=== PATIENT | male | born 1940 | race Caucasian/White ===

== ENCOUNTER 2019-06-18 01:14 | Inpatient (IN) ==
[2019-06-18] MEDS ORDERED: IPRATROPIUM/ALBUTEROL 3 ML AMPUL.NEB NEB ONE (01:27)
[2019-06-18] MEDS ORDERED: ACETAMINOPHEN 325 MG TABLET PO ONE (01:41)
[2019-06-18] MEDS ORDERED: 0.9 % SODIUM CHLORIDE 1,000 ML IV ONE (01:42)
[2019-06-18] MEDS ORDERED: cefTRIAXone 1 GM VIAL IV ONE ×2 (01:44→10:00)
[2019-06-18 02:33] LABS: Basophils # (Auto) 0 K/mcL (0.0-0.3); Basophils % (Auto) 0.2 % (0.0-2.0); Eosinophils # (Auto) 0 K/mcL (0.0-0.7); Eosinophils % (Auto) 0.4 % (0.0-7.0); Granulocytes % (Auto) 76.9 % (38.0-78.0); Hematocrit 22.6 % (41.0-55.0); Hemoglobin 7.6 g/dL (13.5-16.5); Lymphocytes # (Auto) 0.5 K/mcL (1.5-4.8); Lymphocytes % (Auto) 20.2 % (15.5-49.0); Mean Cell Volume 102.9 fL (80.0-100.0); Mean Corpuscular HGB Conc 33.8 g/dL (31.0-36.0); Mean Platelet Volume 7.3 fL (7.4-10.4); Monocytes # (Auto) 0.1 K/mcL (0.1-0.9); Monocytes % (Auto) 2.3 % (1.0-12.0); Platelet Count 90 K/mcL (140-440); RBC 2.19 M/mcL (4.50-5.90); WBC 2.7 K/mcL (4.5-11.0)
--- NOTE | 2019-06-18 02:44 | Emergency Department Note ---
SOB HPI - General Chief Complaint: Shortness of Breath/Dyspnea Stated Complaint: cough, SOB, chills, body aches Time Seen by Provider: 06/18/19 02:40 Source: patient, family Mode of arrival: ambulatory Limitations: no limitations - History of Present Illness MD Complaint: shortness of breath, cough Onset (ago): week(s) (2) Severity: moderate Consistency/Duration: constant Improves with: nothing Worsens with: coughing Known history of: other (lung ca) Associated symptoms: Reports: fever, cough, sputum production. Denies: chest pain, palpitations, carpopedal spasm Treatment prior to arrival: bronchodilator - Related Data Home oxygen amount: none Home Medications Medication Instructions Recorded Confirmed RX: Allopurinol [Zylopriim] 300 mg PO DAILY 08/12/15 06/18/19 RX: Ergocalciferol (Vitamin D2) 50,000 unit PO .TWICE WEEKLY 08/12/15 06/18/19 [Drisdol] RX: Fish Oil 4,000 mg PO TID 08/12/15 06/18/19 RX: Gabapentin [Neurontin] 300 mg PO BID@0900,1200 08/12/15 06/18/19 RX: Insulin Aspart [Novolog] 10 unit SQ TID 08/12/15 06/18/19 RX: Insulin Detemir [Levemir] 33 unit SQ DAILY 08/12/15 06/18/19 RX: Metoprolol Tartrate [Lopressor] 50 mg PO BID 08/12/15 06/18/19 RX: Nitroglycerin [Nitrostat] 0.4 mg SL Q5M PRN 08/12/15 06/18/19 RX: Sevelamer [Renvela] 800 mg PO TIDCC 08/12/15 06/18/19 RX: Vitamin E 1 cap PO DAILY 08/12/15 06/18/19 RX: Furosemide [Lasix] 40 mg PO BID 07/13/16 06/18/19 RX: Gabapentin [Neurontin] 400 mg PO HS 10/07/16 06/18/19 RX: Levothyroxine [Synthroid] 100 mcg PO QAMAC 10/07/16 06/18/19 RX: Mometasone/Formoterol [Dulera 2 puff IH BID 10/07/16 06/18/19 200 Mcg/5 Mcg Inhaler] RX: Omeprazole [Prilosec] 20 mg PO ACB 10/07/16 06/18/19 fentaNYL [Fentanyl] 50 mg TD Q3D 07/27/18 06/18/19 RX: Losartan Potassium 50 mg PO DAILY 05/21/19 06/18/19 traZODone HCL [Desyrel] 50 mg PO HS 05/21/19 06/18/19 Previous Rx's Medication Instructions Recorded RX: Ipratropium/Albuterol Sulfate 2 puff INH QID #1 inhaler 03/04/16 [Combivent] Allergies Allergy/AdvReac Type Severity Reaction Status Date / Time Penicillins Allergy Mild Hives Verified 06/18/19 01:19 Review of Systems All systems ED: reviewed and negative except as stated. Past Medical History - Past Medical History [facility] Narrative: Medical History (Last Updated 05/28/19 @ 07:10 by Olivier Ponce DO) Macrocytosis (Chronic) Hypothyroidism, acquired (Chronic) Chronic, continuous use of opioids (Chronic) History of cardiac arrest (Chronic) COPD (chronic obstructive pulmonary disease) (Chronic) History of acute myocardial infarction (Chronic) ESRD (end stage renal disease) on dialysis (Chronic) Anemia in chronic kidney disease (CKD) (Chronic) Diabetes mellitus type 2 with complications (Chronic) Diabetic neuropathy (Chronic) RBBB (right bundle branch block) (Chronic) History of gout (Acute) Acute exacerbation of chronic obstructive airways disease (Resolved) Anemia, macrocytic (Resolved) Bacteremia due to Gram-positive bacteria (Resolved) Chest pain (Resolved) Diverticulitis (Resolved) Heme positive stool (Resolved) Mass of upper lobe of left lung (Resolved) Pneumonitis (Resolved) All Active Problems (Last Updated 05/28/19 @ 07:10 by Olivier Ponce DO) Macrocytosis (Acute) Macrocytosis (Chronic) Hypothyroidism, acquired (Chronic) Shortness of breath (Acute) Angina pectoris (Acute) Chronic, continuous use of opioids (Chronic) Status post coronary artery stent placement (Chronic) History of cardiac arrest (Chronic) COPD (chronic obstructive pulmonary disease) (Chronic) History of acute myocardial infarction (Chronic) ESRD (end stage renal disease) on dialysis (Chronic) Anemia in chronic kidney disease (CKD) (Chronic) Diabetes mellitus type 2 with complications (Chronic) Diabetic neuropathy (Chronic) RBBB (right bundle branch block) (Chronic) Past Surgical History (Last Updated 05/28/19 @ 07:02 by Olivier Ponce DO) Status post coronary artery stent placement (Chronic) Status post appendectomy (Acute) Medical history: Reports: arthritis (osteoarthritis.), asthma, cancer (non-small cell lung, recurrent 2016. Cyroablation [address] [place] Prostate cancer "burned out".), CAD (coronary artery disease) (stented X 4 2001, X1 2000-toya.), CHF, COPD, DM (Type II insulin using), GERD, hyperlipidemia, hypertension, hypothyroidism, kidney stones, obesity, renal disease (end stage, dialysis started approx. 2013.), other (Gout. Diab periph neurop. Anemia. Insomnia. Restless leg syndrome. Pneumonia. Heart murmur.). Denies: CVA, myocardial infarction Psychiatric history: Reports: depression. Denies: anxiety Surgical history ED: Reports: angioplasty/stent (see above), appendectomy, other (Fistula placement) - Social History smoking status: Former smoker Alcohol use: Reports: Occasionally (Once a week.) Drug use: Reports: none. Denies: marijuana Physical Exam Limitations: no limitations General appearance: alert, in no apparent distress Head: atraumatic, normocephalic Eye: Present: normal appearance, PERRL, EOMI. Absent: scleral icterus, conjunctival injection ENT: normal oropharynx, mucous membranes moist Neck: Present: trachea midline. Absent: lymphadenopathy, thyromegaly Chest: Present: symmetric chest wall rise Respiratory: Present: rales/crackles, wheezes. Absent: normal lung sounds b ilaterally, respiratory distress, stridor, accessory muscle use, prolonged expiratory phase Cardiovascular: Present: regular rate, normal rhythm. Absent: systolic murmur, diastolic murmur Abdominal: Present: soft. Absent: distention, tenderness, guarding, rebound, rigidity, organomegaly, mass Extremities: Absent: pedal edema, pretibial edema, calf tenderness Back: Absent: CVA tenderness (R), CVA tenderness (L), spinous process tenderness Neurological: Present: alert, oriented X3 Psychiatric: Present: normal affect, normal mood Skin: Present: warm, dry Course Course Narrative: 79-year-old male presenting to the emergency department with a chief complaint of cough progressive dyspnea. Patient is noted to have a history of dialysis. Patient symptoms over 2 weeks. Patient treated in the emergency department with srikanth fluid bolus to avoid volume overload as he is on dialysis. Patient also given first dose of IV antibiotics here in the ED. Blood cultures obtained [place] was elevated white blood cell count was slightly suppressed patient was febrile this was treated with combination of Tylenol and ibuprofen. Tylenol really did not help the fever at all. Discussed case with the hospitalist and the consensus medical opinion is to admit the patient. Vital Signs Temperature 101.6 F H 06/18/19 01:15 Pulse Rate 95 H 06/18/19 01:15 Respiratory Rate 18 06/18/19 01:15 Blood Pressure 172/74 06/18/19 01:15 Pulse Oximetry (%) 90 06/18/19 01:15 Temperature 100.9 F H 06/18/19 03:27 Pulse Rate 92 H 06/18/19 03:48 Respiratory Rate 18 06/18/19 03:48 Blood Pressure 153/64 06/18/19 03:47 Pulse Oximetry (%) 93 06/18/19 03:48 Shortness of Breath/Dyspnea - Differential Diagnosis Likely: acute exacerbation of chronic obstructive airways disease, community acquired pneumonia. Unlikely: congestive heart failure, asthma with exacerbation, pulmonary embolism - Lab Data Result diagrams: 06/18/19 01:45 06/18/19 01:45 Lab Results 06/18/19 06/18/19 06/18/19 Range/Units 01:45 01:45 01:45 WBC 2.7 L (4.5-11.0) K/mcL RBC 2.19 L (4.50-5.90) M/mcL Hgb 7.6 L (13.5-16.5) g/dL Hct 22.6 L (41.0-55.0) % MCV 102.9 H (80.0-100.0) fL MCH 34.8 H (26.0-34.0) pg MCHC 33.8 (31.0-36.0) g/dL RDW 26.0 H (11.5-14.5) % Plt Count 90 L (140-440) K/mcL MPV 7.3 L (7.4-10.4) fL Gran % 76.9 (38.0-78.0) % Lymph % (Auto) 20.2 (15.5-49.0) % [place] % (Auto) 2.3 (1.0-12.0) % Eos % (Auto) 0.4 (0.0-7.0) % Baso % (Auto) 0.2 (0.0-2.0) % Gran # 2.1 (1.8-8.0) K/mcL Lymph # (Auto) 0.5 L (1.5-4.8) K/mcL [place] # (Auto) 0.1 (0.1-0.9) K/mcL Eos # (Auto) 0 (0.0-0.7) K/mcL Baso # (Auto) 0 (0.0-0.3) K/mcL VBG Lactic Acid 2.7 H (0.5-2.0) mmol/L Sodium 137 (133-145) mmol/L Potassium 4.8 (3.3-5.1) mmol/L Chloride 100 (96-108) mmol/L Carbon Dioxide 25 (22-30) mmol/L Anion Gap 12.0 (8-16) BUN 30 H (8-23) mg/dl Creatinine 3.8 H (0.7-1.2) mg/dl GFR Calculation 14 Glucose 82 (70-105) mg/dL Calcium 8.9 (8.6-10.4) mg/dl Total Bilirubin 1.1 H (0.0-1.0) mg/dL AST 29 (0-37) U/l ALT 19 (0-40) U/l Alkaline Phosphatase 134 H (39-117) U/L Total Protein 7.5 (5.9-8.4) gm/dL Albumin 3.7 (3.2-5.2) gm/dL Globulin 3.8 H (2.2-3.7) gm/dL Albumin/Globulin Ratio 1.0 (1.0-2.3) - EKG Data EKG shows normal: Reports: sinus rhythm Rate: Reports: normal Rhythm: Reports: NSR [place]/QRS: Reports: right axis deviation, RBBB Heart block present: Reports: 1st Degree Critical Care Time Critical Care Time: Yes Total Critical Care Time: 40 Disposition Pt seen by [employer]/PA only: No Clinical Impression: Chronic renal disease Pneumonia Qualifiers: Pneumonia type: due to unspecified organism Laterality: bilateral Disposition: Xfer As Inpt ([facility]) Condition: Serious Referrals: Isidro Matos ARNP [Primary Care Provider] -
[2019-06-18] MEDS ORDERED: IBUPROFEN 200 MG TABLET PO ONE (02:46)
[2019-06-18 02:52] LABS: ALT/SGPT 19 U/l (0-40); AST/SGOT 29 U/l (0-37); Albumin 3.7 gm/dL (3.2-5.2); Alkaline Phosphatase 134 U/L (39-117); Bilirubin,Total 1.1 mg/dL (0.0-1.0); Blood Urea Nitrogen 30 mg/dl (8-23); Calcium 8.9 mg/dl (8.6-10.4); Carbon Dioxide 25 mmol/L (22-30); Chloride 100 mmol/L (96-108); Globulin 3.8 gm/dL (2.2-3.7); Glomerular Filtration Rate 14; Glucose 82 mg/dL (70-105)
[2019-06-18] MEDS ORDERED: ONDANSETRON 4 MG/2 ML VIAL IV PRN ×2 (03:28→12:22)
[2019-06-18 04:24] LABS: Appearance,Urine CLEAR; Bacteria,Urine 0 /hpf (0); Bilirubin,Urine NEG (NEG); Color,Urine YELLOW; Culture Indicated,Urine NO; Glucose,Urine (UA) NEGATIVE (NEG); Ketones,Urine NEG (NEG); Leukocyte Esterase,Urine NEG /uL (NEG); Mucus,Urine FEW /hpf (0); Nitrate,Urine NEG (NEG); Protein,Urine >=500 mg/dL (NEG); Specific Gravity,Urine 1.013 (1.000-1.035); Urine Blood NEG mg/dL (<0.03); Urine RBC 4 /hpf (0-1); Urine Squamous Epithelial Cell < 1 /hpf (0-4); Urine WBC < 1 /hpf (0-4); Urobilinogen,Urine NEG (NEG)
--- NOTE | 2019-06-18 07:35 | Internal Med History&Physical ---
Medical - H&P: HPI Patient information: Note initiated : 06/18/19 at 7:32 am Service Date, if different from initiated Date: [] Patient: Giorgio Aguiar a 79 y/o M admitted on 06/18/19 for Cough, SOB, Chills, Body Aches. Chief Complaint: [] History of present illness: Mr. Aguiar is a 79 year old M Presents to the ED with 2 weeks worth of shortness of breath cough body aches fevers chills. Patient states he had productive cough and shortness of breath for the past 2 3 weeks with fevers and chills. He also has left lower lateral chest wall pleuritic pain, made worse by coughing and deep breathing. In the ER he was evaluated found to be febrile with tachypnea mild tachycardia with a leukopenia and elevated lactate. Chest x-ray with lower lobe pneumonia, more on the left. Hemoglobin low but chronically low patient states he gets his blood transfusion several times a year denies any bleeding from his stools. No diarrhea. Was admitted to [facility] in November for pneumonia and had pancytopenia at th at time and was supposed to follow-up Dr. Corona which he believes he did does not recall what Dr. Corona said. He is able to urinate a little bit throughout the day. The dialysis Friday. Review of Systems: Pertinent positives as above. Denies headache/nausea/vomiting/abdominal pain/diarrhea. Many 10 point review of system reviewed negative Medical - H&P: PMH Medical history: Medical History (Last Updated 05/28/19 @ 07:10 by Olivier Ponce DO) Macrocytosis (Chronic) Hypothyroidism, acquired (Chronic) Chronic, continuous use of opioids (Chronic) History of cardiac arrest (Chronic) COPD (chronic obstructive pulmonary disease) (Chronic) History of acute myocardial infarction (Chronic) ESRD (end stage renal disease) on dialysis (Chronic) Anemia in chronic kidney disease (CKD) (Chronic) Diabetes mellitus type 2 with complications (Chronic) Diabetic neuropathy (Chronic) RBBB (right bundle branch block) (Chronic) History of gout (Acute) Acute exacerbation of chronic obstructive airways disease (Resolved) Anemia, macrocytic (Resolved) Bacteremia due to Gram-positive bacteria (Resolved) Chest pain (Resolved) Diverticulitis (Resolved) Heme positive stool (Resolved) Mass of upper lobe of left lung (Resolved) Pneumonitis (Resolved) Squamous cell lung cancer Past Surgical History (Last Updated 05/28/19 @ 07:02 by Olivier Ponce DO) Status post coronary artery stent placement (Chronic) Status post appendectomy (Acute) Cryoablation by Dr. Trujillo squamous cell lung cancer Family history: Mother had heart disease father of an [place] Social History Patient quit smoking 2000 denies alcohol use ablates with a cane lives at home with his Medical - H&P: Meds Home Medications Medication Instructions Recorded Confirmed Type Allopurinol [Zylopriim] 300 mg PO DAILY 08/12/15 06/18/19 History Ergocalciferol (Vitamin D2) 50,000 unit PO .TWICE WEEKLY 08/12/15 06/18/19 History [Drisdol] Fish Oil 4,000 mg PO TID 08/12/15 06/18/19 History Gabapentin [Neurontin] 300 mg PO BID@0900,1200 08/12/15 06/18/19 History Insulin Aspart [Novolog] 10 unit SQ TID 08/12/15 06/18/19 History Insulin Detemir [Levemir] 33 unit SQ DAILY 08/12/15 06/18/19 History Metoprolol Tartrate [Lopressor] 50 mg PO BID 08/12/15 06/18/19 History Nitroglycerin [Nitrostat] 0.4 mg SL Q5M PRN 08/12/15 06/18/19 History Sevelamer [Renvela] 800 mg PO TIDCC 08/12/15 06/18/19 History Vitamin E 1 cap PO DAILY 08/12/15 06/18/19 History Ipratropium/Albuterol Sulfate 2 puff INH QID #1 inhaler 03/04/16 06/18/19 Rx [Combivent] Furosemide [Lasix] 40 mg PO BID 07/13/16 06/18/19 History Gabapentin [Neurontin] 400 mg PO HS 10/07/16 06/18/19 History Levothyroxine [Synthroid] 100 mcg PO QAMAC 10/07/16 06/18/19 History Mometasone/Formoterol [Dulera 200 2 puff IH BID 10/07/16 06/18/19 History Mcg/5 Mcg Inhaler] Omeprazole [Prilosec] 20 mg PO ACB 10/07/16 06/18/19 History fentaNYL [Fentanyl] 50 mg TD Q3D 07/27/18 06/18/19 History Losartan Potassium 50 mg PO DAILY 05/21/19 06/18/19 History traZODone HCL [Desyrel] 50 mg PO HS 05/21/19 06/18/19 History Allergies Allergy/AdvReac Type Severity Reaction Status Date / Time Penicillins Allergy Mild Hives Verified 06/18/19 01:19 Medical - H&P: Exam - Constitutional Vitals: Temp Pulse Resp BP Pulse Ox 99.5 F H 87 16 148/62 91 06/18/19 06:00 06/18/19 04:00 06/18/19 04:00 06/18/19 04:09 06/18/19 04:00 Exam: General: Alert, Awake, No acute Distress Eyes/N/T: EOMI, PEERL, DMM Head/Neck: neck supple, normocephalic atraumatic CV: RRR, No murmurs, normal s1/s2 Pulm: Bilateral rhonchi and occasional wheezing abd: soft, nontender, +BS x4 Ext: no clubbing/cyanosis, 1-2+ b/l chronic edema Neuro: Alert, no focal deficits, moves all extremities, CN 2-12 grossly intact, symmetrical strength b/l upper/lower, sensations intact b/l upper/lower Skin: warm/dry Medical - H&P: Reslt - Labs CBC & Chem 7: 06/18/19 01:45 06/18/19 01:45 Labs: Short CBC 06/18/19 Range/Units 01:45 WBC 2.7 L (4.5-11.0) K/mcL Hgb 7.6 L (13.5-16.5) g/dL Hct 22.6 L (41.0-55.0) % Plt Count 90 L (140-440) K/mcL BMP 06/18/19 01:45 Sodium 137 Potassium 4.8 Chloride 100 Carbon Dioxide 25 BUN 30 H Creatinine 3.8 H Glucose 82 Calcium 8.9 Liver Function 06/18/19 Range/Units 01:45 Total Bilirubin 1.1 H (0.0-1.0) mg/dL AST 29 (0-37) U/l ALT 19 (0-40) U/l Alkaline Phosphatase 134 H (39-117) U/L Albumin 3.7 (3.2-5.2) gm/dL Urine 06/18/19 Range/Units 03:30 Urine Color Yellow Urine Appearance Clear Urine pH 9.0 (5.0-9.0) Ur Specific [place] 1.013 (1.000-1.035) Urine Protein >=500 A (NEG) mg/dL Urine Glucose (UA) Negative (NEG) mg/dL - Impressions Left lower lobe pneumonia on chest x-ray Medical - H&P: A/P - Narrative A/P Narrative: A: *PNA: -PCT elevated. *Sepsis by SIRS, not qSOFA: -lactic acidosis improving, fever curve improving. Bandemia *Lactic acidosis: *COPD (no home O2): *ESRD (MWF HD): *Anemia of Chr dz w/macrocytosis: Receives transfusions several times a year -No gross bleeding/diarrhea *Pancytopenia: Was to follow-up with Dr. Corona after last hospitalization at [facility] in November *DM w/neuropathy: *Chr pain: *Hypothyroidism: *GERD: * P: -gentle IVF's, f/u lactate -azithro/rocephin -pending BC/SC -Nephro for HD -man diff -b12/folate check -cont home BP meds, hold lasix for now -Home basal insulin and SSI -cont home pain meds -f/u heme/onc outpt - -ppx: heparin/home PPI full code Medical - H&P: Qual - VTE Deep Vein Thrombosis/Pulmonary Embolism Present on Admission: No
--- NOTE | 2019-06-18 08:10 | XRay Report ---
HISTORY: Cough, shortness of breath and chest pain FINDINGS: There are streaky infiltrates in the left upper and lower lobe and faint increased interstitial lung markings lateral to the right hilum. The lung volumes are normal. There is no lobar consolidation. No mass is seen. There is no pleural effusion. The heart is mildly enlarged. The aorta is tortuous. The infiltrates are new. The size of the heart remain stable. There is a solitary small metallic foreign body anteriorly and medially in the right upper lobe. If the patient had previously been treated for prostate cancer with implanted radiation seeds, this may represent a migrated seed. No lytic or blastic metastasis are present. There is a metal plate and screws in one of the arms seen only on the lateral view. IMPRESSION: Mild bilateral pneumonia, left worse than right Interpreted and Authenticated by: Ed Barr 06/18/19
[2019-06-18 08:47] LABS: Retic Absolute 3.8 % (0.5-1.5)
[2019-06-18] MEDS ORDERED: AZITHROMYCIN 500 MG in DEXTROSE 5% IN WATER 250 ML IV SCH (09:00)
[2019-06-18 09:19] LABS: Iron 25 mcg/dl (61-157); TIBC Calculation 129 ug/dl (228-428); Transferrin % Saturation 19 % (20-50)
[2019-06-18 09:32] LABS: Anisocytosis 3+ (NONE SEEN); Band Neutrophils % 53 % (0-10); Dohle Bodies 1+ (NONE SEEN); Hypochromasia 2+ (NONE SEEN); Lymphocytes % 20 % (15-49); Macrocytosis 1+ (NONE SEEN); Metamyelocytes % 3 % (0-0); Monocytes % (Manual) 2 % (1-12); Myelocytes % 1 % (0-0); Platelet Estimate DECREASED (NORMAL); Poikilocytosis FEW (NONE SEEN); Polychromasia 2+ (NONE SEEN); RBC Morphology ABNORM (NORMAL); Reactive Lymphocytes 2 % (0-2); Segmented Neutrophils % 19 % (38-78); Tear Drop Cells FEW (NONE SEEN)
[2019-06-18] MEDS ORDERED: DEXTROSE 50% 50 ML VIAL IV PRN ×2 (09:40→12:22)
[2019-06-18] MEDS ORDERED: DEXTROSE 31 GM ORAL.SUSP PO PRN ×2 (09:40→12:22)
[2019-06-18] MEDS ORDERED: PROCHLORPERAZINE 10 MG TABLET PO PRN ×2 (09:40→12:22)
[2019-06-18] MEDS ORDERED: IPRATROPIUM/ALBUTEROL 3 ML AMPUL.NEB NEB PRN (09:40)
[2019-06-18] MEDS ORDERED: LACTULOSE 20 GM/30 ML ORAL.SOL PO PRN ×2 (09:40→12:22)
[2019-06-18] MEDS ORDERED: SENNOSIDES 1 TABLET PO PRN ×2 (09:40→12:22)
[2019-06-18] MEDS ORDERED: POLYETHYLENE GLYCOL 3350 17 GM PACKET PO PRN ×2 (09:40→12:22)
[2019-06-18] MEDS ORDERED: ACETAMINOPHEN 325 MG TABLET PO PRN ×2 (09:40→12:22)
[2019-06-18] MEDS ORDERED: 0.9 % SODIUM CHLORIDE 500 ML IV SCH ×2 (09:45→12:22)
[2019-06-18] MEDS ORDERED: NITROGLYCERIN 0.4 MG TAB.SUBL SL PRN ×2 (09:47→12:22)
[2019-06-18] MEDS ORDERED: fentaNYL 50 MCG PATCH TOPICAL SCH (10:00)
[2019-06-18] MEDS ORDERED: INSULIN LISPRO 1 UNIT/0.01 ML UNIT SQ SCH (11:30)
[2019-06-18] MEDS: IPRATROPIUM/ALBUTEROL SULFATE 1 PUFF INHALER INH SCH ×3 (12:00→21:06)
[2019-06-18] MEDS ORDERED: SEVELAMER 800 MG TABLET PO SCH (12:00)
[2019-06-18] MEDS ORDERED: GABAPENTIN 300 MG CAPSULE PO SCH (12:00)
[2019-06-18] MEDS ORDERED: IPRATROPIUM/ALBUTEROL SULFATE 1 PUFF INHALER INH SCH (13:00)
[2019-06-18] MEDS ORDERED: 0.9 % SODIUM CHLORIDE 10 ML SYRINGE IV SCH (14:00)
[2019-06-18] MEDS ORDERED: 0.9 % SODIUM CHLORIDE 250 ML IV SCH ×2 (14:30→14:45)
[2019-06-18] MEDS: 0.9 % SODIUM CHLORIDE 10 ML SYRINGE IV SCH ×2 (15:35→21:07)
[2019-06-18] MEDS: INSULIN LISPRO 1 UNIT/0.01 ML UNIT SQ SCH ×2 (17:13→20:54)
[2019-06-18] MEDS: SEVELAMER 800 MG TABLET PO SCH (18:06)
--- NOTE | 2019-06-18 18:08 | Nephrology Consult Note ---
History of Present Illness - Reason for Consult Patient information: Note initiated : 06/18/19 at 5:55 pm Service Date, if different from initiated Date: [] Patient: Giorgio Aguiar 79 y/o M admitted on 06/18/19 for Cough, SOB, Chills, Body Aches. Chief Complaint: [] Consult date: 06/18/19 end stage renal disease Requesting physician: Yash Justin - Chief Complaint short of breath - History of Present Illness This patient is an 79 yr old male with ESRD on HD for about 4 years under the care of Dr Mathur at the [facility] dialysis [facility] in [facility]. He dialyzes qMWF and Aranesp 250 ug q weeks, 50 mg Venofer q week and 1,25 vit D3 0.5 ug po post-HD. He receives heparin with HD and frequently requirs pRBCsDry wt 68.5 kg per outpatient records. The patient reports increasing SOB with sputum at home (not able to provide a sample now), Neutropenia and fever and chills. Admitted with Left lower lobe infiltrate and some patchy infiltrate on right. Given nebulizer and rocephin. As today was his dialyysis day, I evaluatefd the patient preHD and arrange for 3.5 hr treatment. Due to SOB and HgB 7 gm/dl with no prospect of a brisk reticulocytosis due to ESRD and some SVT when upright, I will transfuse 2 units pRBCs. His Tm was 102 in ED and remains febrile here in ICU. Past History Past medical history: PMH: Macrocytosis (Chronic) Hypothyroidism, acquired (Chronic) Chronic, continuous use of opioids (Chronic) History of cardiac arrest (Chronic) COPD (chronic obstructive pulmonary disease) (Chronic) History of acute myocardial infarction (Chronic) ESRD (end stage renal disease) on dialysis (Chronic) Anemia in chronic kidney disease (CKD) (Chronic) Diabetes mellitus type 2 with complications (Chronic) Diabetic neuropathy (Chronic) RBBB (right bundle branch block) (Chronic) History of gout (Acute) Acute exacerbation of chronic obstructive airways disease (Resolved) Anemia, macrocytic (Resolved) Bacteremia due to Gram-positive bacteria (Resolved) Chest pain (Resolved) Diverticulitis (Resolved) Heme positive stool (Resolved) Mass of upper lobe of left lung (Resolved) Pneumonitis (Resolved) Squamous cell lung cancer Past Surgical History (Last Updated 05/28/19 @ 07:02 by Olivier Ponce DO) Status post coronary artery stent placement (Chronic) Status post appendectomy (Acute) Cryoablation by Dr. Trujillo squamous cell lung cancer Family history: Mother had heart disease father of an [place] Social History Patient quit smoking 1999 denies alcohol use ablates with a cane lives at home with his Medications and Allergies Home Medications Medication Instructions Recorded Confirmed Type Allopurinol [Zylopriim] 300 mg PO DAILY 08/12/15 06/18/19 History Ergocalciferol (Vitamin D2) 50,000 unit PO .TWICE WEEKLY 08/12/15 06/18/19 History [Drisdol] Fish Oil 4,000 mg PO TID 08/12/15 06/18/19 History Gabapentin [Neurontin] 300 mg PO BID@0900,1200 08/12/15 06/18/19 History Insulin Aspart [Novolog] 10 unit SQ TID 08/12/15 06/18/19 History Insulin Detemir [Levemir] 33 unit SQ DAILY 08/12/15 06/18/19 History Metoprolol Tartrate [Lopressor] 50 mg PO BID 08/12/15 06/18/19 History Nitroglycerin [Nitrostat] 0.4 mg SL Q5M PRN 08/12/15 06/18/19 History Sevelamer [Renvela] 800 mg PO TIDCC 08/12/15 06/18/19 History Vitamin E 1 cap PO DAILY 08/12/15 06/18/19 History Ipratropium/Albuterol Sulfate 2 puff INH QID #1 inhaler 03/04/16 06/18/19 Rx [Combivent] Furosemide [Lasix] 40 mg PO BID 07/13/16 06/18/19 History Gabapentin [Neurontin] 400 mg PO HS 10/07/16 06/18/19 History Levothyroxine [Synthroid] 100 mcg PO QAMAC 10/07/16 06/18/19 History Mometasone/Formoterol [Dulera 200 2 puff IH BID 10/07/16 06/18/19 History Mcg/5 Mcg Inhaler] Omeprazole [Prilosec] 20 mg PO ACB 10/07/16 06/18/19 History fentaNYL [Fentanyl] 50 mg TD Q3D 07/27/18 06/18/19 History Losartan Potassium 50 mg PO DAILY 05/21/19 06/18/19 History traZODone HCL [Desyrel] 50 mg PO HS 05/21/19 06/18/19 History Allergies Allergy/AdvReac Type Severity Reaction Status Date / Time Penicillins Allergy Mild Hives Verified 06/18/19 01:19 Exam - Vital Signs Vital signs: Temp Pulse Resp BP Pulse Ox 100.8 F H 73 32 H 143/68 95 06/18/19 17:21 06/18/19 17:42 06/18/19 15:31 06/18/19 17:42 06/18/19 15:31 - General Appearance General appearance: well-developed, obese, moderate distress EENT: ATNC, PERRL, mucous membranes dry Neck: no JVD, no carotid bruit Respiratory: course breath sounds, rhonchi Cardiology: mid-systolic murmur, normal S1, normal S2 Gastrointestinal: normoactive bowel sounds, no tenderness, no guarding Integumentary: no rash Neurologic: no focal deficit, facial droop Musculoskeletal: no erythema, no cyanosis, no clubbing Psychiatric: mood/affect appropriate Results - Lab Results 06/18/19 01:45 06/18/19 01:45 Most recent lab results Calcium 8.9 mg/dl (8.6-10.4) 06/18/19 01:45 - Image Kidney/bladder ultrasound: other (FINDINGS: There are streaky infiltrates in the left upper and lower lobe) Assessment and Plan (1) Pneumonia Concern for HCAP as prior hospitalizations at [facility] and outpatient HD. Discussed broadening ABx and will add 1 dose vancomycin, change ceftriaxone to Pip-Steve and continue azithromycin for atypicals. Sputum induction Blood cultures with fever spike this evening Leukopenia suggest viral or pneumococcal pneumonia Status: Acute Priority: High Qualifiers: Pneumonia type: due to unspecified organism Laterality: bilateral (2) ESRD (end stage renal disease) on dialysis Willk dialyze this evening for volume, blood administration Continue TTS HD Status: Chronic (3) Anemia in chronic kidney disease (CKD) Seen on HD 3.5 hr treatment for uremia, volume removal and blood administration Repeat qMWF He is tachycardiac and SOB with HgB 7.3 gm/dl Will transfuse due to cardiac disease, increased oO2 demands with fever and no prospect of increased HgB with Aranesp in reasonal timeframe. Status: Chronic Priority: Medium Qualifiers: Chronic kidney disease stage: on chronic dialysis Qualified Code(s): N18.6 - End stage renal disease; D63.1 - Anemia in chronic kidney disease; Z99.2 - Dependence on renal dialysis
[2019-06-18] MEDS: traZODone HCL 50 MG TABLET PO SCH (20:52)
[2019-06-18] MEDS: DOCUSATE SODIUM 100 MG CAPSULE PO SCH (20:52)
[2019-06-18] MEDS: METOPROLOL TARTRATE 50 MG TABLET PO SCH (20:53)
[2019-06-18] MEDS: HEPARIN 5,000 UNIT/ML VIAL SQ SCH (20:53)
[2019-06-18] MEDS: FAMOTIDINE 20 MG TABLET PO SCH (20:54)
[2019-06-18] MEDS ORDERED: GABAPENTIN 400 MG CAPSULE PO SCH ×2 (21:00)
[2019-06-18] MEDS ORDERED: FAMOTIDINE 20 MG TABLET PO SCH (21:00)
[2019-06-18] MEDS ORDERED: HEPARIN 5,000 UNIT/ML VIAL SQ SCH (21:00)
[2019-06-18] MEDS ORDERED: DOCUSATE SODIUM 100 MG CAPSULE PO SCH (21:00)
[2019-06-18] MEDS ORDERED: traZODone HCL 50 MG TABLET PO SCH (21:00)
[2019-06-18] MEDS ORDERED: Mometasone/Formoterol [Dulera] 200 Mcg/5 Mcg Inhaler INH SCH (21:00)
[2019-06-18] MEDS ORDERED: METOPROLOL TARTRATE 50 MG TABLET PO SCH (21:00)
[2019-06-18] MEDS: Mometasone/Formoterol [Dulera] 200 Mcg/5 Mcg Inhaler INH SCH (21:05)
[2019-06-18] MEDS ORDERED: VANCOMYCIN 2,000 MG in 0.9 % SODIUM CHLORIDE 500 ML IV ONE (22:27)
[2019-06-19] MEDS: IPRATROPIUM/ALBUTEROL 3 ML AMPUL.NEB NEB PRN (02:38)
[2019-06-19] MEDS: 0.9 % SODIUM CHLORIDE 10 ML SYRINGE IV SCH ×3 (05:04→21:14)
[2019-06-19 05:53] LABS: Hematocrit 25.8 % (41.0-55.0); Hemoglobin 8.6 g/dL (13.5-16.5); Mean Cell Volume 98.8 fL (80.0-100.0); Mean Corpuscular HGB Conc 33.4 g/dL (31.0-36.0); Mean Platelet Volume 7.5 fL (7.4-10.4); Platelet Count 79 K/mcL (140-440); RBC 2.61 M/mcL (4.50-5.90); Red Cell Distribution Width 26.4 % (11.5-14.5); WBC 3.8 K/mcL (4.5-11.0)
[2019-06-19 06:39] LABS: Anisocytosis 3+ (NONE SEEN); Band Neutrophils % 10 % (0-10); Dohle Bodies FEW (NONE SEEN); Lymphocytes % 23 % (15-49); Monocytes % (Manual) 2 % (1-12); Ovalocytes 1+ (NONE SEEN); Platelet Estimate DECREASED (NORMAL); Polychromasia 1+ (NONE SEEN); RBC Morphology ABNORM (NORMAL); Segmented Neutrophils % 65 % (38-78)
[2019-06-19 06:47] LABS: ALT/SGPT 16 U/l (0-40); AST/SGOT 25 U/l (0-37); Albumin 3.3 gm/dL (3.2-5.2); Albumin/Globulin Ratio 0.9 (1.0-2.3); Alkaline Phosphatase 106 U/L (39-117); Bilirubin,Direct 0.5 mg/dL (0.0-0.3); Bilirubin,Total 2.1 mg/dL (0.0-1.0); Blood Urea Nitrogen 18 mg/dl (8-23); Calcium 8.5 mg/dl (8.6-10.4); Carbon Dioxide 26 mmol/L (22-30); Chloride 97 mmol/L (96-108); Globulin 3.6 gm/dL (2.2-3.7); Glomerular Filtration Rate 22; Glucose 112 mg/dL (70-105); Lactate Dehydrogenase 236 U/L (94-250); Phosphorous 3.1 mg/dL (2.7-4.5); Triglycerides 96 mg/dl (<150)
[2019-06-19] MEDS ORDERED: LEVOTHYROXINE 100 MCG TABLET PO SCH (07:30)
--- NOTE | 2019-06-19 07:59 | Internal Med Progress Note ---
Medical - PN: Subj Patient information: Note initiated : 06/19/19 at 7:54 am Service Date, if different from initiated Date: [] Patient: Giorgio Aguiar a 79 y/o M admitted on 06/18/19 for Cough, SOB, Chills, Body Aches. Chief Complaint: [] Interval history: Mr. Aguiar is a 79 year old M Presents to the ED with 2 weeks worth of shortness of breath cough body aches fevers chills. Patient states he had productive cough and shortness of breath for the past 2 3 weeks with fevers and chills. He also has left lower lateral chest wall pleuritic pain, made worse by coughing and deep breathing. In the ER he was evaluated found to be febrile with tachypnea mild tachycardia with a leukopenia and elevated lactate. Chest x-ray with lower lobe pneumonia, more on the left. Hemoglobin low but chronically low patient states he gets his blood transfusion several times a year denies any bleeding from his stools. No diarrhea. Was admitted to [facility] in November for pneumonia and had pancytopenia at that time and was supposed to follow-up Dr. Corona which he believes he did does not recall what Dr. Corona said. He is able to urinate a little bit throughout the day. The dialysis Friday. 06/19 No overnight events. Dialysis yesterday of 2988 fluid off. No new complaints. Less productive cough of clear sputum but feels it is improving. Feels shortness of breath improving. Review of Systems: denies headache/fever/chills/nausea/vomiting/chest or abdominal pain/diarrhea. Otherwise see above. - Constitutional Vitals: Vital Signs Temp Pulse Resp BP Pulse Ox 97.2 F 66 20 128/91 97 06/19/19 07:50 06/18/19 20:57 06/19/19 07:50 06/19/19 07:50 06/19/19 07:50 Period Temp Pulse Resp BP Sys/Lora Pulse Ox Last 24 Hr 97.2 F-100.8 F 60-86 18-32 121-153/48-91 82-100 Intake and Output 06/18/19 06/19/19 06/19/19 21:59 05:59 13:59 Intake Total 1168 900 Output Total 4006 Balance -2838 900 Weight 85.91 kg Intake & Output: Intake & Output 06/18/19 06/19/19 06/19/19 21:59 05:59 13:59 Intake Total 1168 900 Output Total 4006 Balance -2838 900 Weight 85.91 kg Intake: IV 500 500 Vancomycin 2,000 mg In Sodium 500 Chloride 0.9% 500 ml @ 250 mls/ hr IV ONCE ONE Rx#:[id number] Oral 0 400 Blood Product 668 Output: Hemodialysis UF 4006 Other: Meal snack Percent of Meal Consumed 100% Feeding Ability Assist with Tray Set Up Exam: General: Alert, Awake, No acute Distress Eyes/N/T: EOMI, Head/Neck: neck supple, CV: RRR, No murmurs, normal s1/s2 Pulm: Left with rhonchi and improving, right side rhonchi much improved abd: soft, nontender, +BS x4 Ext: no clubbing/cyanosis, 1-2+ b/l chronic edema Neuro: Alert, no focal deficits, moves all extremities, Skin: warm/dry Medical - PN: Obj Da - Labs CBC & Chem 7: 06/19/19 03:45 06/19/19 03:45 Labs: Abnormal Lab Results 06/19/19 06/19/19 06/18/19 03:45 03:45 14:04 WBC 3.8 L RBC 2.61 L Hgb 8.6 L Hct 25.8 L MCV MCH RDW 26.4 H Plt Count 79 L MPV Lymph # (Auto) Seg Neutrophils % Band Neutrophils % Metamyelocytes % Myelocytes % WBC Morphology Abnorm A Dohle Bodies Few A Platelet Estimate Decreased A RBC Morphology Abnorm A Polychromasia 1+ A Hypochromasia Poikilocytosis Anisocytosis 3+ A Macrocytosis Tear Drop Cells Ovalocytes 1+ A Absolute Retic VBG Lactic Acid 2.9 H BUN Creatinine 2.6 H Glucose 112 H Uric Acid 2.0 L Calcium 8.5 L Iron TIBC Unsat Iron Binding Transferrin % Sat Ferritin Total Bilirubin 2.1 H Direct Bilirubin 0.5 H GGT 248 H Alkaline Phosphatase Globulin Albumin/Globulin Ratio 0.9 L Folate Urine Protein Urine RBC 06/18/19 06/18/19 06/18/19 07:47 07:47 07:47 WBC RBC Hgb Hct MCV MCH RDW Plt Count MPV Lymph # (Auto) Seg Neutrophils % Band Neutrophils % Metamyelocytes % Myelocytes % WBC Morphology Dohle Bodies Platelet Estimate RBC Morphology Polychromasia Hypochromasia Poikilocytosis Anisocytosis Macrocytosis Tear Drop Cells Ovalocytes Absolute Retic 3.8 H VBG Lactic Acid BUN Creatinine Glucose Uric Acid Calcium Iron 25 L TIBC 129 L Unsat Iron Binding 104 L Transferrin % Sat 19 L Ferritin 1880.0 H Total Bilirubin Direct Bilirubin GGT Alkaline Phosphatase Globulin Albumin/Globulin Ratio Folate > 20.0 H Urine Protein Urine RBC 06/18/19 06/18/19 06/18/19 07:47 07:47 03:30 WBC RBC Hgb Hct MCV MCH RDW Plt Count MPV Lymph # (Auto) Seg Neutrophils % 19 L Band Neutrophils % 53 H Metamyelocytes % 3 H Myelocytes % 1 H WBC Morphology Abnorm A Dohle Bodies 1+ A Platelet Estimate Decreased A RBC Morphology Abnorm A Polychromasia 2+ A Hypochromasia 2+ A Poikilocytosis Few A Anisocytosis 3+ A Macrocytosis 1+ A Tear Drop Cells Few A Ovalocytes Absolute Retic VBG Lactic Acid 2.4 H BUN Creatinine Glucose Uric Acid Calcium Iron TIBC Unsat Iron Binding Transferrin % Sat Ferritin Total Bilirubin Direct Bilirubin GGT Alkaline Phosphatase Globulin Albumin/Globulin Ratio Folate Urine Protein >=500 A Urine RBC 4 H 06/18/19 06/18/19 06/18/19 01:45 01:45 01:45 WBC 2.7 L RBC 2.19 L Hgb 7.6 L Hct 22.6 L MCV 102.9 H MCH 34.8 H RDW 26.0 H Plt Count 90 L MPV 7.3 L Lymph # (Auto) 0.5 L Seg Neutrophils % Band Neutrophils % Metamyelocytes % Myelocytes % WBC Morphology Dohle Bodies Platelet Estimate RBC Morphology Polychromasia Hypochromasia Poikilocytosis Anisocytosis Macrocytosis Tear Drop Cells Ovalocytes Absolute Retic VBG Lactic Acid 2.7 H BUN 30 H Creatinine 3.8 H Glucose Uric Acid Calcium Iron TIBC Unsat Iron Binding Transferrin % Sat Ferritin Total Bilirubin 1.1 H Direct Bilirubin GGT Alkaline Phosphatase 134 H Globulin 3.8 H Albumin/Globulin Ratio Folate Urine Protein Urine RBC Meds: Medications Acetaminophen (Tylenol) 650 mg PO Q6HP PRN PRN Reason: PAIN/FEVER > 101 Last Admin: 06/18/19 17:45 Dose: 650 mg Documented by: Albuterol/Ipratropium (Duoneb) 3 ml NEB Q4HP PRN PRN Reason: Shortness Of Breath Last Admin: 06/19/19 02:38 Dose: 3 ml Documented by: Albuterol/Ipratropium (Combivent) 2 puff INH QID [facility] Last Admin: 06/18/19 21:06 Dose: Not Given Documented by: Allopurinol (Zyloprim) 100 mg PO DAILY [facility] Dextrose (Dextrose 50%) 0 ml IV UD PRN PRN Reason: Hypoglycemia Diagnostic Test (Pha) (Accu-Chek) 1 each FS ACHS [facility] Last Admin: 06/18/19 20:52 Dose: 1 each Documented by: Docusate Sodium (Colace) 100 mg PO BID [facility] Last Admin: 06/18/19 20:52 Dose: 100 mg Documented by: Ergocalciferol (Drisdol) 50,000 unit PO TuTh@0900 [place] Famotidine (Pepcid) 20 mg PO HS [facility] Last Admin: 06/18/19 20:54 Dose: 20 mg Documented by: Fentanyl (Duragesic) 50 mcg TOPICAL Q72H [facility] Gabapentin (Neurontin) 300 mg PO BID@0900,1200 [place] Gabapentin (Neurontin) 400 mg PO HS [facility] Last Admin: 06/18/19 20:55 Dose: 400 mg Documented by: Glucose (Insta-Glucose) 15 gm PO PRN PRN PRN Reason: Hypoglycemia Heparin Sodium (Porcine) (Heparin) 5,000 unit SQ Q12 [facility] Last Admin: 06/18/19 20:53 Dose: Not Given Documented by: Azithromycin 500 mg/ Dextrose 250 mls @ 250 mls/hr IV Q24H [facility]; Protocol Stop: 06/20/19 09:59 Insulin Glargine (Lantus) 33 unit SQ DAILY [facility] Insulin Human Lispro (Humalog) 0 unit SQ [facility]; Protocol Last Admin: 06/18/19 20:54 Dose: Not Given Documented by: Lactulose (Cephulac) 10 gm PO DAILYP PRN PRN Reason: Constipation Levothyroxine Sodium (Synthroid) 100 mcg PO QAMAC [facility] Losartan Potassium (Cozaar) 50 mg PO DAILY [facility] Metoprolol Tartrate (Lopressor) 50 mg PO BID [facility] Last Admin: 06/18/19 20:53 Dose: 50 mg Documented by: Nitroglycerin (Nitrostat) 0.4 mg SL Q5M PRN PRN Reason: Chest Pain Ondansetron HCl (Zofran) 4 mg IV Q4HP PRN PRN Reason: Nausea And Vomiting Mometasone/Formoterol [Dulera] 200 Mcg/5 Mcg Inhaler 2 dose INH BID [facility] Last Admin: 06/18/19 21:05 Dose: Not Given Documented by: Polyethylene Glycol (Miralax) 17 gm PO DAILYP PRN PRN Reason: Constipation Prochlorperazine (Compazine) 10 mg PO Q6HP PRN PRN Reason: Nausea And Vomiting Senna (Senokot) 2 tab PO HSP PRN PRN Reason: Constipation Sevelamer Carbonate (Renvela) 800 mg PO TIDCC [facility] Last Admin: 06/18/19 18:06 Dose: Not Given Documented by: Sodium Chloride (Saline Flush) 10 ml IV Q8 [facility] Last Admin: 06/19/19 05:04 Dose: 10 ml Documented by: Trazodone HCl (Desyrel) 50 mg PO HS [facility] Last Admin: 06/18/19 20:52 Dose: 50 mg Documented by: Medical - PN: A/P - Time Spent With Patient Total time spent is greater than 50% in coordination of care (as documented) at patient's floor/unit and/or counseling patient: - Narrative A/P Narrative: A: *PNA: -PCT elevated on admit. Strep/Myco neg *Sepsis by SIRS, not qSOFA: -lactic acidosis resolved, fever curve improving, afebrile last night. Bandemia resolved *COPD (no home O2): *ESRD (MWF HD): *Anemia of Chr dz w/macrocytosis: Receives transfusions several times a year and is on Aranesp -No gross bleeding/diarrhea. b12/folate ok *Pancytopenia: saw Dr. Corona after last hospitalization at [facility] in November for same; January labs seemed to improved indicating transient decrease from infection - *h/o PABLO SCC s/p cryoablation *DM w/neuropathy: *Chr pain: *Hypothyroidism: *GERD: * P: -IV Abx, pending BC/SC -Nephro for HD, prn transfusions with HD -cont home BP meds, -Home basal insulin and SSI -cont home pain meds -f/u heme/onc outpt -pt/ot -ppx: heparin/home PPI full code Medical - PN: Qual - VTE Deep Vein Thrombosis/Pulmonary Embolism Present on Admission: No
[2019-06-19] MEDS ORDERED: cefTRIAXone 2 GM in DEXTROSE 5% IN WATER 50 ML IV SCH ×2 (08:00)
[2019-06-19] MEDS: INSULIN LISPRO 1 UNIT/0.01 ML UNIT SQ SCH ×4 (08:13→21:13)
[2019-06-19] MEDS: INSULIN GLARGINE, HUMAN 1 UNIT/0.01 ML SQ SCH (08:20)
[2019-06-19] MEDS: HEPARIN 5,000 UNIT/ML VIAL SQ SCH ×2 (08:20→21:13)
[2019-06-19] MEDS: LOSARTAN 50 MG TABLET PO SCH (08:21)
[2019-06-19] MEDS: ALLOPURINOL 100 MG TABLET PO SCH (08:21)
[2019-06-19] MEDS: SEVELAMER 800 MG TABLET PO SCH ×3 (08:21→17:19)
[2019-06-19] MEDS: GABAPENTIN 300 MG CAPSULE PO SCH ×2 (08:21→11:58)
[2019-06-19] MEDS: DOCUSATE SODIUM 100 MG CAPSULE PO SCH ×2 (08:22→21:12)
[2019-06-19] MEDS: METOPROLOL TARTRATE 50 MG TABLET PO SCH ×2 (08:22→21:13)
[2019-06-19] MEDS: LEVOTHYROXINE 100 MCG TABLET PO SCH (08:24)
[2019-06-19] MEDS: AZITHROMYCIN 500 MG in DEXTROSE 5% IN WATER 250 ML IV SCH (08:39)
[2019-06-19] MEDS: Mometasone/Formoterol [Dulera] 200 Mcg/5 Mcg Inhaler INH SCH ×3 (08:39→21:14)
[2019-06-19] MEDS ORDERED: ALLOPURINOL 300 MG TABLET PO SCH ×2 (09:00)
[2019-06-19] MEDS ORDERED: INSULIN GLARGINE, HUMAN 1 UNIT/0.01 ML SQ SCH (09:00)
[2019-06-19] MEDS ORDERED: FUROSEMIDE 40 MG TABLET PO SCH ×2 (09:00)
[2019-06-19] MEDS ORDERED: LOSARTAN 50 MG TABLET PO SCH (09:00)
[2019-06-19] MEDS ORDERED: CEFEPIME 2 GM VIAL IV ONE (13:21)
--- NOTE | 2019-06-19 13:34 | Nephrology Progress Note ---
Subjective Patient information: Note initiated : 06/19/19 at 1:32 pm Service Date, if different from initiated Date: [] Patient: Giorgio Aguiar 79 y/o M admitted on 06/18/19 for Cough, SOB, Chills, Body Aches. Chief Complaint: [] Principal diagnosis: Bilateral pneumonia Interval history: Has recieved HD, pRBCs x 2 and antibiotics. Fever curve better. On Vanco, azithro and cefepime all adjusted for ESRD/HD Pertinent ROS: 10 point ROS reviewed and no fever or sputum production. Objective - Vital Signs Vital signs: Vital Signs Temp Pulse Pulse Resp BP BP Pulse Ox 06/19/19 12:00 97.5 F 24 H 119/61 95 06/19/19 07:50 97.2 F 20 128/91 97 06/19/19 04:00 99.1 F H 20 135/76 96 06/19/19 02:08 92 06/18/19 23:43 99.3 F H 20 126/68 92 06/18/19 22:01 127/53 06/18/19 21:01 99.2 F H 24 H 137/63 96 06/18/19 20:58 127/60 90 06/18/19 20:57 99.2 F H 66 137/63 06/18/19 20:49 129/54 98 06/18/19 20:42 121/67 93 06/18/19 20:41 73 129/54 06/18/19 20:37 67 121/67 06/18/19 20:31 123/61 94 06/18/19 20:26 60 123/61 06/18/19 20:19 123/75 82 L 06/18/19 20:01 98.0 F 20 128/65 94 06/18/19 19:59 99.6 F H 20 137/57 97 06/18/19 19:56 99.6 F H 66 137/57 06/18/19 19:45 99.2 F H 18 121/76 93 06/18/19 19:41 99.2 F H 83 121/76 06/18/19 19:36 125/51 90 06/18/19 19:31 74 125/51 06/18/19 19:18 149/80 92 06/18/19 19:13 98.1 F 85 149/80 06/18/19 19:10 72 94 06/18/19 19:04 126/50 06/18/19 19:01 150/48 92 06/18/19 18:58 65 126/50 06/18/19 18:55 128/62 96 06/18/19 18:52 98.4 F 18 128/54 93 06/18/19 18:46 99.7 F H 86 128/54 06/18/19 18:35 99.7 F H 22 131/52 92 06/18/19 18:31 142/51 06/18/19 18:30 98.0 F 06/18/19 18:26 81 142/51 06/18/19 18:16 147/77 06/18/19 18:11 67 147/77 06/18/19 18:01 140/64 06/18/19 17:59 79 140/64 06/18/19 17:49 143/68 06/18/19 17:46 153/66 06/18/19 17:45 100.6 F H 06/18/19 17:42 73 143/68 06/18/19 17:31 134/60 06/18/19 17:28 133/53 06/18/19 17:21 100.8 F H 70 134/60 06/18/19 17:16 137/58 06/18/19 15:31 97.9 F 73 32 H 140/65 140/65 93 Intake and Output 06/18/19 06/19/19 06/19/19 21:59 05:59 13:59 Intake Total 1168 900 433 Output Total 4006 Balance -2838 900 433 Intake: IV 500 500 213 Zithromax 500 mg In Dextrose 5% 213 in Water 250 ml @ 250 mls/hr IV Q24H [facility] Rx#:[id number] Vancomycin 2,000 mg In Sodium 500 Chloride 0.9% 500 ml @ 250 mls/ hr IV ONCE ONE Rx#:[id number] Oral 0 400 220 Blood Product 668 Output: Hemodialysis UF 4006 Other: Meal snack Breakfast Percent of Meal Consumed 100% 75% Feeding Ability Assist with Tray Set Up Independent Weight 189 lb 6.4 oz Intake & Output: Intake & Output 06/18/19 06/19/19 06/19/19 21:59 05:59 13:59 Intake Total 1168 900 433 Output Total 4006 Balance -2838 900 433 Weight 189 lb 6.4 oz Intake: IV 500 500 213 Zithromax 500 mg In Dextrose 5% 213 in Water 250 ml @ 250 mls/hr IV Q24H [facility] Rx#:[id number] Vancomycin 2,000 mg In Sodium 500 Chloride 0.9% 500 ml @ 250 mls/ hr IV ONCE ONE Rx#:[id number] Oral 0 400 220 Blood Product 668 Output: Hemodialysis UF 4006 Other: Meal snack Breakfast Percent of Meal Consumed 100% 75% Feeding Ability Assist with Tray Set Up Independent - General Appearance General appearance: well-developed, appears started age EENT: ATNC, PERRL, mucous membranes moist Neck: no JVD, supple Cardiology: mid-systolic murmur, no rub, normal S1, normal S2 Gastrointestinal: normoactive bowel sounds, no tenderness Integumentary: no rash, warm and dry Neurologic: no focal deficit, no asterixis, alert and oriented x3, facial droop Musculoskeletal: no deformities, no erythema, no clubbing Psychiatric: cooperative - Lab 06/19/19 03:45 06/19/19 03:45 Most recent lab results Calcium 8.5 mg/dl (8.6-10.4) L 06/19/19 03:45 Phosphorus 3.1 mg/dL (2.7-4.5) 06/19/19 03:45 Magnesium 1.7 mg/dL (1.6-2.5) 06/19/19 03:45 Assessment and Plan (1) Pneumonia Looked toxic yesterday, just over sedated today Cultures negative HCAP coverage but no pip/jeannie due to allergies and low platelets Plan 7 day course Improved WBC and left shift/bandemia Status: Acute Priority: High Qualifiers: Pneumonia type: due to unspecified organism Laterality: bilateral (2) ESRD (end stage renal disease) on dialysis Next treatment Friday06/21/[address] Mathur Status: Chronic (3) Anemia in chronic kidney disease (CKD) Continue aranesp and weekly IV Fe3+ S/P 2 units pRBCs Status: Chronic Priority: Medium Qualifiers: Chronic kidney disease stage: on chronic dialysis Qualified Code(s): N18.6 - End stage renal disease; D63.1 - Anemia in chronic kidney disease; Z99.2 - Dependence on renal dialysis (4) Polypharmacy [place] sedated Decrease neurontin to qHS dosing due to ESRD Fentanyl patch for neuropathy seems like overkill..taper to off Status: Acute
[2019-06-19] MEDS: IPRATROPIUM/ALBUTEROL SULFATE 1 PUFF INHALER INH SCH ×4 (15:13→21:12)
[2019-06-19] MEDS: traZODone HCL 50 MG TABLET PO SCH (21:13)
[2019-06-19] MEDS: GABAPENTIN 100 MG CAPSULE PO SCH (21:14)
[2019-06-19] MEDS: FAMOTIDINE 20 MG TABLET PO SCH (21:14)
[2019-06-20] MEDS: 0.9 % SODIUM CHLORIDE 10 ML SYRINGE IV SCH ×3 (05:21→21:12)
[2019-06-20 05:52] LABS: Hematocrit 23.5 % (41.0-55.0); Mean Cell Volume 98.4 fL (80.0-100.0); Mean Corpuscular HGB Conc 33.9 g/dL (31.0-36.0); Mean Platelet Volume 8.4 fL (7.4-10.4); Platelet Count 637 K/mcL (140-440); RBC 2.38 M/mcL (4.50-5.90); Red Cell Distribution Width 26.4 % (11.5-14.5); WBC 3.5 K/mcL (4.5-11.0)
--- NOTE | 2019-06-20 08:11 | Internal Med Progress Note ---
Medical - PN: Subj Patient information: Note initiated : 06/20/19 at 8:07 am Service Date, if different from initiated Date: [] Patient: Giorgio Aguiar a 79 y/o M admitted on 06/18/19 for Cough, SOB, Chills, Body Aches. Chief Complaint: [] Interval history: Mr. Aguiar is a 79 year old M Presents to the ED with 2 weeks worth of shortness of breath cough body aches fevers chills. Patient states he had productive cough and shortness of breath for the past 2 3 weeks with fevers and chills. He also has left lower lateral chest wall pleuritic pain, made worse by coughing and deep breathing. In the ER he was evaluated found to be febrile with tachypnea mild tachycardia with a leukopenia and elevated lactate. Chest x-ray with lower lobe pneumonia, more on the left. Hemoglobin low but chronically low patient states he gets his blood transfusion several times a year denies any bleeding from his stools. No diarrhea. Was admitted to [facility] in November for pneumonia and had pancytopenia at that time and was supposed to follow-up Dr. Corona which he believes he did does not recall what Dr. Corona said. He is able to urinate a little bit throughout the day. The dialysis Friday. 06/19 No overnight events. Dialysis yesterday of 2988 fluid off. No new complaints. Less productive cough of clear sputum but feels it is improving. Feels shortness of breath improving. 06/20 Still has productive cough with occasional bloody sputum. No shortness of breath at rest but did have shortness of breath while walking down the max today. Review of Systems: denies headache/fever/chills/nausea/vomiting/chest or abdominal pain/diarrhea. Otherwise see above. - Constitutional Vitals: Vital Signs Temp Pulse Resp BP Pulse Ox 97.2 F 69 18 122/58 96 06/20/19 03:53 06/19/19 19:01 06/20/19 03:53 06/20/19 03:53 06/20/19 03:53 Period Temp Pulse Resp BP Sys/Lora Pulse Ox Last 24 Hr 97.2 F-98.2 F 69 18-24 111-123/54-87 91-96 Intake and Output 06/19/19 06/20/19 06/20/19 21:59 05:59 13:59 Intake Total 360 220 Output Total 150 Balance 210 220 Weight 87.679 kg Intake & Output: Intake & Output 06/19/19 06/20/19 06/20/19 21:59 05:59 13:59 Intake Total 360 220 Output Total 150 Balance 210 220 Weight 87.679 kg Intake: Oral 360 220 Output: Void Amount 150 Other: Meal Dinner Percent of Meal Consumed 100% Stool Size Large Stool Color Brown Stool Consistency Soft # Bowel Movements 1 Exam: General: Alert, Awake, No acute Distress Eyes/N/T: EOMI, Head/Neck: neck supple, CV: RRR, No murmurs, normal s1/s2 Pulm: rhonchi L>R, occasional wheeze, abd: soft, nontender, +BS x4 Ext: no clubbing/cyanosis, 1+ b/l chronic edema Neuro: Alert, no focal deficits, moves all extremities, Skin: warm/dry Medical - PN: Obj Da - Labs CBC & Chem 7: 06/20/19 04:00 06/20/19 04:00 Labs: Abnormal Lab Results 06/20/19 06/19/19 06/19/19 04:00 03:45 03:45 WBC 3.5 L 3.8 L RBC 2.38 L 2.61 L Hgb 8.0 L 8.6 L Hct 23.5 L 25.8 L MCV MCH RDW 26.4 H 26.4 H Plt Count 637 H 79 L MPV Lymph # (Auto) Seg Neutrophils % Band Neutrophils % Metamyelocytes % Myelocytes % WBC Morphology Abnorm A Dohle Bodies Few A Platelet Estimate Decreased A RBC Morphology Abnorm A Polychromasia 1+ A Hypochromasia Poikilocytosis Anisocytosis 3+ A Macrocytosis Tear Drop Cells Ovalocytes 1+ A Absolute Retic VBG Lactic Acid BUN Creatinine 2.6 H Glucose 112 H Uric Acid 2.0 L Calcium 8.5 L Iron TIBC Unsat Iron Binding Transferrin % Sat Ferritin Total Bilirubin 2.1 H Direct Bilirubin 0.5 H GGT 248 H Alkaline Phosphatase Globulin Albumin/Globulin Ratio 0.9 L Folate Urine Protein Urine RBC 06/18/19 06/18/19 06/18/19 14:04 07:47 07:47 WBC RBC Hgb Hct MCV MCH RDW Plt Count MPV Lymph # (Auto) Seg Neutrophils % Band Neutrophils % Metamyelocytes % Myelocytes % WBC Morphology Dohle Bodies Platelet Estimate RBC Morphology Polychromasia Hypochromasia Poikilocytosis Anisocytosis Macrocytosis Tear Drop Cells Ovalocytes Absolute Retic VBG Lactic Acid 2.9 H BUN Creatinine Glucose Uric Acid Calcium Iron 25 L TIBC 129 L Unsat Iron Binding 104 L Transferrin % Sat 19 L Ferritin 1880.0 H Total Bilirubin Direct Bilirubin GGT Alkaline Phosphatase Globulin Albumin/Globulin Ratio Folate > 20.0 H Urine Protein Urine RBC 06/18/19 06/18/19 06/18/19 07:47 07:47 07:47 WBC RBC Hgb Hct MCV MCH RDW Plt Count MPV Lymph # (Auto) Seg Neutrophils % 19 L Band Neutrophils % 53 H Metamyelocytes % 3 H Myelocytes % 1 H WBC Morphology Abnorm A Dohle Bodies 1+ A Platelet Estimate Decreased A RBC Morphology Abnorm A Polychromasia 2+ A Hypochromasia 2+ A Poikilocytosis Few A Anisocytosis 3+ A Macrocytosis 1+ A Tear Drop Cells Few A Ovalocytes Absolute Retic 3.8 H VBG Lactic Acid 2.4 H BUN Creatinine Glucose Uric Acid Calcium Iron TIBC Unsat Iron Binding Transferrin % Sat Ferritin Total Bilirubin Direct Bilirubin GGT Alkaline Phosphatase Globulin Albumin/Globulin Ratio Folate Urine Protein Urine RBC 06/18/19 06/18/19 06/18/19 03:30 01:45 01:45 WBC RBC Hgb Hct MCV MCH RDW Plt Count MPV Lymph # (Auto) Seg Neutrophils % Band Neutrophils % Metamyelocytes % Myelocytes % WBC Morphology Dohle Bodies Platelet Estimate RBC Morphology Polychromasia Hypochromasia Poikilocytosis Anisocytosis Macrocytosis Tear Drop Cells Ovalocytes Absolute Retic VBG Lactic Acid 2.7 H BUN 30 H Creatinine 3.8 H Glucose Uric Acid Calcium Iron TIBC Unsat Iron Binding Transferrin % Sat Ferritin Total Bilirubin 1.1 H Direct Bilirubin GGT Alkaline Phosphatase 134 H Globulin 3.8 H Albumin/Globulin Ratio Folate Urine Protein >=500 A Urine RBC 4 H 06/18/19 01:45 WBC 2.7 L RBC 2.19 L Hgb 7.6 L Hct 22.6 L MCV 102.9 H MCH 34.8 H RDW 26.0 H Plt Count 90 L MPV 7.3 L Lymph # (Auto) 0.5 L Seg Neutrophils % Band Neutrophils % Metamyelocytes % Myelocytes % WBC Morphology Dohle Bodies Platelet Estimate RBC Morphology Polychromasia Hypochromasia Poikilocytosis Anisocytosis Macrocytosis Tear Drop Cells Ovalocytes Absolute Retic VBG Lactic Acid BUN Creatinine Glucose Uric Acid Calcium Iron TIBC Unsat Iron Binding Transferrin % Sat Ferritin Total Bilirubin Direct Bilirubin GGT Alkaline Phosphatase Globulin Albumin/Globulin Ratio Folate Urine Protein Urine RBC Meds: Medications Acetaminophen (Tylenol) 650 mg PO Q6HP PRN PRN Reason: PAIN/FEVER > 101 Last Admin: 06/18/19 17:45 Dose: 650 mg Documented by: Albuterol/Ipratropium (Duoneb) 3 ml NEB Q4HP PRN PRN Reason: Shortness Of Breath Last Admin: 06/19/19 02:38 Dose: 3 ml Documented by: Albuterol/Ipratropium (Combivent) 2 puff INH QID [facility] Last Admin: 06/19/19 21:12 Dose: Not Given Documented by: Allopurinol (Zyloprim) 100 mg PO DAILY [facility] Last Admin: 06/19/19 08:21 Dose: 100 mg Documented by: Cefepime HCl (Maxipime) 2 gm IV MoWeFr@1600 [facility]; Protocol Stop: 06/26/19 15:59 Dextrose (Dextrose 50%) 0 ml IV UD PRN PRN Reason: Hypoglycemia Diagnostic Test (Pha) (Accu-Chek) 1 each FS ACHS [facility] Last Admin: 06/19/19 21:12 Dose: 1 each Documented by: Docusate Sodium (Colace) 100 mg PO BID [facility] Last Admin: 06/19/19 21:12 Dose: 100 mg Documented by: Ergocalciferol (Drisdol) 50,000 unit PO TuTh@0900 [facility] Famotidine (Pepcid) 20 mg PO HS [facility] Last Admin: 06/19/19 21:14 Dose: 20 mg Documented by: Fentanyl (Duragesic) 50 mcg TOPICAL Q72H [facility] Gabapentin (Neurontin) 200 mg PO HS [facility] Last Admin: 06/19/19 21:14 Dose: 200 mg Documented by: Glucose (Insta-Glucose) 15 gm PO PRN PRN PRN Reason: Hypoglycemia Heparin Sodium (Porcine) (Heparin) 5,000 unit SQ Q12 [facility] Last Admin: 06/19/19 21:13 Dose: 5,000 unit Documented by: Azithromycin 500 mg/ Dextrose 250 mls @ 250 mls/hr IV Q24H [facility]; Protocol Stop: 06/20/19 09:59 Last Infusion: 06/19/19 10:30 Dose: Infused Documented by: Insulin Glargine (Lantus) 33 unit SQ DAILY [facility] Last Admin: 06/19/19 08:20 Dose: 33 unit Documented by: Insulin Human Lispro (Humalog) 0 unit SQ ACHS [facility]; Protocol Last Admin: 06/19/19 21:13 Dose: Not Given Documented by: Lactulose (Cephulac) 10 gm PO DAILYP PRN PRN Reason: Constipation Levothyroxine Sodium (Synthroid) 100 mcg PO QAMAC [facility] Last Admin: 06/19/19 08:24 Dose: 100 mcg Documented by: Losartan Potassium (Cozaar) 50 mg PO DAILY [facility] Last Admin: 06/19/19 08:21 Dose: 50 mg Documented by: Metoprolol Tartrate (Lopressor) 50 mg PO BID [facility] Last Admin: 06/19/19 21:13 Dose: 50 mg Documented by: Nitroglycerin (Nitrostat) 0.4 mg SL Q5M PRN PRN Reason: Chest Pain Ondansetron HCl (Zofran) 4 mg IV Q4HP PRN PRN Reason: Nausea And Vomiting Mometasone/Formoterol [Dulera] 200 Mcg/5 Mcg Inhaler 2 dose INH BID [facility] Last Admin: 06/19/19 21:14 Dose: 2 dose Documented by: Polyethylene Glycol (Miralax) 17 gm PO DAILYP PRN PRN Reason: Constipation Prochlorperazine (Compazine) 10 mg PO Q6HP PRN PRN Reason: Nausea And Vomiting Senna (Senokot) 2 tab PO HSP PRN PRN Reason: Constipation Sevelamer Carbonate (Renvela) 800 mg PO TIDCC [facility] Last Admin: 06/19/19 17:19 Dose: 800 mg Documented by: Sodium Chloride (Saline Flush) 10 ml IV Q8 [facility] Last Admin: 06/20/19 05:21 Dose: 10 ml Documented by: Trazodone HCl (Desyrel) 50 mg PO HS [facility] Last Admin: 06/19/19 21:13 Dose: 50 mg Documented by: Medical - PN: A/P - Time Spent With Patient Total time spent is greater than 50% in coordination of care (as documented) at patient's floor/unit and/or counseling patient: - Narrative A/P Narrative: A: *PNA: -PCT elevated on admit. Strep/Myco neg *Sepsis by SIRS, not qSOFA: -lactic acidosis resolved, fever curve improving, afebrile last night. Bandemia resolved *COPD (no home O2): *ESRD (MWF): *Anemia of Chr dz w/macrocytosis: Receives transfusions several times a year and is on Aranesp -No gross bleeding/diarrhea. b12/folate ok -2 units PRBC (06/19) *Pancytopenia: saw Dr. Corona after last hospitalization at [facility] in November for same; January labs seemed to improved indicating transient decrease from infection - *h/o PABLO SCC s/p cryoablation *DM w/neuropathy: *Chr pain: *Hypothyroidism: *GERD: *HTN: on lopressor/losartan *mild hyponatremia/hyperkalemia: P: -IV Abx, pending BC/SC -f/u cxr -Nephro for HD, prn transfusions with HD -cont home BP meds, -Home basal insulin and SSI -cont home pain meds -gerald changed for renal dosing -f/u heme/onc outpt -pt/ot -ppx: heparin/home PPI full code Medical - PN: Qual - VTE Deep Vein Thrombosis/Pulmonary Embolism Present on Admission: No
[2019-06-20 08:16] LABS: ALT/SGPT 14 U/l (0-40); AST/SGOT 17 U/l (0-37); Albumin 2.9 gm/dL (3.2-5.2); Albumin/Globulin Ratio 0.8 (1.0-2.3); Alkaline Phosphatase 94 U/L (39-117); Bilirubin,Direct 0.4 mg/dL (0.0-0.3); Bilirubin,Total 1.3 mg/dL (0.0-1.0); Blood Urea Nitrogen 45 mg/dl (8-23); Calcium 8.6 mg/dl (8.6-10.4); Carbon Dioxide 24 mmol/L (22-30); Chloride 96 mmol/L (96-108); Globulin 3.6 gm/dL (2.2-3.7); Glomerular Filtration Rate 14; Glucose 108 mg/dL (70-105); Lactate Dehydrogenase 187 U/L (94-250); Phosphorous 4.3 mg/dL (2.7-4.5); Triglycerides 116 mg/dl (<150); Uric Acid 3.2 mg/dL (2.5-8.0)
[2019-06-20 08:33] LABS: Anisocytosis 3+ (NONE SEEN); Band Neutrophils % 24 % (0-10); Hypochromasia 1+ (NONE SEEN); Lymphocytes % 18 % (15-49); Monocytes % (Manual) 2 % (1-12); Ovalocytes FEW (NONE SEEN); Platelet Estimate DECREASED (NORMAL); Poikilocytosis 1+ (NONE SEEN); Polychromasia 2+ (NONE SEEN); RBC Fragments RARE (NONE SEEN); RBC Morphology ABNORM (NORMAL); Segmented Neutrophils % 56 % (38-78); Spherocytes RARE (NONE SEEN); Tear Drop Cells FEW (NONE SEEN)
[2019-06-20] MEDS: LEVOTHYROXINE 100 MCG TABLET PO SCH (08:44)
[2019-06-20] MEDS: INSULIN LISPRO 1 UNIT/0.01 ML UNIT SQ SCH ×4 (08:46→20:42)
[2019-06-20] MEDS: ALLOPURINOL 100 MG TABLET PO SCH (09:14)
[2019-06-20] MEDS: HEPARIN 5,000 UNIT/ML VIAL SQ SCH ×2 (09:14→20:41)
[2019-06-20] MEDS: AZITHROMYCIN 500 MG in DEXTROSE 5% IN WATER 250 ML IV SCH (09:14)
[2019-06-20] MEDS: LOSARTAN 50 MG TABLET PO SCH (09:15)
[2019-06-20] MEDS: METOPROLOL TARTRATE 50 MG TABLET PO SCH ×2 (09:15→20:41)
[2019-06-20] MEDS: INSULIN GLARGINE, HUMAN 1 UNIT/0.01 ML SQ SCH (09:15)
[2019-06-20] MEDS: SEVELAMER 800 MG TABLET PO SCH ×3 (09:15→16:56)
[2019-06-20] MEDS: DOCUSATE SODIUM 100 MG CAPSULE PO SCH ×2 (09:15→20:40)
[2019-06-20] MEDS: Mometasone/Formoterol [Dulera] 200 Mcg/5 Mcg Inhaler INH SCH ×2 (09:16→20:41)
[2019-06-20] MEDS: IPRATROPIUM/ALBUTEROL SULFATE 1 PUFF INHALER INH SCH ×4 (09:16→20:40)
--- NOTE | 2019-06-20 13:18 | XRay Report ---
HISTORY: Pneumonia FINDINGS: Patient has mild pneumonia in the left lung. There is involvement in the left lower lobe adjacent to the cardiac apex. There is also mild involvement around the left hilum extending into the left upper lobe. Right lung is clear. There is a tiny left-sided pleural effusion. The heart is mildly enlarged. The pulmonary vessels, best seen in the right lung are normal in caliber. Comparison with the prior exam from 06/18/19 shows no significant change in left lung and resolution of previously seen mild right perihilar infiltrate. IMPRESSION: Persistent mild pneumonia involving the left upper, left lower lobe and possibly inferior segment of the lingula Interpreted and Authenticated by: Ed Barr 06/20/19
--- NOTE | 2019-06-20 13:25 | Nephrology Progress Note ---
Subjective Patient information: Note initiated : 06/20/19 at 1:23 pm Service Date, if different from initiated Date: [] Patient: Giorgio Aguiar 79 y/o M admitted on 06/18/19 for Cough, SOB, Chills, Body Aches. Chief Complaint: [] Principal diagnosis: Bilateral pneumonia Interval history: Improved MS and fever curve Pertinent ROS: RoS reviewed Improved alertness and mentation Less pain No F/C/R/Night sweats Additional PMFSH (Level 3 Only): Nothing to add Objective - Vital Signs Vital signs: Vital Signs Temp Pulse Resp BP Pulse Ox 06/20/19 12:00 96.7 F L 20 125/60 94 06/20/19 09:11 96.4 F L 16 123/58 94 06/20/19 08:56 123/58 06/20/19 03:53 97.2 F 18 122/58 96 06/20/19 00:43 97.5 F 20 111/87 94 06/19/19 19:31 98.2 F 20 123/54 91 06/19/19 19:01 69 94 06/19/19 15:25 97.4 F 20 121/76 95 06/19/19 15:10 121/76 95 Intake and Output 06/19/19 06/20/19 06/20/19 21:59 05:59 13:59 Intake Total 360 220 Output Total 150 300 Balance 210 220 -300 Intake: Oral 360 220 Output: Void Amount 150 300 Other: Meal Dinner Percent of Meal Consumed 100% Urine Color Dark Yellow Stool Size Large Stool Color Brown Stool Consistency Soft # Bowel Movements 1 Weight 193 lb 4.8 oz Intake & Output: Intake & Output 06/19/19 06/20/19 06/20/19 21:59 05:59 13:59 Intake Total 360 220 Output Total 150 300 Balance 210 220 -300 Weight 193 lb 4.8 oz Intake: Oral 360 220 Output: Void Amount 150 300 Other: Meal Dinner Percent of Meal Consumed 100% Urine Color Dark Yellow Stool Size Large Stool Color Brown Stool Consistency Soft # Bowel Movements 1 - General Appearance General appearance: well-developed, well-nourished, obese, chronically ill EENT: ATNC, PERRL, mucous membranes moist Neck: no JVD, no carotid bruit, supple Respiratory: rhonchi Cardiology: no murmurs, no rub, no gallops, regular rate, regular rhythm, normal S1 Gastrointestinal: normoactive bowel sounds, no tenderness, no guarding, no organomegaly, no masses Integumentary: no rash, warm and dry Neurologic: no focal deficit, no asterixis, alert and oriented x3 Musculoskeletal: no deformities, no erythema, no clubbing Psychiatric: mood/affect appropriate - Lab 06/20/19 04:00 06/20/19 04:00 Most recent lab results Calcium 8.6 mg/dl (8.6-10.4) 06/20/19 04:00 Phosphorus 4.3 mg/dL (2.7-4.5) 06/20/19 04:00 Magnesium 1.9 mg/dL (1.6-2.5) 06/20/19 04:00 Assessment and Plan (1) Pneumonia Looked toxic yesterday, just over sedated today Cultures negative HCAP coverage but no pip/jeannie due to allergies and low platelets Plan 7 day course Improved WBC and left shift/bandemia Start ambulation PO ABx tomorrow Redose with vanco post HD Sputum with gm pos cocci in pairs / culture pending Status: Acute Priority: High Qualifiers: Pneumonia type: due to unspecified organism Laterality: bilateral (2) ESRD (end stage renal disease) on dialysis Next treatment Friday06/21/19 Orders written Outpatient unit with Dr. Mathur Status: Chronic (3) Anemia in chronic kidney disease (CKD) Continue aranesp and weekly IV Fe3+ Aranesp and IV iron with HD S/P 2 units pRBCs on 06/19/19 Status: Chronic Priority: Medium Qualifiers: Chronic kidney disease stage: on chronic dialysis Qualified Code(s): N18.6 - End stage renal disease; D63.1 - Anemia in chronic kidney disease; Z99.2 - Dependence on renal dialysis (4) Polypharmacy Oretta sedated Decrease neurontin to qHS dosing due to ESRD Fentanyl patch for neuropathy seems like overkill..taper to off Stable and improved MS Status: Acute
[2019-06-20] MEDS ORDERED: CEFEPIME 1 GM VIAL IV SCH (13:30)
--- NOTE | 2019-06-20 20:40 | Discharge Summary ---
Medical - DS: Prov Patient information: Note initiated : 06/20/19 at 8:35 pm Service Date, if different from initiated Date: [] Patient: Giorgio Aguiar 79 y/o M admitted on 06/18/19 for Cough, SOB, Chills, Body Aches. Chief Complaint: [] Date of admission: 06/18/19 03:59 Discharge date: 06/22/19 Primary care physician: Isidro Matos Consults: 06/18/19 Consult to Physician [CONS] Stat Comment: Consulting Provider: Yash Justin Reason For Exam: Physician to Consult Consult to Physician [CONS] Stat Comment: Consulting Provider: Yash Justin Reason For Exam: Physician to Consult Consult to Physician [CONS] Stat Comment: Consulting Provider: Moris Mathur Reason For Exam: Physician to Consult Consult to Physician [CONS] Stat Comment: Consulting Provider: Sydnee Hernandez Reason For Exam: Physician to Consult Medical - DS: Meds - Discharge Medications Prescriptions: Allopurinol [Zyloprim] 100 mg PO DAILY #30 tab fentaNYL [Duragesic] 25 mcg TOPICAL Q72H #3 patch Gabapentin [Neurontin] 200 mg PO HS #20 cap Levofloxacin [Levaquin] 500 mg PO Q48H #3 tab Active and Home Medications: Home Medications Allopurinol [Zylopriim] 300 mg PO DAILY 08/12/15 [History Confirmed 06/18/19 Last Taken 05/21/19] Ergocalciferol (Vitamin D2) [Drisdol] 50,000 unit PO .TWICE WEEKLY 08/12/15 [History Confirmed 06/18/19 Last Taken 05/21/19] Fish Oil 4,000 mg PO TID 08/12/15 [History Confirmed 06/18/19 Last Taken 05/21/19] Gabapentin [Neurontin] 300 mg PO BID@0900,1200 08/12/15 [History Confirmed 06/18/19 Last Taken 05/21/19] Insulin Aspart [Novolog] 10 unit SQ TID 08/12/15 [History Confirmed 06/18/19 Last Taken 05/20/19] Insulin Detemir [Levemir] 33 unit SQ DAILY 08/12/15 [History Confirmed 06/18/19 Last Taken 05/21/19] Metoprolol Tartrate [Lopressor] 50 mg PO BID 08/12/15 [History Confirmed 06/18/19 Last Taken 05/21/19] Nitroglycerin [Nitrostat] 0.4 mg SL Q5M PRN 08/12/15 [History Confirmed 06/18/19 Last Taken 05/07/19] Sevelamer [Renvela] 800 mg PO TIDCC 08/12/15 [History Confirmed 06/18/19 Last Taken 05/21/19] Vitamin E 1 cap PO DAILY 08/12/15 [History Confirmed 06/18/19 Last Taken 05/21/19] Ipratropium/Albuterol Sulfate [Combivent] 2 puff INH QID #1 inhaler 03/04/16 [Rx Confirmed 06/18/19 Last Taken Unknown] Furosemide [Lasix] 40 mg PO BID 07/13/16 [History Confirmed 06/18/19 Last Taken 05/20/19] Gabapentin [Neurontin] 400 mg PO HS 10/07/16 [History Confirmed 06/18/19 Last Taken Unknown] Levothyroxine [Synthroid] 100 mcg PO QAMAC 10/07/16 [History Confirmed 06/18/19 Last Taken 05/21/19] Mometasone/Formoterol [Dulera 200 Mcg/5 Mcg Inhaler] 2 puff IH BID 10/07/16 [History Confirmed 06/18/19 Last Taken 05/21/19] Omeprazole [Prilosec] 20 mg PO ACB 10/07/16 [History Confirmed 06/18/19 Last Taken 05/21/19] fentaNYL [Fentanyl] 50 mg TD Q3D 07/27/18 [History Confirmed 06/18/19 Last Taken 05/20/19] Losartan Potassium 50 mg PO DAILY 05/21/19 [History Confirmed 06/18/19 Last Taken 05/21/19] traZODone HCL [Desyrel] 50 mg PO HS 05/21/19 [History Confirmed 06/18/19 Last Taken 05/20/19] Home Medications Ergocalciferol (Vitamin D2) [Drisdol] 50,000 unit PO .TWICE WEEKLY 08/12/15 [History Confirmed 06/18/19 Last Taken 05/21/19] Fish Oil 4,000 mg PO TID 08/12/15 [History Confirmed 06/18/19 Last Taken 05/21/19] Insulin Aspart [Novolog] 10 unit SQ TID 08/12/15 [History Confirmed 06/18/19 Last Taken 05/20/19] Insulin Detemir [Levemir] 33 unit SQ DAILY 08/12/15 [History Confirmed 06/18/19 Last Taken 05/21/19] Metoprolol Tartrate [Lopressor] 50 mg PO BID 08/12/15 [History Confirmed 06/18/19 Last Taken 05/21/19] Nitroglycerin [Nitrostat] 0.4 mg SL Q5M PRN 08/12/15 [History Confirmed 06/18/19 Last Taken 05/07/19] Sevelamer [Renvela] 800 mg PO TIDCC 08/12/15 [History Confirmed 06/18/19 Last Taken 05/21/19] Vitamin E 1 cap PO DAILY 08/12/15 [History Confirmed 06/18/19 Last Taken 05/21/19] Ipratropium/Albuterol Sulfate [Combivent] 2 puff INH QID #1 inhaler 03/04/16 [Rx Confirmed 06/18/19 Last Taken Unknown] Furosemide [Lasix] 40 mg PO BID 07/13/16 [History Confirmed 06/18/19 Last Taken 05/20/19] Levothyroxine [Synthroid] 100 mcg PO QAMAC 10/07/16 [History Confirmed 06/18/19 Last Taken 05/21/19] Mometasone/Formoterol [Dulera 200 Mcg/5 Mcg Inhaler] 2 puff IH BID 10/07/16 [History Confirmed 06/18/19 Last Taken 05/21/19] Omeprazole [Prilosec] 20 mg PO ACB 10/07/16 [History Confirmed 06/18/19 Last Taken 05/21/19] Losartan Potassium 50 mg PO DAILY 05/21/19 [History Confirmed 06/18/19 Last Taken 05/21/19] traZODone HCL [Desyrel] 50 mg PO HS 05/21/19 [History Confirmed 06/18/19 Last Taken 05/20/19] Gabapentin [Neurontin] 200 mg PO HS #20 cap 06/20/19 [Rx Last Taken Unknown] Allopurinol [Zyloprim] 100 mg PO DAILY #30 tab 06/22/19 [Rx Last Taken Unknown] Levofloxacin [Levaquin] 500 mg PO Q48H #3 tab 06/22/19 [Rx Last Taken Unknown] fentaNYL [Duragesic] 25 mcg TOPICAL Q72H #3 patch 06/22/19 [Rx Last Taken Unknown] Medical - DS: Hosp Hospital course: Mr. Aguiar is a 79 year old M Mr. Aguiar is a 79 year old M Presents to the ED with 2 weeks worth of shortness of breath cough body aches fevers chills. Patient states he had productive cough and shortness of breath for the past 2 3 weeks with fevers and chills. He also has left lower lateral chest wall pleuritic pain, made worse by coughing and deep breathing. In the ER he was evaluated found to be febrile with tachypnea mild tachycardia with a leukopenia and elevated lactate. Chest x-ray with lower lobe pneumonia, more on the left. Hemoglobin low but chronically low patient states he gets his blood transfusion several times a year denies any bleeding from his stools. No diarrhea. Was admitted to [facility] in November for pneumonia and had pancytopenia at that time and was supposed to follow-up Dr. Corona which he believes he did does not recall what Dr. Corona said. He is able to urinate a little bit throughout the day. The dialysis Friday. 06/19 No overnight events. Dialysis yesterday of 2988 fluid off. No new complaints. Less productive cough of clear sputum but feels it is improving. Feels shortness of breath improving. 06/20 Still has productive cough with occasional bloody sputum. No shortness of breath at rest but did have shortness of breath while walking down the max today. 06/21 States poor sleep last night. Has productive cough frequency decreasing. Has some shortness of breath, But oxygenating well on room air. No overnight events. Walked 300 feet with physical therapy this morning 06/22 Doing well no overnight events. Patient feeling better stable for discharge A: *PNA: -PCT elevated on admit. Strep/Myco neg *Sepsis by SIRS, not qSOFA: resolved -lactic acidosis resolved, now afebrile. Bandemia resolved *COPD (no home O2): *ESRD (MWF): *Anemia of Chr dz w/macrocytosis: Receives transfusions several times a year and is on Aranesp -No gross bleeding/diarrhea. b12/folate ok -2 units PRBC (06/19) *Pancytopenia: saw Dr. Corona after last hospitalization at [facility] in November for same; January labs seemed to improved indicating transient decrease from infection -stable *h/o PABLO SCC s/p cryoablation *DM w/neuropathy: *Chr pain: on home fentanyl *Hypothyroidism: *GERD: *HTN: on lopressor/losartan *mild hyponatremia/hyperkalemia: P: -IV Abx, pending final BC/SC -Nephro for HD, prn transfusions with HD -cont home BP meds, -Home basal insulin and SSI -cont home pain meds -gerald changed for renal dosing; decrease home Fentanyl -f/u heme/onc outpt -pt/ot -ppx: heparin/home PPI Discharge diagnosis: Pneumonia sepsis COPD end-stage renal disease anemia pancytopenia Secondary discharge diagnosis: 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 chronic pain hypothyroidism GERD hypertension - Time Spent with Patient Total time spent providing and/or coordinating discharge services: Greater than 30 minutes Medical - DS: Exam - Constitutional Vitals: Vital Signs Temp Pulse Resp BP BP Pulse Ox 06/20/19 17:29 97.0 F 18 147/82 100 06/20/19 17:28 97.4 F 62 16 147/82 100 06/20/19 12:45 125/60 06/20/19 12:00 96.7 F L 20 125/60 94 06/20/19 09:11 96.4 F L 16 123/58 94 06/20/19 08:56 123/58 06/20/19 03:53 97.2 F 18 122/58 96 06/20/19 00:43 97.5 F 20 111/87 94 Intake and Output 06/20/19 06/20/19 06/20/19 05:59 13:59 21:59 Intake Total 220 360 Output Total 300 350 Balance 220 -300 10 Intake: Oral 220 360 Output: Void Amount 300 350 Other: Meal Dinner Percent of Meal Consumed 100% Urine Color Dark Yellow Weight 88.723 kg Patient Weight 06/21/19 05:59 Weight 88.723 kg Medical - DS: Data Labs on day of discharge: Labs from last 24 hours 07/28/19 07/28/19 04:00 04:00 WBC 3.5 L RBC 2.38 L Hgb 8.0 L Hct 23.5 L MCV 98.4 MCH 33.4 MCHC 33.9 RDW 26.4 H Plt Count 637 H MPV 8.4 Total Counted 100 Seg Neutrophils % 56 Band Neutrophils % 24 H Lymphocytes % 18 Monocytes % (Manual) 2 WBC Morphology Abnorm A WBC Morphology Comment Comment Platelet Estimate Decreased A RBC Morphology Abnorm A Polychromasia 2+ A Hypochromasia 1+ A Poikilocytosis 1+ A Anisocytosis 3+ A Spherocytes Rare A Tear Drop Cells Few A Ovalocytes Few A RBC Fragments Rare A Sodium 132 L Potassium 5.3 H Chloride 96 Carbon Dioxide 24 Anion Gap 12.0 BUN 45 H Creatinine 3.9 H GFR Calculation 14 Glucose 108 H Uric Acid 3.2 Calcium 8.6 Phosphorus 4.3 Magnesium 1.9 Total Bilirubin 1.3 H Direct Bilirubin 0.4 H GGT 226 H AST 17 ALT 14 Alkaline Phosphatase 94 Lactate Dehydrogenase 187 Total Protein 6.5 Albumin 2.9 L Globulin 3.6 Albumin/Globulin Ratio 0.8 L Triglycerides 116 Preliminary micro results at discharge 06/18/19 18:15 Blood Culture - Preliminary Blood 06/18/19 18:20 Blood Culture - Preliminary Blood 06/19/19 17:32 Sputum Culture - Preliminary Sputum - Induced 06/18/19 01:45 Blood Culture - Preliminary Blood 06/18/19 01:54 Blood Culture - Preliminary Blood Medical - DS: A/P - Patient/Caregiver Discharge Instructions Activity: increase activity as tolerated Diet: Renal/Consistent Carbs Additional Instructions: Follow up appointment with Rufino Michaels FridayJuly 06, @ 1:30 p.m. Prescriptions: Allopurinol [Zyloprim] 100 mg PO DAILY #30 tab fentaNYL [Duragesic] 25 mcg TOPICAL Q72H #3 patch Gabapentin [Neurontin] 200 mg PO HS #20 cap Levofloxacin [Levaquin] 500 mg PO Q48H #3 tab - Follow up Plan Follow up with: Robbie Corona MD [Physician] - (Pancytopenia) Isidro Matos ARNP [Primary Care Provider] - Moris Mathur MD [Physician] - Disposition: Home, Self-Care Prognosis: Fair Rehab Potential: Fair Overall status at discharge: patient is progressing back to baseline Medical - DS: Qual - VTE Deep Vein Thrombosis/Pulmonary Embolism Present on Admission: No
[2019-06-20] MEDS: traZODone HCL 50 MG TABLET PO SCH (20:41)
[2019-06-20] MEDS: GABAPENTIN 100 MG CAPSULE PO SCH (20:41)
[2019-06-20] MEDS: FAMOTIDINE 20 MG TABLET PO SCH (20:41)
[2019-06-21] MEDS: IPRATROPIUM/ALBUTEROL 3 ML AMPUL.NEB NEB PRN (04:05)
[2019-06-21] MEDS: 0.9 % SODIUM CHLORIDE 10 ML SYRINGE IV SCH ×3 (05:04→22:27)
[2019-06-21 06:07] LABS: Retic Absolute 2.5 % (0.5-1.5)
[2019-06-21 06:12] LABS: ALT/SGPT 14 U/l (0-40); AST/SGOT 18 U/l (0-37); Albumin 2.9 gm/dL (3.2-5.2); Albumin/Globulin Ratio 0.8 (1.0-2.3); Alkaline Phosphatase 100 U/L (39-117); Bilirubin,Direct 0.3 mg/dL (0.0-0.3); Blood Urea Nitrogen 62 mg/dl (8-23); Calcium 8.4 mg/dl (8.6-10.4); Carbon Dioxide 23 mmol/L (22-30); Chloride 94 mmol/L (96-108); Globulin 3.6 gm/dL (2.2-3.7); Glomerular Filtration Rate 12; Glucose 68 mg/dL (70-105); Lactate Dehydrogenase 166 U/L (94-250); Phosphorous 4.8 mg/dL (2.7-4.5); Triglycerides 92 mg/dl (<150)
[2019-06-21 06:46] LABS: Hematocrit 22.9 % (41.0-55.0); Hemoglobin 7.8 g/dL (13.5-16.5); Mean Cell Volume 98.9 fL (80.0-100.0); Mean Corpuscular HGB Conc 33.9 g/dL (31.0-36.0); Mean Platelet Volume 7.8 fL (7.4-10.4); Platelet Count 80 K/mcL (140-440); RBC 2.32 M/mcL (4.50-5.90); Red Cell Distribution Width 25.1 % (11.5-14.5); WBC 3.4 K/mcL (4.5-11.0)
[2019-06-21 06:56] LABS: Anisocytosis 2+ (NONE SEEN); Band Neutrophils % 5 % (0-10); Lymphocytes % 26 % (15-49); Nucleated Red Blood Cells 1 % (0-0); Ovalocytes FEW (NONE SEEN); Platelet Estimate DECREASED (NORMAL); Polychromasia 1+ (NONE SEEN); RBC Fragments RARE (NONE SEEN); RBC Morphology ABNORM (NORMAL); Segmented Neutrophils % 69 % (38-78); Spherocytes RARE (NONE SEEN); Tear Drop Cells FEW (NONE SEEN)
[2019-06-21] MEDS ORDERED: 0.9 % SODIUM CHLORIDE 250 ML IV SCH ×2 (07:45→12:01)
[2019-06-21] MEDS: SEVELAMER 800 MG TABLET PO SCH ×3 (07:55→15:30)
[2019-06-21] MEDS: LEVOTHYROXINE 100 MCG TABLET PO SCH (07:55)
[2019-06-21] MEDS: INSULIN LISPRO 1 UNIT/0.01 ML UNIT SQ SCH ×4 (07:55→22:15)
[2019-06-21] MEDS ORDERED: fentaNYL 25 MCG PATCH TOPICAL SCH (09:00)
[2019-06-21] MEDS: DOCUSATE SODIUM 100 MG CAPSULE PO SCH ×2 (09:30→21:54)
[2019-06-21] MEDS: HEPARIN 5,000 UNIT/ML VIAL SQ SCH ×2 (09:30→22:36)
[2019-06-21] MEDS: ALLOPURINOL 100 MG TABLET PO SCH (09:30)
[2019-06-21] MEDS: METOPROLOL TARTRATE 50 MG TABLET PO SCH ×2 (09:30→21:53)
[2019-06-21] MEDS: LOSARTAN 50 MG TABLET PO SCH (09:30)
[2019-06-21] MEDS: INSULIN GLARGINE, HUMAN 1 UNIT/0.01 ML SQ SCH (09:31)
[2019-06-21] MEDS: IPRATROPIUM/ALBUTEROL SULFATE 1 PUFF INHALER INH SCH ×4 (09:31→22:15)
[2019-06-21] MEDS: Mometasone/Formoterol [Dulera] 200 Mcg/5 Mcg Inhaler INH SCH ×2 (09:35→21:55)
--- NOTE | 2019-06-21 09:41 | Internal Med Progress Note ---
Medical - PN: Subj Patient information: Note initiated : 06/21/19 at 9:33 am Service Date, if different from initiated Date: [] Patient: Giorgio Aguiar a 79 y/o M admitted on 06/18/19 for Cough, SOB, Chills, Body Aches. Chief Complaint: [] Interval history: Mr. Aguiar is a 79 year old M Presents to the ED with 2 weeks worth of shortness of breath cough body aches fevers chills. Patient states he had productive cough and shortness of breath for the past 2 3 weeks with fevers and chills. He also has left lower lateral chest wall pleuritic pain, made worse by coughing and deep breathing. In the ER he was evaluated found to be febrile with tachypnea mild tachycardia with a leukopenia and elevated lactate. Chest x-ray with lower lobe pneumonia, more on the left. Hemoglobin low but chronically low patient states he gets his blood transfusion several times a year denies any bleeding from his stools. No diarrhea. Was admitted to [facility] in November for pneumonia and had pancytopenia at that time and was supposed to follow-up Dr. Corona which he believes he did does not recall what Dr. Corona said. He is able to urinate a little bit throughout the day. The dialysis Friday. 06/19 No overnight events. Dialysis yesterday of 2988 fluid off. No new complaints. Less productive cough of clear sputum but feels it is improving. Feels shortness of breath improving. 06/20 Still has productive cough with occasional bloody sputum. No shortness of breath at rest but did have shortness of breath while walking down the max today. 06/21 States poor sleep last night. Has productive cough frequency decreasing. Has some shortness of breath, But oxygenating well on room air. No overnight events. Walked 300 feet with physical therapy this morning Review of Systems: denies headache/fever/chills/nausea/vomiting/chest or abdominal pain/diarrhea. Otherwise see above. - Constitutional Vitals: Vital Signs Temp Pulse Resp BP Pulse Ox 98.3 F 61 16 129/63 96 06/21/19 03:43 06/20/19 18:36 06/21/19 03:43 06/21/19 03:43 06/21/19 03:43 Period Temp Pulse Resp BP Sys/Lora Pulse Ox Last 24 Hr 96.7 F-99.0 F 61-62 16-20 125-147/60-82 94-100 Intake and Output 06/20/19 06/21/19 06/21/19 21:59 05:59 13:59 Intake Total 360 75 300 Output Total 350 150 250 Balance 10 -75 50 Weight 88.723 kg Intake & Output: Intake & Output 06/20/19 06/21/19 06/21/19 21:59 05:59 13:59 Intake Total 360 75 300 Output Total 350 150 250 Balance 10 -75 50 Weight 88.723 kg Intake: Oral 360 75 300 Output: Void Amount 350 150 250 Other: Meal Dinner Breakfast Percent of Meal Consumed 100% 100% Urine Appearance Cloudy Urine Color Bright Yellow Exam: General: Alert, Awake, No acute Distress Eyes/N/T: EOMI, Head/Neck: neck supple, CV: RRR, No murmurs, normal s1/s2 Pulm: Much improved rhonchi L>R, occasional wheeze, abd: soft, nontender, +BS x4 Ext: no clubbing/cyanosis, 1+ edema RLE and none on LLE Neuro: Alert, no focal deficits, moves all extremities, Skin: warm/dry Medical - PN: Obj Da - Labs CBC & Chem 7: 06/21/19 03:35 06/21/19 03:35 Labs: Abnormal Lab Results 06/21/19 06/21/19 06/21/19 03:50 03:35 03:35 WBC 3.4 L RBC 2.32 L Hgb 7.8 L Hct 22.9 L RDW 25.1 H Plt Count 80 L Band Neutrophils % Nucleated RBCs 1 H WBC Morphology Dohle Bodies Platelet Estimate Decreased A RBC Morphology Abnorm A Polychromasia 1+ A Hypochromasia Poikilocytosis Anisocytosis 2+ A Spherocytes Rare A Tear Drop Cells Few A Ovalocytes Few A RBC Fragments Rare A Absolute Retic 2.5 H VBG Lactic Acid Sodium 130 L Potassium Chloride 94 L BUN 62 H Creatinine 4.4 H Glucose 68 L Uric Acid Calcium 8.4 L Phosphorus 4.8 H Ferritin Total Bilirubin Direct Bilirubin GGT 225 H Albumin 2.9 L Albumin/Globulin Ratio 0.8 L Folate 06/20/19 06/20/19 06/19/19 04:00 04:00 03:45 WBC 3.5 L RBC 2.38 L Hgb 8.0 L Hct 23.5 L RDW 26.4 H Plt Count 637 H Band Neutrophils % 24 H Nucleated RBCs WBC Morphology Abnorm A Dohle Bodies Platelet Estimate Decreased A RBC Morphology Abnorm A Polychromasia 2+ A Hypochromasia 1+ A Poikilocytosis 1+ A Anisocytosis 3+ A Spherocytes Rare A Tear Drop Cells Few A Ovalocytes Few A RBC Fragments Rare A Absolute Retic VBG Lactic Acid Sodium 132 L Potassium 5.3 H Chloride BUN 45 H Creatinine 3.9 H 2.6 H Glucose 108 H 112 H Uric Acid 2.0 L Calcium 8.5 L Phosphorus Ferritin Total Bilirubin 1.3 H 2.1 H Direct Bilirubin 0.4 H 0.5 H GGT 226 H 248 H Albumin 2.9 L Albumin/Globulin Ratio 0.8 L 0.9 L Folate 06/19/19 06/18/19 06/18/19 03:45 14:04 07:47 WBC 3.8 L RBC 2.61 L Hgb 8.6 L Hct 25.8 L RDW 26.4 H Plt Count 79 L Band Neutrophils % Nucleated RBCs WBC Morphology Abnorm A Dohle Bodies Few A Platelet Estimate Decreased A RBC Morphology Abnorm A Polychromasia 1+ A Hypochromasia Poikilocytosis Anisocytosis 3+ A Spherocytes Tear Drop Cells Ovalocytes 1+ A RBC Fragments Absolute Retic VBG Lactic Acid 2.9 H Sodium Potassium Chloride BUN Creatinine Glucose Uric Acid Calcium Phosphorus Ferritin Total Bilirubin Direct Bilirubin GGT Albumin Albumin/Globulin Ratio Folate > 20.0 H 06/18/19 07:47 WBC RBC Hgb Hct RDW Plt Count Band Neutrophils % Nucleated RBCs WBC Morphology Dohle Bodies Platelet Estimate RBC Morphology Polychromasia Hypochromasia Poikilocytosis Anisocytosis Spherocytes Tear Drop Cells Ovalocytes RBC Fragments Absolute Retic VBG Lactic Acid Sodium Potassium Chloride BUN Creatinine Glucose Uric Acid Calcium Phosphorus Ferritin 1880.0 H Total Bilirubin Direct Bilirubin GGT Albumin Albumin/Globulin Ratio Folate Meds: Medications Acetaminophen (Tylenol) 650 mg PO Q6HP PRN PRN Reason: PAIN/FEVER > 101 Last Admin: 06/18/19 17:45 Dose: 650 mg Documented by: Albuterol/Ipratropium (Duoneb) 3 ml NEB Q4HP PRN PRN Reason: Shortness Of Breath Last Admin: 06/21/19 04:05 Dose: 3 ml Documented by: Albuterol/Ipratropium (Combivent) 2 puff INH QID [facility] Last Admin: 06/21/19 09:31 Dose: Not Given Documented by: Allopurinol (Zyloprim) 100 mg PO DAILY [facility] Last Admin: 06/21/19 09:30 Dose: 100 mg Documented by: Cefepime HCl (Maxipime) 2 gm IV MoWeFr@1600 [facility]; Protocol Stop: 06/26/19 15:59 Darbepoetin Lloyd (Aranesp) 200 mcg IV ONCE ONE Stop: 06/21/19 12:01 Dextrose (Dextrose 50%) 0 ml IV UD PRN PRN Reason: Hypoglycemia Diagnostic Test (Pha) (Accu-Chek) 1 each FS [facility] Last Admin: 06/21/19 07:54 Dose: 1 each Documented by: Docusate Sodium (Colace) 100 mg PO BID [facility] Last Admin: 06/21/19 09:30 Dose: 100 mg Documented by: Ergocalciferol (Drisdol) 50,000 unit PO TuTh@0900 [facility] Famotidine (Pepcid) 20 mg PO [facility] Last Admin: 06/20/19 20:41 Dose: 20 mg Documented by: Fentanyl (Duragesic) 25 mcg TOPICAL Q72H [facility] Gabapentin (Neurontin) 200 mg PO HS [facility] Last Admin: 06/20/19 20:41 Dose: 200 mg Documented by: Glucose (Insta-Glucose) 15 gm PO PRN PRN PRN Reason: Hypoglycemia Heparin Sodium (Porcine) (Heparin) 5,000 unit SQ Q12 [facility] Last Admin: 06/21/19 09:30 Dose: 5,000 unit Documented by: Vancomycin HCl 500 mg/ Sodium (Chloride) 100 mls @ 100 mls/hr IV ONCE ONE; Protocol Stop: 06/21/19 17:59 Sodium Chloride (Sodium Chloride 0.9%) 250 mls @ 20 mls/hr IV .[id number] [facility] Stop: 06/21/19 20:14 Insulin Glargine (Lantus) 33 unit SQ DAILY [facility] Last Admin: 06/21/19 09:31 Dose: 33 unit Documented by: Insulin Human Lispro (Humalog) 0 unit SQ [facility]; Protocol Last Admin: 06/21/19 07:55 Dose: Not Given Documented by: Iron Sucrose (Venofer) 200 mg IV MoWeFr [facility] Lactulose (Cephulac) 10 gm PO DAILYP PRN PRN Reason: Constipation Levothyroxine Sodium (Synthroid) 100 mcg PO QAMAC [facility] Last Admin: 06/21/19 07:55 Dose: 100 mcg Documented by: Losartan Potassium (Cozaar) 50 mg PO DAILY [facility] Last Admin: 06/21/19 09:30 Dose: 50 mg Documented by: Metoprolol Tartrate (Lopressor) 50 mg PO BID [facility] Last Admin: 06/21/19 09:30 Dose: 50 mg Documented by: Nitroglycerin (Nitrostat) 0.4 mg SL Q5M PRN PRN Reason: Chest Pain Ondansetron HCl (Zofran) 4 mg IV Q4HP PRN PRN Reason: Nausea And Vomiting Mometasone/Formoterol [Dulera] 200 Mcg/5 Mcg Inhaler 2 dose INH BID [facility] Last Admin: 06/20/19 20:41 Dose: 2 dose Documented by: Polyethylene Glycol (Miralax) 17 gm PO DAILYP PRN PRN Reason: Constipation Prochlorperazine (Compazine) 10 mg PO Q6HP PRN PRN Reason: Nausea And Vomiting Senna (Senokot) 2 tab PO HSP PRN PRN Reason: Constipation Sevelamer Carbonate (Renvela) 800 mg PO TIDCC [facility] Last Admin: 06/21/19 07:55 Dose: 800 mg Documented by: Sodium Chloride (Saline Flush) 10 ml IV Q8 [facility] Last Admin: 06/21/19 05:04 Dose: 10 ml Documented by: Trazodone HCl (Desyrel) 50 mg PO HS [facility] Last Admin: 06/20/19 20:41 Dose: 50 mg Documented by: Medical - PN: A/P - Time Spent With Patient Total time spent is greater than 50% in coordination of care (as documented) at patient's floor/unit and/or counseling patient: - Narrative A/P Narrative: A: *PNA: -PCT elevated on admit. Strep/Myco neg *Sepsis by SIRS, not qSOFA: resolved -lactic acidosis resolved, now afebrile. Bandemia resolved *COPD (no home O2): *ESRD (MWF): *Anemia of Chr dz w/macrocytosis: Receives transfusions several times a year and is on Aranesp -No gross bleeding/diarrhea. b12/folate ok -2 units PRBC (06/19) *Pancytopenia: saw Dr. Corona after last hospitalization at [facility] in November for same; January labs seemed to improved indicating transient decrease from infection -stable *h/o PABLO SCC s/p cryoablation *DM w/neuropathy: *Chr pain: on home fentanyl *Hypothyroidism: *GERD: *HTN: on lopressor/losartan *mild hyponatremia/hyperkalemia: P: -IV Abx, pending final BC/SC -Nephro for HD, prn transfusions with HD -cont home BP meds, -Home basal insulin and SSI -cont home pain meds -gerald changed for renal dosing; decrease home Fentanyl -f/u heme/onc outpt -pt/ot -ppx: heparin/home PPI full code Medical - PN: Qual - VTE Deep Vein Thrombosis/Pulmonary Embolism Present on Admission: No
[2019-06-21] MEDS ORDERED: fentaNYL 50 MCG PATCH TOPICAL SCH (10:00)
[2019-06-21] MEDS ORDERED: DARBEPOETIN ALFA 200 MCG/ML VIAL IV ONE ×2 (12:00→12:01)
[2019-06-21] MEDS ORDERED: LACTULOSE 20 GM/30 ML ORAL.SOL PO PRN (12:01)
[2019-06-21] MEDS ORDERED: DEXTROSE 50% 50 ML VIAL IV PRN (12:01)
[2019-06-21] MEDS ORDERED: DEXTROSE 31 GM ORAL.SUSP PO PRN (12:01)
[2019-06-21] MEDS ORDERED: ACETAMINOPHEN 325 MG TABLET PO PRN (12:01)
[2019-06-21] MEDS ORDERED: IPRATROPIUM/ALBUTEROL 3 ML AMPUL.NEB NEB PRN (12:01)
[2019-06-21] MEDS ORDERED: POLYETHYLENE GLYCOL 3350 17 GM PACKET PO PRN (12:01)
[2019-06-21] MEDS ORDERED: NITROGLYCERIN 0.4 MG TAB.SUBL SL PRN (12:01)
[2019-06-21] MEDS ORDERED: ONDANSETRON 4 MG/2 ML VIAL IV PRN (12:01)
[2019-06-21] MEDS ORDERED: PROCHLORPERAZINE 10 MG TABLET PO PRN (12:01)
[2019-06-21] MEDS ORDERED: IRON SUCROSE COMPLEX 100 MG/5 ML VIAL IV SCH ×2 (13:38)
[2019-06-21 15:26] LABS: Vancomycin,Random 6.1 ug/mL
[2019-06-21 15:30] LABS: Bilirubin,Total 1.8 mg/dL (0.0-1.0); Lactate Dehydrogenase 268 U/L (94-250)
[2019-06-21] MEDS ORDERED: CEFEPIME 1 GM VIAL IV SCH ×2 (16:00)
[2019-06-21] MEDS ORDERED: VANCOMYCIN 500 MG in 0.9 % SODIUM CHLORIDE 100 ML IV ONE ×2 (17:00)
--- NOTE | 2019-06-21 17:54 | Nephrology Progress Note ---
Subjective Patient information: Note initiated : 06/21/19 at 5:50 pm Service Date, if different from initiated Date: [] Patient: Giorgio Aguiar 79 y/o M admitted on 06/18/19 for Cough, SOB, Chills, Body Aches. Chief Complaint: [] Principal diagnosis: Bilateral pneumonia Interval history: No fever or positive culture. Can transition to oral Rx tomorrow. Vanco and ceftazidine for HCAP suspicion. Pertinent ROS: Walked about urit this AM HgB decreased from equilibration or blood loss. Is scheduled for colonoscopy but fear AVMs as occult cause of decreased HgB plus loss in blood lines and dialyzer with underdosing of ALEJANDRO Tx Additional PMFSH (Level 3 Only): nothing to add Objective - Vital Signs Vital signs: Vital Signs Temp Pulse Pulse Resp BP Pulse Ox 06/21/19 14:36 97.9 F 55 L 133/58 06/21/19 14:24 58 L 129/59 06/21/19 14:09 54 L 151/81 06/21/19 13:57 59 L 140/57 06/21/19 13:40 60 143/76 06/21/19 13:30 54 L 146/64 06/21/19 13:09 60 145/81 06/21/19 12:55 68 141/82 06/21/19 12:40 53 L 139/98 06/21/19 12:22 97.7 F 57 L 122/58 06/21/19 12:07 55 L 138/71 06/21/19 11:58 55 L 136/75 06/21/19 11:39 55 L 138/67 06/21/19 11:24 60 129/71 06/21/19 11:09 60 116/61 06/21/19 11:03 60 139/62 06/21/19 10:40 98.0 F 60 135/69 06/21/19 03:43 98.3 F 16 129/63 96 06/20/19 23:24 99.0 F 18 131/60 97 06/20/19 18:36 61 98 Intake and Output 06/21/19 06/21/19 06/21/19 05:59 13:59 21:59 Intake Total 75 300 Output Total 850 853 4895 Balance -75 50 -4000 Intake: Oral 75 300 Output: Void Amount 150 250 Hemodialysis UF 4000 Other: Meal Breakfast Percent of Meal Consumed 100% Urine Appearance Cloudy Urine Color Bright Yellow Stool Size Large Stool Color Brown Stool Consistency Formed # Bowel Movements 1 Intake & Output: Intake & Output 06/21/19 06/21/19 06/21/19 05:59 13:59 21:59 Intake Total 75 300 Output Total 193 408 8761 Balance -75 50 -4000 Intake: Oral 75 300 Output: Void Amount 150 250 Hemodialysis UF 4000 Other: Meal Breakfast Percent of Meal Consumed 100% Urine Appearance Cloudy Urine Color Bright Yellow Stool Size Large Stool Color Brown Stool Consistency Formed # Bowel Movements 1 - General Appearance General appearance: well-developed, well-nourished, obese EENT: ATNC, PERRL, mucous membranes moist Neck: no JVD, no thyromegaly, no carotid bruit Respiratory: no kyphosis, rhonchi Cardiology: mid-systolic murmur, no rub, no gallops Gastrointestinal: normoactive bowel sounds, no guarding, no organomegaly Integumentary: no rash, warm and dry Neurologic: no focal deficit, no asterixis, alert and oriented x3, strength 5/5, CN 3-12 intact Musculoskeletal: no deformities, no erythema, no cyanosis, no clubbing Psychiatric: mood/affect appropriate - Lab 06/21/19 03:35 06/21/19 03:35 Most recent lab results Calcium 8.4 mg/dl (8.6-10.4) L 06/21/19 03:35 Phosphorus 4.8 mg/dL (2.7-4.5) H 06/21/19 03:35 Magnesium 1.9 mg/dL (1.6-2.5) 06/21/19 03:35 Assessment and Plan (1) Pneumonia Looked toxic yesterday, just over sedated today Cultures negative HCAP coverage but no pip/jeannie due to allergies and low platelets Plan 7 day course Improved WBC and left shift/bandemia Start ambulation PO ABx tomorrow Redose with vanco post HD Sputum with gm pos cocci in pairs / culture no pathogens CXR IMPRESSION: Persistent mild pneumonia involving the left upper, left lower lobe and possibly inferior segment of the lingula Status: Acute Priority: High Qualifiers: Pneumonia type: due to unspecified organism Laterality: bilateral (2) ESRD (end stage renal disease) on dialysis Next treatment 06/23 Orders written Outpatient unit with Dr. Mathur Status: Chronic (3) Anemia in chronic kidney disease (CKD) Continue aranesp and weekly IV Fe3+ No aranesp as pRBCs given x 1 with HD S/P 3 units pRBCs on 06/19/19 Status: Chronic Priority: Medium Qualifiers: Chronic kidney disease stage: on chronic dialysis Qualified Code(s): N18.6 - End stage renal disease; D63.1 - Anemia in chronic kidney disease; Z99.2 - Dependence on renal dialysis (4) Polypharmacy [place] sedated Decrease neurontin to qHS dosing due to ESRD Fentanyl patch for neuropathy seems like overkill..taper to off Stable and improved MS Status: Acute - Narrative A/P Narrative: Overall improving so plan on discharge tomorrow on levaquin 500 mg po qOD x 3 doses (6 more days) for HCAP Return to outpatient HD unit on
[2019-06-21] MEDS ORDERED: traZODone HCL 50 MG TABLET PO SCH (21:00)
[2019-06-21] MEDS ORDERED: FAMOTIDINE 20 MG TABLET PO SCH (21:00)
[2019-06-21] MEDS ORDERED: LEVOFLOXACIN 500 MG TABLET PO SCH (21:00)
[2019-06-21] MEDS ORDERED: GABAPENTIN 100 MG CAPSULE PO SCH (21:00)
[2019-06-21] MEDS ORDERED: SENNOSIDES 1 TABLET PO PRN (21:00)
[2019-06-22 06:03] LABS: Basophils # (Auto) 0 K/mcL (0.0-0.3); Basophils % (Auto) 0.3 % (0.0-2.0); Eosinophils # (Auto) 0 K/mcL (0.0-0.7); Eosinophils % (Auto) 0.7 % (0.0-7.0); Granulocytes % (Auto) 76.3 % (38.0-78.0); Hematocrit 25.3 % (41.0-55.0); Hemoglobin 8.5 g/dL (13.5-16.5); Lymphocytes # (Auto) 0.5 K/mcL (1.5-4.8); Lymphocytes % (Auto) 19.1 % (15.5-49.0); Mean Cell Volume 97.8 fL (80.0-100.0); Mean Corpuscular HGB Conc 33.6 g/dL (31.0-36.0); Mean Platelet Volume 7.5 fL (7.4-10.4); Monocytes # (Auto) 0.1 K/mcL (0.1-0.9); Monocytes % (Auto) 3.6 % (1.0-12.0); Platelet Count 77 K/mcL (140-440); RBC 2.58 M/mcL (4.50-5.90); Red Cell Distribution Width 24.5 % (11.5-14.5); WBC 2.5 K/mcL (4.5-11.0)
[2019-06-22 06:35] LABS: Blood Urea Nitrogen 35 mg/dl (8-23); Calcium 8.4 mg/dl (8.6-10.4); Carbon Dioxide 27 mmol/L (22-30); Chloride 96 mmol/L (96-108); Glomerular Filtration Rate 19; Glucose 63 mg/dL (70-105)
[2019-06-22] MEDS ORDERED: LEVOTHYROXINE 100 MCG TABLET PO SCH (07:30)
[2019-06-22] MEDS: SEVELAMER 800 MG TABLET PO SCH ×2 (07:52→11:45)
[2019-06-22] MEDS: INSULIN LISPRO 1 UNIT/0.01 ML UNIT SQ SCH ×2 (07:53→11:25)
[2019-06-22] MEDS: 0.9 % SODIUM CHLORIDE 10 ML SYRINGE IV SCH (07:53)
[2019-06-22] MEDS: HEPARIN 5,000 UNIT/ML VIAL SQ SCH (08:58)
[2019-06-22] MEDS: DOCUSATE SODIUM 100 MG CAPSULE PO SCH (08:59)
[2019-06-22] MEDS: METOPROLOL TARTRATE 50 MG TABLET PO SCH (08:59)
[2019-06-22] MEDS ORDERED: LOSARTAN 50 MG TABLET PO SCH (09:00)
[2019-06-22] MEDS ORDERED: ERGOCALCIFEROL (VITAMIN D2) 50,000 UNIT CAPSULE PO SCH ×3 (09:00)
[2019-06-22] MEDS ORDERED: INSULIN GLARGINE, HUMAN 1 UNIT/0.01 ML SQ SCH (09:00)
[2019-06-22] MEDS ORDERED: ALLOPURINOL 100 MG TABLET PO SCH (09:00)
[2019-06-22] MEDS: Mometasone/Formoterol [Dulera] 200 Mcg/5 Mcg Inhaler INH SCH (09:00)
[2019-06-22] MEDS: IPRATROPIUM/ALBUTEROL SULFATE 1 PUFF INHALER INH SCH ×2 (09:01→13:35)
--- NOTE | 2019-06-22 13:02 | Nephrology Progress Note ---
Subjective Patient information: Note initiated : 06/22/19 at 1:00 pm Service Date, if different from initiated Date: [] Patient: Giorgio Aguiar 79 y/o M admitted on 06/18/19 for Cough, SOB, Chills, Body Aches. Chief Complaint: [] Principal diagnosis: Bilateral pneumonia Interval history: Improved and ready for D/C Pertinent ROS: 10 point ROS performed still (+) weakness Additional PMFSH (Level 3 Only): None Objective - Vital Signs Vital signs: Vital Signs Temp Pulse Pulse Resp BP BP Pulse Ox 06/22/19 12:00 97.9 F 59 L 18 138/62 97 06/22/19 08:00 64 18 06/22/19 07:28 98.0 F 64 18 142/64 100 06/22/19 03:07 97.5 F 62 20 148/65 94 06/21/19 23:30 97.9 F 82 20 165/76 91 06/21/19 18:57 98.3 F 66 20 147/67 98 06/21/19 16:00 97.9 F 63 18 138/58 99 06/21/19 14:36 97.9 F 55 L 133/58 06/21/19 14:24 58 L 129/59 06/21/19 14:09 54 L 151/81 06/21/19 13:57 59 L 140/57 06/21/19 13:40 60 143/76 06/21/19 13:30 54 L 146/64 06/21/19 13:09 60 145/81 Intake and Output 06/21/19 06/22/19 06/22/19 21:59 05:59 13:59 Intake Total 120 440 240 Output Total 4000 350 175 Balance -3880 90 65 Intake: Oral 120 440 240 Output: Void Amount 350 175 Hemodialysis UF 4000 Other: Meal Dinner Lunch Percent of Meal Consumed 100% 100% Feeding Ability Independent Independent Urine Appearance Clear Clear Urine Color Dark Yellow Dark Yellow Urine Odor Strong Stool Size Large Large Stool Color Brown Brown Stool Consistency Formed Formed # Bowel Movements 1 Weight 188 lb 8 oz Intake & Output: Intake & Output 06/21/19 06/22/19 06/22/19 21:59 05:59 13:59 Intake Total 120 440 240 Output Total 4000 350 175 Balance -3880 90 65 Weight 188 lb 8 oz Intake: Oral 120 440 240 Output: Void Amount 350 175 Hemodialysis UF 4000 Other: Meal Dinner Lunch Percent of Meal Consumed 100% 100% Feeding Ability Independent Independent Urine Appearance Clear Clear Urine Color Dark Yellow Dark Yellow Urine Odor Strong Stool Size Large Large Stool Color Brown Brown Stool Consistency Formed Formed # Bowel Movements 1 - General Appearance General appearance: well-nourished, appears started age EENT: ATNC, PERRL, mucous membranes moist Neck: no JVD, no thyromegaly Respiratory: rhonchi Cardiology: no murmurs, no rub, no edema Gastrointestinal: normoactive bowel sounds, no tenderness Integumentary: no rash Neurologic: no focal deficit, no asterixis, CN 3-12 intact Musculoskeletal: no deformities Psychiatric: mood/affect appropriate - Lab 06/22/19 03:44 06/22/19 03:44 Most recent lab results Calcium 8.4 mg/dl (8.6-10.4) L 06/22/19 03:44 Phosphorus 4.8 mg/dL (2.7-4.5) H 06/21/19 03:35 Magnesium 1.9 mg/dL (1.6-2.5) 06/21/19 03:35 Assessment and Plan (1) Pneumonia Looked toxic yesterday, just over sedated today Cultures negative HCAP coverage but no pip/jeannie due to allergies and low platelets Plan 7 day course Improved WBC and left shift/bandemia Start ambulation PO ABx Levaquin 500 mg po q48 hr for 3 more doses. CXR IMPRESSION: Persistent mild pneumonia involving the left upper, left lower lobe and possibly inferior segment of the lingula Status: Acute Priority: High Qualifiers: Pneumonia type: due to unspecified organism Laterality: bilateral (2) ESRD (end stage renal disease) on dialysis Next treatment 06/[address] Mathur Status: Chronic (3) Anemia in chronic kidney disease (CKD) Continue aranesp and weekly IV Fe3+ No aranesp as pRBCs given x 1 with HD both days S/P 3 units pRBCs on 06/19/19 Status: Chronic Priority: Medium Qualifiers: Chronic kidney disease stage: on chronic dialysis Qualified Code(s): N18.6 - End stage renal disease; D63.1 - Anemia in chronic kidney disease; Z99.2 - Dependence on renal dialysis (4) Polypharmacy [place] sedated Decrease neurontin to qHS dosing due to ESRD Fentanyl patch for neuropathy seems like overkill..taper to minimal effectve dose or off Status: Acute
[2019-06-24] MEDS ORDERED: fentaNYL 25 MCG PATCH TOPICAL SCH (09:00)
== END 2019-06-22 15:30 | disposition home or self-care (01) | DRG 871 ==
LOC: ED 01:14 → ICU 03:59 → MEDSUR 06-21 16:12
PROVIDERS: ADMIT Internal Medicine; ATTEND Internal Medicine

== ENCOUNTER 2019-10-10 00:54 | Inpatient (IN) ==
[2019-10-10] MEDS ORDERED: NITROGLYCERIN 1 GM OINT.TOP TD ONE (01:12)
[2019-10-10 01:14] LABS: POC Blood Urea Nitrogen 35 mg/dl (8-23); POC CO2 26 mmol/L (22-30); POC Calcium, Ionized 1.13 mmol/L (1.16-1.32); POC Chloride 102 mmol/L (96-108); POC Creatinine 3.9 mg/dl (0.7-1.2); POC Glucose, Random 118 mg/dL (70-105); POC Potassium 4.5 mmol/L (3.3-5.1); POC Sodium 137 mmol/L (133-145)
[2019-10-10] MEDS: NITROGLYCERIN 0.4 MG TAB.SUBL SL PRN ×3 (01:18→01:29)
[2019-10-10] MEDS ORDERED: FUROSEMIDE 40 MG/4 ML VIAL IV ONE (01:19)
[2019-10-10] MEDS ORDERED: IPRATROPIUM/ALBUTEROL 3 ML AMPUL.NEB NEB ONE (01:19)
[2019-10-10] MEDS ORDERED: methylPREDNISolone SOD SUCC 125 MG/2 ML VIAL IV ONE (01:19)
[2019-10-10] MEDS ORDERED: AZITHROMYCIN 500 MG in DEXTROSE 5% IN WATER 250 ML IV ONE (01:19)
--- NOTE | 2019-10-10 01:24 | Emergency Department Note ---
SOB HPI - General Chief Complaint: Shortness of Breath/Dyspnea Stated Complaint: spitting blood Time Seen by Provider: 10/10/19 01:01 Source: patient Mode of arrival: ambulatory Limitations: no limitations - History of Present Illness Patient is brought in by private vehicle from [place]. His drove him in. Acute respiratory distress that started about 2 hours ago. He did have dialysis yesterday. Denies chest pain. Does have a low-grade fever, also local ized infiltrate on his chest x-ray. Bringing up blood-tinged sputum. Breathing very fast. He does indicate that he wants to be on a ventilator. On dialysis of. History of CHF. History of COPD. Has been on dialysis 6 years. MD Complaint: shortness of breath, cough Severity: severe Improves with: oxygen Known history of: congestive heart failure, diabetes Associated symptoms: Reports: cough. Denies: chest pain Treatment prior to arrival: none - Related Data Home oxygen amount: none Home Medications Medication Instructions Recorded Confirmed Ergocalciferol (Vitamin D2) 50,000 unit PO .TWICE WEEKLY 08/12/15 06/18/19 [Drisdol] Fish Oil 4,000 mg PO TID 08/12/15 06/18/19 Insulin Aspart [Novolog] 10 unit SQ TID 08/12/15 06/18/19 Insulin Detemir [Levemir] 33 unit SQ DAILY 08/12/15 06/18/19 Metoprolol Tartrate [Lopressor] 50 mg PO BID 08/12/15 06/18/19 Nitroglycerin [Nitrostat] 0.4 mg SL Q5M PRN 08/12/15 06/18/19 Sevelamer [Renvela] 800 mg PO TIDCC 08/12/15 06/18/19 Vitamin E 1 cap PO DAILY 08/12/15 06/18/19 Levothyroxine [Synthroid] 100 mcg PO QAMAC 10/07/16 06/18/19 Mometasone/Formoterol [Dulera 200 2 puff IH BID 10/07/16 06/18/19 Mcg/5 Mcg Inhaler] Omeprazole [Prilosec] 20 mg PO ACB 10/07/16 06/18/19 Losartan Potassium 50 mg PO DAILY 05/21/19 06/18/19 traZODone HCL [Desyrel] 50 mg PO HS 05/21/19 06/18/19 Previous Rx's Medication Instructions Recorded Ipratropium/Albuterol Sulfate 2 puff INH QID #1 inhaler 03/04/16 [Combivent] Gabapentin [Neurontin] 200 mg PO HS #20 cap 06/20/19 Allopurinol [Zyloprim] 100 mg PO DAILY #30 tab 06/22/19 fentaNYL [Duragesic] 25 mcg TOPICAL Q72H #3 patch 06/22/19 HYDROcodone/APAP 5/325MG [[place] 1 tab PO Q4HP PRN #14 tab 09/29/19 5-325Mg] Allergies Allergy/AdvReac Type Severity Reaction Status Date / Time Penicillins Allergy Mild Hives Verified 10/10/19 00:59 Review of Systems Limitations: ROS unobtainable due to patients medical condition Constitutional: Reports: fever, chills, weakness Cardiovascular: Reports: palpitations, dyspnea on exertion Respiratory: Reports: shortness of breath, cough Integumentary: Denies: rash Neurological: Reports: weakness. Denies: headache Past Medical History - Past Medical History Source: nursing notes reviewed Medical history: Reports: arthritis (osteoarthritis.), asthma, cancer (non-small cell lung, recurrent 2016. Cyroablation 01-28-18 [place]. Prostate cancer "burned out".), CAD (coronary artery disease) (stented X 4 2001, X1 2000-.), CHF, COPD, DM (Type II insulin using), GERD, hyperlipidemia, hypertension, hypothyroidism, kidney stones, obesity, renal disease (end stage, dialysis started approx. 2013.), other (Gout. Diab periph neurop. Anemia. Insomnia. Restless leg syndrome. Pneumonia. Heart murmur.). Denies: CVA, myocardial infarction Psychiatric history: Reports: depression. Denies: anxiety Surgical history ED: Reports: angioplasty/stent (see above), appendectomy, vascular surgery, other (Fistula placement) Family history: Reports: diabetes, hypertension - Social History smoking status: Former smoker Alcohol use: Reports: Occasionally (Once a week.) Drug use: Reports: none. Denies: marijuana Physical Exam Limitations: no limitations General appearance: alert, in distress Head: atraumatic, normocephalic Eye: Present: conjunctival injection, visual moreno intact, other (conjunctival pallor). Absent: scleral icterus, periorbital swelling, periorbital tenderness ENT: Present: mucous membranes moist Neck: Present: full ROM Chest: Present: symmetric chest wall rise Respiratory: Present: respiratory distress, rales/crackles, wheezes, accessory muscle use, prolonged expiratory phase, decreased breath sounds Cardiovascular: Present: regular rate, tachycardia, systolic murmur Abdominal: Present: soft, normal bowel sounds. Absent: distention, tenderness Extremities: Present: normal inspection, other (fistula to right arm.) Back: Present: other (no sacral edema). Absent: CVA tenderness (R), CVA tende rness (L), vertebral tenderness Neurological: Present: alert, oriented X3 Psychiatric: Present: agitated, anxious Skin: Present: warm, diaphoretic, cyanosis, pallor Course - Reevaluation(s) Reevaluation #1: Initially the patient was in acute respiratory distress, indicated that he wanted everything done and I was considering intubating the patient. His oh first blood gas also did show hypoxemia, CO2 retention and was likely an accurate blood gas. It looked very dark. Initial chest x-ray showing cardiomegaly, CHF as well as a focal consolidation in the right upper lobe. Given that his temperature was 99.1 and that he is coughing and is rather acute onset I believe he has CHF as well as pneumonia. EKG showing bundle branch block, sinus tachycardia with a heart rate of 130s and he was in acute respiratory distress hypoxemic despite oxygen. We initially started on nitroglycerin as he was quite hypertensive, and was started on nitro drip he was also given Solu-Medrol for his wheezing and he does have a history of smoking in the past, thus he was also given a breathing treatment, started on BiPAP and this did help him considerably. Right now he is resting comfortably on the BiPAP, his blood pressure is much improved, we jackson blood cultures and he was started on antibiotics. Discussed with Dr. Morton Vital Signs Pulse Rate 130 H 10/10/19 00:55 Respiratory Rate 35 H 10/10/19 00:55 Pulse Oximetry (%) 85 L 10/10/19 00:55 Temperature 99.2 F H 10/10/19 01:40 Pulse Rate 107 H 10/10/19 02:48 Respiratory Rate 24 H 10/10/19 02:48 Blood Pressure 116/66 10/10/19 02:48 Pulse Oximetry (%) 100 10/10/19 02:48 Shortness of Breath/Dyspnea - MDM Narrative Medical decision making narrative: Final diagnosis is CHF, #2 pneumonia right-sided #3 renal failure, on dialysis. Critical care time is 40 minutes - Lab Data Lab results reviewed: Yes I reviewed the patient's lab results. Result diagrams: 10/10/19 01:05 10/10/19 01:05 Lab Results 10/10/19 10/10/19 10/10/19 Range/Units 01:05 01:05 01:05 WBC 2.1 L (4.5-11.0) K/mcL RBC 2.20 L (4.50-5.90) M/mcL Hgb 8.0 L (13.5-16.5) g/dL Hct 23.5 L (41.0-55.0) % POC Hct 24.0 L (41.0-55.0) % MCV 106.9 H (80.0-100.0) fL MCH 36.4 H (26.0-34.0) pg MCHC 34.1 (31.0-36.0) g/dL RDW 24.0 H (11.5-14.5) % Plt Count 100 L (140-440) K/mcL MPV 7.0 L (7.4-10.4) fL Gran % 47.8 (38.0-78.0) % Lymph % (Auto) 50.0 H (15.5-49.0) % [place] % (Auto) 0.7 L (1.0-12.0) % Eos % (Auto) 1.3 (0.0-7.0) % Baso % (Auto) 0.2 (0.0-2.0) % Gran # 1.0 L (1.8-8.0) K/mcL Lymph # (Auto) 1.1 L (1.5-4.8) K/mcL [place] # (Auto) 0 L (0.1-0.9) K/mcL Eos # (Auto) 0 (0.0-0.7) K/mcL Baso # (Auto) 0 (0.0-0.3) K/mcL VBG Lactic Acid (0.5-2.0) mmol/L POC Sodium 137 (133-145) mmol/L Sodium 137 (133-145) mmol/L POC Potassium 4.5 (3.3-5.1) mmol/L Potassium 4.5 (3.3-5.1) mmol/L POC Chloride 102 (96-108) mmol/L Chloride 99 (96-108) mmol/L Carbon Dioxide 23 (22-30) mmol/L POC Total CO2 26 (22-30) mmol/L Anion Gap 15.0 (8-16) POC BUN 35 H (8-23) mg/dl BUN 36 H (8-23) mg/dl Creatinine 3.5 H (0.7-1.2) mg/dl POC Creatinine 3.9 H (0.7-1.2) mg/dl GFR Calculation 15 Glucose 122 H (70-105) mg/dL POC Glucose 118 H (70-105) mg/dL Calcium 9.0 (8.6-10.4) mg/dl POC WB Ioniz Calcium 1.13 L (1.16-1.32) mmol/L Total Bilirubin 1.7 H (0.0-1.0) mg/dL AST 35 (0-37) U/l ALT 23 (0-40) U/l Alkaline Phosphatase 193 H (39-117) U/L Troponin T (0-0.03) ng/ml NT-Pro-B Natriuret Pep 64639.0 H (0-450) pg/ml Total Protein 7.3 (5.9-8.4) gm/dL Albumin 3.5 (3.2-5.2) gm/dL Globulin 3.8 H (2.2-3.7) gm/dL Albumin/Globulin Ratio 0.9 L (1.0-2.3) Procalcitonin (<0.10) ng/mL 10/10/19 10/10/19 10/10/19 Range/Units 01:05 01:05 01:25 WBC (4.5-11.0) K/mcL RBC (4.50-5.90) M/mcL Hgb (13.5-16.5) g/dL Hct (41.0-55.0) % POC Hct (41.0-55.0) % MCV (80.0-100.0) fL MCH (26.0-34.0) pg MCHC (31.0-36.0) g/dL RDW (11.5-14.5) % Plt Count (140-440) K/mcL MPV (7.4-10.4) fL Gran % (38.0-78.0) % Lymph % (Auto) (15.5-49.0) % [place] % (Auto) (1.0-12.0) % Eos % (Auto) (0.0-7.0) % Baso % (Auto) (0.0-2.0) % Gran # (1.8-8.0) K/mcL Lymph # (Auto) (1.5-4.8) K/mcL [place] # (Auto) (0.1-0.9) K/mcL Eos # (Auto) (0.0-0.7) K/mcL Baso # (Auto) (0.0-0.3) K/mcL VBG Lactic Acid 5.0 H* (0.5-2.0) mmol/L POC Sodium (133-145) mmol/L Sodium (133-145) mmol/L POC Potassium (3.3-5.1) mmol/L Potassium (3.3-5.1) mmol/L POC Chloride (96-108) mmol/L Chloride (96-108) mmol/L Carbon Dioxide (22-30) mmol/L POC Total CO2 (22-30) mmol/L Anion Gap (8-16) POC BUN (8-23) mg/dl BUN (8-23) mg/dl Creatinine (0.7-1.2) mg/dl POC Creatinine (0.7-1.2) mg/dl GFR Calculation Glucose (70-105) mg/dL POC Glucose (70-105) mg/dL Calcium (8.6-10.4) mg/dl POC WB Ioniz Calcium (1.16-1.32) mmol/L Total Bilirubin (0.0-1.0) mg/dL AST (0-37) U/l ALT (0-40) U/l Alkaline Phosphatase (39-117) U/L Troponin T 0.12 H* (0-0.03) ng/ml NT-Pro-B Natriuret Pep (0-450) pg/ml Total Protein (5.9-8.4) gm/dL Albumin (3.2-5.2) gm/dL Globulin (2.2-3.7) gm/dL Albumin/Globulin Ratio (1.0-2.3) Procalcitonin 0.44 (<0.10) ng/mL Critical Care Time Critical Care Time: Yes Total Critical Care Time: 40 Attestation: I tested the fact that the was critical for at least one hour. Acute critical care time 40 minutes Disposition Pt seen by PATIENT ACCESS ASSOCIATE/PA only: No Clinical Impression: Community acquired pneumonia, Congestive heart failure Disposition: Xfer As Inpt ([facility]) Condition: Critical Referrals: Isidro Matos ARNP [Primary Care Provider] -
[2019-10-10] MEDS ORDERED: cefTRIAXone 1 GM in DEXTROSE 5% IN WATER 50 ML IV SCH (01:30)
[2019-10-10] MEDS: NITROGLYCERIN/D5W 25 MG/250 ML BOTTLE IV SCH (01:45)
[2019-10-10 02:06] LABS: Basophils # (Auto) 0 K/mcL (0.0-0.3); Basophils % (Auto) 0.2 % (0.0-2.0); Eosinophils # (Auto) 0 K/mcL (0.0-0.7); Eosinophils % (Auto) 1.3 % (0.0-7.0); Granulocytes % (Auto) 47.8 % (38.0-78.0); Hematocrit 23.5 % (41.0-55.0); Lymphocytes # (Auto) 1.1 K/mcL (1.5-4.8); Mean Cell Volume 106.9 fL (80.0-100.0); Mean Corpuscular HGB Conc 34.1 g/dL (31.0-36.0); Monocytes # (Auto) 0 K/mcL (0.1-0.9); Monocytes % (Auto) 0.7 % (1.0-12.0); Platelet Count 100 K/mcL (140-440); WBC 2.1 K/mcL (4.5-11.0)
[2019-10-10 02:18] LABS: ALT/SGPT 23 U/l (0-40); AST/SGOT 35 U/l (0-37); Albumin 3.5 gm/dL (3.2-5.2); Albumin/Globulin Ratio 0.9 (1.0-2.3); Alkaline Phosphatase 193 U/L (39-117); Bilirubin,Total 1.7 mg/dL (0.0-1.0); Blood Urea Nitrogen 36 mg/dl (8-23); Carbon Dioxide 23 mmol/L (22-30); Chloride 99 mmol/L (96-108); Globulin 3.8 gm/dL (2.2-3.7); Glomerular Filtration Rate 15; Glucose 122 mg/dL (70-105)
[2019-10-10] MEDS ORDERED: CEFEPIME 2 GM VIAL IV SCH (04:00)
[2019-10-10] MEDS ORDERED: ACETAMINOPHEN 650 MG/65 ML BOTTLE IV PRN ×2 (04:52→09:03)
--- NOTE | 2019-10-10 04:54 | XRay Report ---
CLINICAL INFORMATION: sob COMPARISON: 09/14/2019 FINDINGS: Moderate cardiomegaly show slight increase. Mediastinum and pulmonary vessels are normal. A 6.5 cm masslike infiltrate or, much less likely, mass has developed in the right midlung. Small right pleural effusion IMPRESSION: 6.5 cm round pneumonia involving the right midlung. Small right pleural effusion. Suggest: two-view upright chest x-ray following antibiotic treatment in 2-3 weeks to ensure complete clearance (the absence of underlying malignancy) Interpreted and Authenticated by: Rodrigo Rivers 10/10/19
[2019-10-10] MEDS ORDERED: ACETAMINOPHEN 1,000 MG/100 ML BOTTLE IV ONE (04:57)
[2019-10-10] MEDS ORDERED: DEXTROSE 50% 50 ML VIAL IV PRN (09:03)
[2019-10-10] MEDS ORDERED: ACETAMINOPHEN 325 MG TABLET PO PRN (09:03)
[2019-10-10] MEDS ORDERED: POLYETHYLENE GLYCOL 3350 17 GM PACKET PO PRN (09:03)
[2019-10-10] MEDS ORDERED: LEVALBUTEROL 0.63 MG/3 ML AMPUL.NEB NEB PRN (09:03)
[2019-10-10] MEDS ORDERED: BISACODYL 10 MG SUPP.RECT PR PRN (09:03)
[2019-10-10] MEDS ORDERED: DEXTROSE 31 GM ORAL.SUSP PO PRN (09:03)
[2019-10-10] MEDS ORDERED: ONDANSETRON 4 MG/2 ML VIAL IV PRN (09:03)
--- NOTE | 2019-10-10 09:08 | Internal Med History&Physical ---
Medical - H&P: HPI Patient information: Note initiated : 10/10/19 at 9:08 am Service Date, if different from initiated Date: [] Patient: Giorgio Aguiar a 79 y/o M admitted on 10/10/19 for spitting blood. Chief Complaint: [] Chief complaint: Shortness of breath History of present illness: Mr. Aguiar is a 79 year old M with known history of DM type II, hypertension, ESRD on HD managed by Dr. Mathur. Patient recently underwent vertebroplasty 2 weeks ago due to chronic back pain however as per daughter Apoorva and he started getting worse with increasing shortness of breath. He tried to work with symptoms of increased shortness of breath anxiety and progressive restlessness dyspnea unable to sleep. He is also developed a lack of appetite. He continue with his normal 3 times a week dialysis but became profoundly short of breath last evening and subsequently drove him to the ER. Initial work-up was consistent with large right-sided consolidation with sats in mid 70s. Initial blood gas 7.3/51/21 on 6 L oxygen Patient was promptly started on noninvasive ventilation due to profound hypoxemia. Elevated lactate at 5 with a white count of 2.1. Patient was also found to be hypertensive over 200 and subsequently nitroprusside drip was initiated. Hospitalist service was consulted due to above At the time of evaluation patient is accompanied by her daughter Apoorva and Mariana, clearly able to answer most the question. Patient patient is very distress currently on noninvasive mechanical ventilation. Family is able to endorse history as above. They however denied recent sick contacts or productive sputum or shaking chills or fever. He further denied diarrhea dysuria, headache or photophobia. They however have noted a progressive deterioration in overall generalized well-being over the last couple of weeks since the vertebroplasty procedure. Review of systems A 10 point review of system was attempted and is as above Medical - H&P: PMH Medical history: Macrocytosis (Chronic) Hypothyroidism, acquired (Chronic) Chronic, continuous use of opioids (Chronic) History of cardiac arrest (Chronic) COPD (chronic obstructive pulmonary disease) (Chronic) History of acute myocardial infarction (Chronic) ESRD (end stage renal disease) on dialysis (Chronic) Anemia in chronic kidney disease (CKD) (Chronic) Diabetes mellitus type 2 with complications (Chronic) Diabetic neuropathy (Chronic) RBBB (right bundle branch block) (Chronic) History of gout (Acute) Acute exacerbation of chronic obstructive airways disease (Resolved) Anemia, macrocytic (Resolved) Bacteremia due to Gram-positive bacteria (Resolved) Chest pain (Resolved) Diverticulitis (Resolved) Heme positive stool (Resolved) Mass of upper lobe of left lung (Resolved) Pneumonitis (Resolved) Squamous cell lung cancer Past Surgical History Status post coronary artery stent placement (Chronic) Status post appendectomy (Acute) Cryoablation by Dr. Trujillo squamous cell lung cancer Family history: Mother had heart disease father of an MA Social History Patient quit smoking 1999 denies alcohol use ablates with a cane lives at home with his Mariana at [place] Also has a daughter Apoorva Medical - H&P: Meds Home Medications Medication Instructions Recorded Confirmed Type Ergocalciferol (Vitamin D2) 50,000 unit PO .TWICE WEEKLY 08/12/15 10/10/19 History [Drisdol] Fish Oil 4,000 mg PO TID 08/12/15 10/10/19 History Insulin Aspart [Novolog] 10 unit SQ TID 08/12/15 10/10/19 History Insulin Detemir [Levemir] 33 unit SQ DAILY 08/12/15 10/10/19 History Metoprolol Tartrate [Lopressor] 50 mg PO BID 08/12/15 10/10/19 History Nitroglycerin [Nitrostat] 0.4 mg SL Q5M PRN 08/12/15 10/10/19 History Sevelamer [Renvela] 800 mg PO TIDCC 08/12/15 10/10/19 History Vitamin E 1 cap PO DAILY 08/12/15 10/10/19 History Ipratropium/Albuterol Sulfate 2 puff INH QID #1 inhaler 03/04/16 10/10/19 Rx [Combivent] Levothyroxine [Synthroid] 100 mcg PO QAMAC 10/07/16 10/10/19 History Mometasone/Formoterol [Dulera 200 2 puff IH BID 10/07/16 10/10/19 History Mcg/5 Mcg Inhaler] Omeprazole [Prilosec] 20 mg PO ACB 10/07/16 10/10/19 History Losartan Potassium 50 mg PO DAILY 05/21/19 10/10/19 History traZODone HCL [Desyrel] 50 mg PO HS 05/21/19 10/10/19 History Gabapentin [Neurontin] 200 mg PO HS #20 cap 06/20/19 10/10/19 Rx Allopurinol [Zyloprim] 100 mg PO DAILY #30 tab 06/22/19 10/10/19 Rx fentaNYL [Duragesic] 25 mcg TOPICAL Q72H #3 patch 06/22/19 10/10/19 Rx HYDROcodone/APAP 5/325MG [[place] 1 tab PO Q4HP PRN #14 tab 09/29/19 10/10/19 Rx 5-325Mg] Furosemide [Lasix] 40 mg PO BID 10/10/19 10/10/19 History Allergies Allergy/AdvReac Type Severity Reaction Status Date / Time Penicillins Allergy Mild Hives Verified 10/10/19 00:59 Medical - H&P: Exam - Constitutional Vitals: Temp Pulse Resp BP Pulse Ox 99.6 F H 79 14 87/44 100 10/10/19 08:31 10/10/19 08:31 10/10/19 08:31 10/10/19 08:31 10/10/19 08:31 General appearance: moderate distress Exam: Short of breath currently on mechanical ventilation Head normocephalic Oral cavity dry No ear nose discharge Neck no lymphadenopathy Eye movement symmetrical S1-S2 irregular tachycardia, ESM grade 1 Diminished breath sounds bases with right posterior chest bronchial sounds/rhonchi Abdomen soft nontender Lower extremity no cyanosis clubbing no joint swelling Right arm fistula Significant lymphedema 2+ Psych anxious, minimally responsive Neuro could not be examined Medical - H&P: Reslt - Labs CBC & Chem 7: 10/11/19 04:15 10/11/19 04:15 Labs: Short CBC 10/10/19 Range/Units 01:05 WBC 2.1 L (4.5-11.0) K/mcL Hgb 8.0 L (13.5-16.5) g/dL Hct 23.5 L (41.0-55.0) % Plt Count 100 L (140-440) K/mcL BMP 10/10/19 01:05 Sodium 137 Potassium 4.5 Chloride 99 Carbon Dioxide 23 BUN 36 H Creatinine 3.5 H Glucose 122 H Calcium 9.0 Cardiac Enzymes 10/10/19 Range/Units 01:05 Troponin T 0.12 H* (0-0.03) ng/ml Liver Function 10/10/19 Range/Units 01:05 Total Bilirubin 1.7 H (0.0-1.0) mg/dL AST 35 (0-37) U/l ALT 23 (0-40) U/l Alkaline Phosphatase 193 H (39-117) U/L Albumin 3.5 (3.2-5.2) gm/dL Medical - H&P: A/P (1) Acute and chronic respiratory failure with hypoxia Current visit: Yes Status: Acute * Acute hypoxic hypercapnic respiratory failure-secondary to right sided pneumonia. ABG 7.3, start noninvasive mechanical ventilation, patient critically ill with large AA gradient. * Gram-negative bacteremia-unclear source. CT abdomen chest pelvis * Right midlung pneumonia, dense consolidation 6.5 cm versus questionable mass. * Severe sepsis with elevated lactate at 5, neutropenia with a white count of 2.1 and underlying immunosuppression in the setting of ESRD on hemodialysis. Broad antibiotic coverage including cefepime/vancomycin * Hypertensive urgency on nitroprusside drip. Continue home dose metoprolol/losartan * Acute exacerbation of COPD continue bronchodilators/steroids * ESRD on HD-patient follows up with Dr. Angel Mathur. Will consult for HD. Due on Friday * DM type II on basal prandial insulin * Neuropathy continue home dose gabapentin * history of gout on allopurinol * Hypothyroidism on thyroxine * GERD continue home dose PPI * Full code * Prophylaxis heparin Plan * Patient critically ill with [place] score 20 the setting of neutropenia/hypoxic respiratory failure, hypertensive emergency in the setting of ESRD on hemodialysis. Very high risk mortality, admit to ICU * Continue serial lactate trending/blood gas/chest imaging * CT abdomen chest pelvis * Noninvasive ventilation management * Nitroprusside drips for hypertension urgency * Sepsis management per guidelines * Broad antibiotic coverage * Pre-existing medical condition management as above Time spent on history physical in excess of 70 minutes An additional critical care time spent in excess of 40 minutes on management of antihypertensive drip management, noninvasive ventilation management, blood gas and imaging review and care coordination
[2019-10-10] MEDS ORDERED: VANCOMYCIN PER PHARMACY IV SCH (09:15)
[2019-10-10] MEDS ORDERED: VANCOMYCIN 1,500 MG in 0.9 % SODIUM CHLORIDE 500 ML IV ONE (09:30)
[2019-10-10] MEDS: INSULIN LISPRO 1 UNIT/0.01 ML UNIT SQ SCH ×4 (10:14→20:52)
[2019-10-10] MEDS ORDERED: NITROGLYCERIN 0.4 MG TAB.SUBL SL PRN (10:52)
[2019-10-10 11:03] LABS: Hematocrit 20.2 % (41.0-55.0); Hemoglobin 6.9 g/dL (13.5-16.5); Mean Cell Volume 106.4 fL (80.0-100.0); Mean Platelet Volume 6.8 fL (7.4-10.4); Platelet Count 66 K/mcL (140-440); Red Cell Distribution Width 24.1 % (11.5-14.5); WBC 1.2 K/mcL (4.5-11.0)
[2019-10-10] MEDS ORDERED: 0.9 % SODIUM CHLORIDE 250 ML IV SCH (11:15)
[2019-10-10] MEDS: IPRATROPIUM/ALBUTEROL 3 ML AMPUL.NEB NEB SCH ×4 (11:30→22:47)
[2019-10-10 11:32] LABS: Anisocytosis 2+ (NONE SEEN); Band Neutrophils % 23 % (0-10); Hypochromasia 1+ (NONE SEEN); Lymphocytes % 43 % (15-49); Macrocytosis 2+ (NONE SEEN); Nucleated Red Blood Cells 3 % (0-0); Platelet Estimate DECREASED (NORMAL); Polychromasia 1+ (NONE SEEN); RBC Morphology ABNORM (NORMAL); Segmented Neutrophils % 34 % (38-78)
[2019-10-10] MEDS ORDERED: NOREPINEPHRINE BITARTRATE 16 MG in 0.9 % SODIUM CHLORIDE 234 ML IV PRN (11:57)
[2019-10-10] MEDS: SEVELAMER 800 MG TABLET PO SCH ×2 (12:21→17:32)
[2019-10-10] MEDS: 0.9 % SODIUM CHLORIDE 10 ML SYRINGE IV SCH ×2 (12:30→21:10)
[2019-10-10 12:38] LABS: Appearance,Urine CLEAR; Bacteria,Urine 0 /hpf (0); Bilirubin,Urine NEG (NEG); Color,Urine YELLOW; Culture Indicated,Urine NO; Glucose,Urine (UA) NEGATIVE (NEG); Ketones,Urine NEG (NEG); Leukocyte Esterase,Urine NEG /uL (NEG); Mucus,Urine FEW /hpf (0); Nitrate,Urine NEG (NEG); Protein,Urine 100 mg/dL (NEG); Urine Blood 0.03 mg/dL (<0.03); Urine RBC 2 /hpf (0-1); Urine Squamous Epithelial Cell 0 /hpf (0-4); Urine WBC 1 /hpf (0-4); Urobilinogen,Urine NEG (NEG)
[2019-10-10] MEDS ORDERED: METOPROLOL TARTRATE 50 MG TABLET PO ONE (14:23)
[2019-10-10] MEDS: HYDROcodone/APAP 5/325MG TABLET PO PRN (14:30)
[2019-10-10] MEDS: FUROSEMIDE 40 MG TABLET PO SCH (16:11)
--- NOTE | 2019-10-10 16:22 | Cat Scan Report ---
CLINICAL INFORMATION: Bacteremia. Evaluate for source COMPARISON: Abdomen and pelvic CT 05/23/2017 TECHNIQUE: Enteric contrast was utilized. 80 cc of Isovue-[id number] were injected intravenously, and 50 seconds later, 0.625 mm helical slices were obtained from the lung apices through the subtrochanteric regions of the femurs. Following reconstruction, 2.5 mm sagittal, coronal and axial reformatted images were processed and reviewed at multiple windows and levels. 7 mm MIP reconstructions were obtained through the lungs to optimize nodule detection.The exam was performed using radiation dose optimization techniques including, but not limited to, automated exposure control, adjustment of the mA and/or kV according to patient size and use of iterative reconstruction technique. FINDINGS: Pulmonary parenchymal windows show a large (7 cm) ball-like groundglass infiltrate in the peribronchovascular central right upper lobe. There is a 21 mm solid component centrally. This is likely infectious. Moderate patchy groundglass infiltrates within the right middle and left lower lobes are all also appreciated. Moderate right pleural effusion with subsegmental atelectasis in the posterior right lower lobe also noted. Mediastinal windows show the noncontrasted aorta and pulmonary arteries are normal in contour and caliber. There is no adenopathy in the mediastinal hilar or axillary regions. The heart is moderately enlarged with scattered calcific plaque in the coronary arteries. Esophagus is grossly normal. Thyroid is diminutive but without focal lesion Abdominal images show slight reduction in hepatic size with minimal cortical irregularity and inhomogeneous attenuation suggestive, but not diagnostic, of developing cirrhosis. No focal hepatic lesion. The gallbladder is not identified and presumably surgically absent. Intrahepatic and common bile ducts are normal caliber: CBD 5 mm. Moderate sized cysts in both kidneys are stable. The spleen, pancreas, adrenal glands and aorta are unremarkable. There is a 4 cm wire fragment in the central lumen of the infrarenal IVC projecting through the posterior wall of the IVC into the right peripsoas soft tissues. There is a new finding from the previous exam. Pelvic images show Doshi catheter within the urinary bladder which is properly positioned. Radiation seed implants again seen in the prostate which is grossly normal. Moderate ascites is seen in the perihepatic region and the deep true pelvis. There is no free air or adenopathy. Stomach, small large bowel are grossly normal. Bone windows show an oblique acute appearing fracture through the anterior L4 vertebral body with 6 mm anterior displacement. Vertebroplasty has arrested a L3 compression fracture. IMPRESSION: 1. Large (7 cm) groundglass infiltrate in the right upper lobe with a 2 cm solid component. This corresponds to the plain film finding. Moderate patchy groundglass infiltrates also seen in the right middle and left lower lobes. Moderate right pleural effusion appreciated. Consider infection or aspiration 2. Probable mild cirrhosis developing since prior CT. Small /moderate ascites in the perihepatic and deep true pelvis. Please correlate with LFTs and other appropriate internal history/ serology for chronic hepatocellular disease 3. 4 cm wire fragment in the infrarenal IVC penetrating the posterior IVC wall into the right parapsoas soft tissues. Significance is unknown. If necessary, it can likely be retrieved via a right femoral femoral vein by an interventional radiologist. 4. Radiation seeds in the prostate no evidence of prostate carcinoma 5. Mildly displaced acute oblique fracture of the anterior L4 vertebral body. This is stable and would not normally be treated surgically. Vertebroplasty has arrested a mild L3 compression fracture. 6. Scattered moderate sized cysts in both kidneys - stable Interpreted and Authenticated by: Rodrigo Rivers 10/10/19
[2019-10-10] MEDS: CEFEPIME 1 GM VIAL IV SCH (17:54)
[2019-10-10] MEDS: HEPARIN 5,000 UNIT/ML VIAL SQ SCH (20:51)
[2019-10-10] MEDS: METOPROLOL TARTRATE 50 MG TABLET PO SCH (20:57)
[2019-10-10] MEDS: CHLORHEXIDINE GLUCONATE 1 ML ORAL.SOL SWABMOUTH SCH (21:01)
[2019-10-10] MEDS: DOCUSATE SODIUM 100 MG CAPSULE PO SCH (21:02)
[2019-10-10] MEDS: SENNOSIDES/DOCUSATE SODIUM 1 TAB TABLET PO SCH (21:02)
[2019-10-10] MEDS: INSULIN GLARGINE, HUMAN 1 UNIT/0.01 ML SQ SCH (21:02)
[2019-10-10] MEDS: GABAPENTIN 100 MG CAPSULE PO SCH (21:02)
[2019-10-10] MEDS: methylPREDNISolone SOD SUCC 125 MG/2 ML VIAL IV SCH (21:03)
[2019-10-10] MEDS: traZODone HCL 50 MG TABLET PO SCH (21:06)
[2019-10-11] MEDS: NITROGLYCERIN/D5W 25 MG/250 ML BOTTLE IV SCH (03:12)
[2019-10-11] MEDS: IPRATROPIUM/ALBUTEROL 3 ML AMPUL.NEB NEB SCH ×6 (03:13→22:37)
[2019-10-11] MEDS: 0.9 % SODIUM CHLORIDE 10 ML SYRINGE IV SCH ×4 (05:33→20:06)
[2019-10-11 06:00] LABS: Hemoglobin 8.1 g/dL (13.5-16.5); Mean Cell Volume 101.6 fL (80.0-100.0); Mean Corpuscular HGB Conc 33.8 g/dL (31.0-36.0); Mean Platelet Volume 7.5 fL (7.4-10.4); Platelet Count 55 K/mcL (140-440); RBC 2.36 M/mcL (4.50-5.90); Red Cell Distribution Width 27.6 % (11.5-14.5); WBC 2.7 K/mcL (4.5-11.0)
[2019-10-11 06:17] LABS: ALT/SGPT 19 U/l (0-40); AST/SGOT 26 U/l (0-37); Albumin 2.9 gm/dL (3.2-5.2); Albumin/Globulin Ratio 0.9 (1.0-2.3); Alkaline Phosphatase 122 U/L (39-117); Bilirubin,Direct 0.7 mg/dL (0.0-0.3); Bilirubin,Total 1.6 mg/dL (0.0-1.0); Blood Urea Nitrogen 63 mg/dl (8-23); Calcium 8.7 mg/dl (8.6-10.4); Carbon Dioxide 23 mmol/L (22-30); Chloride 99 mmol/L (96-108); Globulin 3.3 gm/dL (2.2-3.7); Glomerular Filtration Rate 11; Glucose 156 mg/dL (70-105); Lactate Dehydrogenase 255 U/L (94-250); Triglycerides 80 mg/dl (<150); Uric Acid 5.4 mg/dL (2.5-8.0)
[2019-10-11] MEDS: INSULIN LISPRO 1 UNIT/0.01 ML UNIT SQ SCH ×4 (07:33→20:05)
[2019-10-11] MEDS: OMEPRAZOLE 20 MG CAPSULE PO SCH (07:34)
[2019-10-11] MEDS: FUROSEMIDE 40 MG TABLET PO SCH ×2 (07:34→16:45)
[2019-10-11] MEDS: LEVOTHYROXINE 100 MCG TABLET PO SCH (07:34)
[2019-10-11 08:51] LABS: Anisocytosis 3+ (NONE SEEN); Band Neutrophils % 41 % (0-10); Dohle Bodies 1+ (NONE SEEN); Lymphocytes % 20 % (15-49); Macrocytosis 1+ (NONE SEEN); Metamyelocytes % 6 % (0-0); Monocytes % (Manual) 1 % (1-12); Myelocytes % 2 % (0-0); Ovalocytes FEW (NONE SEEN); Platelet Estimate DECREASED (NORMAL); Poikilocytosis 1+ (NONE SEEN); Polychromasia 1+ (NONE SEEN); RBC Morphology ABNORM (NORMAL); Reactive Lymphocytes 1 % (0-2); Segmented Neutrophils % 29 % (38-78); Tear Drop Cells FEW (NONE SEEN)
[2019-10-11] MEDS ORDERED: INSULIN DETEMIR SQ SCH (09:00)
[2019-10-11] MEDS ORDERED: CEFEPIME 1 GM VIAL IV SCH (09:00)
[2019-10-11] MEDS: HEPARIN 5,000 UNIT/ML VIAL SQ SCH (09:19)
[2019-10-11] MEDS ORDERED: PNEUMOCOCCAL 23-VAL P-SAC VAC 0.5 ML SYRINGE IM ONE (10:00)
[2019-10-11] MEDS ORDERED: FLU VACC QS2019-20(6MOS UP)/PF 60 MCG/0.5 ML SYRINGE IM ONE (10:00)
[2019-10-11] MEDS: SEVELAMER 800 MG TABLET PO SCH ×3 (10:08→17:34)
[2019-10-11] MEDS: THIAMINE 100 MG in 0.9 % SODIUM CHLORIDE 50 ML IV SCH (10:21)
[2019-10-11] MEDS: METOPROLOL TARTRATE 50 MG TABLET PO SCH ×2 (10:22→20:04)
[2019-10-11] MEDS: CHLORHEXIDINE GLUCONATE 1 ML ORAL.SOL SWABMOUTH SCH ×2 (10:22→20:04)
[2019-10-11] MEDS: ALLOPURINOL 100 MG TABLET PO SCH (10:22)
[2019-10-11] MEDS: LOSARTAN 50 MG TABLET PO SCH (10:22)
[2019-10-11] MEDS: DOCUSATE SODIUM 100 MG CAPSULE PO SCH ×2 (10:22→20:04)
[2019-10-11] MEDS: methylPREDNISolone SOD SUCC 125 MG/2 ML VIAL IV SCH ×2 (10:23→20:06)
--- NOTE | 2019-10-11 10:41 | Consultation ---
DATE OF CONSULTATION: 10/11/2019 REFERRING PHYSICIAN: Agusto Pratt MD REASON FOR CONSULTATION: Chronic kidney disease. REASON FOR HOSPITALIZATION: The patient is an 79-year-old gentleman with past medical history significant for type 2 diabetes, hypertension, end-stage renal disease on hemodialysis. He dialyzes Friday, Friday, and Friday. He has been having chronic back pain for which he has been getting vertebroplasty. After dialysis on Friday he felt very short of breath and continued to have progressive shortness of breath for which reason he came to the emergency room on Friday. He has been slightly volume overloaded for which he had been taking extra additional fluid off during dialysis. Chest x-ray showed pneumonia and he is hospitalized for that reason. In the hospital, he was found to have an elevated lactic acid level of 5 with a white count of 2.1. He was hypertensive and was treated with a nitroprusside drip initially. He needed noninvasive ventilation because of the profound hypoxemia in the beginning. PAST MEDICAL HISTORY: Significant for: 1. End-stage renal disease on hemodialysis. He dialyzes Friday, Friday, Fridays. 2. History of COPD. 3. History of myocardial infarction in the past. 4. 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 5. History of pneumonia in the past. 6. Squamous cell carcinoma of the lung. 7. Hypothyroidism on replacement. PAST SURGICAL HISTORY: He had status post stent placement in the past, status post appendectomy, and cryoablation of a squamous cell carcinoma by Dr. Trujillo. FAMILY HISTORY: Mother had heart attack and of an AL. SOCIAL HISTORY: The patient used to smoke but quit in 1999. He denies any alcohol or drug use. He lives with his . MEDICATIONS ON ADMISSION: 1. Vitamin D2 ergocalciferol 50,000 units p.o. 2 times a week. 2. Fish oil 4000 mg 3 times daily. 3. Insulin. 4. Metoprolol 50 mg twice daily. 5. Renvela 800 mg p.o. 3 times daily with meals. 6. Combivent 2 puffs twice daily. 7. Levothyroxine 100 mcg once daily. 8. Omeprazole 20 mg once daily. 9. Losartan 50 mg once daily. 10. Gabapentin 200 mg at night. 11. Allopurinol 100 mg daily. ALLERGIES: PENICILLIN. REVIEW OF SYSTEMS: Ten systems were reviewed and negative. PHYSICAL EXAMINATION: GENERAL: The patient is alert and oriented. He is not in any distress. He is currently on oxygen via nasal cannula. VITAL SIGNS: Blood pressure 110 to 120s systolic with the diastolic in the 60s. Pulse rates are in the 70s with O2 sat of 94% on 1 liter nasal cannula. HEENT: Normocephalic/atraumatic. Pupils reactive to light. External ear canal appears normal. Oral cavity appears normal mucosa. NECK: Supple. No jugular venous distention. No lymphadenopathy. No thyromegaly. LUNGS: Decreased air entry bilaterally. Rales and rhonchi heard in both lung bases. CARDIAC: S1, S2 heard. No S3, S4. No murmurs, no rubs. ABDOMEN: Soft, nontender. No organomegaly. Positive bowel sounds. No mass, no rebound. EXTREMITIES: Showed 1+ edema bilaterally, difficult to palpate his dorsalis pedis and posterior tibials. No skin rash or joint swellings noted. NEUROLOGIC: Grossly intact. LABORATORY DATA: White count 2.7, hemoglobin 8.1, platelet count 55. Sodium 135, potassium 5.4, chloride 99, CO2 23, BUN 63, creatinine 4.3, phosphorus 6.0. ASSESSMENT AND PLAN: 1. End-stage renal disease on hemodialysis. He had his dialysis treatment on Friday. We will dialyze him again today. He will have about 3 to 4 liters of fluid removed as tolerated. 2. Hyperkalemia. His potassium is 5.4, probably related to blood transfusion. We will dialyze with a potassium of 3.0. 3. Anemia-believe he had a blood transfusion over the weekend. 4. Blood pressures have been better. Apparently when he came in, his blood pressures were high; now they have been a little bit on the lower side. RUFINA:beatris Job ID: [id number] Doc ID: [id number] Moris Pratt MD
[2019-10-11] MEDS: HYDROcodone/APAP 5/325MG TABLET PO PRN (14:18)
--- NOTE | 2019-10-11 15:43 | Internal Med Progress Note ---
Medical - PN: Subj Patient information: Note initiated : 10/11/19 at 3:41 pm Service Date, if different from initiated Date: [] Patient: Giorgio Aguiar a 79 y/o M admitted on 10/10/19 for spitting blood. Chief Complaint: [] Interval history: Mr. Aguiar is a 79 year old M with known history of DM type II, hypertension, ESRD on HD managed by Dr. Mathur. Patient recently underwent vertebroplasty 2 weeks ago due to chronic back pain however as per daughter Apoorva and he started getting worse with increasing shortness of breath. He tried to work with symptoms of increased shortness of breath anxiety and progressive restlessness dyspnea unable to sleep. He is also developed a lack of appetite. He continue with his normal 3 times a week dialysis but became profoundly short of breath last evening and subsequently drove him to the ER. Initial work-up was consistent with large right-sided consolidation with sats in mid 70s. Initial blood gas 7.3/ on 6 L oxygen Patient was promptly started on noninvasive ventilation due to profound hypoxemia. Elevated lactate at 5 with a white count of 2.1. Patient was also found to be hypertensive over 200 and subsequently nitroprusside drip was initiated. Hospitalist service was consulted due to above At the time of evaluation patient is accompanied by her daughter Apoorva and Mariana, clearly able to answer most the question. Patient patient is very distress currently on noninvasive mechanical ventilation. Family is able to endorse history as above. They however denied recent sick contacts or productive sputum or shaking chills or fever. He further denied diarrhea dysuria, headache or photophobia. They however have noted a progressive deterioration in overall generalized well-being over the last couple of weeks since the vertebroplasty procedure. 10/11-patient doing well. Off noninvasive ventilation. Multiple blood cultures positive for gram-negative kirk E. coli initial cultures. Repeat cultures from fistula site today. Dialysis ongoing today. CT chest large infiltrate with a solid component. Likely infection versus aspiration. White count improving to 2.7 with 70% neutrophils close to 41% bands. Continue trial off BiPAP. Hemodynamic stabilized. Systolics around 100. - Constitutional Vitals: Vital Signs Temp Pulse Resp BP Pulse Ox 97.7 F 67 13 111/50 95 10/11/19 12:53 10/11/19 15:30 10/11/19 15:24 10/11/19 15:30 10/11/19 15:01 Period Temp Pulse Resp BP Sys/Lora Pulse Ox Last 24 Hr 97.1 F-100.5 F 56-106 12-37 89-125/46-71 93-100 Intake and Output 10/11/19 10/11/19 10/11/19 05:59 13:59 21:59 Intake Total 300 360 Output Total 84 226 30 Balance 216 134 -30 Intake & Output: Intake & Output 10/11/19 10/11/19 10/11/19 05:59 13:59 21:59 Intake Total 300 360 Output Total 84 226 30 Balance 216 134 -30 Intake: Oral 300 360 Output: Urine Catheter Amount 84 226 30 Other: Meal Breakfast Percent of Meal Consumed 100% Feeding Ability Independent Urine Appearance Clear Uretheral (Doshi) Clear Clear Sediment Urine Color Bright Yellow Uretheral (Doshi) Bright Yellow Light Michelle General appearance: no acute distress Exam: Alert and respond to commands Nonlabored breathing No telemetry events Right arm fistula no swelling tenderness No lymphedema Medical - PN: Obj Da - Labs CBC & Chem 7: 10/11/19 04:15 10/11/19 04:15 Labs: Abnormal Lab Results 10/11/19 10/11/19 10/10/19 04:15 04:15 11:28 WBC 2.7 L RBC 2.36 L Hgb 8.1 L Hct 24.0 L POC Hct MCV 101.6 H MCH 34.3 H RDW 27.6 H Plt Count 55 L MPV Lymph % (Auto) [place] % (Auto) Gran # Lymph # (Auto) [place] # (Auto) Seg Neutrophils % 29 L Band Neutrophils % 41 H Metamyelocytes % 6 H Myelocytes % 2 H Nucleated RBCs WBC Morphology Abnorm A Dohle Bodies 1+ A Platelet Estimate Decreased A RBC Morphology Abnorm A Polychromasia 1+ A Hypochromasia Poikilocytosis 1+ A Anisocytosis 3+ A Macrocytosis 1+ A Tear Drop Cells Few A Ovalocytes Few A VBG Lactic Acid Potassium 5.4 H POC BUN BUN 63 H Creatinine 4.8 H POC Creatinine Glucose 156 H POC Glucose POC WB Ioniz Calcium Phosphorus 6.0 H* Total Bilirubin 1.6 H Direct Bilirubin 0.7 H GGT 246 H Alkaline Phosphatase 122 H Lactate Dehydrogenase 255 H Troponin T NT-Pro-B Natriuret Pep Albumin 2.9 L Globulin Albumin/Globulin Ratio 0.9 L Urine Protein 100 A Urine Occult Blood 0.03 A Urine RBC 2 H 10/10/19 10/10/19 10/10/19 10:18 01:25 01:05 WBC 1.2 L RBC 1.90 L Hgb 6.9 L* Hct 20.2 L* POC Hct MCV 106.4 H MCH 36.2 H RDW 24.1 H Plt Count 66 L MPV 6.8 L Lymph % (Auto) [place] % (Auto) Gran # Lymph # (Auto) [place] # (Auto) Seg Neutrophils % 34 L Band Neutrophils % 23 H Metamyelocytes % Myelocytes % Nucleated RBCs 3 H WBC Morphology Dohle Bodies Platelet Estimate Decreased A RBC Morphology Abnorm A Polychromasia 1+ A Hypochromasia 1+ A Poikilocytosis Anisocytosis 2+ A Macrocytosis 2+ A Tear Drop Cells Ovalocytes VBG Lactic Acid 5.0 H* Potassium POC BUN BUN Creatinine POC Creatinine Glucose POC Glucose POC WB Ioniz Calcium Phosphorus Total Bilirubin Direct Bilirubin GGT Alkaline Phosphatase Lactate Dehydrogenase Troponin T 0.12 H* NT-Pro-B Natriuret Pep Albumin Globulin Albumin/Globulin Ratio Urine Protein Urine Occult Blood Urine RBC 10/10/19 10/10/19 10/10/19 01:05 01:05 01:05 WBC 2.1 L RBC 2.20 L Hgb 8.0 L Hct 23.5 L POC Hct 24.0 L MCV 106.9 H MCH 36.4 H RDW 24.0 H Plt Count 100 L MPV 7.0 L Lymph % (Auto) 50.0 H [place] % (Auto) 0.7 L Gran # 1.0 L Lymph # (Auto) 1.1 L [place] # (Auto) 0 L Seg Neutrophils % Band Neutrophils % Metamyelocytes % Myelocytes % Nucleated RBCs WBC Morphology Dohle Bodies Platelet Estimate RBC Morphology Polychromasia Hypochromasia Poikilocytosis Anisocytosis Macrocytosis Tear Drop Cells Ovalocytes VBG Lactic Acid Potassium POC BUN 35 H BUN 36 H Creatinine 3.5 H POC Creatinine 3.9 H Glucose 122 H POC Glucose 118 H POC WB Ioniz Calcium 1.13 L Phosphorus Total Bilirubin 1.7 H Direct Bilirubin GGT Alkaline Phosphatase 193 H Lactate Dehydrogenase Troponin T NT-Pro-B Natriuret Pep 57476.0 H Albumin Globulin 3.8 H Albumin/Globulin Ratio 0.9 L Urine Protein Urine Occult Blood Urine RBC Meds: Medications Acetaminophen (Tylenol) 650 mg PO Q4-6HP PRN; Protocol PRN Reason: Per Pain Protocol/Fever > 101 Hydrocodone Bitart/Acetaminophen ([place] 5/325mg) 1 tab PO Q4HP PRN; Protocol PRN Reason: Pain Last Admin: 10/11/19 14:18 Dose: 1 tab Documented by: Albuterol/Ipratropium (Duoneb) 3 ml NEB Q4HRT [facility] Last Admin: 10/11/19 15:18 Dose: 3 ml Documented by: Allopurinol (Zyloprim) 100 mg PO DAILY [facility] Last Admin: 10/11/19 10:22 Dose: 100 mg Documented by: Bisacodyl (Dulcolax) 10 mg NM Q2-3DAYS PRN PRN Reason: Constipation Cefepime HCl (Maxipime) 1 gm IV Q24H [facility] Last Admin: 10/10/19 17:54 Dose: 1 gm Documented by: Chlorhexidine Gluconate (Peridex) 15 ml SWABMOUTH BID [facility] Last Admin: 10/11/19 10:22 Dose: 15 ml Documented by: Dextrose (Dextrose 50%) 0 ml IV UD PRN PRN Reason: Hypoglycemia Diagnostic Test (Pha) (Accu-Chek) 1 each FS ACHS [facility] Last Admin: 10/11/19 11:13 Dose: 1 each Documented by: Docusate Sodium (Colace) 100 mg PO BID [facility] Last Admin: 10/11/19 10:22 Dose: 100 mg Documented by: Fondaparinux (Arixtra) 2.5 mg SQ Q48H [facility] Furosemide (Lasix) 40 mg PO BIDD [facility] Last Admin: 10/11/19 07:34 Dose: 40 mg Documented by: Gabapentin (Neurontin) 200 mg PO HS [facility] Last Admin: 10/10/19 21:02 Dose: 200 mg Documented by: Glucose (Insta-Glucose) 15 gm PO PRN PRN PRN Reason: Hypoglycemia Nitroglycerin/Dextrose (Nitroglycerin/D5w) 25 mg in 250 mls @ 3 mls/hr IV .Q24H [facility]; Protocol Last Admin: 10/11/19 03:12 Dose: Not Given Documented by: Acetaminophen (Ofirmev) 650 mg in 65 mls @ 130 mls/hr IV Q6HP PRN; Protocol PRN Reason: Per Pain Protocol/Fever > 101 Thiamine HCl 100 mg/ Sodium (Chloride) 51 mls @ 50 mls/hr IV DAILY [facility] Stop: 10/13/19 10:02 Last Admin: 10/11/19 10:21 Dose: 50 mls/hr Documented by: Norepinephrine Bitartrate 16 (mg/ Sodium Chloride) 250 mls @ 9.375 mls/hr IV PRN PRN; Protocol PRN Reason: Hypotension Insulin Glargine (Lantus) 33 unit SQ HS [facility] Last Admin: 10/10/19 21:02 Dose: 33 unit Documented by: Insulin Human Lispro (Humalog) 0 unit SQ ACHS [facility]; Protocol Last Admin: 10/11/19 11:18 Dose: 2 unit Documented by: Levalbuterol HCl (Xopenex) 0.63 mg NEB Q4HP PRN PRN Reason: Shortness Of Breath Levothyroxine Sodium (Synthroid) 100 mcg PO QAMAC [facility] Last Admin: 10/11/19 07:34 Dose: 100 mcg Documented by: Losartan Potassium (Cozaar) 50 mg PO DAILY [facility] Last Admin: 10/11/19 10:22 Dose: 50 mg Documented by: Methylprednisolone Sodium Succinate (Solu-Medrol) 62.5 mg IV Q12 [facility] Last Admin: 10/11/19 10:23 Dose: 62.5 mg Documented by: Metoprolol Tartrate (Lopressor) 50 mg PO BID [facility] Last Admin: 10/11/19 10:22 Dose: 50 mg Documented by: Morphine Sulfate (Morphine) 2 mg IV Q5MIN PRN; Protocol PRN Reason: Chest Pain Nitroglycerin (Nitrostat) 0.4 mg SL Q5M PRN PRN Reason: Chest Pain Omeprazole (Prilosec) 20 mg PO ACB [facility] Last Admin: 10/11/19 07:34 Dose: 20 mg Documented by: Ondansetron HCl (Zofran) 4 mg IV Q4-6HP PRN; Protocol PRN Reason: Nausea And Vomiting Dulera 200 Mcg/5 Mcg (Inhaler) 2 dose INH BID [facility] Last Admin: 10/11/19 10:22 Dose: Not Given Documented by: Polyethylene Glycol (Miralax) 17 gm PO DAILYP PRN PRN Reason: Constipation Senna/Docusate Sodium (Senna Plus Tablet) 1 tab PO [facility] Last Admin: 10/10/19 21:02 Dose: 1 tab Documented by: Sevelamer Carbonate (Renvela) 800 mg PO TIDCC [facility] Last Admin: 10/11/19 13:28 Dose: Not Given Documented by: Sodium Chloride (Saline Flush) 10 ml IV Q8 [facility] Last Admin: 10/11/19 15:15 Dose: 10 ml Documented by: Trazodone HCl (Desyrel) 50 mg PO [facility] Last Admin: 10/10/19 21:06 Dose: 50 mg Documented by: Medical - PN: A/P - Time Spent With Patient Total time spent is greater than 50% in coordination of care (as documented) at patient's floor/unit and/or counseling patient: 25 - 35 minutes (1) Acute and chronic respiratory failure with hypoxia Status: Acute Assessment and plan: * Acute hypoxic hypercapnic respiratory failure-continue noninvasive mechanical ventilation. Improving ABG 7.3/51/21- > 7.52/34/145 * Gram-negative bacteremia-continue antibiotic coverage. Unclear source. Likely pneumonia * Right midlung pneumonia, dense consolidation 6.5 cm. Broad antibiotic coverage * Severe sepsis with elevated lactate at 5, improving neutropenia. Continue cefepime * Hypertensive urgency on nitroprusside drip. Resolved. Now back on home dose metoprolol/losartan * Acute exacerbation of COPD continue bronchodilators/steroids * ESRD on HD-patient follows up with Dr. Angel Mathur. HD today * DM type II on basal prandial insulin * Neuropathy continue home dose gabapentin * history of gout on allopurinol * Hypothyroidism on thyroxine * GERD continue home dose PPI * Full code * Prophylaxis heparin Plan * Continue hemodialysis per nephrology * De-escalate antibiotics * Repeat cultures from fistula site * Wean noninvasive mechanical ventilation as tolerated * ABG/chest imaging * Pre-existing medical condition management as above Current Visit: Yes
[2019-10-11] MEDS: CEFEPIME 1 GM VIAL IV SCH (17:34)
[2019-10-11] MEDS ORDERED: FONDAPARINUX SODIUM 2.5 MG/0.5 ML SYRINGE SQ SCH (18:00)
[2019-10-11] MEDS: SENNOSIDES/DOCUSATE SODIUM 1 TAB TABLET PO SCH (20:04)
[2019-10-11] MEDS: GABAPENTIN 100 MG CAPSULE PO SCH (20:04)
[2019-10-11] MEDS: INSULIN GLARGINE, HUMAN 1 UNIT/0.01 ML SQ SCH (20:05)
[2019-10-12] MEDS: traZODone HCL 50 MG TABLET PO SCH ×2 (00:26→22:00)
[2019-10-12] MEDS: NITROGLYCERIN/D5W 25 MG/250 ML BOTTLE IV SCH (02:32)
[2019-10-12] MEDS: IPRATROPIUM/ALBUTEROL 3 ML AMPUL.NEB NEB SCH ×6 (03:51→22:37)
[2019-10-12] MEDS: 0.9 % SODIUM CHLORIDE 10 ML SYRINGE IV SCH ×4 (05:11→22:03)
[2019-10-12 05:48] LABS: Hematocrit 23.6 % (41.0-55.0); Mean Cell Volume 101.1 fL (80.0-100.0); Mean Corpuscular HGB Conc 33.8 g/dL (31.0-36.0); Mean Platelet Volume 7.8 fL (7.4-10.4); Platelet Count 55 K/mcL (140-440); RBC 2.34 M/mcL (4.50-5.90); Red Cell Distribution Width 26.9 % (11.5-14.5); WBC 2.9 K/mcL (4.5-11.0)
[2019-10-12] MEDS: INSULIN LISPRO 1 UNIT/0.01 ML UNIT SQ SCH ×4 (06:38→21:59)
[2019-10-12 06:50] LABS: ALT/SGPT 18 U/l (0-40); AST/SGOT 21 U/l (0-37); Albumin 2.8 gm/dL (3.2-5.2); Albumin/Globulin Ratio 0.8 (1.0-2.3); Alkaline Phosphatase 122 U/L (39-117); Bilirubin,Total 1.3 mg/dL (0.0-1.0); Calcium 8.8 mg/dl (8.6-10.4); Carbon Dioxide 26 mmol/L (22-30); Chloride 97 mmol/L (96-108); Globulin 3.5 gm/dL (2.2-3.7); Glucose 135 mg/dL (70-105); Lactate Dehydrogenase 229 U/L (94-250); Triglycerides 73 mg/dl (<150); Uric Acid 3.2 mg/dL (2.5-8.0)
[2019-10-12 06:57] LABS: Bilirubin,Direct 0.5 mg/dL (0.0-0.3); Blood Urea Nitrogen 41 mg/dl (8-23); Glomerular Filtration Rate 19
[2019-10-12] MEDS: OMEPRAZOLE 20 MG CAPSULE PO SCH (07:22)
[2019-10-12] MEDS: LEVOTHYROXINE 100 MCG TABLET PO SCH (07:22)
[2019-10-12] MEDS: THIAMINE 100 MG in 0.9 % SODIUM CHLORIDE 50 ML IV SCH (08:33)
[2019-10-12 08:38] LABS: Anisocytosis 3+ (NONE SEEN); Band Neutrophils % 12 % (0-10); Lymphocytes % 12 % (15-49); Macrocytosis 1+ (NONE SEEN); Monocytes % (Manual) 2 % (1-12); Nucleated Red Blood Cells 1 % (0-0); Platelet Estimate DECREASED (NORMAL); Poikilocytosis 1+ (NONE SEEN); Polychromasia 1+ (NONE SEEN); RBC Morphology ABNORM (NORMAL); Segmented Neutrophils % 74 % (38-78)
[2019-10-12] MEDS: methylPREDNISolone SOD SUCC 125 MG/2 ML VIAL IV SCH (08:42)
[2019-10-12] MEDS: CHLORHEXIDINE GLUCONATE 1 ML ORAL.SOL SWABMOUTH SCH ×2 (08:42→22:01)
[2019-10-12] MEDS: ALLOPURINOL 100 MG TABLET PO SCH (08:43)
[2019-10-12] MEDS: SEVELAMER 800 MG TABLET PO SCH ×3 (08:43→17:24)
[2019-10-12] MEDS: LOSARTAN 50 MG TABLET PO SCH (08:43)
[2019-10-12] MEDS: FUROSEMIDE 40 MG TABLET PO SCH ×2 (08:43→17:25)
[2019-10-12] MEDS: METOPROLOL TARTRATE 50 MG TABLET PO SCH ×2 (08:43→22:02)
[2019-10-12] MEDS: DOCUSATE SODIUM 100 MG CAPSULE PO SCH ×2 (08:43→22:02)
[2019-10-12] MEDS ORDERED: FLU VACC QS2019-20(6MOS UP)/PF 60 MCG/0.5 ML SYRINGE IM ONE (10:00)
[2019-10-12] MEDS ORDERED: PNEUMOCOCCAL 23-VAL P-SAC VAC 0.5 ML SYRINGE IM ONE (10:00)
--- NOTE | 2019-10-12 11:25 | Internal Med Progress Note ---
Medical - PN: Subj Patient information: Note initiated : 10/12/19 at 11:22 am Service Date, if different from initiated Date: [] Patient: Giorgio Aguiar a 79 y/o M admitted on 10/10/19 for spitting blood. Chief Complaint: [] Interval history: Mr. Aguiar is a 79 year old M with known history of DM type II, hypertension, ESRD on HD managed by Dr. Mathur. Patient recently underwent vertebroplasty 2 weeks ago due to chronic back pain however as per daughter Apoorva and he started getting worse with increasing shortness of breath. He tried to work with symptoms of increased shortness of breath anxiety and progressive restlessness dyspnea unable to sleep. He is also developed a lack of appetite. He continue with his normal 3 times a week dialysis but became profoundly short of breath last evening and subsequently drove him to the ER. Initial work-up was consistent with large right-sided consolidation with sats in mid 70s. Initial blood gas 7.3/ on 6 L oxygen Patient was promptly started on noninvasive ventilation due to profound hypoxemia. Elevated lactate at 5 with a white count of 2.1. Patient was also found to be hypertensive over 200 and subsequently nitroprusside drip was initiated. Hospitalist service was consulted due to above At the time of evaluation patient is accompanied by her daughter Apoorva and Mariana, clearly able to answer most the question. Patient patient is very distress currently on noninvasive mechanical ventilation. Family is able to endorse history as above. They however denied recent sick contacts or productive sputum or shaking chills or fever. He further denied diarrhea dysuria, headache or photophobia. They however have noted a progressive deterioration in overall generalized well-being over the last couple of weeks since the vertebroplasty procedure. 10/11-patient doing well. Off noninvasive ventilation. Multiple blood cultures positive for gram-negative kirk E. coli initial cultures. Repeat cultures from fistula site today. Dialysis ongoing today. CT chest large infiltrate with a solid component. Likely infection versus aspiration. White count improving to 2.7 with 70% neutrophils close to 41% bands. Continue trial off BiPAP. Hemodynamic stabilized. Systolics around 100. 10/12-patient doing well. White count of 2.9, improved shortness of breath now on room air. Off BiPAP. Stable hemodynamics. Status post hemodialysis on Friday. Potassium 4.7. E. coli on culture. Sensitivities pending. On cefepime. Repeat blood cultures negative from fistula. No overnight fever chills. Stable hemodynamics. Large right-sided pneumonia will need repeat imaging in 2 to 4 weeks to rule out solid mass lesion superimposed by pneumonia. - Constitutional Vitals: Vital Signs Temp Pulse Resp BP Pulse Ox 97.2 F 74 18 122/73 100 10/12/19 07:01 10/12/19 09:03 10/12/19 09:03 10/12/19 08:01 10/12/19 09:03 Period Temp Pulse Resp BP Sys/Lora Pulse Ox Last 24 Hr 96.7 F-97.9 F 56-102 12-23 98-129/44-75 92-100 Intake and Output 10/11/19 10/12/19 10/12/19 21:59 05:59 13:59 Intake Total 610 390 480 Output Total 3770 91 183 Balance -3160 299 297 Weight 178 lb 1.6 oz Intake & Output: Intake & Output 10/11/19 10/12/19 10/12/19 21:59 05:59 13:59 Intake Total 610 390 480 Output Total 3770 91 183 Balance -3160 299 297 Weight 178 lb 1.6 oz Intake: IV 250 Sodium Chloride 0.9% 250 ml @ 250 20 mls/hr IV .[id number] [facility] Rx#: [id number] Oral 360 390 480 Output: Urine Catheter Amount 64 91 183 Hemodialysis UF 3706 Other: Meal Dinner Breakfast Percent of Meal Consumed 100% 100% Urine Appearance Clear Uretheral (Doshi) Clear Clear Urine Color Dark Yellow Dark Yellow Uretheral (Doshi) Dark Yellow Dark Yellow Dark Yellow Stool Size Moderate Small Stool Color Brown Brown Stool Consistency Soft Soft # Bowel Movements 1 1 General appearance: no acute distress Exam: Alert oriented No anxiety No telemetry events No lymphedema Nonlabored breathing Medical - PN: Obj Da - Labs CBC & Chem 7: 10/12/19 03:39 10/12/19 03:39 Labs: Abnormal Lab Results 10/12/19 10/12/19 10/11/19 03:39 03:39 04:15 WBC 2.9 L RBC 2.34 L Hgb 8.0 L Hct 23.6 L POC Hct MCV 101.1 H MCH 34.2 H RDW 26.9 H Plt Count 55 L MPV Lymph % (Auto) Bradley % (Auto) Gran # Lymph # (Auto) Bradley # (Auto) Seg Neutrophils % Band Neutrophils % 12 H Lymphocytes % 12 L Metamyelocytes % Myelocytes % Nucleated RBCs 1 H WBC Morphology Dohle Bodies Platelet Estimate Decreased A RBC Morphology Abnorm A Polychromasia 1+ A Hypochromasia Poikilocytosis 1+ A Anisocytosis 3+ A Macrocytosis 1+ A Tear Drop Cells Ovalocytes VBG Lactic Acid Potassium 5.4 H POC BUN BUN 41 H 63 H Creatinine 3.0 H 4.8 H POC Creatinine Glucose 135 H 156 H POC Glucose POC WB Ioniz Calcium Phosphorus 6.0 H* Total Bilirubin 1.3 H 1.6 H Direct Bilirubin 0.5 H 0.7 H GGT 231 H 246 H Alkaline Phosphatase 122 H 122 H Lactate Dehydrogenase 255 H Troponin T NT-Pro-B Natriuret Pep Albumin 2.8 L 2.9 L Globulin Albumin/Globulin Ratio 0.8 L 0.9 L Urine Protein Urine Occult Blood Urine RBC 10/11/19 10/10/19 10/10/19 04:15 11:28 10:18 WBC 2.7 L 1.2 L RBC 2.36 L 1.90 L Hgb 8.1 L 6.9 L* Hct 24.0 L 20.2 L* POC Hct MCV 101.6 H 106.4 H MCH 34.3 H 36.2 H RDW 27.6 H 24.1 H Plt Count 55 L 66 L MPV 6.8 L Lymph % (Auto) Bradley % (Auto) Gran # Lymph # (Auto) Bradley # (Auto) Seg Neutrophils % 29 L 34 L Band Neutrophils % 41 H 23 H Lymphocytes % Metamyelocytes % 6 H Myelocytes % 2 H Nucleated RBCs 3 H WBC Morphology Abnorm A Dohle Bodies 1+ A Platelet Estimate Decreased A Decreased A RBC Morphology Abnorm A Abnorm A Polychromasia 1+ A 1+ A Hypochromasia 1+ A Poikilocytosis 1+ A Anisocytosis 3+ A 2+ A Macrocytosis 1+ A 2+ A Tear Drop Cells Few A Ovalocytes Few A VBG Lactic Acid Potassium POC BUN BUN Creatinine POC Creatinine Glucose POC Glucose POC WB Ioniz Calcium Phosphorus Total Bilirubin Direct Bilirubin GGT Alkaline Phosphatase Lactate Dehydrogenase Troponin T NT-Pro-B Natriuret Pep Albumin Globulin Albumin/Globulin Ratio Urine Protein 100 A Urine Occult Blood 0.03 A Urine RBC 2 H 10/10/19 10/10/19 10/10/19 01:25 01:05 01:05 WBC RBC Hgb Hct POC Hct MCV MCH RDW Plt Count MPV Lymph % (Auto) Bradley % (Auto) Gran # Lymph # (Auto) Bradley # (Auto) Seg Neutrophils % Band Neutrophils % Lymphocytes % Metamyelocytes % Myelocytes % Nucleated RBCs WBC Morphology Dohle Bodies Platelet Estimate RBC Morphology Polychromasia Hypochromasia Poikilocytosis Anisocytosis Macrocytosis Tear Drop Cells Ovalocytes VBG Lactic Acid 5.0 H* Potassium POC BUN BUN 36 H Creatinine 3.5 H POC Creatinine Glucose 122 H POC Glucose POC WB Ioniz Calcium Phosphorus Total Bilirubin 1.7 H Direct Bilirubin GGT Alkaline Phosphatase 193 H Lactate Dehydrogenase Troponin T 0.12 H* NT-Pro-B Natriuret Pep 66562.0 H Albumin Globulin 3.8 H Albumin/Globulin Ratio 0.9 L Urine Protein Urine Occult Blood Urine RBC 10/10/19 10/10/19 01:05 01:05 WBC 2.1 L RBC 2.20 L Hgb 8.0 L Hct 23.5 L POC Hct 24.0 L MCV 106.9 H MCH 36.4 H RDW 24.0 H Plt Count 100 L MPV 7.0 L Lymph % (Auto) 50.0 H Bradley % (Auto) 0.7 L Gran # 1.0 L Lymph # (Auto) 1.1 L Bradley # (Auto) 0 L Seg Neutrophils % Band Neutrophils % Lymphocytes % Metamyelocytes % Myelocytes % Nucleated RBCs WBC Morphology Dohle Bodies Platelet Estimate RBC Morphology Polychromasia Hypochromasia Poikilocytosis Anisocytosis Macrocytosis Tear Drop Cells Ovalocytes VBG Lactic Acid Potassium POC BUN 35 H BUN Creatinine POC Creatinine 3.9 H Glucose POC Glucose 118 H POC WB Ioniz Calcium 1.13 L Phosphorus Total Bilirubin Direct Bilirubin GGT Alkaline Phosphatase Lactate Dehydrogenase Troponin T NT-Pro-B Natriuret Pep Albumin Globulin Albumin/Globulin Ratio Urine Protein Urine Occult Blood Urine RBC Meds: Medications Acetaminophen (Tylenol) 650 mg PO Q4-6HP PRN; Protocol PRN Reason: Per Pain Protocol/Fever > 101 Hydrocodone Bitart/Acetaminophen (Stuart 5/325mg) 1 tab PO Q4HP PRN; Protocol PRN Reason: Pain Last Admin: 10/11/19 14:18 Dose: 1 tab Documented by: Albuterol/Ipratropium (Duoneb) 3 ml NEB Q4HRT [facility] Last Admin: 10/12/19 07:19 Dose: 3 ml Documented by: Allopurinol (Zyloprim) 100 mg PO DAILY [facility] Last Admin: 10/12/19 08:43 Dose: 100 mg Documented by: Bisacodyl (Dulcolax) 10 mg VT Q2-3DAYS PRN PRN Reason: Constipation Cefepime HCl (Maxipime) 1 gm IV Q24H [facility] Last Admin: 10/11/19 17:34 Dose: 1 gm Documented by: Chlorhexidine Gluconate (Peridex) 15 ml SWABMOUTH BID [facility] Last Admin: 10/12/19 08:42 Dose: 15 ml Documented by: Dextrose (Dextrose 50%) 0 ml IV UD PRN PRN Reason: Hypoglycemia Diagnostic Test (Pha) (Accu-Chek) 1 each FS ACHS [facility] Last Admin: 10/12/19 06:37 Dose: 1 each Documented by: Docusate Sodium (Colace) 100 mg PO BID [facility] Last Admin: 10/12/19 08:43 Dose: 100 mg Documented by: Fondaparinux (Arixtra) 2.5 mg SQ Q48H [facility] Last Admin: 10/11/19 17:34 Dose: 2.5 mg Documented by: Furosemide (Lasix) 40 mg PO BIDD [facility] Last Admin: 10/12/19 08:43 Dose: 40 mg Documented by: Gabapentin (Neurontin) 200 mg PO HS [facility] Last Admin: 10/11/19 20:04 Dose: 200 mg Documented by: Glucose (Insta-Glucose) 15 gm PO PRN PRN PRN Reason: Hypoglycemia Acetaminophen (Ofirmev) 650 mg in 65 mls @ 130 mls/hr IV Q6HP PRN; Protocol PRN Reason: Per Pain Protocol/Fever > 101 Thiamine HCl 100 mg/ Sodium (Chloride) 51 mls @ 50 mls/hr IV DAILY [facility] Stop: 10/13/19 10:02 Last Admin: 10/12/19 08:33 Dose: 50 mls/hr Documented by: Norepinephrine Bitartrate 16 (mg/ Sodium Chloride) 250 mls @ 9.375 mls/hr IV PRN PRN; Protocol PRN Reason: Hypotension Insulin Glargine (Lantus) [address] [facility] Last Admin: 10/11/19 20:05 Dose: 33 unit Documented by: Insulin Human Lispro (Humalog) 0 unit SQ [facility]; Protocol Last Admin: 10/12/19 06:38 Dose: Not Given Documented by: Levalbuterol HCl (Xopenex) 0.63 mg NEB Q4HP PRN PRN Reason: Shortness Of Breath Levothyroxine Sodium (Synthroid) 100 mcg PO QAMAC [facility] Last Admin: 10/12/19 07:22 Dose: 100 mcg Documented by: Losartan Potassium (Cozaar) 50 mg PO DAILY [facility] Last Admin: 10/12/19 08:43 Dose: 50 mg Documented by: Methylprednisolone Sodium Succinate (Solu-Medrol) 62.5 mg IV Q12 [facility] Last Admin: 10/12/19 08:42 Dose: 62.5 mg Documented by: Metoprolol Tartrate (Lopressor) 50 mg PO BID [facility] Last Admin: 10/12/19 08:43 Dose: 50 mg Documented by: Morphine Sulfate (Morphine) 2 mg IV Q5MIN PRN; Protocol PRN Reason: Chest Pain Nitroglycerin (Nitrostat) 0.4 mg SL Q5M PRN PRN Reason: Chest Pain Omeprazole (Prilosec) 20 mg PO ACB [facility] Last Admin: 10/12/19 07:22 Dose: 20 mg Documented by: Ondansetron HCl (Zofran) 4 mg IV Q4-6HP PRN; Protocol PRN Reason: Nausea And Vomiting Dulera 200 Mcg/5 Mcg (Inhaler) 2 dose INH BID [facility] Last Admin: 10/12/19 08:36 Dose: Not Given Documented by: Polyethylene Glycol (Miralax) 17 gm PO DAILYP PRN PRN Reason: Constipation Senna/Docusate Sodium (Senna Plus Tablet) [address] [facility] Last Admin: 10/11/19 20:04 Dose: 1 tab Documented by: Sevelamer Carbonate (Renvela) 800 mg PO TIDCC [facility] Last Admin: 10/12/19 08:43 Dose: 800 mg Documented by: Sodium Chloride (Saline Flush) 10 ml IV Q8 [facility] Last Admin: 10/12/19 08:33 Dose: 10 ml Documented by: Trazodone HCl (Desyrel) [address] [facility] Last Admin: 10/12/19 00:26 Dose: 50 mg Documented by: Medical - PN: A/P - Time Spent With Patient Total time spent is greater than 50% in coordination of care (as documented) at patient's floor/unit and/or counseling patient: 25 - 35 minutes (1) Acute and chronic respiratory failure with hypoxia Status: Acute Assessment and plan: * Acute hypoxic hypercapnic respiratory failure-clinically resolved now on room air. off NIV. Improved ABG 7.3/51/21- > 7.52/34/145 * E. coli bacteremia-clinically improving on antibiotic coverage. De-escalate based on sensitivities. Target antibiotics for total of 7 to 10 days * Right midlung pneumonia, dense consolidation 6.5 cm. Broad antibiotic coverage, repeat chest imaging in 2 to 4 weeks to rule out mass lesion superimposed by dense consolidation * Severe sepsis with elevated lactate at 5, improving neutropenia. Clinically resolved. * Hypertensive urgency on nitroprusside drip. Resolved. Now back on home dose metoprolol/losartan * Acute exacerbation of COPD continue bronchodilators/steroids * ESRD on HD-patient follows up with Dr. Angel Mathur. Status post HD 10/11 * DM type II on basal prandial insulin * Neuropathy continue home dose gabapentin * history of gout on allopurinol * Hypothyroidism on thyroxine * GERD continue home dose PPI * Full code * Prophylaxis heparin Plan * Continue hemodialysis per nephrology * De-escalate antibiotics based on sensitivities * Repeat chest imaging in 2 to 4 weeks * Pre-existing medical condition management as above * Discharge planning per case management Current Visit: Yes
[2019-10-12] MEDS ORDERED: LEVALBUTEROL 0.63 MG/3 ML AMPUL.NEB NEB PRN (11:34)
[2019-10-12] MEDS ORDERED: POLYETHYLENE GLYCOL 3350 17 GM PACKET PO PRN (11:34)
[2019-10-12] MEDS ORDERED: ONDANSETRON 4 MG/2 ML VIAL IV PRN (11:34)
[2019-10-12] MEDS ORDERED: BISACODYL 10 MG SUPP.RECT PR PRN (11:34)
[2019-10-12] MEDS ORDERED: DEXTROSE 50% 50 ML VIAL IV PRN (11:34)
[2019-10-12] MEDS ORDERED: NOREPINEPHRINE BITARTRATE 16 MG in 0.9 % SODIUM CHLORIDE 234 ML IV PRN (11:34)
[2019-10-12] MEDS ORDERED: DEXTROSE 31 GM ORAL.SUSP PO PRN (11:34)
[2019-10-12] MEDS ORDERED: NITROGLYCERIN 0.4 MG TAB.SUBL SL PRN (11:34)
[2019-10-12] MEDS ORDERED: ACETAMINOPHEN 650 MG/65 ML BOTTLE IV PRN (11:34)
[2019-10-12] MEDS ORDERED: ACETAMINOPHEN 325 MG TABLET PO PRN (11:34)
[2019-10-12] MEDS ORDERED: CEFEPIME 1 GM VIAL IV SCH (18:00)
[2019-10-12] MEDS: HYDROcodone/APAP 5/325MG TABLET PO PRN (21:35)
[2019-10-12] MEDS: SENNOSIDES/DOCUSATE SODIUM 1 TAB TABLET PO SCH (22:00)
[2019-10-12] MEDS: INSULIN GLARGINE, HUMAN 1 UNIT/0.01 ML SQ SCH (22:00)
[2019-10-12] MEDS: GABAPENTIN 100 MG CAPSULE PO SCH (22:01)
[2019-10-13] MEDS: HYDROcodone/APAP 5/325MG TABLET PO PRN ×2 (03:02→22:34)
[2019-10-13] MEDS: IPRATROPIUM/ALBUTEROL 3 ML AMPUL.NEB NEB SCH ×6 (03:05→22:38)
[2019-10-13] MEDS: 0.9 % SODIUM CHLORIDE 10 ML SYRINGE IV SCH ×3 (05:02→21:45)
[2019-10-13 05:56] LABS: Hemoglobin 7.7 g/dL (13.5-16.5); Mean Cell Volume 98.1 fL (80.0-100.0); Mean Platelet Volume 8.2 fL (7.4-10.4); Platelet Count 52 K/mcL (140-440); RBC 2.24 M/mcL (4.50-5.90); Red Cell Distribution Width 23.5 % (11.5-14.5); WBC 4.1 K/mcL (4.5-11.0)
[2019-10-13 06:32] LABS: ALT/SGPT 17 U/l (0-40); AST/SGOT 16 U/l (0-37); Albumin 2.9 gm/dL (3.2-5.2); Albumin/Globulin Ratio 0.9 (1.0-2.3); Alkaline Phosphatase 118 U/L (39-117); Bilirubin,Direct 0.4 mg/dL (0.0-0.3); Bilirubin,Total 0.9 mg/dL (0.0-1.0); Calcium 8.7 mg/dl (8.6-10.4); Carbon Dioxide 24 mmol/L (22-30); Globulin 3.3 gm/dL (2.2-3.7); Glucose 128 mg/dL (70-105); Lactate Dehydrogenase 223 U/L (94-250); Triglycerides 96 mg/dl (<150); Uric Acid 5.4 mg/dL (2.5-8.0)
[2019-10-13 06:33] LABS: Blood Urea Nitrogen 73 mg/dl (8-23); Chloride 90 mmol/L (96-108); Glomerular Filtration Rate 14; Phosphorous 5.7 mg/dL (2.7-4.5)
[2019-10-13] MEDS: INSULIN LISPRO 1 UNIT/0.01 ML UNIT SQ SCH ×4 (07:38→21:43)
[2019-10-13] MEDS: LEVOTHYROXINE 100 MCG TABLET PO SCH (07:41)
[2019-10-13] MEDS: SEVELAMER 800 MG TABLET PO SCH ×3 (07:41→17:32)
[2019-10-13] MEDS: predniSONE 20 MG TABLET PO SCH (07:41)
[2019-10-13] MEDS: OMEPRAZOLE 20 MG CAPSULE PO SCH (07:41)
[2019-10-13] MEDS: FUROSEMIDE 40 MG TABLET PO SCH ×2 (07:41→15:48)
--- NOTE | 2019-10-13 08:58 | Nephrology Progress Note ---
Subjective Patient information: Note initiated : 10/13/19 at 8:57 am Service Date, if different from initiated Date: [] Patient: Giorgio Aguiar 79 y/o M admitted on 10/10/19 for spitting blood. Chief Complaint: [] Has been feeling a lot better. No fever. Breathing is better as well. Objective - Vital Signs Vital signs: Vital Signs Temp Pulse Pulse Resp BP BP Pulse Ox 10/13/19 08:00 96.8 F L 62 28 H 109/63 94 10/13/19 07:18 64 16 92 10/13/19 06:34 96.8 F L 62 28 H 109/63 95 10/13/19 02:46 97.9 F 64 20 130/69 92 10/12/19 23:06 97.3 F 67 14 125/61 93 10/12/19 22:40 65 18 10/12/19 19:33 97.9 F 73 12 130/67 96 10/12/19 18:35 67 18 10/12/19 16:00 99.0 F 78 22 110/58 91 10/12/19 15:06 54 L 16 10/12/19 10:01 98.5 F 69 16 112/60 93 10/12/19 09:03 74 18 100 Intake and Output 10/12/19 10/13/19 10/13/19 21:59 05:59 13:59 Intake Total 240 120 Balance 240 120 Intake: Oral 240 120 Other: Meal Dinner Percent of Meal Consumed 100% Feeding Ability Assist with Tray Set Up Stool Size Moderate Stool Consistency Formed # Voids 1 # Bowel Movements 1 Weight 181 lb 8 oz Intake & Output: Intake & Output 10/12/19 10/13/19 10/13/19 21:59 05:59 13:59 Intake Total 240 120 Balance 240 120 Weight 181 lb 8 oz Intake: Oral 240 120 Other: Meal Dinner Percent of Meal Consumed 100% Feeding Ability Assist with Tray Set Up Stool Size Moderate Stool Consistency Formed # Voids 1 # Bowel Movements 1 - General Appearance General appearance: well-developed, well-nourished EENT: ATNC Neck: no JVD Respiratory: no kyphosis Cardiology: no murmurs Gastrointestinal: normoactive bowel sounds Integumentary: no rash Musculoskeletal: no cyanosis - Lab 10/13/19 04:30 10/13/19 04:30 Most recent lab results Calcium 8.7 mg/dl (8.6-10.4) 10/13/19 04:30 Phosphorus 5.7 mg/dL (2.7-4.5) H 10/13/19 04:30 Magnesium 1.9 mg/dL (1.6-2.5) 10/13/19 04:30
[2019-10-13] MEDS ORDERED: THIAMINE 100 MG in 0.9 % SODIUM CHLORIDE 50 ML IV SCH (09:00)
[2019-10-13 09:06] LABS: Anisocytosis 3+ (NONE SEEN); Band Neutrophils % 12 % (0-10); Hypochromasia 2+ (NONE SEEN); Lymphocytes % 11 % (15-49); Metamyelocytes % 2 % (0-0); Monocytes % (Manual) 2 % (1-12); Ovalocytes FEW (NONE SEEN); Platelet Estimate DECREASED (NORMAL); Poikilocytosis 1+ (NONE SEEN); Polychromasia 1+ (NONE SEEN); RBC Fragments RARE (NONE SEEN); RBC Morphology ABNORM (NORMAL); Segmented Neutrophils % 73 % (38-78)
[2019-10-13] MEDS: ALLOPURINOL 100 MG TABLET PO SCH (09:22)
[2019-10-13] MEDS: CHLORHEXIDINE GLUCONATE 1 ML ORAL.SOL SWABMOUTH SCH ×2 (09:22→21:45)
[2019-10-13] MEDS: DOCUSATE SODIUM 100 MG CAPSULE PO SCH ×2 (09:22→21:43)
[2019-10-13] MEDS: LOSARTAN 50 MG TABLET PO SCH (09:23)
[2019-10-13] MEDS: METOPROLOL TARTRATE 50 MG TABLET PO SCH ×2 (09:23→21:44)
--- NOTE | 2019-10-13 09:34 | Internal Med Progress Note ---
Medical - PN: Subj Patient information: Note initiated : 10/13/19 at 9:31 am Service Date, if different from initiated Date: [] Patient: Giorgio Aguiar a 79 y/o M admitted on 10/10/19 for spitting blood. Chief Complaint: [] Interval history: Mr. Aguiar is a 79 year old M with known history of DM type II, hypertension, ESRD on HD managed by Dr. Mathur. Patient recently underwent vertebroplasty 2 weeks ago due to chronic back pain however as per daughter Apoorva and he started getting worse with increasing shortness of breath. He tried to work with symptoms of increased shortness of breath anxiety and progressive restlessness dyspnea unable to sleep. He is also developed a lack of appetite. He continue with his normal 3 times a week dialysis but became profoundly short of breath last evening and subsequently drove him to the ER. Initial work-up was consistent with large right-sided consolidation with sats in mid 70s. Initial blood gas 7.3/ on 6 L oxygen Patient was promptly started on noninvasive ventilation due to profound hypoxemia. Elevated lactate at 5 with a white count of 2.1. Patient was also found to be hypertensive over 200 and subsequently nitroprusside drip was initiated. Hospitalist service was consulted due to above At the time of evaluation patient is accompanied by her daughter Apoorva and Mariana, clearly able to answer most the question. Patient patient is very distress currently on noninvasive mechanical ventilation. Family is able to endorse history as above. They however denied recent sick contacts or productive sputum or shaking chills or fever. He further denied diarrhea dysuria, headache or photophobia. They however have noted a progressive deterioration in overall generalized well-being over the last couple of weeks since the vertebroplasty procedure. 10/11-patient doing well. Off noninvasive ventilation. Multiple blood cultures positive for gram-negative kirk E. coli initial cultures. Repeat cultures from fistula site today. Dialysis ongoing today. CT chest large infiltrate with a solid component. Likely infection versus aspiration. White count improving to 2.7 with 70% neutrophils close to 41% bands. Continue trial off BiPAP. Hemodynamic stabilized. Systolics around 100. 10/12-patient doing well. White count of 2.9, improved shortness of breath now on room air. Off BiPAP. Stable hemodynamics. Status post hemodialysis on Friday. Potassium 4.7. E. coli on culture. Sensitivities pending. On cefepime. Repeat blood cultures negative from fistula. No overnight fever chills. Stable hemodynamics. Large right-sided pneumonia will need repeat imaging in 2 to 4 weeks to rule out solid mass lesion superimposed by pneumonia. 10/13-patient doing well. No family at bedside. Continue antibiotic coverage for E. coli bacteremia. Sensitivities pending. Hemodialysis today. Anticipate discharge in 24 hours with outpatient follow-up with primary care physician/nephrology for continued dialysis and antibiotics for bacteremia to be decided based on sensitivities. Patient will also need follow-up chest imaging to rule out recurrence of lung cancer once pneumonia has cleared. Primary care physician to coordinate outpatient imaging. Recommend chest CT and 2 to 4 weeks - Constitutional Vitals: Vital Signs Temp Pulse Resp BP Pulse Ox 96.8 F L 62 28 H 109/63 94 10/13/19 08:00 10/13/19 08:00 10/13/19 08:00 10/13/19 08:00 10/13/19 08:00 Period Temp Pulse Resp BP Sys/Lora Pulse Ox Last 24 Hr 96.8 F-99.0 F 54-78 12-28 109-130/58-69 91-96 Intake and Output 10/12/19 10/13/19 10/13/19 21:59 05:59 13:59 Intake Total 240 120 Balance 240 120 Weight 181 lb 8 oz Intake & Output: Intake & Output 10/12/19 10/13/19 10/13/19 21:59 05:59 13:59 Intake Total 240 120 Balance 240 120 Weight 181 lb 8 oz Intake: Oral 240 120 Other: Meal Dinner Percent of Meal Consumed 100% Feeding Ability Assist with Tray Set Up Stool Size Moderate Stool Consistency Formed # Voids 1 # Bowel Movements 1 General appearance: no acute distress Exam: Alert oriented Nonlabored breathing No anxiety Nondistended abdomen Medical - PN: Obj Da - Labs CBC & Chem 7: 10/13/19 04:30 10/13/19 04:30 Labs: Abnormal Lab Results 10/13/19 10/13/19 10/12/19 04:30 04:30 03:39 WBC 4.1 L RBC 2.24 L Hgb 7.7 L Hct 22.0 L MCV MCH 34.3 H RDW 23.5 H Plt Count 52 L MPV Seg Neutrophils % Band Neutrophils % 12 H Lymphocytes % 11 L Metamyelocytes % 2 H Myelocytes % Nucleated RBCs WBC Morphology Dohle Bodies Platelet Estimate Decreased A RBC Morphology Abnorm A Polychromasia 1+ A Hypochromasia 2+ A Poikilocytosis 1+ A Anisocytosis 3+ A Macrocytosis Tear Drop Cells Ovalocytes Few A RBC Fragments Rare A Sodium 127 L Potassium Chloride 90 L BUN 73 H 41 H Creatinine 3.9 H 3.0 H Glucose 128 H 135 H Phosphorus 5.7 H Total Bilirubin 1.3 H Direct Bilirubin 0.4 H 0.5 H GGT 218 H 231 H Alkaline Phosphatase 118 H 122 H Lactate Dehydrogenase Albumin 2.9 L 2.8 L Albumin/Globulin Ratio 0.9 L 0.8 L Urine Protein Urine Occult Blood Urine RBC 10/12/19 10/11/19 10/11/19 03:39 04:15 04:15 WBC 2.9 L 2.7 L RBC 2.34 L 2.36 L Hgb 8.0 L 8.1 L Hct 23.6 L 24.0 L MCV 101.1 H 101.6 H MCH 34.2 H 34.3 H RDW 26.9 H 27.6 H Plt Count 55 L 55 L MPV Seg Neutrophils % 29 L Band Neutrophils % 12 H 41 H Lymphocytes % 12 L Metamyelocytes % 6 H Myelocytes % 2 H Nucleated RBCs 1 H WBC Morphology Abnorm A Dohle Bodies 1+ A Platelet Estimate Decreased A Decreased A RBC Morphology Abnorm A Abnorm A Polychromasia 1+ A 1+ A Hypochromasia Poikilocytosis 1+ A 1+ A Anisocytosis 3+ A 3+ A Macrocytosis 1+ A 1+ A Tear Drop Cells Few A Ovalocytes Few A RBC Fragments Sodium Potassium 5.4 H Chloride BUN 63 H Creatinine 4.8 H Glucose 156 H Phosphorus 6.0 H* Total Bilirubin 1.6 H Direct Bilirubin 0.7 H GGT 246 H Alkaline Phosphatase 122 H Lactate Dehydrogenase 255 H Albumin 2.9 L Albumin/Globulin Ratio 0.9 L Urine Protein Urine Occult Blood Urine RBC 10/10/19 10/10/19 11:28 10:18 WBC 1.2 L RBC 1.90 L Hgb 6.9 L* Hct 20.2 L* MCV 106.4 H MCH 36.2 H RDW 24.1 H Plt Count 66 L MPV 6.8 L Seg Neutrophils % 34 L Band Neutrophils % 23 H Lymphocytes % Metamyelocytes % Myelocytes % Nucleated RBCs 3 H WBC Morphology Dohle Bodies Platelet Estimate Decreased A RBC Morphology Abnorm A Polychromasia 1+ A Hypochromasia 1+ A Poikilocytosis Anisocytosis 2+ A Macrocytosis 2+ A Tear Drop Cells Ovalocytes RBC Fragments Sodium Potassium Chloride BUN Creatinine Glucose Phosphorus Total Bilirubin Direct Bilirubin GGT Alkaline Phosphatase Lactate Dehydrogenase Albumin Albumin/Globulin Ratio Urine Protein 100 A Urine Occult Blood 0.03 A Urine RBC 2 H Meds: Medications Acetaminophen (Tylenol) 650 mg PO Q4-6HP PRN; Protocol PRN Reason: Per Pain Protocol/Fever > 101 Hydrocodone Bitart/Acetaminophen (Terral 5/325mg) 1 tab PO Q4HP PRN; Protocol PRN Reason: Pain Last Admin: 10/13/19 03:02 Dose: 1 tab Documented by: Albuterol/Ipratropium (Duoneb) 3 ml NEB Q4HRT [facility] Last Admin: 10/13/19 07:16 Dose: 3 ml Documented by: Allopurinol (Zyloprim) 100 mg PO DAILY [facility] Last Admin: 10/13/19 09:22 Dose: 100 mg Documented by: Bisacodyl (Dulcolax) 10 mg TN Q2-3DAYS PRN PRN Reason: Constipation Cefepime HCl (Maxipime) 1 gm IV Q24H [facility] Last Admin: 10/12/19 21:34 Dose: 1 gm Documented by: Chlorhexidine Gluconate (Peridex) 15 ml SWABMOUTH BID [facility] Last Admin: 10/13/19 09:22 Dose: 15 ml Documented by: Dextrose (Dextrose 50%) 0 ml IV UD PRN PRN Reason: Hypoglycemia Diagnostic Test (Pha) (Accu-Chek) 1 each FS ACHS [facility] Last Admin: 10/13/19 07:36 Dose: 1 each Documented by: Docusate Sodium (Colace) 100 mg PO BID [facility] Last Admin: 10/13/19 09:22 Dose: 100 mg Documented by: Fondaparinux (Arixtra) 2.5 mg SQ Q48H [facility] Furosemide (Lasix) 40 mg PO BIDD [facility] Last Admin: 10/13/19 07:41 Dose: 40 mg Documented by: Gabapentin (Neurontin) 200 mg PO HS [facility] Last Admin: 10/12/19 22:01 Dose: 200 mg Documented by: Glucose (Insta-Glucose) 15 gm PO PRN PRN PRN Reason: Hypoglycemia Norepinephrine Bitartrate 16 (mg/ Sodium Chloride) 250 mls @ 9.375 mls/hr IV PRN PRN; Protocol PRN Reason: Hypotension Acetaminophen (Ofirmev) 650 mg in 65 mls @ 130 mls/hr IV Q6HP PRN; Protocol PRN Reason: Per Pain Protocol/Fever > 101 Thiamine HCl 100 mg/ Sodium (Chloride) 51 mls @ 50 mls/hr IV DAILY [facility] Stop: 10/13/19 10:02 Last Admin: 10/13/19 09:24 Dose: 50 mls/hr Documented by: Insulin Glargine (Lantus) 33 unit SQ HS [facility] Last Admin: 10/12/19 22:00 Dose: 33 units Documented by: Insulin Human Lispro (Humalog) 0 unit SQ ACHS [facility]; Protocol Last Admin: 10/13/19 07:38 Dose: Not Given Documented by: Levalbuterol HCl (Xopenex) 0.63 mg NEB Q4HP PRN PRN Reason: Shortness Of Breath Levothyroxine Sodium (Synthroid) 100 mcg PO QAMAC [facility] Last Admin: 10/13/19 07:41 Dose: 100 mcg Documented by: Losartan Potassium (Cozaar) 50 mg PO DAILY [facility] Last Admin: 10/13/19 09:23 Dose: Not Given Documented by: Metoprolol Tartrate (Lopressor) 50 mg PO BID [facility] Last Admin: 10/13/19 09:23 Dose: Not Given Documented by: Morphine Sulfate (Morphine) 2 mg IV Q5MIN PRN; Protocol PRN Reason: Chest Pain Nitroglycerin (Nitrostat) 0.4 mg SL Q5M PRN PRN Reason: Chest Pain Omeprazole (Prilosec) 20 mg PO ACB [facility] Last Admin: 10/13/19 07:41 Dose: 20 mg Documented by: Ondansetron HCl (Zofran) 4 mg IV Q4-6HP PRN; Protocol PRN Reason: Nausea And Vomiting Dulera 200 Mcg/5 Mcg (Inhaler) 2 dose INH BID [facility] Last Admin: 10/13/19 09:24 Dose: Not Given Documented by: Polyethylene Glycol (Miralax) 17 gm PO DAILYP PRN PRN Reason: Constipation [facility]) [facility] Last Admin: 10/13/19 07:41 Dose: 40 mg Documented by: Senna/Docusate Sodium (Senna Plus Tablet) 1 tab PO [facility] Last Admin: 10/12/19 22:00 Dose: 1 tab Documented by: Sevelamer Carbonate (Renvela) 800 mg PO [facility] Last Admin: 10/13/19 07:41 Dose: 800 mg Documented by: Sodium Chloride (Saline Flush) 10 ml IV Q8 [facility] Last Admin: 10/13/19 05:02 Dose: 10 ml Documented by: Trazodone HCl (Desyrel) 50 mg PO [facility] Last Admin: 10/12/19 22:00 Dose: 50 mg Documented by: Medical - PN: A/P - Time Spent With Patient Total time spent is greater than 50% in coordination of care (as documented) at patient's floor/unit and/or counseling patient: 25 - 35 minutes (1) Acute and chronic respiratory failure with hypoxia Status: Acute Assessment and plan: * Acute hypoxic hypercapnic respiratory failure-clinically resolved now on room air. off NIV. Improved ABG 7.3/51/21- > 7.52/34/145 * E. coli bacteremia-clinically improving on antibiotic coverage. Await sensitivities for de-escalation.. Target antibiotics for total of 7 to 10 days * Right midlung pneumonia, dense consolidation 6.5 cm. Broad antibiotic coverage, repeat chest imaging in 2 to 4 weeks to rule out mass lesion superimposed by dense consolidation. Patient previously has had lung joel gnancy and underwent now highly suspicious for recurrence * Severe sepsis with elevated lactate at 5, improving neutropenia. Clinically resolved. * Hypertensive urgency on nitroprusside drip. Resolved. Now back on home dose metoprolol/losartan * Acute exacerbation of COPD continue bronchodilators/steroids * ESRD on HD-patient follows up with Dr. Angel Mathur. Status post HD 10/11 * DM type II on basal prandial insulin * Neuropathy continue home dose gabapentin * history of gout on allopurinol * Hypothyroidism on thyroxine * GERD continue home dose PPI * Full code * Prophylaxis heparin Plan * Continue hemodialysis per nephrology * Await sensitivities for de-escalation * Recommend repeating chest imaging in 2 to 4 weeks for assessment of lung mass * Pre-existing medical condition management as above * Discharge planning per case management * PT OT nutrition support Current Visit: Yes
[2019-10-13] MEDS ORDERED: LEVOFLOXACIN 750 MG/150 ML BAG IV ONE (11:00)
--- NOTE | 2019-10-13 13:01 | Discharge Summary ---
Medical - DS: Prov Patient information: Note initiated : 10/13/19 at 12:58 pm Service Date, if different from initiated Date: [] Patient: Giorgio Aguiar 79 y/o M admitted on 10/10/19 for spitting blood. Chief Complaint: [] Date of admission: 10/10/19 04:05 Discharge date: 10/14/19 Primary care physician: Isidro Matos Consults: 10/10/19 Consult to Physician [CONS] Stat Comment: Consulting Provider: Agusto Pratt Reason For Exam: Physician to Consult 10/10/19 15:11 Consult to Physician [CONS] Routine Comment: Dialysis patient Consulting Provider: Moris Mathur Reason For Exam: Physician to Consult Medical - DS: Meds - Discharge Medications Prescriptions: Levofloxacin [Levaquin] 500 mg PO Q48H #2 tab Active and Home Medications: Home Medications Ergocalciferol (Vitamin D2) [Drisdol] 50,000 unit PO .TWICE WEEKLY 08/12/15 [History Confirmed 10/10/19 Last Taken 10/08/19] Fish Oil 4,000 mg PO TID 08/12/15 [History Confirmed 10/10/19 Last Taken 10/03/19 08:00] Insulin Aspart [Novolog] 10 unit SQ TID 08/12/15 [History Confirmed 10/10/19 Last Taken 05/20/19] Insulin Detemir [Levemir] 33 unit SQ DAILY 08/12/15 [History Confirmed 10/10/19 Last Taken 05/21/19] Metoprolol Tartrate [Lopressor] 50 mg PO BID 08/12/15 [History Confirmed 10/10/19 Last Taken 10/03/19 08:00] Nitroglycerin [Nitrostat] 0.4 mg SL Q5M PRN 08/12/15 [History Confirmed 10/10/19 Last Taken 05/07/19] Sevelamer [Renvela] 800 mg PO TIDCC 08/12/15 [History Confirmed 10/10/19 Last Taken 10/03/19 08:00] Vitamin E 1 cap PO DAILY 08/12/15 [History Confirmed 10/10/19 Last Taken 10/03/19 08:00] Ipratropium/Albuterol Sulfate [Combivent] 2 puff INH QID #1 inhaler 03/04/16 [Rx Confirmed 10/10/19 Last Taken Unknown] Levothyroxine [Synthroid] 100 mcg PO QAMAC 10/07/16 [History Confirmed 10/10/19 Last Taken 10/03/19 07:00] Mometasone/Formoterol [Dulera 200 Mcg/5 Mcg Inhaler] 2 puff IH BID 10/07/16 [History Confirmed 10/10/19 Last Taken 05/21/19] Omeprazole [Prilosec] 20 mg PO ACB 10/07/16 [History Confirmed 10/10/19 Last Taken 10/03/19 07:00] Losartan Potassium 50 mg PO DAILY 05/21/19 [History Confirmed 10/10/19 Last Taken 10/03/19 08:00] traZODone HCL [Desyrel] 50 mg PO HS 05/21/19 [History Confirmed 10/10/19 Last Taken 10/03/19 20:00] Gabapentin [Neurontin] 200 mg PO HS #20 cap 06/20/19 [Rx Confirmed 10/10/19 Last Taken 10/03/19] Allopurinol [Zyloprim] 100 mg PO DAILY #30 tab 06/22/19 [Rx Confirmed 10/10/19 Last Taken 10/03/19 08:00] fentaNYL [Duragesic] 25 mcg TOPICAL Q72H #3 patch 06/22/19 [Rx Confirmed 10/10/19 Last Taken 09/26/19] HYDROcodone/APAP 5/325MG [[place] 5-325Mg] 1 tab PO Q4HP PRN #14 tab 09/29/19 [Rx Confirmed 10/10/19 Last Taken 10/09/19 22:00] Furosemide [Lasix] 40 mg PO BID 10/10/19 [History Confirmed 10/10/19 Last Taken 10/03/19 08:00] Medical - DS: Hosp Hospital Course: A: *Acute hypoxic hypercapnic respiratory failure: clinically resolved now on room air. off NIV *PNA (RML): dense consolidation 6.5 cm -repeat chest imaging in 2 to 4 weeks to rule out mass lesion superimposed by dense consolidation. Patient previously has had lung malignancy and underwent now highly suspicious for recurrence *E. coli bacteremia: *Sepsis with lactic acidosis resolved -resolved *Hypertensive urgency: Resolved. 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 Aguiar is a 79 year old M with known history of DM type II, hypertension, ESRD on HD managed by Dr. Mathur. Patient recently underwent vertebroplasty 2 weeks ago due to chronic back pain however as per daughter Apoorva and he started getting worse with increasing shortness of breath. He tried to work wit h symptoms of increased shortness of breath anxiety and progressive restlessness dyspnea unable to sleep. He is also developed a lack of appetite. He continue with his normal 3 times a week dialysis but became profoundly short of breath last evening and subsequently drove him to the ER. Initial work-up was consistent with large right-sided consolidation with sats in mid 70s. Initial blood gas 7.3// on 6 L oxygen Patient was promptly started on noninvasive ventilation due to profound hypoxemia. Elevated lactate at 5 with a white count of 2.1. Patient was also found to be hypertensive over 200 and subsequently nitroprusside drip was initiated. Hospitalist service was consulted due to above At the time of evaluation patient is accompanied by her daughter Apoorva and Mariana, clearly able to answer most the question. Patient patient is very distress currently on noninvasive mechanical ventilation. Family is able to endorse history as above. They however denied recent sick contacts or productive sputum or shaking chills or fever. He further denied diarrhea dysuria, headache or photophobia. They however have noted a progressive deterioration in overall generalized well-being over the last couple of weeks since the vertebroplasty procedure. 10/11-patient doing well. Off noninvasive ventilation. Multiple blood cultures positive for gram-negative kirk E. coli initial cultures. Repeat cultures from fistula site today. Dialysis ongoing today. CT chest large infiltrate with a solid component. Likely infection versus aspiration. White count improving to 2.7 with 70% neutrophils close to 41% bands. Continue trial off BiPAP. Hemodynamic stabilized. Systolics around 100. 10/12-patient doing well. White count of 2.9, improved shortness of breath now on room air. Off BiPAP. Stable hemodynamics. Status post hemodialysis on Friday. Potassium 4.7. E. coli on culture. Sensitivities pending. On cefepime. Repeat blood cultures negative from fistula. No overnight fever chills. Stable hemodynamics. Large right-sided pneumonia will need repeat imaging in 2 to 4 weeks to rule out solid mass lesion superimposed by pneumonia. 10/13-patient doing well. No family at bedside. Continue antibiotic coverage for E. coli bacteremia. Sensitivities pending. Hemodialysis today. Anticipate discharge in 24 hours with outpatient follow-up with primary care physician/nephrology for continued dialysis and antibiotics for bacteremia to be decided based on sensitivities. Patient will also need follow-up chest imaging to rule out recurrence of lung cancer once pneumonia has cleared. Primary care physician to coordinate outpatient imaging. Recommend chest CT and 2 to 4 weeks 10/14 No overnight events. Patient doing well. Oxygen well on room air. Still short of breath with exertion. No new complaints. Discharge diagnosis: Acute hypoxic respiratory failure E. coli bacteremia pneumonia sepsis Secondary discharge diagnosis: Hypertensive urgency COPD end-stage renal disease diabetes neuropathy gout hypothyroidism GERD - Time Spent with Patient Total time spent providing and/or coordinating discharge services: Greater than 30 minutes Medical - DS: Exam - Constitutional Vitals: Vital Signs Temp Pulse Pulse Resp BP BP Pulse Ox 10/13/19 12:46 54 L 116/55 10/13/19 12:37 54 L 115/58 10/13/19 12:16 53 L 107/52 10/13/19 12:02 60 114/57 10/13/19 11:46 54 L 113/54 10/13/19 11:30 60 118/56 10/13/19 11:15 54 L 108/55 10/13/19 11:04 60 119/58 10/13/19 10:51 60 113/57 10/13/19 10:30 96.8 F L 60 112/57 10/13/19 08:00 96.8 F L 62 28 H 109/63 94 10/13/19 07:18 64 16 92 10/13/19 06:34 96.8 F L 62 28 H 109/63 95 10/13/19 02:46 97.9 F 64 20 130/69 92 10/12/19 23:06 97.3 F 67 14 125/61 93 10/12/19 22:40 65 18 10/12/19 19:33 97.9 F 73 12 130/67 96 10/12/19 18:35 67 18 10/12/19 16:00 99.0 F 78 22 110/58 91 10/12/19 15:06 54 L 16 Intake and Output 10/12/19 10/13/19 10/13/19 21:59 05:59 13:59 Intake Total 240 120 240 Balance 240 120 240 Intake: Oral 240 120 240 Other: Meal Dinner Breakfast Percent of Meal Consumed 100% 100% Feeding Ability Assist with Tray Set Up Independent Stool Size Moderate Stool Consistency Formed # Voids 1 # Bowel Movements 1 Weight 82.327 kg Medical - DS: Data Labs on day of discharge: Labs from last 24 hours 10/13/19 10/13/19 04:30 04:30 WBC 4.1 L RBC 2.24 L Hgb 7.7 L Hct 22.0 L MCV 98.1 MCH 34.3 H MCHC 35.0 RDW 23.5 H Plt Count 52 L MPV 8.2 Total Counted 100 Seg Neutrophils % 73 Band Neutrophils % 12 H Lymphocytes % 11 L Monocytes % (Manual) 2 Metamyelocytes % 2 H Platelet Estimate Decreased A RBC Morphology Abnorm A Polychromasia 1+ A Hypochromasia 2+ A Poikilocytosis 1+ A Anisocytosis 3+ A Ovalocytes Few A RBC Fragments Rare A Sodium 127 L Potassium 4.9 Chloride 90 L Carbon Dioxide 24 Anion Gap 13.0 BUN 73 H Creatinine 3.9 H GFR Calculation 14 Glucose 128 H Uric Acid 5.4 Calcium 8.7 Phosphorus 5.7 H Magnesium 1.9 Total Bilirubin 0.9 Direct Bilirubin 0.4 H GGT 218 H AST 16 ALT 17 Alkaline Phosphatase 118 H Lactate Dehydrogenase 223 Total Protein 6.2 Albumin 2.9 L Globulin 3.3 Albumin/Globulin Ratio 0.9 L Triglycerides 96 Preliminary micro results at discharge 10/11/19 16:46 Blood Culture - Preliminary Blood - Right Arm 10/10/19 01:25 Blood Culture - Preliminary Blood Escherichia coli 10/10/19 01:35 Blood Culture - Preliminary Blood Gram negative bacillus Medical - DS: A/P - Patient/Caregiver Discharge Instructions Activity: increase activity as tolerated Diet: Renal/Consistent Carbs Additional Instructions: Recommend follow-up CT chest in 2 to 4 weeks to assess pneumonia and rule out underlying lung mass. Keep your regular scheduled dialysis treatment every Friday, Friday, and Friday please arrive at 10:15 am and your on time is 10:30 am. ([phone]). Prescriptions: Levofloxacin [Levaquin] 500 mg PO Q48H #2 tab - Follow up Plan Follow up with: Robbie Corona MD [Physician] - (Please call and schedule an appointment for pancytopenia.) Isidro Matos ARNP [Primary Care Provider] - Disposition: Xfer SNF Care Plan Goals: This discharge packet is provided to you to help keep you informed about your care. We want to ensure you get everything you need when you go home. You will also be receiving a call from us in a few days to follow up with you and see how you are doing since your discharge. This gives us a chance to listen to any concerns you maybe experiencing since you were discharged or any additional needs you may have, as well as providing us feedback on your care experience. We strive to always provide excellent care and thank you for your feedback and for choosing [facility]. Prognosis: Undetermined Rehab Potential: Fair I certify that the patient requires SNF services: Yes Overall status at discharge: patient is progressing back to baseline
[2019-10-13] MEDS ORDERED: FONDAPARINUX SODIUM 2.5 MG/0.5 ML SYRINGE SQ SCH (18:00)
[2019-10-13] MEDS: traZODone HCL 50 MG TABLET PO SCH (21:43)
[2019-10-13] MEDS: GABAPENTIN 100 MG CAPSULE PO SCH (21:44)
[2019-10-13] MEDS: INSULIN GLARGINE, HUMAN 1 UNIT/0.01 ML SQ SCH (21:44)
[2019-10-13] MEDS: SENNOSIDES/DOCUSATE SODIUM 1 TAB TABLET PO SCH (21:45)
[2019-10-14] MEDS: IPRATROPIUM/ALBUTEROL 3 ML AMPUL.NEB NEB SCH ×3 (04:42→12:21)
[2019-10-14] MEDS: 0.9 % SODIUM CHLORIDE 10 ML SYRINGE IV SCH ×2 (05:31→14:19)
[2019-10-14 06:40] LABS: Hematocrit 23.6 % (41.0-55.0); Mean Cell Volume 100.1 fL (80.0-100.0); Mean Corpuscular HGB Conc 33.7 g/dL (31.0-36.0); Mean Platelet Volume 8.2 fL (7.4-10.4); Platelet Count 54 K/mcL (140-440); RBC 2.35 M/mcL (4.50-5.90)
[2019-10-14 07:05] LABS: ALT/SGPT 18 U/l (0-40); AST/SGOT 17 U/l (0-37); Albumin 2.7 gm/dL (3.2-5.2); Albumin/Globulin Ratio 0.9 (1.0-2.3); Alkaline Phosphatase 115 U/L (39-117); Bilirubin,Total 0.8 mg/dL (0.0-1.0); Calcium 8.5 mg/dl (8.6-10.4); Carbon Dioxide 26 mmol/L (22-30); Chloride 96 mmol/L (96-108); Glucose 68 mg/dL (70-105); Lactate Dehydrogenase 196 U/L (94-250); Triglycerides 107 mg/dl (<150); Uric Acid 3.9 mg/dL (2.5-8.0)
--- NOTE | 2019-10-14 07:08 | Internal Med Progress Note ---
Medical - PN: Subj Patient information: Note initiated : 10/14/19 at 7:00 am Service Date, if different from initiated Date: [] Patient: Giorgio Aguiar a 79 y/o M admitted on 10/10/19 for spitting blood. Chief Complaint: [] Interval history: Mr. Aguiar is a 79 year old M with known history of DM type II, hypertension, ESRD on HD managed by Dr. Mathur. Patient recently underwent vertebroplasty 2 weeks ago due to chronic back pain however as per daughter Apoorva and he started getting worse with increasing shortness of breath. He tried to work with symptoms of increased shortness of breath anxiety and progressive restlessness dyspnea unable to sleep. He is also developed a lack of appetite. He continue with his normal 3 times a week dialysis but became profoundly short of breath last evening and subsequently drove him to the ER. Initial work-up was consistent with large right-sided consolidation with sats in mid 70s. Initial blood gas 7.3/ on 6 L oxygen Patient was promptly started on noninvasive ventilation due to profound hypoxemia. Elevated lactate at 5 with a white count of 2.1. Patient was also found to be hypertensive over 200 and subsequently nitroprusside drip was initiated. Hospitalist service was consulted due to above At the time of evaluation patient is accompanied by her daughter Apoorva and Mariana, clearly able to answer most the question. Patient patient is very distress currently on noninvasive mechanical ventilation. Family is able to endorse history as above. They however denied recent sick contacts or productive sputum or shaking chills or fever. He further denied diarrhea dysuria, headache or photophobia. They however have noted a progressive deterioration in overall generalized well-being over the last couple of weeks since the vertebroplasty procedure. 10/11-patient doing well. Off noninvasive ventilation. Multiple blood cultures positive for gram-negative kirk E. coli initial cultures. Repeat cultures from fistula site today. Dialysis ongoing today. CT chest large infiltrate with a solid component. Likely infection versus aspiration. White count improving to 2.7 with 70% neutrophils close to 41% bands. Continue trial off BiPAP. Hemodynamic stabilized. Systolics around 100. 10/12-patient doing well. White count of 2.9, improved shortness of breath now on room air. Off BiPAP. Stable hemodynamics. Status post hemodialysis on Friday. Potassium 4.7. E. coli on culture. Sensitivities pending. On cefepime. Repeat blood cultures negative from fistula. No overnight fever chills. Stable hemodynamics. Large right-sided pneumonia will need repeat imaging in 2 to 4 weeks to rule out solid mass lesion superimposed by pneumonia. 10/13-patient doing well. No family at bedside. Continue antibiotic coverage for E. coli bacteremia. Sensitivities pending. Hemodialysis today. Anticipate discharge in 24 hours with outpatient follow-up with primary care physician/nephrology for continued dialysis and antibiotics for bacteremia to be decided based on sensitivities. Patient will also need follow-up chest imaging to rule out recurrence of lung cancer once pneumonia has cleared. Primary care physician to coordinate outpatient imaging. Recommend chest CT and 2 to 4 weeks 10/14 No issues overnight. No new complaints. Does have occasional cough. And some shortness of breath which he feels is baseline. Case management working on any placement needs. Review of Systems: denies headache/fever/chills/nausea/vomiting/chest or abdominal pain//diarrhea. Otherwise see above. - Constitutional Vitals: Vital Signs Temp Pulse Resp BP Pulse Ox 97.5 F 60 18 113/64 97 10/14/19 04:50 10/14/19 04:50 10/14/19 04:50 10/14/19 04:50 10/14/19 04:50 Period Temp Pulse Resp BP Sys/Lora Pulse Ox Last 24 Hr 96.8 F-98.6 F 53-72 12-28 107-124/45-67 92-100 Intake and Output 10/13/19 10/14/19 10/14/19 21:59 05:59 13:59 Intake Total 870 200 Output Total 4400 Balance -3530 200 Weight 76.657 kg Intake & Output: Intake & Output 10/13/19 10/14/19 10/14/19 21:59 05:59 13:59 Intake Total 870 200 Output Total 4400 Balance -3530 200 Weight 76.657 kg Intake: IV 150 Oral 720 200 Output: Void Amount 400 Hemodialysis UF 4000 Other: Meal Breakfast Percent of Meal Consumed 100% Urine Appearance Clear Clear Urine Color Light Michelle Urine Odor Normal Stool Size Large Stool Color Brown # Voids 1 1 # Bowel Movements 1 Exam: General: Alert, Awake, No acute Distress Eyes/N/T: EOMI, Head/Neck: neck supple, CV: RRR, No murmurs, Pulm: no rhonchi/wheezing Abd: soft, nontender, +BS x4 Ext: no clubbing/cyanosis, trace b/l LE edema Neuro: Alert, no focal deficits, moves all extremities, Skin: warm/dry Medical - PN: Obj Da - Labs CBC & Chem 7: 10/14/19 04:44 10/14/19 04:44 Labs: Abnormal Lab Results 10/14/19 10/13/19 10/13/19 04:44 04:30 04:30 WBC 4.0 L 4.1 L RBC 2.35 L 2.24 L Hgb 8.0 L 7.7 L Hct 23.6 L 22.0 L MCV 100.1 H MCH 34.3 H RDW 24.0 H 23.5 H Plt Count 54 L 52 L Seg Neutrophils % Band Neutrophils % 12 H Lymphocytes % 11 L Metamyelocytes % 2 H Myelocytes % Nucleated RBCs WBC Morphology Dohle Bodies Platelet Estimate Decreased A RBC Morphology Abnorm A Polychromasia 1+ A Hypochromasia 2+ A Poikilocytosis 1+ A Anisocytosis 3+ A Macrocytosis Tear Drop Cells Ovalocytes Few A RBC Fragments Rare A Sodium 127 L Chloride 90 L BUN 73 H Creatinine 3.9 H Glucose 128 H Phosphorus 5.7 H Total Bilirubin Direct Bilirubin 0.4 H GGT 218 H Alkaline Phosphatase 118 H Albumin 2.9 L Albumin/Globulin Ratio 0.9 L 10/12/19 10/12/19 10/11/19 03:39 03:39 04:15 WBC 2.9 L RBC 2.34 L Hgb 8.0 L Hct 23.6 L MCV 101.1 H MCH 34.2 H RDW 26.9 H Plt Count 55 L Seg Neutrophils % 29 L Band Neutrophils % 12 H 41 H Lymphocytes % 12 L Metamyelocytes % 6 H Myelocytes % 2 H Nucleated RBCs 1 H WBC Morphology Abnorm A Dohle Bodies 1+ A Platelet Estimate Decreased A Decreased A RBC Morphology Abnorm A Abnorm A Polychromasia 1+ A 1+ A Hypochromasia Poikilocytosis 1+ A 1+ A Anisocytosis 3+ A 3+ A Macrocytosis 1+ A 1+ A Tear Drop Cells Few A Ovalocytes Few A RBC Fragments Sodium Chloride BUN 41 H Creatinine 3.0 H Glucose 135 H Phosphorus Total Bilirubin 1.3 H Direct Bilirubin 0.5 H GGT 231 H Alkaline Phosphatase 122 H Albumin 2.8 L Albumin/Globulin Ratio 0.8 L Meds: Medications Acetaminophen (Tylenol) 650 mg PO Q4-6HP PRN; Protocol PRN Reason: Per Pain Protocol/Fever > 101 Hydrocodone Bitart/Acetaminophen ([place] 5/325mg) 1 tab PO Q4HP PRN; Protocol PRN Reason: Pain Last Admin: 10/13/19 22:34 Dose: 1 tab Documented by: Albuterol/Ipratropium (Duoneb) 3 ml NEB Q4HRT [facility] Last Admin: 10/14/19 04:42 Dose: Not Given Documented by: Allopurinol (Zyloprim) 100 mg PO DAILY [facility] Last Admin: 10/13/19 09:22 Dose: 100 mg Documented by: Bisacodyl (Dulcolax) 10 mg CO Q2-3DAYS PRN PRN Reason: Constipation Chlorhexidine Gluconate (Peridex) 15 ml SWABMOUTH BID [facility] Last Admin: 10/13/19 21:45 Dose: 15 ml Documented by: Dextrose (Dextrose 50%) 0 ml IV UD PRN PRN Reason: Hypoglycemia Diagnostic Test (Pha) (Accu-Chek) 1 each FS ACHS [facility] Last Admin: 10/13/19 21:42 Dose: 1 each Documented by: Docusate Sodium (Colace) 100 mg PO BID [facility] Last Admin: 10/13/19 21:43 Dose: 100 mg Documented by: Fondaparinux (Arixtra) 2.5 mg SQ Q48H [facility] Last Admin: 10/13/19 17:36 Dose: 2.5 mg Documented by: Furosemide (Lasix) 40 mg PO BIDD [facility] Last Admin: 10/13/19 15:48 Dose: 40 mg Documented by: Gabapentin (Neurontin) 200 mg PO HS [facility] Last Admin: 10/13/19 21:44 Dose: 200 mg Documented by: Glucose (Insta-Glucose) 15 gm PO PRN PRN PRN Reason: Hypoglycemia Norepinephrine Bitartrate 16 (mg/ Sodium Chloride) 250 mls @ 9.375 mls/hr IV PRN PRN; Protocol PRN Reason: Hypotension Acetaminophen (Ofirmev) 650 mg in 65 mls @ 130 mls/hr IV Q6HP PRN; Protocol PRN Reason: Per Pain Protocol/Fever > 101 Levofloxacin (Levaquin) 500 mg in 100 mls @ 100 mls/hr IV Q48H [facility] Insulin Glargine (Lantus) 33 unit SQ [facility] Last Admin: 10/13/19 21:44 Dose: 33 units Documented by: Insulin Human Lispro (Humalog) [address] [facility]; Protocol Last Admin: 10/13/19 21:43 Dose: 1 unit Documented by: Levalbuterol HCl (Xopenex) 0.63 mg NEB Q4HP PRN PRN Reason: Shortness Of Breath [facility]othy[facility]ine [facility] ([facility]roid) [facility] Last Admin: 10/13/19 07:41 Dose: 100 mcg Documented by: Losartan Potassium (Cozaar) 50 mg PO DAILY [facility] Last Admin: 10/13/19 09:23 Dose: Not Given Documented by: Metoprolol Tartrate (Lopressor) 50 mg PO BID [facility] Last Admin: 10/13/19 21:44 Dose: 50 mg Documented by: Morphine Sulfate (Morphine) 2 mg IV Q5MIN PRN; Protocol PRN Reason: Chest Pain Nitroglycerin (Nitrostat) 0.4 mg SL Q5M PRN PRN Reason: Chest Pain Omeprazole (Prilosec) 20 mg PO ACB [facility] Last Admin: 10/13/19 07:41 Dose: 20 mg Documented by: Ondansetron HCl (Zofran) 4 mg IV Q4-6HP PRN; Protocol PRN Reason: Nausea And Vomiting Dulera 200 Mcg/5 Mcg (Inhaler) 2 dose INH BID [facility] Last Admin: 10/13/19 21:45 Dose: Not Given Documented by: Polyethylene Glycol (Miralax) 17 gm PO DAILYP PRN PRN Reason: Constipation [facility]) [facility] Last Admin: 10/13/19 07:41 Dose: 40 mg Documented by: Senna/Docusate Sodium (Senna Plus Tablet) 1 tab PO [facility] Last Admin: 10/13/19 21:45 Dose: 1 tab Documented by: Sevelamer Carbonate (Renvela) 800 mg PO TIDCC [facility] Last Admin: 10/13/19 17:32 Dose: 800 mg Documented by: Sodium Chloride (Saline Flush) 10 ml IV Q8 [facility] Last Admin: 10/14/19 05:31 Dose: 10 ml Documented by: Trazodone HCl (Desyrel) 50 mg PO HS [facility] Last Admin: 10/13/19 21:43 Dose: 50 mg Documented by: Medical - PN: A/P - Time Spent With Patient Total time spent is greater than 50% in coordination of care (as documented) at patient's floor/unit and/or counseling patient: - Narrative A/P Narrative: A: *Acute hypoxic hypercapnic respiratory failure: clinically resolved now on room air. off NIV *PNA (RML): dense consolidation 6.5 cm -repeat chest imaging in 2 to 4 weeks to rule out mass lesion superimposed by dense consolidation. Patient previously has had lung malignancy and underwent now highly suspicious for recurrence *E. coli bacteremia: *Sepsis with lactic acidosis resolved -resolved *Hypertensive urgency: Resolved. 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
[2019-10-14 07:21] LABS: Bilirubin,Direct 0.3 mg/dL (0.0-0.3); Blood Urea Nitrogen 46 mg/dl (8-23); Glomerular Filtration Rate 18; Phosphorous 4.2 mg/dL (2.7-4.5)
[2019-10-14] MEDS: INSULIN LISPRO 1 UNIT/0.01 ML UNIT SQ SCH ×2 (07:23→11:51)
[2019-10-14] MEDS: predniSONE 20 MG TABLET PO SCH (07:30)
[2019-10-14] MEDS: OMEPRAZOLE 20 MG CAPSULE PO SCH (07:30)
[2019-10-14] MEDS: SEVELAMER 800 MG TABLET PO SCH ×2 (07:30→14:18)
[2019-10-14] MEDS: FUROSEMIDE 40 MG TABLET PO SCH (07:30)
[2019-10-14] MEDS: LEVOTHYROXINE 100 MCG TABLET PO SCH (07:31)
[2019-10-14 07:57] LABS: Anisocytosis 3+ (NONE SEEN); Band Neutrophils % 2 % (0-10); Lymphocytes % 16 % (15-49); Macrocytosis 1+ (NONE SEEN); Monocytes % (Manual) 3 % (1-12); Myelocytes % 1 % (0-0); Nucleated Red Blood Cells 3 % (0-0); Ovalocytes FEW (NONE SEEN); Platelet Estimate DECREASED (NORMAL); Polychromasia 1+ (NONE SEEN); RBC Fragments RARE (NONE SEEN); RBC Morphology ABNORM (NORMAL); Segmented Neutrophils % 78 % (38-78); Target Cells RARE (NONE SEEN); Tear Drop Cells RARE (NONE SEEN)
[2019-10-14] MEDS: LOSARTAN 50 MG TABLET PO SCH (09:01)
[2019-10-14] MEDS: METOPROLOL TARTRATE 50 MG TABLET PO SCH (09:01)
[2019-10-14] MEDS: DOCUSATE SODIUM 100 MG CAPSULE PO SCH (09:01)
[2019-10-14] MEDS: ALLOPURINOL 100 MG TABLET PO SCH (09:01)
[2019-10-14] MEDS: CHLORHEXIDINE GLUCONATE 1 ML ORAL.SOL SWABMOUTH SCH (09:09)
[2019-10-15] MEDS ORDERED: LEVOFLOXACIN 500 MG/100 ML BAG IV SCH (09:00)
== END 2019-10-14 14:35 | DRG 871 ==
LOC: ED 00:54 → ICU 04:05 → MEDSUR 10-12 15:22
PROVIDERS: ADMIT Internal Medicine; ATTEND Internal Medicine

== ENCOUNTER 2019-10-15 10:54 | Observation (INO) ==
[2019-10-15] MEDS ORDERED: 0.9 % SODIUM CHLORIDE 1,000 ML IV ONE (11:00)
--- NOTE | 2019-10-15 11:21 | Emergency Department Note ---
Altered Mental Status HPI - General Chief Complaint: Altered Mental Status Stated Complaint: altered LOC Time Seen by Provider: 10/15/19 11:18 Source: patient Mode of arrival: ambulatory Limitations: no limitations - History of Present Illness HPI Narrative: 79-year-old patient presenting to the emergency department chief complaint of altered mental status. Family concerned that he had an infection that was not completely evaluated. Patient is on dialysis at baseline. Patient's recent medical history is evaluated for infectious illnesses, history of organ failure, medication list, drug/alcohol history, and depression patient's mental status made them unable to provide significant clues to current symptoms differential diagnosis included but not limited to stroke, intracranial hemorrhage, electrolyte derangement, DKA/HHS, sepsis, toxicology including alcohol and overdose, status epilepticus. Pt had been given his routine insulin dose in the morning at around 6 and then at 8:00 noted to have hypoglycemia. Patient sent to the emergency department for additional evaluation of this finding. - Related Data Home Medications Medication Instructions Recorded Confirmed Ergocalciferol (Vitamin D2) 50,000 unit PO .TWICE WEEKLY 08/12/15 10/15/19 [Drisdol] Fish Oil 4,000 mg PO TID 08/12/15 10/15/19 Insulin Aspart [Novolog] 10 unit SQ TID 08/12/15 10/15/19 Insulin Detemir [Levemir] 33 unit SQ DAILY 08/12/15 10/15/19 Metoprolol Tartrate [Lopressor] 50 mg PO BID 08/12/15 10/15/19 Nitroglycerin [Nitrostat] 0.4 mg SL Q5M PRN 08/12/15 10/15/19 Sevelamer [Renvela] 800 mg PO TIDCC 08/12/15 10/15/19 Vitamin E 1 cap PO DAILY 08/12/15 10/15/19 Levothyroxine [Synthroid] 100 mcg PO QAMAC 10/07/16 10/15/19 Mometasone/Formoterol [Dulera 200 2 puff IH BID 10/07/16 10/15/19 Mcg/5 Mcg Inhaler] Omeprazole [Prilosec] 20 mg PO ACB 10/07/16 10/15/19 Losartan Potassium 50 mg PO DAILY 05/21/19 10/15/19 traZODone HCL [Desyrel] 50 mg PO HS 05/21/19 10/15/19 Furosemide [Lasix] 40 mg PO BID 10/10/19 10/15/19 Previous Rx's Medication Instructions Recorded Ipratropium/Albuterol Sulfate 2 puff INH QID #1 inhaler 03/04/16 [Combivent] Gabapentin [Neurontin] 200 mg PO HS #20 cap 06/20/19 Allopurinol [Zyloprim] 100 mg PO DAILY #30 tab 06/22/19 Levofloxacin [Levaquin] 500 mg PO Q48H #2 tab 10/13/19 HYDROcodone/APAP 5/325MG [[place] 1 tab PO Q4HP PRN #10 tab 10/14/19 5-325Mg] Allergies Allergy/AdvReac Type Severity Reaction Status Date / Time Penicillins Allergy Mild Hives Verified 10/15/19 10:59 Review of Systems All systems ED: reviewed and negative except as stated. Past Medical History - Past Medical History PMFSH Narrative: All Active Problems (Last Updated 05/28/19 @ 07:10 by Olivier Ponce DO) Congestive heart failure (Acute) Dependent edema (Acute) Bradycardia (Acute) RBBB (right bundle branch block) (Acute) Pancytopenia (Acute) Cardiomegaly (Acute) Hyperkalemia (Acute) Elevated d-dimer (Acute) Compression fracture (Acute) Anemia (Acute) Musculoskeletal pain of left lower extremity (Acute) Strain of lumbar region (Acute) Community acquired pneumonia (Acute) Acute and chronic respiratory failure with hypoxia (Acute) Pneumonia (Acute) Chronic renal disease (Acute) Polypharmacy (Acute) Macrocytosis (Chronic) Hypothyroidism, acquired (Chronic) Shortness of breath (Acute) Angina pectoris (Acute) Chronic, continuous use of opioids (Chronic) Status post coronary artery stent placement (Chronic) History of cardiac arrest (Chronic) COPD (chronic obstructive pulmonary disease) (Chronic) History of acute myocardial infarction (Chronic) ESRD (end stage renal disease) on dialysis (Chronic) Anemia in chronic kidney disease (CKD) (Chronic) Diabetes mellitus type 2 with complications (Chronic) Diabetic neuropathy (Chronic) RBBB (right bundle branch block) (Chronic) Medical history: Reports: arthritis (osteoarthritis.), asthma, cancer (non-small cell lung, recurrent 2016. Cyroablation 01-28-18 [place]. Prostate cancer "burned out".), CAD (coronary artery disease) (stented X 4 2001, X1 2000-toya.), CHF, COPD, DM (Type II insulin using), GERD, hyperlipidemia, hypertension, hypothyroidism, kidney stones, obesity, renal disease (end stage, dialysis started approx. 2013.), other (Gout. Diab periph neurop. Anemia. Insomnia. Restless leg syndrome. Pneumonia. Heart murmur.). Denies: CVA, myocardial infarction Psychiatric history: Reports: depression. Denies: anxiety Surgical history ED: Reports: angioplasty/stent (see above), appendectomy, vascular surgery, other (Fistula placement) - Social History smoking status: Former smoker Alcohol use: Reports: Occasionally (Once a week.) Drug use: Reports: none. Denies: marijuana Physical Exam General: somnolent nonresponsive protecting his airway without respiratory distress excellent oxygenation Head: Atraumatic, normocephalic Eyes: Extraocular movements intact Neck: Trachea midline, full range of motion Chest: Symmetrical chest wall rise, breathing normally Cardiovascular: Patient with excellent perfusion to the extremities Extremities: Full range of motion joints, warm well perfused Neuro: Patient is moving all extremities , cranial nerves II through XII grossly intact Limitations: no limitations Course Vital Signs Temperature 96.8 F L 10/15/19 10:55 Pulse Rate 50 L 10/15/19 10:55 Respiratory Rate 16 10/15/19 10:55 Blood Pressure 128/64 10/15/19 10:55 Pulse Oximetry (%) 99 10/15/19 10:55 Temperature 97.3 F 10/15/19 18:05 Pulse Rate 54 L 10/15/19 18:05 Respiratory Rate 18 10/15/19 18:05 Blood Pressure 124/63 10/15/19 18:05 Pulse Oximetry (%) 100 10/15/19 18:05 Altered Mental Status - MDM Narrative Medical decision making narrative: Differential diagnosis included but not limited to stroke, intracranial hemorrhage, electrolyte derangement, DKA/HHS, sepsis, toxicology including alcohol and overdose, status epilepticus. Her main concern from patient's perspective is possible infectious etiologies patient is with excellent vital signs during stay in the emergency department laboratory and radiologic evaluations are done. During stay in the emergency department patient required multiple boluses of glucose to maintain his blood sugar after several hours at this and it is been over 6 hours since his last dose of insulin I contacted the hospitalist Dr. Conley who quickly excepted the patient and presented to evaluate and admit the patient to the hospital. - Lab Data Result diagrams: 10/15/19 11:48 10/15/19 11:48 Lab Results 10/15/19 10/15/19 10/15/19 Range/Units 11:48 11:48 11:48 WBC 4.9 (4.5-11.0) K/mcL RBC 2.97 L (4.50-5.90) M/mcL Hgb 10.2 L (13.5-16.5) g/dL Hct 30.0 L (41.0-55.0) % MCV 101.1 H (80.0-100.0) fL MCH 34.3 H (26.0-34.0) pg MCHC 33.9 (31.0-36.0) g/dL RDW 24.8 H (11.5-14.5) % Plt Count 76 L (140-440) K/mcL MPV 7.6 (7.4-10.4) fL Gran % 78.4 H (38.0-78.0) % Lymph % (Auto) 20.4 (15.5-49.0) % [place] % (Auto) 0.8 L (1.0-12.0) % Eos % (Auto) 0.3 (0.0-7.0) % Baso % (Auto) 0.1 (0.0-2.0) % Gran # 3.8 (1.8-8.0) K/mcL Lymph # (Auto) 1.0 L (1.5-4.8) K/mcL [place] # (Auto) 0 L (0.1-0.9) K/mcL Eos # (Auto) 0 (0.0-0.7) K/mcL Baso # (Auto) 0 (0.0-0.3) K/mcL VBG Lactic Acid 1.3 (0.5-2.0) mmol/L Sodium 131 L (133-145) mmol/L Potassium 4.2 (3.3-5.1) mmol/L Chloride 92 L (96-108) mmol/L Carbon Dioxide 25 (22-30) mmol/L Anion Gap 14.0 (8-16) BUN 83 H (8-23) mg/dl Creatinine 4.5 H (0.7-1.2) mg/dl GFR Calculation 11 Glucose 47 L (70-105) mg/dL Calcium 9.0 (8.6-10.4) mg/dl Total Bilirubin 1.0 (0.0-1.0) mg/dL AST 26 (0-37) U/l ALT 25 (0-40) U/l Alkaline Phosphatase 135 H (39-117) U/L Total Protein 6.6 (5.9-8.4) gm/dL Albumin 3.1 L (3.2-5.2) gm/dL Globulin 3.5 (2.2-3.7) gm/dL Albumin/Globulin Ratio 0.9 L (1.0-2.3) Urine Color Urine Appearance Urine pH (5.0-9.0) Ur Specific Show Low (1.000-1.035) Urine Protein (NEG) mg/dL Urine Glucose (UA) (NEG) mg/dL Urine Ketones (NEG) mg/dL Urine Occult Blood (<0.03) mg/dL Urine Nitrate (NEG) Urine Bilirubin (NEG) mg/dL Urine Urobilinogen (NEG) mg/dL Ur Leukocyte Esterase (NEG) /uL Urine RBC (0-1) /hpf Urine WBC (0-4) /hpf Ur Squamous Epith Cells (0-4) /hpf Urine Bacteria (0) /hpf Ur Culture Indicated? 10/15/19 Range/Units 14:40 WBC (4.5-11.0) K/mcL RBC (4.50-5.90) M/mcL Hgb (13.5-16.5) g/dL Hct (41.0-55.0) % MCV (80.0-100.0) fL MCH (26.0-34.0) pg MCHC (31.0-36.0) g/dL RDW (11.5-14.5) % Plt Count (140-440) K/mcL MPV (7.4-10.4) fL Gran % (38.0-78.0) % Lymph % (Auto) (15.5-49.0) % [place] % (Auto) (1.0-12.0) % Eos % (Auto) (0.0-7.0) % Baso % (Auto) (0.0-2.0) % Gran # (1.8-8.0) K/mcL Lymph # (Auto) (1.5-4.8) K/mcL [place] # (Auto) (0.1-0.9) K/mcL Eos # (Auto) (0.0-0.7) K/mcL Baso # (Auto) (0.0-0.3) K/mcL VBG Lactic Acid (0.5-2.0) mmol/L Sodium (133-145) mmol/L Potassium (3.3-5.1) mmol/L Chloride (96-108) mmol/L Carbon Dioxide (22-30) mmol/L Anion Gap (8-16) BUN (8-23) mg/dl Creatinine (0.7-1.2) mg/dl GFR Calculation Glucose (70-105) mg/dL Calcium (8.6-10.4) mg/dl Total Bilirubin (0.0-1.0) mg/dL AST (0-37) U/l ALT (0-40) U/l Alkaline Phosphatase (39-117) U/L Total Protein (5.9-8.4) gm/dL Albumin (3.2-5.2) gm/dL Globulin (2.2-3.7) gm/dL Albumin/Globulin Ratio (1.0-2.3) Urine Color Yellow Urine Appearance Clear Urine pH 6.0 (5.0-9.0) Ur Specific Show Low 1.009 (1.000-1.035) Urine Protein 100 A (NEG) mg/dL Urine Glucose (UA) Negative (NEG) mg/dL Urine Ketones Neg (NEG) mg/dL Urine Occult Blood 0.03 A (<0.03) mg/dL Urine Nitrate Neg (NEG) Urine Bilirubin Neg (NEG) mg/dL Urine Urobilinogen Neg (NEG) mg/dL Ur Leukocyte Esterase Neg (NEG) /uL Urine RBC 0 (0-1) /hpf Urine WBC 2 (0-4) /hpf Ur Squamous Epith Cells 0 (0-4) /hpf Urine Bacteria 0 (0) /hpf Ur Culture Indicated? No Disposition Pt seen by [facility] MODEL/PA only: No Clinical Impression: Hypoglycemia associated with diabetes Disposition: Xfer As Inpt ([facility]) Condition: Undetermined
--- NOTE | 2019-10-15 11:44 | XRay Report ---
HISTORY: Chest pain, dyspnea and pulmonary infiltrates FINDINGS: there are ill-defined mild to moderate alveolar infiltrates throughout both lungs. The greatest involvement is centrally in the right lung. No lobar consolidation is present. Patient still has a small right-sided subpulmonic pleural effusion. The heart is mild to moderately enlarged. The pulmonary vessels cannot be evaluated due to the infiltrates. Allowing for differences in technique there has been little change from the prior chest CT done on 10/10/19. IMPRESSION: Persistent bilateral infiltrates and stable cardiomegaly, along with stable small right side pleural effusion Interpreted and Authenticated by: Ed Barr 10/15/19
[2019-10-15 12:28] LABS: Basophils # (Auto) 0 K/mcL (0.0-0.3); Basophils % (Auto) 0.1 % (0.0-2.0); Eosinophils # (Auto) 0 K/mcL (0.0-0.7); Eosinophils % (Auto) 0.3 % (0.0-7.0); Granulocytes % (Auto) 78.4 % (38.0-78.0); Hemoglobin 10.2 g/dL (13.5-16.5); Lymphocytes % (Auto) 20.4 % (15.5-49.0); Mean Cell Volume 101.1 fL (80.0-100.0); Mean Corpuscular HGB Conc 33.9 g/dL (31.0-36.0); Mean Platelet Volume 7.6 fL (7.4-10.4); Monocytes # (Auto) 0 K/mcL (0.1-0.9); Monocytes % (Auto) 0.8 % (1.0-12.0); Platelet Count 76 K/mcL (140-440); RBC 2.97 M/mcL (4.50-5.90); Red Cell Distribution Width 24.8 % (11.5-14.5); WBC 4.9 K/mcL (4.5-11.0)
[2019-10-15 12:39] LABS: ALT/SGPT 25 U/l (0-40); AST/SGOT 26 U/l (0-37); Albumin 3.1 gm/dL (3.2-5.2); Albumin/Globulin Ratio 0.9 (1.0-2.3); Alkaline Phosphatase 135 U/L (39-117); Carbon Dioxide 25 mmol/L (22-30); Globulin 3.5 gm/dL (2.2-3.7); Glucose 47 mg/dL (70-105)
[2019-10-15 12:41] LABS: Blood Urea Nitrogen 83 mg/dl (8-23); Chloride 92 mmol/L (96-108); Glomerular Filtration Rate 11
[2019-10-15] MEDS ORDERED: DEXTROSE 50% 50 ML VIAL IV ONE (13:11)
[2019-10-15] MEDS: DEXTROSE 10 % IN WATER 250 ML IV SCH ×2 (13:38→14:43)
[2019-10-15 15:24] LABS: Appearance,Urine CLEAR; Bacteria,Urine 0 /hpf (0); Bilirubin,Urine NEG (NEG); Color,Urine YELLOW; Culture Indicated,Urine NO; Glucose,Urine (UA) NEGATIVE (NEG); Ketones,Urine NEG (NEG); Leukocyte Esterase,Urine NEG /uL (NEG); Nitrate,Urine NEG (NEG); Protein,Urine 100 mg/dL (NEG); Specific Gravity,Urine 1.009 (1.000-1.035); Urine Blood 0.03 mg/dL (<0.03); Urine RBC 0 /hpf (0-1); Urine Squamous Epithelial Cell 0 /hpf (0-4); Urine WBC 2 /hpf (0-4); Urobilinogen,Urine NEG (NEG)
--- NOTE | 2019-10-15 15:34 | Internal Med History&Physical ---
Medical - H&P: HPI Patient information: Note initiated : 10/15/19 at 3:32 pm Service Date, if different from initiated Date: [] Patient: Giorgio Aguiar a 79 y/o M admitted on for altered LOC. Chief Complaint: [] History of present illness: Mr. Aguiar is a 79 year old M Resents from assisted facility for altered mental state. At the facility is found to have a blood glucose of 30 and was acting lethargic. After treatment and bring his sugar 176 he still was not quite himself when EMS arrived and noted that his pupils were pinpoint he was given 0.5 Narcan with patient becoming more alert and that he was feeling better. Last reported dose of [place] was last night. per notes patient did not sleep very well last night, Worrying about things. Patient became lethargic again in the ED and patient had to be put on glucose infusion Patient undergoes dialysis Friday. Was recently here for pneumonia and E. coli bacteremia with unknown source. He is on insulin 33 units daily and home medication listed as NovoLog 10 units 3 times daily. He also on [place] 03/26/2025 every 4 as needed. She is a poor historian and unable to gather any further details from him. Still has his cough productive of yellow-greenish sputum, and some shortness of breath. Oxygenating on room air in the ED. Review of Systems: Pertinent positives as above. Denies headache/fever/chills/nausea/vomiting/c hest or abdominal pain/diarrhea. Many 10 point review of system reviewed negative Medical - H&P: PMH Medical history: Medical - H&P: PMH Medical history: Macrocytosis (Chronic) Hypothyroidism, acquired (Chronic) Chronic, continuous use of opioids (Chronic) History of cardiac arrest (Chronic) COPD (chronic obstructive pulmonary disease) (Chronic) History of acute myocardial infarction (Chronic) ESRD (end stage renal disease) on dialysis (Chronic) Anemia in chronic kidney disease (CKD) (Chronic) Diabetes mellitus type 2 with complications (Chronic) Diabetic neuropathy (Chronic) RBBB (right bundle branch block) (Chronic) History of gout (Acute) Acute exacerbation of chronic obstructive airways disease (Resolved) Anemia, macrocytic (Resolved) Bacteremia due to Gram-positive bacteria (Resolved) Chest pain (Resolved) Diverticulitis (Resolved) Heme positive stool (Resolved) Mass of upper lobe of left lung (Resolved) Pneumonitis (Resolved) Squamous cell lung cancer Past Surgical History Status post coronary artery stent placement (Chronic) Status post appendectomy (Acute) Cryoablation by Dr. Trujillo squamous cell lung cancer Family history: Mother had heart disease father of an [place] Social History Patient quit smoking 2000 denies alcohol use ablates with a cane lives at home with his Mariana at [place] Also has a daughter Apoorva Medical - H&P: Meds Home Medications Medication Instructions Recorded Confirmed Type Ergocalciferol (Vitamin D2) 50,000 unit PO .TWICE WEEKLY 08/12/15 10/15/19 History [Drisdol] Fish Oil 4,000 mg PO TID 08/12/15 10/15/19 History Insulin Aspart [Novolog] 10 unit SQ TID 08/12/15 10/15/19 History Insulin Detemir [Levemir] 33 unit SQ DAILY 08/12/15 10/15/19 History Metoprolol Tartrate [Lopressor] 50 mg PO BID 08/12/15 10/15/19 History Nitroglycerin [Nitrostat] 0.4 mg SL Q5M PRN 08/12/15 10/15/19 History Sevelamer [Renvela] 800 mg PO TIDCC 08/12/15 10/15/19 History Vitamin E 1 cap PO DAILY 08/12/15 10/15/19 History Ipratropium/Albuterol Sulfate 2 puff INH QID #1 inhaler 03/04/16 10/15/19 Rx [Combivent] Levothyroxine [Synthroid] 100 mcg PO QAMAC 10/07/16 10/15/19 History Mometasone/Formoterol [Dulera 200 2 puff IH BID 10/07/16 10/15/19 History Mcg/5 Mcg Inhaler] Omeprazole [Prilosec] 20 mg PO ACB 10/07/16 10/15/19 History Losartan Potassium 50 mg PO DAILY 05/21/19 10/15/19 History traZODone HCL [Desyrel] 50 mg PO HS 05/21/19 10/15/19 History Gabapentin [Neurontin] 200 mg PO HS #20 cap 06/20/19 10/15/19 Rx Allopurinol [Zyloprim] 100 mg PO DAILY #30 tab 07/30/19 11/22/19 Rx Furosemide [Lasix] 40 mg PO BID 10/10/19 10/15/19 History Levofloxacin [Levaquin] 500 mg PO Q48H #2 tab 10/13/19 10/15/19 Rx HYDROcodone/APAP 5/325MG [[place] 1 tab PO Q4HP PRN #10 tab 10/14/19 10/15/19 Rx 5-325Mg] Allergies Allergy/AdvReac Type Severity Reaction Status Date / Time Penicillins Allergy Mild Hives Verified 10/15/19 10:59 Medical - H&P: Exam - Constitutional Vitals: Temp Pulse Resp BP Pulse Ox 96.8 F L 37 L 16 121/58 91 10/15/19 10:55 10/15/19 12:24 10/15/19 10:55 10/15/19 12:01 10/15/19 12:24 Exam: General: Lethargic, No acute Distress Eyes/N/T: EOMI, PEERL, not pinpoint (noted to be pinpoint earlier when EMS arrived) Head/Neck: neck supple, normocephalic atraumatic CV: RRR, No murmurs, normal s1/s2 Pulm: mild rales left side, no wheezing Abd: soft, nontender, +BS x4 Ext: no clubbing/cyanosis, trace b/l LE edema Neuro: lethargic, no focal deficits, moves all extremities, CN 2-12 grossly intact, symmetrical strength b/l upper/lower, sensations intact b/l upper/lower Skin: warm/dry Medical - H&P: Reslt - Labs CBC & Chem 7: 10/15/19 11:48 10/15/19 11:48 Labs: Short CBC 10/15/19 Range/Units 11:48 WBC 4.9 (4.5-11.0) K/mcL Hgb 10.2 L (13.5-16.5) g/dL Hct 30.0 L (41.0-55.0) % Plt Count 76 L (140-440) K/mcL BMP 10/15/19 11:48 Sodium 131 L Potassium 4.2 Chloride 92 L Carbon Dioxide 25 BUN 83 H Creatinine 4.5 H Glucose 47 L Calcium 9.0 Liver Function 11/22/19 Range/Units 11:48 Total Bilirubin 1.0 (0.0-1.0) mg/dL AST 26 (0-37) U/l ALT 25 (0-40) U/l Alkaline Phosphatase 135 H (39-117) U/L Albumin 3.1 L (3.2-5.2) gm/dL Urine 10/15/19 Range/Units 14:40 Urine Color Yellow Urine Appearance Clear Urine pH 6.0 (5.0-9.0) Ur Specific [place] 1.009 (1.000-1.035) Urine Protein 100 A (NEG) mg/dL Urine Glucose (UA) Negative (NEG) mg/dL - Impressions Chest x-ray with infiltrates similar to previous imaging excpet mass-like lesion on previous imaging is not present on current imaging. Medical - H&P: A/P - Narrative A/P Narrative: A: *AMS (Lethargy): 2/2 hypoglycemia and narcotics -responded to dose of narcan, is on norco 5/325 q4h prn -is on lantus 33qd and TID novolog 10units - *Recent PNA (RML): with dense consolidation 6.5 cm that has improved on most recent film -repeat chest imaging in 2 to 4 weeks to rule out mass lesion superimposed by dense consolidation. Patient previously has had lung malignancy *h/o PABLO SCC s/p cryoablation Now back on home dose metoprolol/losartan *COPD (no home O2): *ESRD (MWF): follows with [facility] *Anemia of Chr dz w/macrocytosis: Receives transfusions several times a year and is on Aranesp *Pancytopenia: follows with Hematology -stable *DM w/neuropathy: *Chr pain: *Hypothyroidism: *GERD: *HTN: on lopressor/losartan P: -wean off glucose gtt -d/c tid novolog and cover with SSI -restart levemir in AM at lower dose -hold home norco, cover with tylenol and maybe tramadol -Nephro for HD, prn transfusions with HD -finish Abx course -cont home BP meds, -f/u heme/onc outpt -pt/ot -CM for placement needs -ppx: heparin/home PPI full code
[2019-10-15] MEDS ORDERED: DEXTROSE 50% 50 ML VIAL IV PRN (17:51)
[2019-10-15] MEDS ORDERED: SENNOSIDES 1 TABLET PO PRN (17:51)
[2019-10-15] MEDS ORDERED: DEXTROSE 31 GM ORAL.SUSP PO PRN (17:51)
[2019-10-15] MEDS ORDERED: ONDANSETRON 4 MG/2 ML VIAL IV PRN (17:51)
[2019-10-15] MEDS ORDERED: NITROGLYCERIN 0.4 MG TAB.SUBL SL PRN (17:51)
[2019-10-15] MEDS ORDERED: POLYETHYLENE GLYCOL 3350 17 GM PACKET PO PRN (17:51)
[2019-10-15] MEDS ORDERED: IPRATROPIUM/ALBUTEROL 3 ML AMPUL.NEB NEB PRN (17:51)
--- NOTE | 2019-10-15 18:00 | Consultation ---
DATE OF CONSULTATION: 10/15/2019 REFERRING PHYSICIAN: Dr. Justin. REASON FOR CONSULTATION: End-stage renal disease and volume overload. HISTORY OF PRESENT ILLNESS: Mr. Aguiar is an 79-year-old gentleman with a history of end-stage renal disease, on hemodialysis. He was also recently hospitalized with pneumonia. He has diabetes and hypertension. He has been suffering from back problems. He had a history of lung cancer which was frozen. He has what seems like a myelodysplastic syndrome needing blood transfusions currently. The patient recently discharged from the hospital after his pneumonia. Apparently, he was not responding very well at the nursing facility. His blood sugar was found to be 30. After treatment of his blood sugar, his pupils were still pinpoint, and he responded well to Narcan. For that reason, he was brought into the emergency room. In the ER, he was still lethargic, and he is on glucose infusion. He missed his dialysis treatment today. PAST MEDICAL HISTORY: Significant for: 1. Macrocytosis. 2. Hypothyroidism. 3. COPD. 4. History of myocardial infarction in the past. 5. ESRD, on hemodialysis. 6. Type 2 diabetes. 7. History of gout. 8. Diverticulitis. 9. Mass in the upper lobe of the left lung, which is a squamous cell carcinoma. PAST SURGICAL HISTORY: 1. Status post coronary artery stent placement. 2. History of appendectomy. 3. Cryoablation by Dr. Trujillo for squamous cell lung cancer. FAMILY HISTORY: Mother had heart disease and of an [place]. SOCIAL HISTORY: The patient quit smoking in the . Denies history of alcohol use. He still lives with his , but recently transferred to a nursing home facility. MEDICATIONS ON ADMISSION: He is on ergocalciferol 50,000 units twice weekly, fish oil 4000 units 3 times daily, Levemir 33 units daily, NovoLog 10 units 3 times daily, Lopressor 50 mg twice daily, sevelamer 800 mg p.o. t.i.d. with meals, vitamin E 1 capsule once daily, Combivent 2 puffs twice daily, Synthroid 100 mcg once daily, omeprazole 20 mg once daily, losartan 50 mg daily, trazodone 50 mg at night, gabapentin 200 mg at night, allopurinol 100 mg daily, levofloxacin 500 mg q. 48 hours. REVIEW OF SYSTEMS: The patient is somewhat lethargic, but he was able to respond and answer my questions. PHYSICAL EXAMINATION: GENERAL: Somewhat lethargic, but arousable. VITAL SIGNS: Blood pressure is 121/58 with a pulse rate of 60, respiration rate of 16, with a pulse oximetry of 91%. HEENT: NC/AT. Pupils are reactive to light. External auditory canal appears normal. Oral cavity with normal mucosa. NECK: Supple. No jugular venous distention. No lymphadenopathy. LUNGS: Decreased air entry bilaterally. Rales heard in the left base. CARDIAC: S1, S2 heard. No S3, S4. ABDOMEN: Soft, nontender. No organomegaly. EXTREMITIES: Showed 1+ edema. NEUROLOGIC: Grossly intact. He is somewhat lethargic, otherwise doing okay. LABORATORY DATA: White count is 4.9 with a hemoglobin of 10.2 and a platelet count of 76. Sodium 132, potassium 4.2, chloride of 92, CO2 of 25, BUN of 83, creatinine of 4.5 with a blood sugar of 47. ASSESSMENT AND PLAN: 1. End-stage renal disease, on hemodialysis. His chest x-ray showed bilateral infiltrates. His electrolytes look okay. He will have his regular dialysis treatment today. We will not use any heparin and give him saline flushes. We will attempt to take about 4 liters of fluid as tolerated. 2. Hypertension as above. 3. Anemia. His hemoglobin is actually better. He has myelodysplastic syndrome needing multiple blood transfusions. Thank you Dr. Siegel for referring this patient for consultation. I will follow with you. RUFINA:krystina Job ID: [id number] Doc ID: [id number] Moris Justin DO
[2019-10-15] MEDS: INSULIN LISPRO 1 UNIT/0.01 ML UNIT SQ SCH ×2 (18:08→21:20)
[2019-10-15] MEDS: IPRATROPIUM/ALBUTEROL SULFATE 1 PUFF INHALER INH SCH ×2 (20:30→21:10)
[2019-10-15] MEDS: METOPROLOL TARTRATE 50 MG TABLET PO SCH (21:19)
[2019-10-15] MEDS: SEVELAMER 800 MG TABLET PO SCH (21:19)
[2019-10-15] MEDS: GABAPENTIN 100 MG CAPSULE PO SCH (21:19)
[2019-10-15] MEDS: FUROSEMIDE 40 MG TABLET PO SCH (21:19)
[2019-10-15] MEDS: DOCUSATE SODIUM 100 MG CAPSULE PO SCH (21:19)
[2019-10-15] MEDS: traZODone HCL 50 MG TABLET PO SCH (21:19)
[2019-10-15] MEDS: 0.9 % SODIUM CHLORIDE 10 ML SYRINGE IV SCH (21:20)
[2019-10-15] MEDS: Mometasone/Formoterol [Dulera] 200 Mcg/5 Mcg Inhaler INH SCH (21:20)
[2019-10-15] MEDS: HEPARIN 5,000 UNIT/ML VIAL SQ SCH (21:20)
[2019-10-15] MEDS: LEVOFLOXACIN 500 MG TABLET PO SCH (21:22)
[2019-10-16] MEDS: traMADol 50 MG TABLET PO PRN ×2 (00:08→13:08)
[2019-10-16] MEDS: 0.9 % SODIUM CHLORIDE 10 ML SYRINGE IV SCH ×3 (05:40→22:54)
[2019-10-16] MEDS: ACETAMINOPHEN 325 MG TABLET PO PRN ×2 (05:40→20:51)
[2019-10-16 06:43] LABS: ALT/SGPT 19 U/l (0-40); AST/SGOT 18 U/l (0-37); Albumin 2.7 gm/dL (3.2-5.2); Alkaline Phosphatase 109 U/L (39-117); Bilirubin,Direct 0.3 mg/dL (0.0-0.3); Bilirubin,Total 0.6 mg/dL (0.0-1.0); Blood Urea Nitrogen 92 mg/dl (8-23); Calcium 8.1 mg/dl (8.6-10.4); Carbon Dioxide 22 mmol/L (22-30); Globulin 2.6 gm/dL (2.2-3.7); Glucose 79 mg/dL (70-105); Lactate Dehydrogenase 184 U/L (94-250); Triglycerides 134 mg/dl (<150); Uric Acid 6.6 mg/dL (2.5-8.0)
[2019-10-16 06:50] LABS: Chloride 94 mmol/L (96-108); Glomerular Filtration Rate 10; Phosphorous 6.3 mg/dL (2.7-4.5)
[2019-10-16] MEDS: INSULIN LISPRO 1 UNIT/0.01 ML UNIT SQ SCH ×4 (07:12→20:52)
[2019-10-16] MEDS: LEVOTHYROXINE 100 MCG TABLET PO SCH (07:19)
[2019-10-16] MEDS: OMEPRAZOLE 20 MG CAPSULE PO SCH (07:19)
[2019-10-16] MEDS: SEVELAMER 800 MG TABLET PO SCH ×3 (07:41→17:54)
[2019-10-16] MEDS: DOCUSATE SODIUM 100 MG CAPSULE PO SCH ×2 (07:58→20:52)
[2019-10-16] MEDS: METOPROLOL TARTRATE 50 MG TABLET PO SCH (07:59)
[2019-10-16] MEDS: FUROSEMIDE 40 MG TABLET PO SCH ×2 (07:59→20:52)
[2019-10-16] MEDS: ALLOPURINOL 100 MG TABLET PO SCH (07:59)
[2019-10-16] MEDS: VITAMIN E (DL,TOCOPHERYL ACET) 400 UNIT CAPSULE PO SCH (08:01)
[2019-10-16] MEDS: HEPARIN 5,000 UNIT/ML VIAL SQ SCH ×2 (08:04→20:52)
--- NOTE | 2019-10-16 08:09 | Internal Med Progress Note ---
Medical - PN: Subj Patient information: Note initiated : 10/16/19 at 8:06 am Service Date, if different from initiated Date: [] Patient: Giorgio Aguiar a 79 y/o M admitted on 10/15/19 for altered LOC. Chief Complaint: [] Interval history: Mr. Aguiar is a 79 year old M Resents from shelter facility for altered mental state. At the facility is found to have a blood glucose of 30 and was acting lethargic. After treatment and bring his sugar 176 he still was not quite himself when EMS arrived and noted that his pupils were pinpoint he was given 0.5 Narcan with patient becoming more alert and that he was feeling better. Last reported dose of [place] was last night. per notes patient did not sleep very well last night, Worrying about things. Patient became lethargic again in the ED and patient had to be put on glucose infusion Patient undergoes dialysis Friday. Was recently here for pneumonia and E. coli bacteremia with unknown source. He is on insulin 33 units daily and home medication listed as NovoLog 10 units 3 times daily. He also on [place] 03/26/2025 every 4 as needed. She is a poor historian and unable to gather any further details from him. Still has his cough productive of yellow-greenish sputum, and some shortness of breath. Oxygenating on room air in the ED. 10/16 Better mentation this morning. Ate all of his breakfast. Glucose infusion stopped last night. Blood glucose well for most of the night but was low this morning at 58 but patient was asymptomatic. Given apple juice blood sugars up to 74. And now 111. Now that he is eating fully will start back his home Levemir but at a reduced dose today.-Bedside. Speaking with the patient sounds like his mealtime NovoLog was stopped several months ago. Review of Systems: denies headache/fever/chills/nausea/vomiting/chest or abdominal pain/cough/dyspnea/diarrhea. Otherwise see above. - Constitutional Vitals: Vital Signs Temp Pulse Resp BP Pulse Ox 97.3 F 51 L 14 113/61 96 10/15/19 18:05 10/16/19 06:01 10/16/19 06:01 10/16/19 06:01 10/16/19 06:01 Period Temp Pulse Resp BP Sys/Lora Pulse Ox Last 24 Hr 96.8 F-97.3 F 37-68 11- 107-156/48-77 90-100 Intake and Output 10/15/19 10/16/19 10/16/19 21:59 05:59 13:59 Intake Total 450 Output Total 250 650 Balance 200 -650 Weight 80.603 kg Intake & Output: Intake & Output 10/15/19 10/16/19 10/16/19 21:59 05:59 13:59 Intake Total 450 Output Total 250 650 Balance 200 -650 Weight 80.603 kg Intake: IV 450 Sodium Chloride 0.9% 1,000 ml @ 450 Wide Open IV BOLUS ONE Rx#: [id number] Output: Void Amount 250 650 Other: # Bowel Movements 1 Exam: General: Lethargic, No acute Distress Eyes/N/T: EOMI, Head/Neck: neck supple, CV: RRR, No murmurs, Pulm: mild rales left side, no wheezing Abd: soft, nontender, +BS x4 Ext: no clubbing/cyanosis, trace b/l LE edema Neuro: lethargic, no focal deficits, moves all extremities, Skin: warm/dry Medical - PN: Obj Da - Labs CBC & Chem 7: 10/15/19 11:48 10/16/19 04:15 Labs: Abnormal Lab Results 10/16/19 10/15/19 10/15/19 04:15 14:40 11:48 RBC Hgb Hct MCV MCH RDW Plt Count Gran % [place] % (Auto) Lymph # (Auto) [place] # (Auto) Sodium 130 L 131 L Chloride 94 L 92 L BUN 92 H 83 H Creatinine 5.2 H* 4.5 H Glucose 47 L Calcium 8.1 L Phosphorus 6.3 H* GGT 201 H Alkaline Phosphatase 135 H Total Protein 5.3 L Albumin 2.7 L 3.1 L Albumin/Globulin Ratio 0.9 L Urine Protein 100 A Urine Occult Blood 0.03 A 10/15/19 11:48 RBC 2.97 L Hgb 10.2 L Hct 30.0 L MCV 101.1 H MCH 34.3 H RDW 24.8 H Plt Count 76 L Gran % 78.4 H [place] % (Auto) 0.8 L Lymph # (Auto) 1.0 L [place] # (Auto) 0 L Sodium Chloride BUN Creatinine Glucose Calcium Phosphorus GGT Alkaline Phosphatase Total Protein Albumin Albumin/Globulin Ratio Urine Protein Urine Occult Blood Meds: Medications Acetaminophen (Tylenol) 650 mg PO Q6HP PRN PRN Reason: PAIN/FEVER > 101 Last Admin: 10/16/19 05:40 Dose: 650 mg Documented by: Albuterol/Ipratropium (Duoneb) 3 ml NEB Q4HP PRN PRN Reason: Shortness Of Breath Albuterol/Ipratropium (Combivent) 2 puff INH QID [facility] Last Admin: 10/15/19 21:10 Dose: Not Given Documented by: Allopurinol (Zyloprim) 100 mg PO DAILY [facility] Last Admin: 10/16/19 07:59 Dose: Not Given Documented by: Dextrose (Dextrose 50%) 0 ml IV UD PRN PRN Reason: Hypoglycemia Diagnostic Test (Pha) (Accu-Chek) 1 each FS [facility] Last Admin: 10/16/19 07:30 Dose: 1 each Documented by: Docusate Sodium (Colace) 100 mg PO BID [facility] Last Admin: 10/16/19 07:58 Dose: 100 mg Documented by: Furosemide (Lasix) 40 mg PO BID [facility] Last Admin: 10/16/19 07:59 Dose: Not Given Documented by: Gabapentin (Neurontin) 100 mg PO HS [facility] Last Admin: 10/15/19 21:19 Dose: 100 mg Documented by: Glucose (Insta-Glucose) 15 gm PO PRN PRN PRN Reason: Hypoglycemia Heparin Sodium (Porcine) (Heparin) 5,000 unit SQ Q12 [facility] Last Admin: 10/16/19 08:04 Dose: 5,000 unit Documented by: Insulin Human Lispro (Humalog) 0 unit SQ [facility]; Protocol Last Admin: 10/16/19 07:12 Dose: Not Given Documented by: Levofloxacin (Levaquin) 500 mg PO Q48H [facility]; Protocol Last Admin: 10/15/19 21:22 Dose: 500 mg Documented by: Levothyroxine Sodium (Synthroid) 100 mcg PO QAMAC [facility] Last Admin: 10/16/19 07:19 Dose: 100 mcg Documented by: Losartan Potassium (Cozaar) 50 mg PO DAILY [facility] Last Admin: 10/16/19 07:59 Dose: Not Given Documented by: Metoprolol Tartrate (Lopressor) 50 mg PO BID [facility] Last Admin: 10/16/19 07:59 Dose: Not Given Documented by: Nitroglycerin (Nitrostat) 0.4 mg SL Q5M PRN PRN Reason: Chest Pain Omeprazole (Prilosec) 20 mg PO ACB [facility] Last Admin: 10/16/19 07:19 Dose: 20 mg Documented by: Ondansetron HCl (Zofran) 4 mg IV Q4HP PRN PRN Reason: Nausea And Vomiting Mometasone/Formoterol [Dulera] 200 Mcg/5 Mcg Inhaler 2 dose INH BID [facility] Last Admin: 10/15/19 21:20 Dose: Not Given Documented by: Polyethylene Glycol (Miralax) 17 gm PO DAILYP PRN PRN Reason: Constipation Senna (Senokot) 2 tab PO DAILYP PRN PRN Reason: Constipation Sevelamer Carbonate (Renvela) 800 mg PO TIDCC [facility] Last Admin: 10/16/19 07:41 Dose: 800 mg Documented by: Sodium Chloride (Saline Flush) 10 ml IV Q8 [facility] Last Admin: 10/16/19 05:40 Dose: 10 ml Documented by: Tramadol HCl (Ultram) 50 mg PO Q12HP PRN PRN Reason: Pain Last Admin: 10/16/19 00:08 Dose: 50 mg Documented by: Trazodone HCl (Desyrel) 50 mg PO HS [facility] Last Admin: 10/15/19 21:19 Dose: 50 mg Documented by: Vitamin E (Vitamin E) 400 unit PO DAILY [facility] Last Admin: 10/16/19 08:01 Dose: 400 unit Documented by: Medical - PN: A/P - Time Spent With Patient Total time spent is greater than 50% in coordination of care (as documented) at patient's floor/unit and/or counseling patient: - Narrative A/P Narrative: A: *AMS (Lethargy): 2/2 hypoglycemia and narcotics -responded to dose of narcan per EMS, is on norco 5/325 q4h prn -is on lantus 33qd and TID novolog 10units - *Recent PNA (RML): with dense consolidation 6.5 cm that has improved on most recent film *h/o PABLO SCC s/p cryoablation Now back on home dose metoprolol/losartan *COPD (no home O2): *ESRD (MWF): follows with [facility] *Anemia of Chr dz w/macrocytosis: Receives transfusions several times a year and is on Aranesp *Pancytopenia: follows with Hematology -stable *DM w/neuropathy: *Chr pain: *Hypothyroidism: *GERD: *HTN: on lopressor/losartan P: -restart levemir but at lower dose -d/c tid novolog and cover with SSI -hold home norco, cover with tylenol and tramadol -Nephro for HD, prn transfusions with HD -finish Abx course -cont home BP meds, -f/u heme/onc outpt -pt/ot -CM for placement needs -ppx: heparin/home PPI full code Medical - PN: Qual - VTE Deep Vein Thrombosis/Pulmonary Embolism Present on Admission: No
[2019-10-16] MEDS ORDERED: LOSARTAN 50 MG TABLET PO SCH (09:00)
[2019-10-16] MEDS: LOSARTAN 50 MG TABLET PO SCH (10:03)
--- NOTE | 2019-10-16 10:41 | Discharge Summary ---
Medical - DS: Prov Patient information: Note initiated : 10/16/19 at 10:37 am Service Date, if different from initiated Date: [] Patient: Giorgio Aguiar 79 y/o M admitted on 10/15/19 for altered LOC. Chief Complaint: [] Date of admission: 10/15/19 17:48 Discharge date: 10/18/19 Primary care physician: Isidro Matos Consults: 10/15/19 Consult to Physician [CONS] Stat Comment: Consulting Provider: Yash Justin Reason For Exam: Physician to Consult Consult to Physician [CONS] Stat Comment: Consulting Provider: Moris Mathur Reason For Exam: Physician to Consult 10/15/19 17:51 Consult to Physician [CONS] Routine Comment: Consulting Provider: Moris Mathur Reason For Exam: Physician to Consult Medical - DS: Meds - Discharge Medications Prescriptions: Insulin Lispro [Humalog] See Protocol SQ BIDCC #10 ml Insulin Glargine, Human [Lantus] 10 unit SQ DAILY #1 b Metoprolol Tartrate [Lopressor] 25 mg PO BID #30 tab HYDROcodone/APAP 5/325MG [Pinole 5-325Mg] 0.5 - 1 tab PO Q6HP PRN #20 tablet PRN Reason: Pain Active and Home Medications: Home Medications Ergocalciferol (Vitamin D2) [Drisdol] 50,000 unit PO .TWICE WEEKLY 08/12/15 [History Confirmed 10/15/19 Last Taken 10/08/19] Fish Oil 4,000 mg PO TID 08/12/15 [History Confirmed 10/15/19 Last Taken 10/03/19 08:00] Insulin Aspart [Novolog] 10 unit SQ TID 08/12/15 [History Confirmed 10/15/19 Last Taken 05/20/19] Insulin Detemir [Levemir] 33 unit SQ DAILY 08/12/15 [History Confirmed 10/15/19 Last Taken 05/21/19] Metoprolol Tartrate [Lopressor] 50 mg PO BID 08/12/15 [History Confirmed 10/15/19 Last Taken 10/03/19 08:00] Nitroglycerin [Nitrostat] 0.4 mg SL Q5M PRN 08/12/15 [History Confirmed 10/15/19 Last Taken 05/07/19] Sevelamer [Renvela] 800 mg PO TIDCC 08/12/15 [History Confirmed 10/15/19 Last Taken 10/03/19 08:00] Vitamin E 1 cap PO DAILY 08/12/15 [History Confirmed 10/15/19 Last Taken 10/03/19 08:00] Ipratropium/Albuterol Sulfate [Combivent] 2 puff INH QID #1 inhaler 03/04/16 [Rx Confirmed 10/15/19 Last Taken Unknown] Levothyroxine [Synthroid] 100 mcg PO QAMAC 10/07/16 [History Confirmed 10/15/19 Last Taken 10/03/19 07:00] Mometasone/Formoterol [Dulera 200 Mcg/5 Mcg Inhaler] 2 puff IH BID 10/07/16 [History Confirmed 10/15/19 Last Taken 05/21/19] Omeprazole [Prilosec] 20 mg PO ACB 10/07/16 [History Confirmed 10/15/19 Last Taken 10/03/19 07:00] Losartan Potassium 50 mg PO DAILY 05/21/19 [History Confirmed 10/15/19 Last Taken 10/03/19 08:00] traZODone HCL [Desyrel] 50 mg PO HS 05/21/19 [History Confirmed 10/15/19 Last Taken 10/03/19 20:00] Gabapentin [Neurontin] 200 mg PO HS #20 cap 06/20/19 [Rx Confirmed 10/15/19 Last Taken 10/03/19] Allopurinol [Zyloprim] 100 mg PO DAILY #30 tab 06/22/19 [Rx Confirmed 10/15/19 Last Taken 10/03/19 08:00] Furosemide [Lasix] 40 mg PO BID 10/10/19 [History Confirmed 10/15/19 Last Taken 10/03/19 08:00] Levofloxacin [Levaquin] 500 mg PO Q48H #2 tab 10/13/19 [Rx Confirmed 10/15/19 Last Taken Unknown] HYDROcodone/APAP 5/325MG [Pinole 5-325Mg] 1 tab PO Q4HP PRN #10 tab 10/14/19 [Rx Confirmed 10/15/19 Last Taken Unknown] Home Medications Ergocalciferol (Vitamin D2) [Drisdol] 50,000 unit PO .TWICE WEEKLY 08/12/15 [History Confirmed 10/15/19 Last Taken 10/08/19] Fish Oil 4,000 mg PO TID 08/12/15 [History Confirmed 10/15/19 Last Taken 10/03/19 08:00] Nitroglycerin [Nitrostat] 0.4 mg SL Q5M PRN 08/12/15 [History Confirmed 10/15/19 Last Taken 05/07/19] Sevelamer [Renvela] 800 mg PO TIDCC 08/12/15 [History Confirmed 10/15/19 Last Taken 10/03/19 08:00] Vitamin E 1 cap PO DAILY 08/12/15 [History Confirmed 10/15/19 Last Taken 10/03/19 08:00] Ipratropium/Albuterol Sulfate [Combivent] 2 puff INH QID #1 inhaler 03/04/16 [Rx Confirmed 10/15/19 Last Taken Unknown] Levothyroxine [Synthroid] 100 mcg PO QAMAC 10/07/16 [History Confirmed 10/15/19 Last Taken 10/03/19 07:00] Mometasone/Formoterol [Dulera 200 Mcg/5 Mcg Inhaler] 2 puff IH BID 10/07/16 [History Confirmed 10/15/19 Last Taken 05/21/19] Omeprazole [Prilosec] 20 mg PO ACB 10/07/16 [History Confirmed 10/15/19 Last Taken 10/03/19 07:00] Losartan Potassium 50 mg PO DAILY 05/21/19 [History Confirmed 10/15/19 Last Taken 10/03/19 08:00] traZODone HCL [Desyrel] 50 mg PO HS 05/21/19 [History Confirmed 10/15/19 Last Taken 10/03/19 20:00] Gabapentin [Neurontin] 200 mg PO HS #20 cap 06/20/19 [Rx Confirmed 10/15/19 Last Taken 10/03/19] Allopurinol [Zyloprim] 100 mg PO DAILY #30 tab 06/22/19 [Rx Confirmed 10/15/19 Last Taken 10/03/19 08:00] Furosemide [Lasix] 40 mg PO BID 10/10/19 [History Confirmed 10/15/19 Last Taken 10/03/19 08:00] Insulin Lispro [Humalog] See Protocol SQ BIDCC #10 ml 10/17/19 [Rx Last Taken Unknown] HYDROcodone/APAP 5/325MG [Pinole 5-325Mg] 0.5 - 1 tab PO Q6HP PRN #20 tablet 10/18/19 [Rx Last Taken Unknown] Insulin Glargine, Human [Lantus] 10 unit SQ DAILY #1 b 10/18/19 [Rx Last Taken Unknown] Metoprolol Tartrate [Lopressor] 25 mg PO BID #30 tab 10/18/19 [Rx Last Taken Unknown] Medical - DS: Hosp Hospital Course: A: *AMS (Lethargy): 2/2 hypoglycemia and narcotics *Recent PNA (RML): with dense consolidation 6.5 cm that has improved on most recent film *h/o PABLO SCC s/p cryoablation Now back on home dose metoprolol/losartan *COPD (no home O2): *ESRD (MWF): follows with Mathur *Anemia of Chr dz w/macrocytosis: Receives transfusions several times a year and is on Aranesp *Pancytopenia: follows with Hematology -stable *DM w/neuropathy: *Chr pain: *Hypothyroidism: *GERD: *HTN: on lopressor/losartan Mr. Aguiar is a 79 year old M Resents from nursing home facility for altered mental state. At the facility is found to have a blood glucose of 30 and was acting lethargic. After treatment and bring his sugar 176 he still was not quite himself when EMS arrived and noted that his pupils were pinpoint he was given 0.5 Narcan with patient becoming more alert and that he was feeling better. Last reported dose of [place] was last night. per notes patient did not sleep very well last night, Worrying about things. Patient became lethargic again in the ED and patient had to be put on glucose infusion Patient undergoes dialysis Friday. Was recently here for pneumonia and E. coli bacteremia with unknown source. He is on insulin 33 units daily and home medication listed as NovoLog 10 units 3 times daily. He also on Pinole 03/26/2025 every 4 as needed. She is a poor historian and unable to gather any further details from him. Still has his cough productive of yellow-greenish sputum, and some shortness of breath. Oxygenating on room air in the ED. 10/16 Better mentation this morning. Ate all of his breakfast. Glucose infusion stopped last night. Blood glucose well for most of the night but was low this morning at 58 but patient was asymptomatic. Given apple juice blood sugars up to 74. And now 111. Now that he is eating fully will start back his home Levemir but at a reduced dose today.-Bedside. Speaking with the patient sounds like his mealtime NovoLog was stopped several months ago. 10/17 Overnight events. Patient doing well. Blood glucose stable. No pains or complaints. Slept well. 10/18 We will decrease his Lantus a little bit more. Otherwise doing well asymptomatic and no overnight events. Patient does state though however his chronic pain is not controlled with the Tylenol tramadol will go back to his Pinole but at decreased frequency and dosage range. For discharge will get dialysis today. Discharge diagnosis: Hypoglycemia Secondary discharge diagnosis: Recent pneumonia history of lung cancer COPD end-stage renal disease anemia chronic disease pancytopenia diabetes chronic pain hypothyroidism GERD hype rtension - Time Spent with Patient Total time spent providing and/or coordinating discharge services: Greater than 30 minutes Medical - DS: Exam - Constitutional Vitals: Vital Signs Temp Pulse Resp BP Pulse Ox 10/16/19 10:30 49 L 125/58 10/16/19 10:15 50 L 107/59 10/16/19 10:01 20 89/52 10/16/19 10:00 51 L 116/50 10/16/19 09:45 51 L 109/51 10/16/19 09:31 51 L 14 103/48 100 10/16/19 09:30 50 L 103/51 10/16/19 09:15 54 L 110/50 10/16/19 09:01 48 L 13 106/50 97 10/16/19 08:57 51 L 106/50 10/16/19 08:40 97.4 F 48 L 101/47 10/16/19 08:35 18 10/16/19 08:20 19 112/56 10/16/19 07:49 98.1 F 50 L 14 112/60 96 10/16/19 06:01 51 L 14 113/61 96 10/16/19 04:04 53 L 15 98 10/16/19 04:01 53 L 14 116/59 98 10/16/19 02:01 15 129/72 11/23/19 02:00 97 10/16/19 00:08 20 133/65 10/15/19 22:01 113/55 10/15/19 21:31 109/63 10/15/19 21:16 111/50 10/15/19 21:01 110/48 10/15/19 20:46 16 126/59 10/15/19 20:31 20 132/61 10/15/19 20:16 26 H 137/70 10/15/19 20:01 18 137/61 10/15/19 19:46 56 L 16 121/59 100 10/15/19 19:31 53 L 15 124/64 99 10/15/19 19:16 54 L 16 111/57 100 10/15/19 19:01 53 L 13 123/63 100 10/15/19 18:46 53 L 13 115/64 99 10/15/19 18:31 51 L 11 L 107/58 100 10/15/19 18:16 52 L 11 L 111/59 100 10/15/19 18:06 55 L 16 124/63 100 10/15/19 18:05 97.3 F 54 L 18 124/63 100 10/15/19 17:48 96 10/15/19 17:45 17 108/54 10/15/19 17:31 18 108/54 10/15/19 17:16 18 112/60 10/15/19 17:11 23 H 10/15/19 17:01 15 120/65 10/15/19 16:58 17 130/62 10/15/19 16:31 125/71 10/15/19 16:16 131/70 10/15/19 16:01 131/63 10/15/19 15:46 128/77 10/15/19 15:31 124/65 10/15/19 15:16 123/61 10/15/19 15:01 127/74 10/15/19 14:46 146/65 10/15/19 14:31 143/64 10/15/19 14:16 156/68 10/15/19 14:12 53 L 97 10/15/19 14:01 51 L 152/64 96 10/15/19 13:46 68 132/57 90 10/15/19 13:31 51 L 116/65 94 10/15/19 13:18 49 L 113/54 95 10/15/19 13:01 113/59 10/15/19 12:46 132/59 10/15/19 12:24 37 L 91 10/15/19 12:01 121/58 10/15/19 11:46 131/65 10/15/19 11:31 50 L 128/73 98 10/15/19 11:16 47 L 129/77 100 10/15/19 11:02 50 L 128/64 98 10/15/19 10:55 96.8 F L 50 L 16 128/64 99 Intake and Output 10/15/19 10/16/19 10/16/19 21:59 05:59 13:59 Intake Total 450 600 Output Total 250 650 300 Balance 200 -650 300 Intake: IV 450 Sodium Chloride 0.9% 1,000 ml @ 450 Wide Open IV BOLUS ONE Rx#: [id number] Oral 600 Output: Void Amount 250 650 300 Other: Meal Breakfast Percent of Meal Consumed 100% Feeding Ability Assist with Tray Set Up Stool Size Moderate Stool Color Brown Stool Consistency Formed # Bowel Movements 1 1 # of times incontinent of 0 Bowels Weight 80.603 kg Medical - DS: Data Labs on day of discharge: Labs from last 24 hours 10/16/19 10/15/19 10/15/19 04:15 14:40 11:48 WBC RBC Hgb Hct MCV MCH MCHC RDW Plt Count MPV Gran % Lymph % (Auto) [place] % (Auto) Eos % (Auto) Baso % (Auto) Gran # Lymph # (Auto) [place] # (Auto) Eos # (Auto) Baso # (Auto) VBG Lactic Acid 1.3 Sodium 130 L Potassium 4.7 Chloride 94 L Carbon Dioxide 22 Anion Gap 14.0 BUN 92 H Creatinine 5.2 H* GFR Calculation 10 Glucose 79 Uric Acid 6.6 Calcium 8.1 L Phosphorus 6.3 H* Magnesium 1.7 Total Bilirubin 0.6 Direct Bilirubin 0.3 GGT 201 H AST 18 ALT 19 Alkaline Phosphatase 109 Lactate Dehydrogenase 184 Total Protein 5.3 L Albumin 2.7 L Globulin 2.6 Albumin/Globulin Ratio 1.0 Triglycerides 134 Urine Color Yellow Urine Appearance Clear Urine pH 6.0 Ur Specific Glenn 1.009 Urine Protein 100 A Urine Glucose (UA) Negative Urine Ketones Neg Urine Occult Blood 0.03 A Urine Nitrate Neg Urine Bilirubin Neg Urine Urobilinogen Neg Ur Leukocyte Esterase Neg Urine RBC 0 Urine WBC 2 Ur Squamous Epith Cells 0 Urine Bacteria 0 Ur Culture Indicated? No 10/15/19 10/15/19 11:48 11:48 WBC 4.9 RBC 2.97 L Hgb 10.2 L Hct 30.0 L MCV 101.1 H MCH 34.3 H MCHC 33.9 RDW 24.8 H Plt Count 76 L MPV 7.6 Gran % 78.4 H Lymph % (Auto) 20.4 [place] % (Auto) 0.8 L Eos % (Auto) 0.3 Baso % (Auto) 0.1 Gran # 3.8 Lymph # (Auto) 1.0 L [place] # (Auto) 0 L Eos # (Auto) 0 Baso # (Auto) 0 VBG Lactic Acid Sodium 131 L Potassium 4.2 Chloride 92 L Carbon Dioxide 25 Anion Gap 14.0 BUN 83 H Creatinine 4.5 H GFR Calculation 11 Glucose 47 L Uric Acid Calcium 9.0 Phosphorus Magnesium Total Bilirubin 1.0 Direct Bilirubin GGT AST 26 ALT 25 Alkaline Phosphatase 135 H Lactate Dehydrogenase Total Protein 6.6 Albumin 3.1 L Globulin 3.5 Albumin/Globulin Ratio 0.9 L Triglycerides Urine Color Urine Appearance Urine pH Ur Specific Glenn Urine Protein Urine Glucose (UA) Urine Ketones Urine Occult Blood Urine Nitrate Urine Bilirubin Urine Urobilinogen Ur Leukocyte Esterase Urine RBC Urine WBC Ur Squamous Epith Cells Urine Bacteria Ur Culture Indicated? Medical - DS: A/P - Patient/Caregiver Discharge Instructions Activity: increase activity as tolerated Diet: Renal/Consistent Carbs Prescriptions: Insulin Lispro [Humalog] See Protocol SQ BIDCC #10 ml Insulin Glargine, Human [Lantus] 10 unit SQ DAILY #1 b Metoprolol Tartrate [Lopressor] 25 mg PO BID #30 tab HYDROcodone/APAP 5/325MG [Pinole 5-325Mg] 0.5 - 1 tab PO Q6HP PRN #20 tablet PRN Reason: Pain - Follow up Plan Follow up with: Isidro Matos ARNP [Primary Care Provider] - Disposition: Xfer SNF Prognosis: Undetermined Rehab Potential: Fair I certify that the patient requires SNF services: Yes Overall status at discharge: patient is back to baseline Medical - DS: Qual - VTE Deep Vein Thrombosis/Pulmonary Embolism Present on Admission: No
[2019-10-16] MEDS: INSULIN GLARGINE, HUMAN 1 UNIT/0.01 ML SQ SCH (11:14)
[2019-10-16] MEDS: Mometasone/Formoterol [Dulera] 200 Mcg/5 Mcg Inhaler INH SCH ×2 (11:15→20:53)
[2019-10-16] MEDS: IPRATROPIUM/ALBUTEROL SULFATE 1 PUFF INHALER INH SCH ×4 (11:15→20:52)
[2019-10-16] MEDS: GABAPENTIN 100 MG CAPSULE PO SCH (20:51)
[2019-10-16] MEDS: traZODone HCL 50 MG TABLET PO SCH (20:59)
[2019-10-16] MEDS: METOPROLOL TARTRATE 25 MG TABLET PO SCH (21:00)
[2019-10-17] MEDS: 0.9 % SODIUM CHLORIDE 10 ML SYRINGE IV SCH ×3 (05:40→22:00)
[2019-10-17 06:27] LABS: ALT/SGPT 18 U/l (0-40); AST/SGOT 18 U/l (0-37); Albumin 2.6 gm/dL (3.2-5.2); Alkaline Phosphatase 112 U/L (39-117); Bilirubin,Direct 0.3 mg/dL (0.0-0.3); Bilirubin,Total 0.7 mg/dL (0.0-1.0); Calcium 7.7 mg/dl (8.6-10.4); Carbon Dioxide 28 mmol/L (22-30); Globulin 2.7 gm/dL (2.2-3.7); Glucose 100 mg/dL (70-105); Lactate Dehydrogenase 180 U/L (94-250); Triglycerides 159 mg/dl (<150); Uric Acid 3.7 mg/dL (2.5-8.0)
[2019-10-17 06:28] LABS: Blood Urea Nitrogen 47 mg/dl (8-23); Chloride 95 mmol/L (96-108); Glomerular Filtration Rate 17; Phosphorous 3.5 mg/dL (2.7-4.5)
[2019-10-17] MEDS: OMEPRAZOLE 20 MG CAPSULE PO SCH (07:44)
[2019-10-17] MEDS: SEVELAMER 800 MG TABLET PO SCH ×3 (07:44→17:36)
[2019-10-17] MEDS: LEVOTHYROXINE 100 MCG TABLET PO SCH (07:44)
[2019-10-17] MEDS: traMADol 50 MG TABLET PO PRN ×2 (07:48→20:29)
[2019-10-17] MEDS: INSULIN LISPRO 1 UNIT/0.01 ML UNIT SQ SCH ×4 (07:51→20:29)
[2019-10-17] MEDS: INSULIN GLARGINE, HUMAN 1 UNIT/0.01 ML SQ SCH (09:41)
[2019-10-17] MEDS: ALLOPURINOL 100 MG TABLET PO SCH (09:41)
[2019-10-17] MEDS: METOPROLOL TARTRATE 25 MG TABLET PO SCH ×2 (09:41→20:28)
[2019-10-17] MEDS: LOSARTAN 50 MG TABLET PO SCH (09:41)
[2019-10-17] MEDS: HEPARIN 5,000 UNIT/ML VIAL SQ SCH ×2 (09:41→20:28)
[2019-10-17] MEDS: DOCUSATE SODIUM 100 MG CAPSULE PO SCH ×2 (09:42→20:28)
[2019-10-17] MEDS: Mometasone/Formoterol [Dulera] 200 Mcg/5 Mcg Inhaler INH SCH ×2 (09:42→20:43)
[2019-10-17] MEDS: IPRATROPIUM/ALBUTEROL SULFATE 1 PUFF INHALER INH SCH ×4 (09:42→20:29)
[2019-10-17] MEDS: FUROSEMIDE 40 MG TABLET PO SCH ×2 (09:42→20:29)
[2019-10-17] MEDS: LEVOFLOXACIN 500 MG TABLET PO SCH (09:43)
[2019-10-17] MEDS: VITAMIN E (DL,TOCOPHERYL ACET) 400 UNIT CAPSULE PO SCH (09:47)
--- NOTE | 2019-10-17 10:03 | Internal Med Progress Note ---
Medical - PN: Subj Patient information: Note initiated : 10/17/19 at 10:00 am Service Date, if different from initiated Date: [] Patient: Giorgio Aguiar a 79 y/o M admitted on 10/15/19 for altered LOC. Chief Complaint: [] Interval history: Mr. Aguiar is a 79 year old M Resents from half-way facility for altered mental state. At the facility is found to have a blood glucose of 30 and was acting lethargic. After treatment and bring his sugar 176 he still was not quite himself when EMS arrived and noted that his pupils were pinpoint he was given 0.5 Narcan with patient becoming more alert and that he was feeling better. Last reported dose of [place] was last night. per notes patient did not sleep very well last night, Worrying about things. Patient became lethargic again in the ED and patient had to be put on glucose infusion Patient undergoes dialysis Friday. Was recently here for pneumonia and E. coli bacteremia with unknown source. He is on insulin 33 units daily and home medication listed as NovoLog 10 units 3 times daily. He also on [place] 03/26/2025 every 4 as needed. She is a poor historian and unable to gather any further details from him. Still has his cough productive of yellow-greenish sputum, and some shortness of breath. Oxygenating on room air in the ED. 10/16 Better mentation this morning. Ate all of his breakfast. Glucose infusion stopped last night. Blood glucose well for most of the night but was low this morning at 58 but patient was asymptomatic. Given apple juice blood sugars up to 74. And now 111. Now that he is eating fully will start back his home Levemir but at a reduced dose today.-Bedside. In speaking with the patient sounds like his mealtime NovoLog was stopped several months ago. 10/17 Overnight events. Patient doing well. Blood glucose stable. No pains or complaints. Slept well. Review of Systems: denies headache/fever/chills/nausea/vomiting/chest or abdominal pain/cough/dyspnea/diarrhea. Otherwise see above. - Constitutional Vitals: Vital Signs Temp Pulse Resp BP Pulse Ox 98.1 F 53 L 21 123/56 96 10/17/19 08:03 10/16/19 13:02 10/17/19 08:50 10/17/19 08:03 10/16/19 22:01 Period Temp Pulse Resp BP Sys/Lora Pulse Ox Last 24 Hr 97.4 F-98.3 F 47-53 10 89-135/45-117 92-100 Intake and Output 10/16/19 10/17/19 10/17/19 21:59 05:59 13:59 Intake Total 240 300 240 Output Total 350 150 275 Balance -110 150 -35 Weight 79.696 kg Intake & Output: Intake & Output 10/16/19 10/17/19 10/17/19 21:59 05:59 13:59 Intake Total 240 300 240 Output Total 350 150 275 Balance -110 150 -35 Weight 79.696 kg Intake: Oral 240 300 240 Output: Void Amount 350 150 275 Other: Meal Lunch Breakfast Percent of Meal Consumed 100% 100% Urine Appearance Clear Urine Color Bright Yellow Stool Color Brown Stool Consistency Soft Formed Exam: General: awake and alert, No acute Distress Eyes/N/T: EOMI, Head/Neck: neck supple, CV: RRR, No murmurs, Pulm: no rhonchi/wheezing Abd: soft, nontender, +BS x4 Ext: no clubbing/cyanosis, trace b/l LE edema Neuro: awake and alert, no focal deficits, moves all extremities, Skin: warm/dry Medical - PN: Obj Da - Labs CBC & Chem 7: 10/15/19 11:48 10/17/19 04:36 Labs: Abnormal Lab Results 10/17/19 10/16/19 10/15/19 04:36 04:15 14:40 RBC Hgb Hct MCV MCH RDW Plt Count Gran % [place] % (Auto) Lymph # (Auto) [place] # (Auto) Sodium 129 L 130 L Chloride 95 L 94 L Anion Gap 6.0 L BUN 47 H 92 H Creatinine 3.3 H 5.2 H* Glucose Calcium 7.7 L 8.1 L Phosphorus 6.3 H* GGT 191 H 201 H Alkaline Phosphatase Total Protein 5.3 L 5.3 L Albumin 2.6 L 2.7 L Albumin/Globulin Ratio Triglycerides 159 H Urine Protein 100 A Urine Occult Blood 0.03 A 10/15/19 10/15/19 11:48 11:48 RBC 2.97 L Hgb 10.2 L Hct 30.0 L MCV 101.1 H MCH 34.3 H RDW 24.8 H Plt Count 76 L Gran % 78.4 H [place] % (Auto) 0.8 L Lymph # (Auto) 1.0 L [place] # (Auto) 0 L Sodium 131 L Chloride 92 L Anion Gap BUN 83 H Creatinine 4.5 H Glucose 47 L Calcium Phosphorus GGT Alkaline Phosphatase 135 H Total Protein Albumin 3.1 L Albumin/Globulin Ratio 0.9 L Triglycerides Urine Protein Urine Occult Blood Meds: Medications Acetaminophen (Tylenol) 650 mg PO Q6HP PRN PRN Reason: PAIN/FEVER > 101 Last Admin: 10/16/19 20:51 Dose: 650 mg Documented by: Albuterol/Ipratropium (Duoneb) 3 ml NEB Q4HP PRN PRN Reason: Shortness Of Breath Albuterol/Ipratropium (Combivent) 2 puff INH QID [facility] Last Admin: 10/17/19 09:42 Dose: Not Given Documented by: Allopurinol (Zyloprim) 100 mg PO DAILY [facility] Last Admin: 10/17/19 09:41 Dose: 100 mg Documented by: Dextrose (Dextrose 50%) 0 ml IV UD PRN PRN Reason: Hypoglycemia Diagnostic Test (Pha) (Accu-Chek) 1 each FS [facility] Last Admin: 10/17/19 07:51 Dose: 1 each Documented by: Docusate Sodium (Colace) 100 mg PO BID [facility] Last Admin: 10/17/19 09:42 Dose: 100 mg Documented by: Furosemide (Lasix) 40 mg PO BID [facility] Last Admin: 10/17/19 09:42 Dose: 40 mg Documented by: Gabapentin (Neurontin) 100 mg PO [facility] Last Admin: 10/16/19 20:51 Dose: 100 mg Documented by: Glucose (Insta-Glucose) 15 gm PO PRN PRN PRN Reason: Hypoglycemia Heparin Sodium (Porcine) (Heparin) 5,000 unit SQ Q12 [facility] Last Admin: 10/17/19 09:41 Dose: 5,000 unit Documented by: Insulin Glargine (Lantus) 15 unit SQ DAILY [facility] Last Admin: 10/17/19 09:41 Dose: 15 units Documented by: Insulin Human Lispro (Humalog) 0 unit SQ [facility]; Protocol Last Admin: 10/17/19 07:51 Dose: Not Given Documented by: Levofloxacin (Levaquin) 500 mg PO Q48H [facility]; Protocol Last Admin: 10/17/19 09:43 Dose: 500 mg Documented by: Levothyroxine Sodium (Synthroid) 100 mcg PO QAMAC [facility] Last Admin: 10/17/19 07:44 Dose: 100 mcg Documented by: Losartan Potassium (Cozaar) 50 mg PO DAILY [facility] Last Admin: 10/17/19 09:41 Dose: 50 mg Documented by: Metoprolol Tartrate (Lopressor) 25 mg PO BID [facility] Last Admin: 10/17/19 09:41 Dose: 25 mg Documented by: Nitroglycerin (Nitrostat) 0.4 mg SL Q5M PRN PRN Reason: Chest Pain Omeprazole (Prilosec) 20 mg PO ACB [facility] Last Admin: 10/17/19 07:44 Dose: 20 mg Documented by: Ondansetron HCl (Zofran) 4 mg IV Q4HP PRN PRN Reason: Nausea And Vomiting Mometasone/Formoterol [Dulera] 200 Mcg/5 Mcg Inhaler 2 dose INH BID [facility] Last Admin: 10/17/19 09:42 Dose: Not Given Documented by: Polyethylene Glycol (Miralax) 17 gm PO DAILYP PRN PRN Reason: Constipation Senna (Senokot) 2 tab PO DAILYP PRN PRN Reason: Constipation Sevelamer Carbonate (Renvela) 800 mg PO TIDCC [facility] Last Admin: 10/17/19 07:44 Dose: 800 mg Documented by: Sodium Chloride (Saline Flush) 10 ml IV Q8 [facility] Last Admin: 10/17/19 05:40 Dose: 10 ml Documented by: Tramadol HCl (Ultram) 50 mg PO Q12HP PRN PRN Reason: Pain Last Admin: 10/17/19 07:48 Dose: 50 mg Documented by: Trazodone HCl (Desyrel) 50 mg PO HS [facility] Last Admin: 10/16/19 20:59 Dose: 50 mg Documented by: Vitamin E (Vitamin E) 400 unit PO DAILY [facility] Last Admin: 10/17/19 09:47 Dose: 400 unit Documented by: Medical - PN: A/P - Time Spent With Patient Total time spent is greater than 50% in coordination of care (as documented) at patient's floor/unit and/or counseling patient: - Narrative A/P Narrative: A: *AMS (Lethargy): 2/2 hypoglycemia and narcotics -responded to dose of narcan per EMS, is on norco 5/325 q4h prn -is on lantus 33qd and TID novolog 10units -RESolved *Recent PNA (RML): with dense consolidation 6.5 cm that has improved on most recent film *h/o PABLO SCC s/p cryoablation *COPD (no home O2): *ESRD (MWF): follows with Mathur *Anemia of Chr dz w/macrocytosis: Receives transfusions several times a year and is on Aranesp *Pancytopenia: follows with Hematology -stable *DM w/neuropathy: *Chr pain: *Hypothyroidism: *GERD: *HTN: on lopressor/losartan *Chr pain:doing well on APAP and Tramadol, [place] stopped P: -cont levemir at 15 and may increase to 20 -d/c tid novolog and cover with SSI -hold home norco, cover with tylenol and tramadol -Nephro for HD, prn transfusions with HD -finish Abx course today -cont home BP meds but decreased lopressor for bradycardia -f/u heme/onc outpt -pt/ot -CM for placement needs, SNF unable to take today -ppx: heparin/home PPI Medical - PN: Qual - VTE Deep Vein Thrombosis/Pulmonary Embolism Present on Admission: No
[2019-10-17] MEDS ORDERED: DEXTROSE 50% 50 ML VIAL IV PRN (11:12)
[2019-10-17] MEDS ORDERED: SENNOSIDES 1 TABLET PO PRN (11:12)
[2019-10-17] MEDS ORDERED: ACETAMINOPHEN 325 MG TABLET PO PRN (11:12)
[2019-10-17] MEDS ORDERED: ONDANSETRON 4 MG/2 ML VIAL IV PRN (11:12)
[2019-10-17] MEDS ORDERED: DEXTROSE 31 GM ORAL.SUSP PO PRN (11:12)
[2019-10-17] MEDS ORDERED: NITROGLYCERIN 0.4 MG TAB.SUBL SL PRN (11:12)
[2019-10-17] MEDS ORDERED: POLYETHYLENE GLYCOL 3350 17 GM PACKET PO PRN (11:12)
[2019-10-17] MEDS ORDERED: IPRATROPIUM/ALBUTEROL 3 ML AMPUL.NEB NEB PRN (11:12)
[2019-10-17] MEDS ORDERED: LEVOFLOXACIN 500 MG TABLET PO SCH (20:00)
[2019-10-17] MEDS ORDERED: traZODone HCL 50 MG TABLET PO SCH (21:00)
[2019-10-17] MEDS ORDERED: GABAPENTIN 100 MG CAPSULE PO SCH (21:00)
[2019-10-18] MEDS: 0.9 % SODIUM CHLORIDE 10 ML SYRINGE IV SCH (05:14)
[2019-10-18 07:06] LABS: Calcium 7.8 mg/dl (8.6-10.4); Carbon Dioxide 26 mmol/L (22-30); Glucose 66 mg/dL (70-105)
[2019-10-18 07:11] LABS: Blood Urea Nitrogen 62 mg/dl (8-23); Chloride 91 mmol/L (96-108); Glomerular Filtration Rate 11
[2019-10-18] MEDS: INSULIN LISPRO 1 UNIT/0.01 ML UNIT SQ SCH (07:26)
[2019-10-18] MEDS ORDERED: OMEPRAZOLE 20 MG CAPSULE PO SCH (07:30)
[2019-10-18] MEDS ORDERED: LEVOTHYROXINE 100 MCG TABLET PO SCH (07:30)
[2019-10-18] MEDS: SEVELAMER 800 MG TABLET PO SCH (08:02)
[2019-10-18] MEDS ORDERED: LOSARTAN 50 MG TABLET PO SCH (09:00)
[2019-10-18] MEDS ORDERED: INSULIN GLARGINE, HUMAN 1 UNIT/0.01 ML SQ SCH ×2 (09:00)
[2019-10-18] MEDS ORDERED: ALLOPURINOL 100 MG TABLET PO SCH (09:00)
[2019-10-18] MEDS ORDERED: VITAMIN E (DL,TOCOPHERYL ACET) 400 UNIT CAPSULE PO SCH (09:00)
[2019-10-18] MEDS: traMADol 50 MG TABLET PO PRN (09:34)
[2019-10-18] MEDS: HEPARIN 5,000 UNIT/ML VIAL SQ SCH (09:34)
[2019-10-18] MEDS: FUROSEMIDE 40 MG TABLET PO SCH (09:35)
[2019-10-18] MEDS: DOCUSATE SODIUM 100 MG CAPSULE PO SCH (09:35)
[2019-10-18] MEDS: METOPROLOL TARTRATE 25 MG TABLET PO SCH (09:35)
[2019-10-18] MEDS: IPRATROPIUM/ALBUTEROL SULFATE 1 PUFF INHALER INH SCH (09:36)
[2019-10-18] MEDS: Mometasone/Formoterol [Dulera] 200 Mcg/5 Mcg Inhaler INH SCH (09:36)
[2019-10-18] MEDS ORDERED: HYDROcodone/APAP 5/325MG TABLET PO ONE (10:12)
== END 2019-10-18 10:45 ==
LOC: ED 10:54 → ICU 10:54
PROVIDERS: ADMIT Internal Medicine; ATTEND Internal Medicine

== ENCOUNTER 2020-03-15 11:47 | Inpatient (IN) ==
--- NOTE | 2020-03-15 12:35 | Emergency Department Note ---
SOB HPI - General Chief Complaint: Shortness of Breath/Dyspnea Stated Complaint: SOB Time Seen by Provider: 03/15/20 11:53 Source: patient Mode of arrival: wheelchair Limitations: no limitations - History of Present Illness This patient has had intermittent shortness of breath for several months. He is a dialysis patient of Dr. Chavez and was supposed to have dialysis today at 1130 this morning in [place]. He has had no cough fever chills nausea or vomiting. He does have a history of heart failure. No chest pain. - Related Data Home Medications Medication Instructions Recorded Confirmed Ergocalciferol (Vitamin D2) 50,000 unit PO .TWICE WEEKLY 08/12/15 10/15/19 [Drisdol] Fish Oil 4,000 mg PO TID 08/12/15 10/15/19 Nitroglycerin [Nitrostat] 0.4 mg SL Q5M PRN 08/12/15 10/15/19 Sevelamer [Renvela] 800 mg PO TIDCC 08/12/15 10/15/19 Vitamin E 1 cap PO DAILY 08/12/15 10/15/19 Levothyroxine [Synthroid] 100 mcg PO QAMAC 10/07/16 10/15/19 Mometasone/Formoterol [Dulera 200 2 puff IH BID 10/07/16 10/15/19 Mcg-5 Mcg Inhaler] Omeprazole [Prilosec] 20 mg PO ACB 10/07/16 10/15/19 Losartan Potassium 50 mg PO DAILY 05/21/19 10/15/19 traZODone HCL [Desyrel] 50 mg PO HS 05/21/19 10/15/19 Furosemide [Lasix] 40 mg PO BID 10/10/19 10/15/19 Previous Rx's Medication Instructions Recorded Ipratropium/Albuterol Sulfate 2 puff INH QID #1 inhaler 03/04/16 [Combivent] Gabapentin [Neurontin] 200 mg PO HS #20 cap 06/20/19 Allopurinol [Zyloprim] 100 mg PO DAILY #30 tab 06/22/19 Insulin Lispro [Humalog] See Protocol SQ BIDCC #10 ml 10/17/19 HYDROcodone/APAP 5/325MG [[place] 0.5 - 1 tab PO Q6HP PRN #20 tab 10/18/19 5-325Mg] Insulin Glargine, Human [Lantus] 10 unit SQ DAILY #1 b 10/18/19 Metoprolol Tartrate [Lopressor] 25 mg PO BID #30 tab 10/18/19 Allergies Allergy/AdvReac Type Severity Reaction Status Date / Time Penicillins Allergy Mild Hives Verified 03/15/20 11:47 Review of Systems All systems ED: reviewed and negative except as stated. Past Medical History - Past Medical History [facility] Narrative: Medical History (Last Updated 05/28/19 @ 07:10 by Olivier Ponce DO) Macrocytosis (Chronic) Hypothyroidism, acquired (Chronic) Chronic, continuous use of opioids (Chronic) History of cardiac arrest (Chronic) COPD (chronic obstructive pulmonary disease) (Chronic) History of acute myocardial infarction (Chronic) ESRD (end stage renal disease) on dialysis (Chronic) Anemia in chronic kidney disease (CKD) (Chronic) Diabetes mellitus type 2 with complications (Chronic) Diabetic neuropathy (Chronic) RBBB (right bundle branch block) (Chronic) History of gout (Acute) Acute exacerbation of chronic obstructive airways disease (Resolved) Anemia, macrocytic (Resolved) Bacteremia due to Gram-positive bacteria (Resolved) Chest pain (Resolved) Diverticulitis (Resolved) Heme positive stool (Resolved) Mass of upper lobe of left lung (Resolved) Pneumonitis (Resolved) Past Surgical History (Last Updated 05/28/19 @ 07:02 by Olivier Ponce DO) Status post coronary artery stent placement (Chronic) Status post appendectomy (Acute) Medical history: Reports: arthritis (osteoarthritis.), asthma, cancer (non-small cell lung, recurrent 2016. Cyroablation 01-28-18 [place]. Prostate cancer "burned out".), CAD (coronary artery disease) (stented X 4 2001, X1 2000-toya.), CHF, COPD, DM (Type II insulin using), GERD, hyperlipidemia, hypertension, hypothyroidism, kidney stones, obesity, renal disease (end stage, dialysis started approx. 2013.), other (Gout. Diab periph neurop. Anemia. Insomnia. Restless leg syndrome. Pneumonia. Heart murmur.). Denies: CVA, myocardial infarction Psychiatric history: Reports: depression. Denies: anxiety Surgical history ED: Reports: angioplasty/stent (see above), appendectomy, vascular surgery, other (Fistula placement) - Social History smoking status: Former smoker Alcohol use: Reports: Occasionally (Once a week.) Drug use: Reports: none. Denies: marijuana Physical Exam Limitations: no limitations General appearance: alert Head: atraumatic Eye: Present: normal appearance ENT: Present: normal exam Neck: Present: normal inspection Chest: Present: normal inspection Respiratory: Present: normal lung sounds bilaterally Cardiovascular: Present: regular rate, normal rhythm, normal heart sounds Abdominal: Present: soft. Absent: distention, tenderness Rectal: Present: normal inspection, normal rectal tone, heme (-) stool Extremities: Present: pedal edema, pretibial edema Neurological: Present: alert Psychiatric: Present: normal affect Skin: Present: warm, dry Course Vital Signs Temperature 98.6 F 03/15/20 11:47 Pulse Rate 82 03/15/20 11:47 Respiratory Rate 18 03/15/20 11:47 Blood Pressure 132/86 03/15/20 11:47 Pulse Oximetry (%) 100 03/15/20 11:47 Temperature 98.6 F 03/15/20 11:47 Pulse Rate 77 03/15/20 13:25 Respiratory Rate 20 03/15/20 12:08 Blood Pressure 109/57 03/15/20 13:25 Pulse Oximetry (%) 95 03/15/20 13:25 Shortness of Breath/Dyspnea - [facility] Narrative Medical decision making narrative: I talked with Dr. Mathur the program and research coordinator and we will go and admit the patient to the ICU for 2 unit blood transfusion and then dialysis after that. - Lab Data Lab results reviewed: Yes I reviewed the patient's lab results. Result diagrams: 03/15/20 12:04 03/15/20 12:04 Lab Results 03/15/20 03/15/20 03/15/20 Range/Units 12:04 12:04 12:04 WBC 2.0 L (4.50-11.00) K/mcL RBC 1.90 L (4.63-6.08) M/mcL Hgb 6.5 L* (13.7-17.5) g/dL Hct 19.7 L* (40.1-51.0) % MCV 103.7 H (80.0-100.0) fL MCH 34.2 H (26.0-34.0) pg MCHC 33.0 (31.0-36.0) g/dL RDW 19.0 H (11.5-14.5) % Plt Count 95 L (140-440) K/mcL MPV 9.7 (7.4-10.4) fL Gran % 80.5 H (38.0-78.0) % Lymph % (Auto) 17.0 (15.5-49.0) % [place] % (Auto) 2.0 (1.0-12.0) % Eos % (Auto) 0.5 (0.0-7.0) % Baso % (Auto) 0 (0.0-2.0) % Gran # 1.61 L (1.80-8.00) K/mcL Lymph # (Auto) 0.34 L (1.50-4.80) K/mcL [place] # (Auto) 0.04 L (0.10-0.90) K/mcL Eos # (Auto) 0.01 (0.00-0.70) K/mcL Baso # (Auto) 0 (0.00-0.30) K/mcL Sodium 131 L (133-145) mmol/L Potassium 4.2 (3.3-5.1) mmol/L Chloride 90 L (96-108) mmol/L Carbon Dioxide 28 (22-30) mmol/L Anion Gap 13.0 (8-16) BUN 45 H (8-23) mg/dl Creatinine 3.6 H (0.7-1.2) mg/dl GFR Calculation 15 Glucose 151 H (70-105) mg/dL Calcium 9.5 (8.6-10.4) mg/dl Iron 83 (61-157) mcg/dl Total Bilirubin 1.0 (0.0-1.0) mg/dL AST 26 (0-37) U/l ALT 15 (0-40) U/l Alkaline Phosphatase 167 H (39-117) U/L NT-Pro-B Natriuret Pep 74666.0 H (0-450) pg/ml Total Protein 7.2 (5.9-8.4) gm/dL Albumin 3.0 L (3.2-5.2) gm/dL Globulin 4.2 H (2.2-3.7) gm/dL Albumin/Globulin Ratio 0.7 L (1.0-2.3) Disposition Pt seen by [facility] [employer] [facility]/PA only: No Clinical Impression: Anemia, ESRD (end stage renal disease) on dialysis Disposition: Xfer As Inpt ([facility]) Condition: Good Referrals: Savanah Treadwell MD [Primary Care Provider] - Time of Disposition: 14:05
[2020-03-15 12:42] LABS: Basophils # (Auto) 0 K/mcL (0.00-0.30); Basophils % (Auto) 0 % (0.0-2.0); Eosinophils # (Auto) 0.01 K/mcL (0.00-0.70); Eosinophils % (Auto) 0.5 % (0.0-7.0); Granulocytes % (Auto) 80.5 % (38.0-78.0); Hematocrit 19.7 % (40.1-51.0); Hemoglobin 6.5 g/dL (13.7-17.5); Lymphocytes # (Auto) 0.34 K/mcL (1.50-4.80); Mean Cell Volume 103.7 fL (80.0-100.0); Mean Platelet Volume 9.7 fL (7.4-10.4); Monocytes # (Auto) 0.04 K/mcL (0.10-0.90); Platelet Count 95 K/mcL (140-440)
[2020-03-15 12:52] LABS: ALT/SGPT 15 U/l (0-40); AST/SGOT 26 U/l (0-37); Albumin/Globulin Ratio 0.7 (1.0-2.3); Alkaline Phosphatase 167 U/L (39-117); Blood Urea Nitrogen 45 mg/dl (8-23); Calcium 9.5 mg/dl (8.6-10.4); Carbon Dioxide 28 mmol/L (22-30); Globulin 4.2 gm/dL (2.2-3.7); Glomerular Filtration Rate 15; Glucose 151 mg/dL (70-105)
[2020-03-15 12:55] LABS: Chloride 90 mmol/L (96-108)
--- NOTE | 2020-03-15 13:32 | XRay Report ---
INDICATION: sob TECHNIQUE: AP portable semiupright chest x-ray COMPARISON: Previous chest x-rays dated 10/15/2019 and 10/10/2019. Previous chest CT scan dated 10/10/2019 FINDINGS: Lungs:Lungs are abnormal bilaterally. Examination dated 10/10/2019 demonstrated a focal parenchymal infiltrate in the right midlung. CT scan demonstrated diffuse patchy groundglass opacities. The right lung abnormality has resolved. There is persistent interstitial abnormality. No new focal infiltrate or consolidation. Heart, vascular:Cardiomegaly, unchanged. Pulmonary vascularity is prominent. Diffuse interstitial abnormality described above may be secondary to chronic interstitial edema. Mediastinum, maria d:Superior mediastinum appears wide with left mediastinal or paramediastinal soft tissue density. This is unchanged since CT scan and may represent chronic volume loss. There is also elongation of the thoracic aorta. These findings appear chronic Pleura:No pleural fluid. No pleural-based mass or calcification Skeletal:Negative. IMPRESSION: 1. Cardiomegaly, unchanged 2. Abnormal parenchymal interstitium. This may represent chronic interstitial pulmonary edema 3. No focal pulmonary parenchymal consolidation 4. Soft tissue abnormality in left lung apex and mediastinum. This appearance is stable and may represent chronic volume loss Interpreted and Authenticated by: Rodrigo June 03/15/20
[2020-03-15] MEDS ORDERED: LACTULOSE 20 GM/30 ML ORAL.SOL PO PRN ×2 (14:41→17:03)
[2020-03-15] MEDS ORDERED: DEXTROSE 31 GM ORAL.SUSP PO PRN (14:41)
[2020-03-15] MEDS ORDERED: ONDANSETRON 4 MG/2 ML VIAL IV PRN ×2 (14:41→17:03)
[2020-03-15] MEDS ORDERED: DEXTROSE 50% 50 ML VIAL IV PRN (14:41)
[2020-03-15 16:09] LABS: ALT/SGPT 15 U/l (0-40); AST/SGOT 26 U/l (0-37); Albumin/Globulin Ratio 0.7 (1.0-2.3); Alkaline Phosphatase 165 U/L (39-117); Blood Urea Nitrogen 47 mg/dl (8-23); Calcium 9.4 mg/dl (8.6-10.4); Carbon Dioxide 30 mmol/L (22-30); Globulin 4.2 gm/dL (2.2-3.7); Glomerular Filtration Rate 14; Glucose 110 mg/dL (70-105)
[2020-03-15 16:11] LABS: Chloride 92 mmol/L (96-108)
[2020-03-15] MEDS ORDERED: SENNOSIDES 1 TABLET PO PRN (17:03)
[2020-03-15] MEDS: INSULIN LISPRO 1 UNIT/0.01 ML UNIT SQ SCH ×2 (17:08→22:25)
[2020-03-15] MEDS ORDERED: IOPAMIDOL 100 ML BOTTLE IV ONE (17:20)
[2020-03-15] MEDS: IPRATROPIUM/ALBUTEROL SULFATE 1 PUFF INHALER INH SCH ×2 (17:26→22:25)
[2020-03-15] MEDS: SEVELAMER 800 MG TABLET PO SCH (17:27)
--- NOTE | 2020-03-15 17:27 | Internal Med History&Physical ---
Medical - H&P: [facility] Patient information: Note initiated : 03/15/20 at 5:10 pm Service Date, if different from initiated Date: [] Patient: Giorgio Aguiar a 79 y/o M admitted on 03/15/20 for Shortness of breath. Chief Complaint: [Worsening shortness of breath for 2 days] History of present illness: Mr. Aguiar is a 79 year old M with a history of COPD, CHF, end-stage renal disease on dialysis, anemia, hypothyroidism, and chronic pain who was brought to the ER due to worsening shortness of breath. Patient states that he has been having shortness of breath associated with cough for years but it has been worsening over the past 2 days. Patient also complains of abdominal pain for a couple of weeks. The pain is constant, sharp in nature and 6 out of 10. He also has a nausea but he has not vomited. Denies diarrhea. He also has chronic back pain. Patient denies fever, chills, headache, dizziness, chest pain, or dysuria. Denies recent travel or sick contact. In the ER, chest x-ray -no evidence of pneumonia. CBC showed hemoglobin 6.5 When I saw this patient, other than the symptoms mentioned above, patient was fine. But patient repeatedly asked for hydrocodone. Review of systems: Positive for shortness of breath, nausea, abdominal pain and back pain all other systems were reviewed and are negative. Medical - H&P: H Medical history: history of COPD, CHF, end-stage renal disease on dialysis, anemia, hypothyroidism, and chronic pain Family history: reviewed and not pertinent (Mother had heart disease father of an [place]) Smoking status: Former smoker Drug use: none Alcohol use: none Medical - H&P: Meds Home Medications Medication Instructions Recorded Confirmed Type Ergocalciferol (Vitamin D2) 50,000 unit PO .TWICE WEEKLY 08/12/15 03/15/20 History [Drisdol] Fish Oil 4,000 mg PO TID 08/12/15 03/15/20 History Nitroglycerin [Nitrostat] 0.4 mg SL Q5M PRN 08/12/15 03/15/20 History Sevelamer [Renvela] 800 mg PO TIDCC 08/12/15 03/15/20 History Vitamin E 1 cap PO DAILY 08/12/15 10/15/19 History Ipratropium/Albuterol Sulfate 2 puff INH QID #1 inhaler 03/04/16 03/15/20 Rx [Combivent] Levothyroxine [Synthroid] 100 mcg PO QAMAC 10/07/16 03/15/20 History Mometasone/Formoterol [Dulera 200 2 puff IH BID 10/07/16 10/15/19 History Mcg-5 Mcg Inhaler] Omeprazole [Prilosec] 20 mg PO ACB 10/07/16 03/15/20 History Losartan Potassium 50 mg PO DAILY 05/21/19 03/15/20 History traZODone HCL [Desyrel] 50 mg PO HS 05/21/19 03/15/20 History Gabapentin [Neurontin] 200 mg PO HS #20 cap 06/20/19 03/15/20 Rx Furosemide [Lasix] 40 mg PO BID 10/10/19 03/15/20 History Insulin Lispro [Humalog] See Protocol SQ BIDCC #10 ml 10/17/19 03/15/20 Rx HYDROcodone/APAP 5/325MG [[place] 0.5 - 1 tab PO Q6HP PRN #20 tab 10/18/19 03/15/20 Rx 5-325Mg] Insulin Glargine, Human [Lantus] 10 unit SQ DAILY #1 b 10/18/19 03/15/20 Rx Metoprolol Tartrate [Lopressor] 25 mg PO BID #30 tab 10/18/19 03/15/20 Rx Aspirin [Adult Aspirin] 81 mg PO DAILY 03/15/20 03/15/20 History Fluticasone Propion/Salmeterol 1 each IH BID 03/15/20 03/15/20 History [Fluticasone-Salmeterol 250-50] Folic Acid/Vit Bcomp,C/Cu/Zinc 1 each PO DAILY 03/15/20 03/15/20 History [[place] Plus Cz Tablet] Insulin Detemir [Levemir] 35 unit SQ DAILY 03/15/20 03/15/20 History Magnesium Oxide [Mag-Oxide 420 mg PO DAILY 03/15/20 03/15/20 History Magnesium] Megestrol Acetate [Megace] 400 mg PO BID 03/15/20 03/15/20 History Rosuvastatin [Crestor] 5 mg PO HS 03/15/20 03/15/20 History Tiotropium [place] [Spiriva puff INH DAILY 03/15/20 History Respimat] hydrOXYzine PAMOATE [Hydroxyzine 25 mg PO TID 03/15/20 03/15/20 History Pamoate] Allergies Allergy/AdvReac Type Severity Reaction Status Date / Time Penicillins Allergy Mild Hives Verified 03/15/20 11:47 Medical - H&P: Exam - Constitutional Vitals: Temp Pulse Resp BP Pulse Ox 99.5 F H 59 L 20 132/69 96 03/15/20 16:00 03/15/20 15:50 03/15/20 16:02 03/15/20 16:02 03/15/20 16:02 - Other Additional findings: General - NAD Eyes - PERRLA, EOM intact ENT no rhinorrhea, no noticeable or palpable swelling, no redness or rash around throat or on face Neck supple, no JVD, no thyromegaly Respiratory: Lungs - diminished BS, no wheezing. Cardiovascular - RRR no m/r/g, GI - Normal bowel sounds, no distended, soft, moderate tenderness over LUQ and RUQ, no rebound pain. Extremeties - pitting edema+ in both legs, no cyanosis or clubbing Hemo/lymphatic/immune no lymphadenopathy Neurological Alert and oriented x 3, CN 2-12 grossly intact. No focal neurological deficits Psychiatry flat affect Medical - H&P: Reslt - Labs CBC & Chem 7: 03/15/20 12:04 03/15/20 15:09 Labs: Short CBC 03/15/20 Range/Units 12:04 WBC 2.0 L (4.50-11.00) K/mcL Hgb 6.5 L* (13.7-17.5) g/dL Hct 19.7 L* (40.1-51.0) % Plt Count 95 L (140-440) K/mcL BMP 03/15/20 03/15/20 12:04 15:09 Sodium 131 L 135 Potassium 4.2 4.6 Chloride 90 L 92 L Carbon Dioxide 28 30 BUN 45 H 47 H Creatinine 3.6 H 3.7 H Glucose 151 H 110 H Calcium 9.5 9.4 Cardiac Enzymes 03/15/20 Range/Units 15:09 Troponin T 0.11 H* (0-0.03) ng/ml Liver Function 03/15/20 03/15/20 Range/Units 12:04 15:09 Total Bilirubin 1.0 1.0 (0.0-1.0) mg/dL AST 26 26 (0-37) U/l ALT 15 15 (0-40) U/l Alkaline Phosphatase 167 H 165 H (39-117) U/L Albumin 3.0 L 3.0 L (3.2-5.2) gm/dL Medical - H&P: A/P - Narrative A/P Narrative: Assessment: 1. Acute on chronic hypoxic respiratory failure 2. SOB 3. COPD (not on home oxygen) 4. Systolic CHF exacerbation - EF on 10/10/2019- 45-50%, left ventricular systolic function is low normal, moderate to moderate sever e MR 5. ESRD on HD 6. Hx of PABLO SCC s/p cryoablation 7. Anemia of chronic disease, CKD 8. DM with neuropathy 9. Chronic pain 10. Hypothyroidism 11. Severe pulmonary hypertension (> 70), echo on 10/10/2019 - 12. Elevation of ferritin - 2949 13. Abdominal pain 14. Elevation of troponin 15. CAD, stented X 4 Plan: 1. Patient has been on home oxygen 2 L via [place] In the ER, SpO2 87 percent on RM Pulse ox oxygen, keep > 92% 2. Worsening shortness of breath could be due to CHF exacerbation, COPD, anemia, or ACS We will treat underlying diseases 3. for COPD, it seems to be stable Continue home inhalers 4. Echo was done on 10/10/2019- 45-50%, left ventricular systolic function is low normal, moderate to moderate sever e MR Today BNP 45820 I would like to repeat echocardiogram Troponin Intake and output Daily weight Dialysis today 5. Patient has been on dialysis on Friday and Friday Document Coordinator Dr. Mathur was consulted, who will give pt HD today With a really appreciate it 6. Pt has hx of non-small cell lung, recurrent 2016. Cyroablation 01-28-18 [facility]. f/u with pcp and oncology 7. Hb 6.5. As per Dr. Mathur, 2 units of pRBC was ordered repeat CBC in am 8. He is on insulin. Home meds including detemir 35units daily and lantus 10 daily. Pt has hx of hypoglycemia, I will order lantus 10untis daily and insulin ss. Will adjust dose of insulin based on BG levels 9. Home meds including hydrocodone, trazodone and Ambien. I will give him lowest dose of hydrocodone and decreased trazodone to 25mg HS and ambien 5mg HS from 50mg and 10mg, respectively. pulse ox 10. Elevation of ferritin, could be due to repeated transfusion. f/u with pcp and hem/onco 11. CT abd/pelvis with contrast for abd pain 12. Elevation of trop, 0.[address] depressionin in I, aVL and V2-V6. No chest pain, but he has abd pain Repeat troponin transfusion continue aspirin and statin 13. DVT prophylaxis: heparin 14. Code status: full
[2020-03-15] MEDS: IPRATROPIUM/ALBUTEROL 3 ML AMPUL.NEB NEB SCH ×3 (17:31→23:11)
--- NOTE | 2020-03-15 17:47 | Cat Scan Report ---
INDICATION: abd pain . History of lung cancer. History of prostate cancer. COMPARISON: Previous chest, abdomen, pelvis CT dated 10/10/2019 TECHNIQUE: Axial images were obtained through the abdomen and pelvis. Sagittally and coronally reformatted images. 80 mL Isovue 370 injected intravenously. Oral contrast material was not administered FINDINGS: Lung bases:Small right pleural effusion. No pulmonary parenchymal mass or consolidation. There is cardiomegaly. No significant pericardial effusion Liver:Negative. No focal intrahepatic mass. No focal abnormality. Liver contour is smooth. No evidence for cirrhosis. No detectable hepatic metastases Gallbladder, billary:There appears to be a nondistended gallbladder although this could be localized fluid. No dilated bile ducts. No calcified stones Spleen: Spleen is mildly enlarged. Spleen measures 14.5 cm in maximum craniocaudal dimension. Normal enhancement of splenic and portal veins. Pancreas:No pancreatic mass. No peripancreatic abnormality Adrenal glands:Negative Kidneys, ureters, bladder: Kidneys are atrophic and multicystic. There is no hydronephrosis. No solid mass. There are cortical and vascular calcifications. Largest cyst is right mid pole and measures 6 cm. Patient apparently has a history of renal failure. There is no hydroureter. No ureteral stone No bladder calculi or detectable mass Gastrointestinal: Extensive sigmoid diverticulosis. No evidence for diverticulitis. No detectable colonic mass or appendicitis. Small bowel is negative. No mechanical small bowel obstruction. Vascular:Extensive atherosclerotic calcification of the abdominal aorta. Abdominal aorta measures 2.6 cm in maximum AP dimension. There is dilatation of left common iliac artery. This measures 1.9 cm in maximum AP dimension. There is calcification at the origin of the superior mesenteric artery and celiac trunk. No evidence for stenosis. Inferior mesenteric artery opacifies Lymphatic:No retroperitoneal or mesenteric adenopathy Mesentery, peritoneum: No free intraperitoneal fluid. No mesenteric or retroperitoneal mass. Reproductive:There are multiple brachytherapy seeds in the prostate Musculoskeletal:Previous L3 kyphoplasty or vertebroplasty. Compression deformities at T11, T12, L4 vertebral bodies. These are new since 10/10/2019. Abnormal attenuation within the T11, T12, L4 vertebral bodies. Findings are suggestive of possible metastatic disease. This could be from prostate or lung cancer. Compression fractures may be pathologic. Sacrum is negative. There is no fracture. Heterogeneous pattern within the pelvic bones without discrete lytic lesions. Similar abnormality within the hips bilaterally. Radionuclide bone scan may be helpful to evaluate for disseminated osseous metastases. IMPRESSION: 1. Small right pleural effusion 2. Atrophic multicystic kidneys. No solid mass. No hydronephrosis 3. Compression deformities of T11, T12, L4 vertebral bodies. These are new since 10/10/2019. Disseminated osseous metastases are suspected 4. Extensive atherosclerotic disease 5. Mild splenomegaly The exam was performed using radiation dose optimization techniques including, but not limited to, automated exposure control, adjustment of the mA and/or kV according to patient size and use of iterative reconstruction technique. Interpreted and Authenticated by: Rodrigo June 03/15/20
--- NOTE | 2020-03-15 18:05 | Event Note ---
Advanced Care Planning Documents: Parties in Attendance: Patient Decisional Capacity: Yes POLST form completed: not I explained the process regarding CPR, defibrillation, shock, and intubation and medication treatment to the patient. Pt agreed with CRP/resuscitation and intubation.
[2020-03-15] MEDS: HYDROcodone/APAP 5/325MG TABLET PO PRN (18:35)
[2020-03-15] MEDS: BUDESONIDE 0.5 MG/2 ML AMPUL.NEB NEB SCH (19:46)
[2020-03-15] MEDS: DOCUSATE SODIUM 100 MG CAPSULE PO SCH ×2 (20:04→22:24)
[2020-03-15] MEDS: 0.9 % SODIUM CHLORIDE 10 ML SYRINGE IV SCH ×2 (20:04→22:26)
[2020-03-15] MEDS ORDERED: traZODone HCL 50 MG TABLET ONE (22:19)
[2020-03-15] MEDS: GABAPENTIN 100 MG CAPSULE PO SCH (22:24)
[2020-03-15] MEDS: SIMVASTATIN 20 MG TABLET PO SCH (22:24)
[2020-03-15] MEDS: METOPROLOL TARTRATE 25 MG TABLET PO SCH (22:24)
[2020-03-15] MEDS: HEPARIN 5,000 UNIT/ML VIAL SQ SCH (22:25)
[2020-03-15] MEDS: MEGESTROL ACETATE 400 MG/10 ML ORAL.SUSP PO SCH (22:25)
[2020-03-15] MEDS: traZODone HCL 50 MG TABLET PO SCH (22:25)
[2020-03-15] MEDS: FLUTICASONE/SALMETEROL 250/50 INHALER #14 INH SCH (22:25)
[2020-03-16] MEDS: HYDROcodone/APAP 5/325MG TABLET PO PRN ×2 (00:16→09:07)
[2020-03-16] MEDS: IPRATROPIUM/ALBUTEROL 3 ML AMPUL.NEB NEB SCH ×6 (04:49→22:43)
[2020-03-16] MEDS: 0.9 % SODIUM CHLORIDE 10 ML SYRINGE IV SCH ×4 (05:31→21:17)
[2020-03-16 06:44] LABS: Basophils # (Auto) 0.01 K/mcL (0.00-0.30); Basophils % (Auto) 0.4 % (0.0-2.0); Eosinophils # (Auto) 0.02 K/mcL (0.00-0.70); Eosinophils % (Auto) 0.8 % (0.0-7.0); Hematocrit 19.8 % (40.1-51.0); Hemoglobin 7.2 g/dL (13.7-17.5); Lymphocytes # (Auto) 0.28 K/mcL (1.50-4.80); Lymphocytes % (Auto) 10.9 % (15.5-49.0); Mean Cell Volume 102.6 fL (80.0-100.0); Mean Corpuscular HGB Conc 36.4 g/dL (31.0-36.0); Mean Platelet Volume 10.5 fL (7.4-10.4); Monocytes % (Auto) 3.9 % (1.0-12.0); Platelet Count 74 K/mcL (140-440); RBC 1.93 M/mcL (4.63-6.08); Red Cell Distribution Width 20.8 % (11.5-14.5); WBC 2.6 K/mcL (4.50-11.00)
[2020-03-16 06:55] LABS: Albumin 2.7 gm/dL (3.2-5.2); Albumin/Globulin Ratio 0.6 (1.0-2.3); Alkaline Phosphatase 123 U/L (39-117); Blood Urea Nitrogen 29 mg/dl (8-23); Calcium 8.5 mg/dl (8.6-10.4); Carbon Dioxide 29 mmol/L (22-30); Chloride 93 mmol/L (96-108); Globulin 4.3 gm/dL (2.2-3.7); Glomerular Filtration Rate 24; Glucose 131 mg/dL (70-105)
[2020-03-16 07:01] LABS: Thyroid Stimulating Hormone 6.79 uIU/ml (0.27-5.01)
[2020-03-16 07:02] LABS: Phosphorous 4.1 mg/dL (2.7-4.5)
[2020-03-16] MEDS: BUDESONIDE 0.5 MG/2 ML AMPUL.NEB NEB SCH ×3 (07:29→21:17)
[2020-03-16] MEDS ORDERED: PANTOPRAZOLE 40 MG TABLET PO SCH (07:30)
[2020-03-16] MEDS: FLUTICASONE/SALMETEROL 250/50 INHALER #14 INH SCH ×2 (08:45→22:37)
[2020-03-16] MEDS: IPRATROPIUM/ALBUTEROL SULFATE 1 PUFF INHALER INH SCH ×4 (08:46→22:37)
[2020-03-16 08:58] LABS: ALT/SGPT < 5 U/l (0-40); AST/SGOT 147 U/l (0-37); Albumin 2.8 gm/dL (3.2-5.2); Albumin/Globulin Ratio 0.7 (1.0-2.3); Alkaline Phosphatase 128 U/L (39-117); Bilirubin,Total 3.4 mg/dL (0.0-1.0); Blood Urea Nitrogen 34 mg/dl (8-23); Calcium 8.6 mg/dl (8.6-10.4); Carbon Dioxide 29 mmol/L (22-30); Chloride 92 mmol/L (96-108); Globulin 4.2 gm/dL (2.2-3.7); Glomerular Filtration Rate 22; Glucose 137 mg/dL (70-105)
[2020-03-16] MEDS ORDERED: ERGOCALCIFEROL (VITAMIN D2) 50,000 UNIT CAPSULE PO SCH (09:00)
[2020-03-16] MEDS: HEPARIN 5,000 UNIT/ML VIAL SQ SCH ×2 (09:06→21:15)
[2020-03-16] MEDS: MEGESTROL ACETATE 400 MG/10 ML ORAL.SUSP PO SCH ×2 (09:06→21:15)
[2020-03-16] MEDS: INSULIN GLARGINE, HUMAN 1 UNIT/0.01 ML SQ SCH (09:06)
[2020-03-16] MEDS: METOPROLOL TARTRATE 25 MG TABLET PO SCH ×2 (09:07→21:13)
[2020-03-16] MEDS: MAGNESIUM OXIDE 400 MG TABLET PO SCH (09:07)
[2020-03-16] MEDS: ASPIRIN 81 MG TAB.CHEW PO SCH (09:07)
[2020-03-16] MEDS: LOSARTAN 50 MG TABLET PO SCH (09:08)
[2020-03-16] MEDS: DOCUSATE SODIUM 100 MG CAPSULE PO SCH ×3 (09:08→21:13)
[2020-03-16] MEDS: SEVELAMER 800 MG TABLET PO SCH ×3 (09:08→17:53)
[2020-03-16] MEDS: OMEPRAZOLE 20 MG CAPSULE PO SCH (09:08)
[2020-03-16] MEDS: FOLIC ACID/VITAMIN B COMP W-C 1 TAB TABLET PO SCH (09:08)
[2020-03-16] MEDS: LEVOTHYROXINE 100 MCG TABLET PO SCH (09:08)
[2020-03-16] MEDS: INSULIN LISPRO 1 UNIT/0.01 ML UNIT SQ SCH ×4 (09:09→21:17)
[2020-03-16] MEDS ORDERED: LORazepam 2 MG/ML VIAL IV PRN (09:12)
[2020-03-16] MEDS ORDERED: LORazepam 2 MG/ML VIAL IV ONE ×2 (09:15→14:00)
--- NOTE | 2020-03-16 16:28 | Magnetic Resonance Report ---
INDICATION: History of small cell lung cancer, prostate cancer, renal failure and dialysis COMPARISON: Previous abdominal and pelvic CT scan dated 03/15/2020. Previous MRI scan dated 09/02/2019. Previous plain film examination dated 08/31/2019 TECHNIQUE: Sagittal T2 FRFSE, T1 FLAIR, STIR images. Axial T2 FRFSE images. FINDINGS: Vertebral bodies and sacrum: Previous L3 kyphoplasty or vertebroplasty. The appearance changed since 08/31/2019. Mild T11 superior endplate compression deformity. Moderate T12 compression deformity. Severe L4 compression deformity. These findings are new since 09/02/2019. There is decreased signal intensity within the T9, T10, and T11 vertebral bodies on all pulse sequences. Appearance suggests hypercellular marrow. Radiation therapy typically causes increased fat and increased signal intensity on T1 weighted images. There is increased signal intensity on T2-weighted images within the T12 and L4 vertebral bodies. This consistent with bone marrow edema and acute compression fractures. There is markedly heterogeneous signal abnormality within the L1, L2, L3, L4, L5, S1 vertebral bodies. This marrow pattern is worse than on previous examination. No well-defined lytic lesion identified. Disseminated, infiltrative metastases are not excluded. There is no paraspinal soft tissue mass. No paraspinal hematoma. Mild degenerative disc disease at T12-L1, L1-2, L2-3. No disc herniation. No spinal canal stenosis. There is mild retropulsion of the inferior L3 endplate and superior L4 endplate. There is narrowing of the spinal canal consistent with moderate spinal canal stenosis. There is degenerative facet arthropathy with osseous and ligamentous hypertrophy. Degenerative disc disease at L4-5 and L5-S1. No disc herniation. No spinal canal stenosis. Conus medullaris and cauda equina are within normal limits. No epidural abnormality. No paraspinal soft tissue mass. There are prominent renal cysts bilaterally. IMPRESSION: 1. Decreased signal intensity within the T9, T10, T11 vertebral bodies. Appearance suggests hypercellular marrow 2. Chronic L3 compression deformity with previous kyphoplasty or vertebroplasty 3. Acute T12 and L4 vertebral body compression deformities 4. Markedly heterogeneous marrow signal within the L1, L2, L3, L4, L5 vertebral bodies and sacrum. Findings appear somewhat worsened on previous examination. There is no discrete lytic lesion but infiltrative metastases are possible 5. Moderate spinal canal stenosis at L3-4 Interpreted and Authenticated by: Rodrigo June 03/16/20
[2020-03-16] MEDS: GABAPENTIN 100 MG CAPSULE PO SCH (21:13)
[2020-03-16] MEDS: traZODone HCL 50 MG TABLET PO SCH (21:14)
[2020-03-16] MEDS: SIMVASTATIN 20 MG TABLET PO SCH (21:15)
--- NOTE | 2020-03-16 23:23 | Event Note ---
ACP documentation: RN Summer and I met and daughters in pt's room. We explained the CPR, resuscitation and intubation to the family again. They declined CPR, resuscitation and intubation.
--- NOTE | 2020-03-16 23:40 | Internal Med Progress Note ---
Medical - PN: Subj Patient information: Note initiated : 03/16/20 at 11:40 pm Service Date, if different from initiated Date: [] Patient: Giorgio Aguiar a 79 y/o M admitted on 03/15/20 for Shortness of breath. Chief Complaint: [] Mr. Aguiar is a 79 year old M with a history of COPD, CHF, end-stage renal disease on dialysis, anemia, hypothyroidism, and chronic pain who was brought to the ER due to worsening shortness of breath. Patient states that he has been having shortness of breath associated with cough for years but it has been wo rsening over the past 2 days. Patient also complains of abdominal pain for a couple of weeks. The pain is constant, sharp in nature and 6 out of 10. He also has a nausea but he has not vomited. Denies diarrhea. He also has chronic back pain. Patient denies fever, chills, headache, dizziness, chest pain, or dysuria. Denies recent travel or sick contact. In the ER, chest x-ray -no evidence of pneumonia. CBC showed hemoglobin 6.5 When I saw this patient, other than the symptoms mentioned above, patient was fine. But patient repeatedly asked for hydrocodone. Interval history: 03/16 Pt was fine in the morning. He seems to be more somnolent in the afternoon. No new complains. His troponin trending up and EKG showed ST depression. NENITA Summer and I met and daughters in pt's room, I explained pt's condition to them. They declined the procedure for ACS. Review of systems: Positive for shortness of breath, nausea, abdominal pain and back pain all other systems were reviewed and are negative. - Constitutional Vitals: Vital Signs Temp Pulse Resp BP Pulse Ox 98.3 F 65 18 121/48 94 03/16/20 20:01 03/16/20 22:45 03/16/20 22:45 03/16/20 20:01 03/16/20 20:01 Period Temp Pulse Resp BP Sys/Lora Pulse Ox Last 24 Hr 97.3 F-99.7 F 59-110 -23 98-135/48-68 91-100 Intake and Output 03/16/20 03/16/20 03/17/20 13:59 21:59 05:59 Intake Total 120 120 Balance 120 120 Weight 69.938 kg 66.361 kg Patient Weight 03/17/20 05:59 Weight 66.361 kg Intake & Output: Intake & Output 03/16/20 03/16/20 03/17/20 13:59 21:59 05:59 Intake Total 120 120 Balance 120 120 Weight 69.938 kg 66.361 kg Intake: Oral 0 120 GI Tube Flush 120 Other: Meal Breakfast coffee w/ cream & splenda Percent of Meal Consumed Refused 50% Feeding Ability Independent Urine Appearance Hematuria Hematuria Urine Color Dark Michelle Dark Michelle Tea Colored Tea Colored Brown Brown Red Brown Red Brown Urine Odor Strong Strong - Additional findings Additional findings: General - NAD Eyes - PERRLA, EOM intact ENT no rhinorrhea, no noticeable or palpable swelling, no redness or rash around throat or on face Neck supple, no JVD, no thyromegaly Respiratory: Lungs - diminished BS, no wheezing. Cardiovascular - RRR no m/r/g, GI - Normal bowel sounds, no distended, soft, moderate tenderness over LUQ and RUQ, no rebound pain. Extremeties - pitting edema+ in both legs, no cyanosis or clubbing Hemo/lymphatic/immune no lymphadenopathy Neurological Alert and somnolent at times. CN 2-12 grossly intact. No focal neurological deficits Psychiatry flat affect Medical - PN: Obj Da - Labs CBC & Chem 7: 03/17/20 04:16 03/17/20 04:16 Labs: Abnormal Lab Results 03/16/20 03/16/20 03/16/20 18:56 07:35 04:44 WBC RBC Hgb Hct MCV MCH MCHC RDW Plt Count MPV Gran % Lymph % (Auto) Gran # Lymph # (Auto) [place] # (Auto) Sodium Chloride 92 L BUN 34 H Creatinine 2.6 H Glucose 137 H Calcium Ferritin Total Bilirubin 3.4 H AST 147 H Alkaline Phosphatase 128 H Troponin T 0.33 H* 0.24 H* NT-Pro-B Natriuret Pep Albumin 2.8 L Globulin 4.2 H Albumin/Globulin Ratio 0.7 L TSH 03/16/20 03/16/20 03/16/20 04:44 04:44 04:44 WBC 2.6 L RBC 1.93 L Hgb 7.2 L Hct 19.8 L* MCV 102.6 H MCH 37.3 H MCHC 36.4 H RDW 20.8 H Plt Count 74 L MPV 10.5 H Gran % 84.0 H Lymph % (Auto) 10.9 L Gran # Lymph # (Auto) 0.28 L [place] # (Auto) Sodium Chloride 93 L BUN 29 H Creatinine 2.4 H Glucose 131 H Calcium 8.5 L Ferritin Total Bilirubin 4.0 H AST Alkaline Phosphatase 123 H Troponin T NT-Pro-B Natriuret Pep Albumin 2.7 L Globulin 4.3 H Albumin/Globulin Ratio 0.6 L TSH 6.79 H 03/15/20 03/15/20 03/15/20 15:09 15:09 12:04 WBC RBC Hgb Hct MCV MCH MCHC RDW Plt Count MPV Gran % Lymph % (Auto) Gran # Lymph # (Auto) [place] # (Auto) Sodium Chloride 92 L BUN 47 H Creatinine 3.7 H Glucose 110 H Calcium Ferritin 2949.0 H Total Bilirubin AST Alkaline Phosphatase 165 H Troponin T 0.11 H* NT-Pro-B Natriuret Pep Albumin 3.0 L Globulin 4.2 H Albumin/Globulin Ratio 0.7 L TSH 03/15/20 03/15/20 12:04 12:04 WBC 2.0 L RBC 1.90 L Hgb 6.5 L* Hct 19.7 L* MCV 103.7 H MCH 34.2 H MCHC RDW 19.0 H Plt Count 95 L MPV Gran % 80.5 H Lymph % (Auto) Gran # 1.61 L Lymph # (Auto) 0.34 L [place] # (Auto) 0.04 L Sodium 131 L Chloride 90 L BUN 45 H Creatinine 3.6 H Glucose 151 H Calcium Ferritin Total Bilirubin AST Alkaline Phosphatase 167 H Troponin T NT-Pro-B Natriuret Pep 74864.0 H Albumin 3.0 L Globulin 4.2 H Albumin/Globulin Ratio 0.7 L TSH Meds: Medications Hydrocodone Bitart/Acetaminophen ([place] 5/325mg) 0.5 - 1 tab PO Q6HP PRN; Protocol PRN Reason: Pain Last Admin: 03/16/20 09:07 Dose: 1 tab Documented by: Albuterol/Ipratropium (Duoneb) 3 ml NEB Q4HRT [place] Last Admin: 03/16/20 22:43 Dose: 3 ml Documented by: Albuterol/Ipratropium (Combivent) 2 puff INH QID [facility] Last Admin: 03/16/20 22:37 Dose: Not Given Documented by: Aspirin (Aspirin) 81 mg PO DAILY [facility] Last Admin: 03/16/20 09:07 Dose: 81 mg Documented by: Budesonide (Pulmicort) 0.5 mg NEB Q12 [facility] Last Admin: 03/16/20 21:17 Dose: Not Given Documented by: Dextrose (Dextrose 50%) 0 ml IV UD PRN PRN Reason: Hypoglycemia Diagnostic Test (Pha) (Accu-Chek) 1 each FS ACHS [facility] Last Admin: 03/16/20 21:16 Dose: 1 each Documented by: Docusate Sodium (Colace) 100 mg PO BID [facility] Last Admin: 03/16/20 21:13 Dose: 100 mg Documented by: Ergocalciferol (Drisdol) 50,000 unit PO SuTh@0900 [facility] Last Admin: 03/16/20 09:07 Dose: 50,000 unit Documented by: Gabapentin (Neurontin) 200 mg PO HS [facility] Last Admin: 03/16/20 21:13 Dose: 200 mg Documented by: Glucose (Insta-Glucose) 15 gm PO PRN PRN PRN Reason: Hypoglycemia Heparin Sodium (Porcine) (Heparin) 5,000 unit SQ Q12 [facility] Last Admin: 03/16/20 21:15 Dose: 5,000 unit Documented by: Insulin Glargine (Lantus) 10 unit SQ DAILY [facility] Last Admin: 03/16/20 09:06 Dose: 10 unit Documented by: Insulin Human Lispro (Humalog) 0 unit SQ [facility]; Protocol Last Admin: 03/16/20 21:17 Dose: Not Given Documented by: Lactulose (Cephulac) 10 gm PO DAILYP PRN PRN Reason: Constipation Lactulose (Cephulac) 10 gm PO DAILYP PRN PRN Reason: Constipation Levothyroxine Sodium (Synthroid) 100 mcg PO QAMAC [facility] Last Admin: 03/16/20 09:08 Dose: 100 mcg Documented by: Losartan Potassium (Cozaar) 50 mg PO DAILY [facility] Last Admin: 03/16/20 09:08 Dose: 50 mg Documented by: Magnesium Oxide (Magnesium Oxide) 400 mg PO DAILY [facility] Last Admin: 03/16/20 09:07 Dose: 400 mg Documented by: Megestrol Acetate (Megace) 400 mg PO BID [facility] Last Admin: 03/16/20 21:15 Dose: 400 mg Documented by: Metoprolol Tartrate (Lopressor) 25 mg PO BID [facility] Last Admin: 03/16/20 21:13 Dose: 25 mg Documented by: Morphine Sulfate (Morphine) 1 - 2 mg IV Q4HP PRN; Protocol PRN Reason: Per Pain Protocol Last Admin: 03/16/20 09:24 Dose: 2 mg Documented by: Multivit/Ca Carb/B Cmplx/FA/Prenat (Diatx) 1 tab PO DAILY [facility] Last Admin: 03/16/20 09:08 Dose: 1 tab Documented by: Omeprazole (Prilosec) 20 mg PO ACB [facility] Last Admin: 03/16/20 09:08 Dose: 20 mg Documented by: Ondansetron HCl (Zofran) 4 mg IV Q6HP PRN; Protocol PRN Reason: Nausea And Vomiting Ondansetron HCl (Zofran) 4 mg IV Q4HP PRN; Protocol PRN Reason: Nausea And Vomiting Tiotropium [place] [ Spiriva Respimat] Inhaler 1 dose INH DAILY [facility] Last Admin: 03/16/20 08:46 Dose: Not Given Documented by: Fluticasone/Salmeterol (Advair 250-50 Diskus) 1 puff INH BID [facility] Last Admin: 03/16/20 22:37 Dose: Not Given Documented by: Senna (Senokot) 2 tab PO HSP PRN PRN Reason: Constipation Sevelamer Carbonate (Renvela) 800 mg PO TIDCC [facility] Last Admin: 03/16/20 17:53 Dose: Not Given Documented by: Simvastatin (Zocor) 20 mg PO [facility] Last Admin: 03/16/20 21:15 Dose: 20 mg Documented by: Sodium Chloride (Saline Flush) 10 ml IV Q8 [facility] Last Admin: 03/16/20 21:17 Dose: 10 ml Documented by: Trazodone HCl (Desyrel) 25 mg PO [facility] Last Admin: 03/16/20 21:14 Dose: 25 mg Documented by: Medical - PN: A/P - Time Spent With Patient Total time spent is greater than 50% in coordination of care (as documented) at patient's floor/unit and/or counseling patient: - Narrative A/P Narrative: Assessment: 1. Acute on chronic hypoxic respiratory failure 2. SOB 3. COPD (not on home oxygen) 4. Systolic CHF exacerbation - EF on 10/10/2019- 45-50%, left ventricular systolic function is low normal, moderate to moderate sever e MR 5. ESRD on HD 6. Hx of PABLO SCC s/p cryoablation 7. Anemia of chronic disease, CKD 8. DM with neuropathy 9. Chronic pain 10. Hypothyroidism 11. Severe pulmonary hypertension (> 70), echo on 10/10/2019 - 12. Elevation of ferritin - 2949 13. Abdominal pain 14. Elevation of troponin 15. CAD, stented X 4 Plan: 1. Patient has been on home oxygen 2 L via NC In the ER, SpO2 87 percent on RM Pulse ox oxygen, keep > 92% 2. Worsening shortness of breath could be due to CHF exacerbation, COPD, anemia, or ACS We will treat underlying diseases 3. for COPD, it seems to be stable Continue home inhalers 4. Echo was done on 10/10/2019- 45-50%, left ventricular systolic function is low normal, moderate to moderate sever e MR Today BNP [id number] I would like to repeat echocardiogram Troponin went up Intake and output Daily weight Dialysis today 5. Patient has been on dialysis on Friday and Friday [employer] Dr. Mathur was consulted, who will give pt HD today With a really appreciate it 6. Pt has hx of non-small cell lung, recurrent 2016. Cyroablation 01-28-18 [place]. f/u with pcp and oncology 7. Hb 6.5. As per Dr. Mathur, 2 units of pRBC were given repeat CBC in am 8. He is on insulin. Home meds including detemir 35units daily and lantus 10 daily. Pt has hx of hypoglycemia, I will order lantus 10untis daily and insulin ss. Will adjust dose of insulin based on BG levels 9. Home meds including hydrocodone, trazodone and Ambien. I will give him lowest dose of hydrocodone and decreased trazodone to 25mg HS and ambien 5mg HS from 50mg and 10mg, respectively. pulse ox 10. Elevation of ferritin, could be due to repeated transfusion. f/u with pcp and hem/onco 11. CT abd/pelvis with contrast for abd pain showed Compression deformities of T11, T12, L4 vertebral bodies. These are new since 10/10/2019. Disseminated osseous metastases are suspected MRI - Markedly heterogeneous marrow signal within the L1, L2, L3, L4, L5 vertebral bodies and sacrum. Findings appear somewhat worsened on previous examination. There is no discrete lytic lesion but infiltrative metastases are possible. Met and daughter in pt's room, discussed with treatment options. They would like to have a family meeting tomorrow for further discussion. 12. Elevation of trop, 0.[address] depressionin in I, aVL and V2-V6. No chest pain, but he has abd pain troponin trending up and daughters declined the procedures for ACS. continue aspirin and statin 13. DVT prophylaxis: heparin 14. Code status: DNR/DNI NENITA Dunaway and I met and daughters in pt's room, they declined CPR and intubation. Medical - PN: Qual - VTE Deep Vein Thrombosis/Pulmonary Embolism Present on Admission: No
--- NOTE | 2020-03-17 00:11 | Event Note ---
NENITA Dunaway and I met and daughters in pt's room, I explained pt's condition to them. They declined the procedure for ACS.
[2020-03-17] MEDS: IPRATROPIUM/ALBUTEROL 3 ML AMPUL.NEB NEB SCH ×3 (03:15→11:15)
[2020-03-17] MEDS: 0.9 % SODIUM CHLORIDE 10 ML SYRINGE IV SCH ×4 (04:06→23:13)
[2020-03-17 06:51] LABS: Basophils # (Auto) 0.01 K/mcL (0.00-0.30); Basophils % (Auto) 0.4 % (0.0-2.0); Eosinophils # (Auto) 0.04 K/mcL (0.00-0.70); Eosinophils % (Auto) 1.4 % (0.0-7.0); Hematocrit 19.9 % (40.1-51.0); Hemoglobin 6.7 g/dL (13.7-17.5); Lymphocytes # (Auto) 0.55 K/mcL (1.50-4.80); Lymphocytes % (Auto) 19.4 % (15.5-49.0); Mean Cell Volume 104.7 fL (80.0-100.0); Mean Corpuscular HGB Conc 33.7 g/dL (31.0-36.0); Mean Platelet Volume 11.3 fL (7.4-10.4); Monocytes # (Auto) 0.08 K/mcL (0.10-0.90); Monocytes % (Auto) 2.8 % (1.0-12.0); Platelet Count 68 K/mcL (140-440); Red Cell Distribution Width 20.9 % (11.5-14.5); WBC 2.8 K/mcL (4.50-11.00)
[2020-03-17 07:02] LABS: ALT/SGPT 17 U/l (0-40); AST/SGOT 115 U/l (0-37); Albumin 2.6 gm/dL (3.2-5.2); Albumin/Globulin Ratio 0.6 (1.0-2.3); Alkaline Phosphatase 132 U/L (39-117); Bilirubin,Total 2.1 mg/dL (0.0-1.0); Blood Urea Nitrogen 60 mg/dl (8-23); Calcium 9.5 mg/dl (8.6-10.4); Carbon Dioxide 29 mmol/L (22-30); Chloride 89 mmol/L (96-108); Globulin 4.1 gm/dL (2.2-3.7); Glomerular Filtration Rate 14; Glucose 90 mg/dL (70-105)
[2020-03-17 07:17] LABS: Thyroid Stimulating Hormone 4.88 uIU/ml (0.27-5.01)
[2020-03-17] MEDS: BUDESONIDE 0.5 MG/2 ML AMPUL.NEB NEB SCH (07:19)
[2020-03-17] MEDS: MAGNESIUM OXIDE 400 MG TABLET PO SCH (08:53)
[2020-03-17] MEDS: DOCUSATE SODIUM 100 MG CAPSULE PO SCH (08:53)
[2020-03-17] MEDS: OMEPRAZOLE 20 MG CAPSULE PO SCH (08:53)
[2020-03-17] MEDS: METOPROLOL TARTRATE 25 MG TABLET PO SCH (08:53)
[2020-03-17] MEDS: LEVOTHYROXINE 100 MCG TABLET PO SCH (08:53)
[2020-03-17] MEDS: FOLIC ACID/VITAMIN B COMP W-C 1 TAB TABLET PO SCH (08:53)
[2020-03-17] MEDS: LOSARTAN 50 MG TABLET PO SCH (08:53)
[2020-03-17] MEDS: ASPIRIN 81 MG TAB.CHEW PO SCH (08:53)
[2020-03-17] MEDS: MEGESTROL ACETATE 400 MG/10 ML ORAL.SUSP PO SCH (08:53)
[2020-03-17] MEDS: SEVELAMER 800 MG TABLET PO SCH (08:53)
--- NOTE | 2020-03-17 08:56 | Nephrology Progress Note ---
Subjective Patient information: Note initiated : 03/17/20 at 8:52 am Service Date, if different from initiated Date: [] Patient: Giorgio Aguiar 79 y/o M admitted on 03/15/20 for Shortness of breath. Chief Complaint: [] He says he had abdominal pain this morning. It is better now. Breathing is better. Objective - Vital Signs Vital signs: Vital Signs Temp Pulse Resp BP Pulse Ox 03/17/20 07:19 58 L 17 03/17/20 04:01 98.9 F 58 L 15 114/67 97 03/17/20 03:00 61 12 108/52 97 03/17/20 02:00 58 L 13 103/48 97 03/17/20 01:00 64 12 117/51 93 03/17/20 00:16 63 14 97 03/17/20 00:12 97.2 F 69 14 111/52 96 03/16/20 23:00 71 19 131/55 98 03/16/20 22:45 65 18 03/16/20 22:00 65 17 128/51 98 03/16/20 21:02 77 21 115/54 92 03/16/20 20:01 98.3 F 75 15 121/48 94 03/16/20 19:00 16 135/64 03/16/20 18:40 61 16 96 03/16/20 18:33 62 18 03/16/20 18:00 14 124/52 03/16/20 16:00 98.6 F 14 131/64 97 03/16/20 15:56 14 132/63 97 03/16/20 15:42 59 L 20 03/16/20 15:18 15 117/58 95 03/16/20 14:56 16 125/60 97 03/16/20 14:00 20 97 03/16/20 12:02 98.4 F 17 104/55 99 03/16/20 11:08 84 03/16/20 10:01 16 108/58 98 Intake and Output 03/16/20 03/17/20 03/17/20 21:59 05:59 13:59 Intake Total 120 Balance 120 Intake: Oral 120 Other: Meal coffee w/ cream & splenda Percent of Meal Consumed 50% Feeding Ability Independent Urine Appearance Hematuria Urine Color Dark Michelle Tea Colored Brown Red Brown Urine Odor Strong Weight 146 lb 4.8 oz Intake & Output: Intake & Output 03/16/20 03/17/20 03/17/20 21:59 05:59 13:59 Intake Total 120 Balance 120 Weight 146 lb 4.8 oz Intake: Oral 120 Other: Meal coffee w/ cream & splenda Percent of Meal Consumed 50% Feeding Ability Independent Urine Appearance Hematuria Urine Color Dark Michelle Tea Colored Brown Red Brown Urine Odor Strong - General Appearance General appearance: cachectic EENT: ATNC Neck: no JVD Respiratory: no kyphosis Cardiology: no murmurs Gastrointestinal: normoactive bowel sounds Integumentary: no rash Musculoskeletal: no deformities - Lab 03/17/20 04:16 03/17/20 04:16 Most recent lab results Calcium 9.5 mg/dl (8.6-10.4) 03/17/20 04:16 Phosphorus 4.1 mg/dL (2.7-4.5) 03/16/20 04:44 Magnesium 1.7 mg/dL (1.6-2.5) 03/16/20 04:44 Assessment and Plan (1) ESRD (end stage renal disease) on dialysis Status: Chronic Comment: ESRD. Is due for dialysis today. His volume and electrolytes look ok. HD ordered. 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 Needs transfusion again. Back pain.
[2020-03-17] MEDS: FLUTICASONE/SALMETEROL 250/50 INHALER #14 INH SCH (09:12)
[2020-03-17] MEDS: INSULIN LISPRO 1 UNIT/0.01 ML UNIT SQ SCH (09:12)
[2020-03-17] MEDS: INSULIN GLARGINE, HUMAN 1 UNIT/0.01 ML SQ SCH (09:13)
[2020-03-17] MEDS: IPRATROPIUM/ALBUTEROL SULFATE 1 PUFF INHALER INH SCH (09:13)
[2020-03-17] MEDS: HEPARIN 5,000 UNIT/ML VIAL SQ SCH (09:13)
--- NOTE | 2020-03-17 09:35 | Consultation ---
DATE OF CONSULTATION: 03/16/2020 REFERRING PHYSICIAN: Dottie Espana M.D. REASON FOR HOSPITALIZATION: The patient is an 79-year-old gentleman with past medical history significant for end-stage renal disease on hemodialysis. He dialyzes Mondays, Wednesdays, and Fridays. He also has history of chronic congestive heart failure, COPD, anemia, hypothyroidism. He has chronic back pain for which he has been seeing [facility]. He also has profound anemia that needs multiple transfusions. The patient presented to the emergency room because he was having significant back pain with radiation to the abdomen. He also was feeling short of breath. He was weak. In the emergency room, CBC showed hemoglobin of 6.5. For these reasons, the patient was hospitalized. PAST MEDICAL HISTORY: 1. End-stage renal disease on hemodialysis; dialysis on Mondays, Wednesdays, Fridays. 2. 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 He receives multiple blood transfusions. 3. Hypothyroidism. 4. Chronic pain. 5. COPD. 6. Chronic congestive heart failure. FAMILY HISTORY: Reviewed and not pertinent. SOCIAL HISTORY: He lives with his . No history of smoking or alcohol use. REVIEW OF SYSTEMS: Ten systems were reviewed and as indicated in the history. CURRENT MEDICATIONS: 1. Vitamin D2 50,000 units twice weekly. 2. Fish oil 1000 mg 3 times daily. 3. Nitroglycerin 0.4 mg once daily as needed. 4. Renvela 800 mg p.o. t.i.d. with meals. 5. Vitamin E1 capsule once daily. 6. Ipratropium as needed. 7. Levothyroxine 100 mcg once daily. 8. Omeprazole 20 mg once daily. 9. Losartan 50 mg daily. 10. Trazodone 50 mg at night. 11. Gabapentin 200 mg at night. 12. Lasix 40 mg twice daily. 13. Hydrocodone as needed. 14. Metoprolol 25 mg twice daily. 15. Aspirin 81 mg once daily. 16. Nephro-Elisha 1 tablet once daily. 17. Insulin as needed. 18. Megace 400 mg twice daily. 19. Crestor 5 mg at night. ALLERGIES: PENICILLIN, which causes hives. PHYSICAL EXAMINATION: GENERAL: The patient is alert, oriented x3, in no apparent distress. VITAL SIGNS: Blood pressure 132/69, pulse rate 60, temperature 99.5, pulse oximetry 96%. HEENT: Normocephalic/atraumatic. Pupils are reactive to light. External ear canal appears normal. NECK: Supple. No jugular venous distention. No lymphadenopathy. No thyromegaly. LUNGS: Decreased air entry bilaterally. No rales or rhonchi heard. CARDIAC: S1 and S2 heard. No S3, S4. No murmurs. No rubs. ABDOMEN: Soft, nontender. No organomegaly. Positive bowel sounds. No mass, no rebound. EXTREMITIES: Did not show any evidence of edema. LABORATORY DATA: White count 2.0 with hemoglobin of 6.5 and a platelet count of 95. Sodium 135, potassium 4.6, chloride of 92, CO2 of 30, BUN of 47, creatinine of 3.7, sugar 110. ASSESSMENT AND PLAN: 1. End-stage renal disease on hemodialysis. He had his dialysis treatment yesterday. We will order for dialysis tomorrow. 2. Back pain. He is scheduled to have a CT and an MRI. 3. History of squamous cell carcinoma, status post cryoablation. 4. 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 5. Diabetes. He had received 2 units of packed RBC yesterday and we will continue to watch his hemoglobin. Thank you, Dr. Espana, for referring this patient for consultation. I will follow with detailed record. RUFINA:beatris Job ID: [id number] Doc ID: [id number] Moris Mathur MD
--- NOTE | 2020-03-17 11:04 | Internal Med Progress Note ---
Medical - PN: Subj Patient information: Note initiated : 03/17/20 at 10:59 am Service Date, if different from initiated Date: [] Patient: Giorgio Aguiar a 79 y/o M admitted on 03/15/20 for Shortness of breath. Chief Complaint: [] Mr. Aguiar is a 79 year old M with a history of COPD, CHF, end-stage renal disease on dialysis, anemia, hypothyroidism, and chronic pain who was brought to the ER due to worsening shortness of breath. Patient states that he has been having shortness of breath associated with cough for years but it has been wo rsening over the past 2 days. Patient also complains of abdominal pain for a couple of weeks. The pain is constant, sharp in nature and 6 out of 10. He also has a nausea but he has not vomited. Denies diarrhea. He also has chronic back pain. Patient denies fever, chills, headache, dizziness, chest pain, or dysuria. Denies recent travel or sick contact. In the ER, chest x-ray -no evidence of pneumonia. CBC showed hemoglobin 6.5 When I saw this patient, other than the symptoms mentioned above, patient was fine. But patient repeatedly asked for hydrocodone. Interval history: 03/16 Pt was fine in the morning. He seems to be more somnolent in the afternoon. No new complains. His troponin trending up and EKG showed ST depression. NENITA Summer and I met and daughters in pt's room, I explained pt's condition to them. They declined the procedure for ACS. 03/17 ERIK, NENITA and I met pt's and daughter. I updated pt's condition to family. His HD is due today. His Hb dropped to 6.7. Based on his condition, he needs to be transfused. Based on his CT and MRI results, his back pain could possibly due to metastatic disease. We discussed the treatment options. Family would like to go for comfort care only and start comfort care only now. - Constitutional Vitals: Vital Signs Temp Pulse Resp BP Pulse Ox 99.5 F H 58 L 24 H 121/46 98 03/17/20 10:22 03/17/20 07:19 03/17/20 09:27 03/17/20 08:01 03/17/20 08:01 Period Temp Pulse Resp BP Sys/Lora Pulse Ox Last 24 Hr 97.2 F-99.5 F 58-84 12-24 103-135/46-67 92-100 Intake and Output 03/16/20 03/17/20 03/17/20 21:59 05:59 13:59 Intake Total 120 Balance 120 Weight 66.361 kg Intake & Output: Intake & Output 03/16/20 03/17/20 03/17/20 21:59 05:59 13:59 Intake Total 120 Balance 120 Weight 66.361 kg Intake: Oral 120 Other: Meal coffee w/ cream & splenda Percent of Meal Consumed 50% Feeding Ability Independent Urine Appearance Hematuria Urine Color Dark Michelle Tea Colored Brown Red Brown Urine Odor Strong - Additional findings Additional findings: General - NAD Eyes - PERRLA, EOM intact ENT no rhinorrhea, no noticeable or palpable swelling, no redness or rash around throat or on face Neck supple, no JVD, no thyromegaly Respiratory: Lungs - diminished BS, no wheezing. Cardiovascular - RRR no m/r/g, GI - Normal bowel sounds, no distended, soft, moderate tenderness over LUQ and RUQ, no rebound pain. Extremeties - pitting edema+ in both legs, no cyanosis or clubbing Hemo/lymphatic/immune no lymphadenopathy Neurological Alert and somnolent at times. CN 2-12 grossly intact. No focal neurological deficits Psychiatry flat affect Medical - PN: Obj Da - Labs CBC & Chem 7: 03/17/20 04:16 03/17/20 04:16 Labs: Abnormal Lab Results 03/17/20 03/17/20 03/16/20 04:16 04:16 18:56 WBC 2.8 L RBC 1.90 L Hgb 6.7 L* Hct 19.9 L* MCV 104.7 H MCH 35.3 H MCHC RDW 20.9 H Plt Count 68 L MPV 11.3 H Gran % Lymph % (Auto) Gran # Lymph # (Auto) 0.55 L [place] # (Auto) 0.08 L Sodium 129 L Chloride 89 L BUN 60 H Creatinine 3.8 H Glucose Calcium Ferritin Total Bilirubin 2.1 H AST 115 H Alkaline Phosphatase 132 H Troponin T 0.33 H* NT-Pro-B Natriuret Pep Albumin 2.6 L Globulin 4.1 H Albumin/Globulin Ratio 0.6 L TSH 03/16/20 03/16/20 03/16/20 07:35 04:44 04:44 WBC RBC Hgb Hct MCV MCH MCHC RDW Plt Count MPV Gran % Lymph % (Auto) Gran # Lymph # (Auto) [place] # (Auto) Sodium Chloride 92 L 93 L BUN 34 H 29 H Creatinine 2.6 H 2.4 H Glucose 137 H 131 H Calcium 8.5 L Ferritin Total Bilirubin 3.4 H 4.0 H AST 147 H Alkaline Phosphatase 128 H 123 H Troponin T 0.24 H* NT-Pro-B Natriuret Pep Albumin 2.8 L 2.7 L Globulin 4.2 H 4.3 H Albumin/Globulin Ratio 0.7 L 0.6 L TSH 03/16/20 03/16/20 03/15/20 04:44 04:44 15:09 WBC 2.6 L RBC 1.93 L Hgb 7.2 L Hct 19.8 L* MCV 102.6 H MCH 37.3 H MCHC 36.4 H RDW 20.8 H Plt Count 74 L MPV 10.5 H Gran % 84.0 H Lymph % (Auto) 10.9 L Gran # Lymph # (Auto) 0.28 L [place] # (Auto) Sodium Chloride 92 L BUN 47 H Creatinine 3.7 H Glucose 110 H Calcium Ferritin Total Bilirubin AST Alkaline Phosphatase 165 H Troponin T NT-Pro-B Natriuret Pep Albumin 3.0 L Globulin 4.2 H Albumin/Globulin Ratio 0.7 L TSH 6.79 H 03/15/20 03/15/20 03/15/20 15:09 12:04 12:04 WBC RBC Hgb Hct MCV MCH MCHC RDW Plt Count MPV Gran % Lymph % (Auto) Gran # Lymph # (Auto) [place] # (Auto) Sodium 131 L Chloride 90 L BUN 45 H Creatinine 3.6 H Glucose 151 H Calcium Ferritin 2949.0 H Total Bilirubin AST Alkaline Phosphatase 167 H Troponin T 0.11 H* NT-Pro-B Natriuret Pep 46123.0 H Albumin 3.0 L Globulin 4.2 H Albumin/Globulin Ratio 0.7 L TSH 03/15/20 12:04 WBC 2.0 L RBC 1.90 L Hgb 6.5 L* Hct 19.7 L* MCV 103.7 H MCH 34.2 H MCHC RDW 19.0 H Plt Count 95 L MPV Gran % 80.5 H Lymph % (Auto) Gran # 1.61 L Lymph # (Auto) 0.34 L [place] # (Auto) 0.04 L Sodium Chloride BUN Creatinine Glucose Calcium Ferritin Total Bilirubin AST Alkaline Phosphatase Troponin T NT-Pro-B Natriuret Pep Albumin Globulin Albumin/Globulin Ratio TSH Meds: Medications Hydrocodone Bitart/Acetaminophen ([place]ail 5/325mg) 0.5 - 1 tab PO Q6HP PRN; Protocol PRN Reason: Pain Last Admin: 03/16/20 09:07 Dose: 1 tab Documented by: Albuterol/Ipratropium (Duoneb) 3 ml NEB Q4HRT [facility] Last Admin: 03/17/20 07:19 Dose: 3 ml Documented by: Albuterol/Ipratropium (Combivent) 2 puff INH QID [facility] Last Admin: 03/17/20 09:13 Dose: Not Given Documented by: Aspirin (Aspirin) 81 mg PO DAILY [facility] Last Admin: 03/17/20 08:53 Dose: 81 mg Documented by: Budesonide (Pulmicort) 0.5 mg NEB Q12 [facility] Last Admin: 03/17/20 07:19 Dose: 0.5 mg Documented by: Dextrose (Dextrose 50%) 0 ml IV UD PRN PRN Reason: Hypoglycemia Diagnostic Test (Pha) (Accu-Chek) 1 each FS ACHS [facility] Last Admin: 03/17/20 08:23 Dose: 1 each Documented by: Docusate Sodium (Colace) 100 mg PO BID [facility] Last Admin: 03/17/20 08:53 Dose: 100 mg Documented by: Ergocalciferol (Drisdol) 50,000 unit PO SuTh@0900 [facility] Last Admin: 03/16/20 09:07 Dose: 50,000 unit Documented by: Gabapentin (Neurontin) 200 mg PO HS [facility] Last Admin: 03/16/20 21:13 Dose: 200 mg Documented by: Glucose (Insta-Glucose) 15 gm PO PRN PRN PRN Reason: Hypoglycemia Heparin Sodium (Porcine) (Heparin) 5,000 unit SQ Q12 [facility] Last Admin: 03/17/20 09:13 Dose: Not Given Documented by: Insulin Glargine (Lantus) 10 unit SQ DAILY [facility] Last Admin: 03/17/20 09:13 Dose: Not Given Documented by: Insulin Human Lispro (Humalog) 0 unit SQ ACHS [facility]; Protocol Last Admin: 03/17/20 09:12 Dose: Not Given Documented by: Lactulose (Cephulac) 10 gm PO DAILYP PRN PRN Reason: Constipation Lactulose (Cephulac) 10 gm PO DAILYP PRN PRN Reason: Constipation Levothyroxine Sodium (Synthroid) 100 mcg PO QAMAC [facility] Last Admin: 03/17/20 08:53 Dose: 100 mcg Documented by: Losartan Potassium (Cozaar) 50 mg PO DAILY [facility] Last Admin: 03/17/20 08:53 Dose: 50 mg Documented by: Magnesium Oxide (Magnesium Oxide) 400 mg PO DAILY [facility] Last Admin: 03/17/20 08:53 Dose: 400 mg Documented by: Megestrol Acetate (Megace) 400 mg PO BID [facility] Last Admin: 03/17/20 08:53 Dose: 400 mg Documented by: Metoprolol Tartrate (Lopressor) 25 mg PO BID [facility] Last Admin: 03/17/20 08:53 Dose: 25 mg Documented by: Morphine Sulfate (Morphine) 1 - 2 mg IV Q4HP PRN; Protocol PRN Reason: Per Pain Protocol Last Admin: 03/16/20 23:54 Dose: 2 mg Documented by: Multivit/Ca Carb/B Cmplx/FA/Prenat (Diatx) 1 tab PO DAILY [facility] Last Admin: 03/17/20 08:53 Dose: 1 tab Documented by: Omeprazole (Prilosec) 20 mg PO ACB [facility] Last Admin: 03/17/20 08:53 Dose: 20 mg Documented by: Ondansetron HCl (Zofran) 4 mg IV Q6HP PRN; Protocol PRN Reason: Nausea And Vomiting Tiotropium [place] [ Spiriva Respimat] Inhaler 1 dose INH DAILY [facility] Last Admin: 03/17/20 09:14 Dose: Not Given Documented by: Fluticasone/Salmeterol (Advair 250-50 Diskus) 1 puff INH BID [facility] Last Admin: 03/17/20 09:12 Dose: Not Given Documented by: Senna (Senokot) 2 tab PO HSP PRN PRN Reason: Constipation Sevelamer Carbonate (Renvela) 800 mg PO TIDCC [facility] Last Admin: 03/17/20 08:53 Dose: 800 mg Documented by: Simvastatin (Zocor) 20 mg PO HS [facility] Last Admin: 03/16/20 21:15 Dose: 20 mg Documented by: Sodium Chloride (Saline Flush) 10 ml IV Q8 [facility] Last Admin: 03/17/20 04:06 Dose: 10 ml Documented by: Trazodone HCl (Desyrel) 25 mg PO HS [facility] Last Admin: 03/16/20 21:14 Dose: 25 mg Documented by: Medical - PN: A/P - Time Spent With Patient Total time spent is greater than 50% in coordination of care (as documented) at patient's floor/unit and/or counseling patient: - Narrative A/P Narrative: Assessment: 1. Acute on chronic hypoxic respiratory failure 2. SOB 3. COPD (not on home oxygen) 4. Systolic CHF exacerbation - EF on 10/10/2019- 45-50%, left ventricular systolic function is low normal, moderate to moderate sever e MR 5. ESRD on HD 6. Hx of PABLO SCC s/p cryoablation 7. Anemia of chronic disease, CKD 8. DM with neuropathy 9. Chronic pain, back pain 10. Hypothyroidism 11. Severe pulmonary hypertension (> 70), echo on 10/10/2019 - 12. Elevation of ferritin - 2949 13. Abdominal pain 14. ACS - elevation of troponin and ST depression 15. CAD, stented X 4 Plan: ERIK, RN and I met pt's and daughter. They would like to start comfort care only now. Comfort care only started Medical - PN: Qual - VTE Deep Vein Thrombosis/Pulmonary Embolism Present on Admission: No
[2020-03-17] MEDS ORDERED: LORazepam 2 MG/ML VIAL IV PRN ×2 (11:18→16:10)
[2020-03-17] MEDS ORDERED: SCOPOLAMINE 1 PATCH PATCH TOPICAL SCH (11:30)
[2020-03-17] MEDS ORDERED: ONDANSETRON 4 MG/2 ML VIAL IV PRN (16:10)
[2020-03-18] MEDS: 0.9 % SODIUM CHLORIDE 10 ML SYRINGE IV SCH ×4 (04:41→22:00)
--- NOTE | 2020-03-18 13:06 | Internal Med Progress Note ---
Medical - PN: Subj Patient information: Note initiated : 03/18/20 at 1:03 pm Service Date, if different from initiated Date: [] Patient: Giorgio Aguiar a 79 y/o M admitted on 03/15/20 for Shortness of breath. Chief Complaint: [] Interval history: Mr. Aguiar is a 79 year old M with a history of COPD, CHF, end-stage renal disease on dialysis, anemia, hypothyroidism, and chronic pain who was brought to the ER due to worsening shortness of breath. Patient states that he has been having shortness of breath associated with cough for years but it has been worsening over the past 2 days. Patient also complains of abdominal pain for a couple of weeks. The pain is constant, sharp in nature and 6 out of 10. He also has a nausea but he has not vomited. Denies diarrhea. He also has chronic back pain. Patient denies fever, chills, headache, dizziness, chest pain, or dysuria. Denies recent travel or sick contact. In the ER, chest x-ray -no evidence of pneumonia. CBC showed hemoglobin 6.5 When I saw this patient, other than the symptoms mentioned above, patient was fine. But patient repeatedly asked for hydrocodone. Interval history: 03/16 Pt was fine in the morning. He seems to be more somnolent in the afternoon. No new complains. His troponin trending up and EKG showed ST depression. NENITA Summer and I met and daughters in pt's room, I explained pt's condition to them. They declined the procedure for ACS. 03/17 ERIK, NENITA and I met pt's and daughter. I updated pt's condition to family. His HD is due today. His Hb dropped to 6.7. Based on his condition, he needs to be transfused. Based on his CT and MRI results, his back pain could possibly due to metastatic disease. We discussed the treatment options. Family would like to go for comfort care only and start comfort care only now. 03/18 Pt is sleeping. He seems to be comfortable. Continue comfort care ROS: Unable to obtain due to non-verbal now. - Constitutional Vitals: Vital Signs Temp Pulse Resp BP Pulse Ox 98.2 F 102 H 16 76/42 85 L 03/18/20 07:28 03/17/20 19:28 03/18/20 07:28 03/18/20 07:28 03/18/20 07:28 Period Temp Pulse Resp BP Sys/Lora Pulse Ox Last 24 Hr 98.2 F-98.2 F 102 16-16 76-96/42-53 85-100 Intake and Output 03/17/20 03/18/20 03/18/20 21:59 05:59 13:59 Intake Total 820 240 280 Balance 820 240 280 Weight 66.905 kg Intake & Output: Intake & Output 03/17/20 03/18/20 03/18/20 21:59 05:59 13:59 Intake Total 820 240 280 Balance 820 240 280 Weight 66.905 kg Intake: Nourishment/Supplement quantity 240 220 (ml) Oral 580 240 60 Other: Meal Dinner Breakfast Percent of Meal Consumed 50% 50% Feeding Ability Needs Supervision Nourishment/Supplement name Nepro Ensure - Additional findings Additional findings: General - sleeping Eyes - PERRLA, EOM intact ENT no rhinorrhea, no noticeable or palpable swelling, no redness or rash around throat or on face Neck no JVD, no thyromegaly Respiratory: Lungs - diminished BS, no wheezing. Cardiovascular - RRR no m/r/g, GI - Normal bowel sounds, no distended, soft. Extremeties - pitting edema+ in both legs, no cyanosis or clubbing Hemo/lymphatic/immune no lymphadenopathy Neurological sleeping. Psychiatry flat affect Medical - PN: Obj Da - Labs CBC & Chem 7: 03/17/20 04:16 03/17/20 04:16 Labs: Abnormal Lab Results 03/17/20 03/17/20 03/16/20 04:16 04:16 18:56 WBC 2.8 L RBC 1.90 L Hgb 6.7 L* Hct 19.9 L* MCV 104.7 H MCH 35.3 H MCHC RDW 20.9 H Plt Count 68 L MPV 11.3 H Gran % Lymph % (Auto) Lymph # (Auto) 0.55 L [place] # (Auto) 0.08 L Sodium 129 L Chloride 89 L BUN 60 H Creatinine 3.8 H Glucose Calcium Ferritin Total Bilirubin 2.1 H AST 115 H Alkaline Phosphatase 132 H Troponin T 0.33 H* NT-Pro-B Natriuret Pep Albumin 2.6 L Globulin 4.1 H Albumin/Globulin Ratio 0.6 L TSH 03/16/20 03/16/20 03/16/20 07:35 04:44 04:44 WBC RBC Hgb Hct MCV MCH MCHC RDW Plt Count MPV Gran % Lymph % (Auto) Lymph # (Auto) [place] # (Auto) Sodium Chloride 92 L 93 L BUN 34 H 29 H Creatinine 2.6 H 2.4 H Glucose 137 H 131 H Calcium 8.5 L Ferritin Total Bilirubin 3.4 H 4.0 H AST 147 H Alkaline Phosphatase 128 H 123 H Troponin T 0.24 H* NT-Pro-B Natriuret Pep Albumin 2.8 L 2.7 L Globulin 4.2 H 4.3 H Albumin/Globulin Ratio 0.7 L 0.6 L TSH 03/16/20 03/16/20 03/15/20 04:44 04:44 15:09 WBC 2.6 L RBC 1.93 L Hgb 7.2 L Hct 19.8 L* MCV 102.6 H MCH 37.3 H MCHC 36.4 H RDW 20.8 H Plt Count 74 L MPV 10.5 H Gran % 84.0 H Lymph % (Auto) 10.9 L Lymph # (Auto) 0.28 L [place] # (Auto) Sodium Chloride 92 L BUN 47 H Creatinine 3.7 H Glucose 110 H Calcium Ferritin Total Bilirubin AST Alkaline Phosphatase 165 H Troponin T NT-Pro-B Natriuret Pep Albumin 3.0 L Globulin 4.2 H Albumin/Globulin Ratio 0.7 L TSH 6.79 H 03/15/20 03/15/20 03/15/20 15:09 12:04 12:04 WBC RBC Hgb Hct MCV MCH MCHC RDW Plt Count MPV Gran % Lymph % (Auto) Lymph # (Auto) [place] # (Auto) Sodium Chloride BUN Creatinine Glucose Calcium Ferritin 2949.0 H Total Bilirubin AST Alkaline Phosphatase Troponin T 0.11 H* NT-Pro-B Natriuret Pep 87193.0 H Albumin Globulin Albumin/Globulin Ratio TSH Meds: Medications Lorazepam (Ativan) 0.5 mg IV Q2-4HP PRN PRN Reason: ANXIETY/SEDATION Morphine Sulfate (Morphine) 2 mg IV Q2HP PRN; Protocol PRN Reason: Per Pain Protocol Last Admin: 03/18/20 13:00 Dose: 2 mg Documented by: Ondansetron HCl (Zofran) 4 mg IV Q6HP PRN; Protocol PRN Reason: Nausea And Vomiting Scopolamine (Transderm-Scop) 1 patch TOPICAL Q72H [facility] Sodium Chloride (Saline Flush) 10 ml IV Q8 [facility] Last Admin: 03/18/20 04:41 Dose: 10 ml Documented by: Medical - PN: A/P - Time Spent With Patient Total time spent is greater than 50% in coordination of care (as documented) at patient's floor/unit and/or counseling patient: - Narrative A/P Narrative: Assessment: 1. Acute on chronic hypoxic respiratory failure 2. SOB 3. COPD (not on home oxygen) 4. Systolic CHF exacerbation - EF on 10/10/2019- 45-50%, left ventricular systolic function is low normal, moderate to moderate sever e MR 5. ESRD on HD 6. Hx of PABLO SCC s/p cryoablation 7. Anemia of chronic disease, CKD 8. DM with neuropathy 9. Chronic pain, back pain 10. Hypothyroidism 11. Severe pulmonary hypertension (> 70), echo on 10/10/2019 - 12. Elevation of ferritin - 2949 13. Abdominal pain 14. ACS - elevation of troponin and ST depression 15. CAD, stented X 4 Plan: Continue comfort care only Medical - PN: Qual - VTE Deep Vein Thrombosis/Pulmonary Embolism Present on Admission: No
[2020-03-19] MEDS: 0.9 % SODIUM CHLORIDE 10 ML SYRINGE IV SCH ×3 (05:45→23:59)
--- NOTE | 2020-03-19 13:55 | Nephrology Progress Note ---
Subjective Patient information: Note initiated : 03/19/20 at 1:54 pm Service Date, if different from initiated Date: [] Patient: Giorgio Aguiar 79 y/o M admitted on 03/15/20 for Shortness of breath. Chief Complaint: [] Sleepy but comfortable. Objective - Vital Signs Vital signs: Vital Signs Temp Pulse Resp BP Pulse Ox 03/19/20 08:00 84 03/19/20 06:24 97.7 F 14 95/52 100 03/19/20 00:10 88 L 03/18/20 18:36 85 74 L 03/18/20 18:28 98.4 F 18 110/45 74 L Intake and Output 03/18/20 03/19/20 03/19/20 21:59 05:59 13:59 Intake Total 120 0 240 Balance 120 0 240 Intake: Oral 120 0 240 Other: Meal Dinner Breakfast Percent of Meal Consumed Refused 75% Intake & Output: Intake & Output 03/18/20 03/19/20 03/19/20 21:59 05:59 13:59 Intake Total 120 0 240 Balance 120 0 240 Intake: Oral 120 0 240 Other: Meal Dinner Breakfast Percent of Meal Consumed Refused 75% - General Appearance General appearance: cachectic EENT: ATNC Neck: no JVD Cardiology: no murmurs Gastrointestinal: normoactive bowel sounds Integumentary: no rash - Lab 03/17/20 04:16 03/17/20 04:16 Most recent lab results Calcium 9.5 mg/dl (8.6-10.4) 03/17/20 04:16 Phosphorus 4.1 mg/dL (2.7-4.5) 03/16/20 04:44 Magnesium 1.7 mg/dL (1.6-2.5) 03/16/20 04:44 Assessment and Plan (1) ESRD (end stage renal disease) on dialysis Status: Chronic Comment: ESRD. Patient on comfort care and doing ok.
--- NOTE | 2020-03-19 21:21 | Internal Med Progress Note ---
Medical - PN: Subj Patient information: Note initiated : 03/19/20 at 9:18 pm Service Date, if different from initiated Date: [] Patient: Giorgio Aguiar a 79 y/o M admitted on 03/15/20 for Shortness of breath. Chief Complaint: [] Interval history: Mr. Aguiar is a 79 year old M with a history of COPD, CHF, end-stage renal disease on dialysis, anemia, hypothyroidism, and chronic pain who was brought to the ER due to worsening shortness of breath. Patient states that he has been having shortness of breath associated with cough for years but it has been worsening over the past 2 days. Patient also complains of abdominal pain for a couple of weeks. The pain is constant, sharp in nature and 6 out of 10. He also has a nausea but he has not vomited. Denies diarrhea. He also has chronic back pain. Patient denies fever, chills, headache, dizziness, chest pain, or dysuria. Denies recent travel or sick contact. In the ER, chest x-ray -no evidence of pneumonia. CBC showed hemoglobin 6.5 When I saw this patient, other than the symptoms mentioned above, patient was fine. But patient repeatedly asked for hydrocodone. 03/16 Pt was fine in the morning. He seems to be more somnolent in the afternoon. No new complains. His troponin trending up and EKG showed ST depression. NENITA Summer and I met and daughters in pt's room, I explained pt's condition to them. They declined the procedure for ACS. 03/17 ERIK, NENITA and I met pt's and daughter. I updated pt's condition to family. His HD is due today. His Hb dropped to 6.7. Based on his condition, he needs to be transfused. Based on his CT and MRI results, his back pain could possibly due to metastatic disease. We discussed the treatment options. Family would like to go for comfort care only and start comfort care only now. 03/18 Pt is sleeping. He seems to be comfortable. Continue comfort care 03/19 When I saw pt this morning, he was sitting in bed and eating his breakfast. He looked comfortable. He is on comfort care. ROS: Unable to obtain due to non-verbal now. - Constitutional Vitals: Vital Signs Temp Pulse Resp BP Pulse Ox 97.8 F 72 16 105/53 98 04/26/20 18:37 03/19/20 18:37 03/19/20 18:37 03/19/20 18:37 03/19/20 18:37 Period Temp Pulse Resp BP Sys/Lora Pulse Ox Last 24 Hr 97.7 F-97.8 F 72-84 14-16 95-105/52-53 88-100 Intake and Output 03/19/20 03/19/20 03/19/20 05:59 13:59 21:59 Intake Total 0 240 Balance 0 240 Weight 67.268 kg Patient Weight 03/20/20 05:59 Weight 67.268 kg Intake & Output: Intake & Output 03/19/20 03/19/20 03/19/20 05:59 13:59 21:59 Intake Total 0 240 Balance 0 240 Weight 67.268 kg Intake: Oral 0 240 Other: Meal Breakfast Lunch Percent of Meal Consumed 75% 50% Feeding Ability Independent - Additional findings Additional findings: General - No acute distress Eyes - PERRLA, EOM intact ENT no rhinorrhea, no noticeable or palpable swelling, face pallor. Neck no JVD, no thyromegaly Respiratory: Lungs - diminished BS, no wheezing. Cardiovascular - RRR no m/r/g, GI - Normal bowel sounds, no distended, soft. Extremeties - pitting edema+ in both legs, no cyanosis or clubbing Hemo/lymphatic/immune no lymphadenopathy Neurological sleeping. Psychiatry flat affect Medical - PN: Obj Da - Labs CBC & Chem 7: 03/17/20 04:16 03/17/20 04:16 Labs: Abnormal Lab Results 03/17/20 03/17/20 04:16 04:16 WBC 2.8 L RBC 1.90 L Hgb 6.7 L* Hct 19.9 L* MCV 104.7 H MCH 35.3 H RDW 20.9 H Plt Count 68 L MPV 11.3 H Lymph # (Auto) 0.55 L [place] # (Auto) 0.08 L Sodium 129 L Chloride 89 L BUN 60 H Creatinine 3.8 H Total Bilirubin 2.1 H AST 115 H Alkaline Phosphatase 132 H Albumin 2.6 L Globulin 4.1 H Albumin/Globulin Ratio 0.6 L Meds: Medications Lorazepam (Ativan) 0.5 mg IV Q2-4HP PRN PRN Reason: ANXIETY/SEDATION Lorazepam (Ativan) 0.5 mg SL Q2-4HP PRN PRN Reason: ANXIETY/SEDATION Morphine Sulfate (Morphine) 2 mg IV Q2HP PRN; Protocol PRN Reason: Per Pain Protocol Last Admin: 03/18/20 19:40 Dose: 2 mg Documented by: Morphine Sulfate (Morphine) 2 mg SL Q2HP PRN; Protocol PRN Reason: Per Pain Protocol Ondansetron HCl (Zofran) 4 mg IV Q6HP PRN; Protocol PRN Reason: Nausea And Vomiting Ondansetron HCl (Zofran Odt) 4 mg SL Q6HP PRN PRN Reason: Nausea And Vomiting Scopolamine (Transderm-Scop) 1 patch TOPICAL Q72H [facility] Sodium Chloride (Saline Flush) 10 ml IV Q8 [facility] Last Admin: 03/19/20 17:31 Dose: Not Given Documented by: Medical - PN: A/P - Time Spent With Patient Total time spent is greater than 50% in coordination of care (as documented) at patient's floor/unit and/or counseling patient: - Narrative A/P Narrative: Assessment: 1. Acute on chronic hypoxic respiratory failure 2. SOB 3. COPD (not on home oxygen) 4. Systolic CHF exacerbation - EF on 10/10/2019- 45-50%, left ventricular systolic function is low normal, moderate to moderate sever e MR 5. ESRD on HD 6. Hx of PABLO SCC s/p cryoablation 7. Anemia of chronic disease, CKD 8. DM with neuropathy 9. Chronic pain, back pain 10. Hypothyroidism 11. Severe pulmonary hypertension (> 70), echo on 10/10/2019 - 12. Elevation of ferritin - 2949 13. Abdominal pain 14. ACS - elevation of troponin and ST depression 15. CAD, stented X 4 Plan: Continue continue comfort care only Medical - PN: Qual - VTE Deep Vein Thrombosis/Pulmonary Embolism Present on Admission: No
[2020-03-19] MEDS: morphine 20 MG/ML ORAL.CONC SL PRN (23:48)
[2020-03-20] MEDS: LORazepam 1 MG TABLET SL PRN ×2 (01:16→10:38)
[2020-03-20] MEDS: ONDANSETRON 4 MG ODT TABLET SL PRN ×2 (03:46→10:27)
[2020-03-20] MEDS: 0.9 % SODIUM CHLORIDE 10 ML SYRINGE IV SCH (04:27)
--- NOTE | 2020-03-20 09:33 | Discharge Summary ---
Medical - DS: Prov Patient information: Note initiated : 03/20/20 at 9:30 am Service Date, if different from initiated Date: [] Patient: Giorgio Aguiar 79 y/o M admitted on 03/15/20 for Shortness of breath. Chief Complaint: [] Date of admission: 03/15/20 15:38 Discharge date: 03/20/20 Primary care physician: Savanah Treadwell Consults: 03/15/20 14:04 Consult to Physician [CONS] Stat Comment: Consulting Provider: Moris Mathur Reason For Exam: Physician to Consult 03/16/20 07:19 Consult to Physician [CONS] Routine Comment: Consulting Provider: Dottie Espana Reason For Exam: Physician to Consult Medical - DS: Meds - Discharge Medications Prescriptions: LORazepam [Lorazepam Intensol] 2 mg PO Q4H PRN #30 ml PRN Reason: Anxiety Prescription Printed morphine 10 mg PO Q2HP PRN #20 oral.conc PRN Reason: Anxiety Prescription Printed Scopolamine [Transderm-Scop] 1 patch TOPICAL Q72H #7 patch Prescription Printed Ondansetron [Zofran ODT] 4 mg SL Q4-6HP PRN #10 tab PRN Reason: Nausea Prescription Printed Active and Home Medications: Home Medications Nitroglycerin [Nitrostat] 0.4 mg SL Q5M PRN 08/12/15 [History Confirmed 03/15/20 Last Taken 05/07/19] Ipratropium/Albuterol Sulfate [Combivent] 2 puff INH QID #1 inhaler 03/04/16 [Rx Confirmed 03/15/20 Last Taken Unknown] Albuterol Sulfate [Albuterol Sulfate Hfa] 1 - 2 puff INH Q4-6HP PRN 03/15/20 [History Confirmed 03/15/20 Last Taken Unknown] Fluticasone Propion/Salmeterol [Fluticasone-Salmeterol 250-50] 1 each IH BID 03/15/20 [History Confirmed 03/15/20 Last Taken Unknown] Tiotropium [place] [Spiriva Respimat] 2 puff INH DAILY 03/15/20 [History Confirmed 03/15/20 Last Taken Unknown] LORazepam [Lorazepam Intensol] 2 mg PO Q4H PRN #30 ml 03/20/20 [Rx Last Taken Unknown] Ondansetron [Zofran ODT] 4 mg SL Q4-6HP PRN #10 tab 03/20/20 [Rx Last Taken Unknown] Scopolamine [Transderm-Scop] 1 patch TOPICAL Q72H #7 patch 03/20/20 [Rx Last Taken Unknown] morphine 10 mg PO Q2HP PRN #20 oral.conc 03/20/20 [Rx Last Taken Unknown] Medical - DS: Hosp Hospital Course: Discharge diagnosis -Acute on chronic hypoxic respiratory failure -COPD (not on home oxygen) -Systolic CHF exacerbation - EF on 10/10/2019- 45-50%, left ventricular systolic function is low normal, moderate to moderate sever e MR -ESRD on HD -Hx of PABLO SCC s/p cryoablation -Severe pulmonary hypertension (> 70), echo on 10/10/2019 - -CAD, stented X 4 Brief hospital course Mr. Law is a 75 year old M with a history of kidney disease who was brought to the ER due to fall, fever and delirium. Patient is a poor historian and almost all history is obtained from ER physician and chart. His son did provide some information to ER physician late this afternoon. Patient fell at home and stayed on the floor for 5 to 6 hours because he was so weak. This morning patient was found to have mild fever, delirium and generalized weakness. He also has been having cough for a couple of days. ER nurse stated that on patient arrival he did seem confused but this improved with hydration and Tylenol. In the ER, he had one episode of desaturation, 89%. CT chest - Possible subtle areas of groundglass opacity are present. Covid 19 was sent When I saw patient in the ER, other than the symptoms mentioned above, he could not tell me more history. Denies chest pain, headache, dizziness, abdominal pain, or dysuria. 03/17 Pt does not have complaints. Denies headache, fever/chills, n/v, chest pain or abd pain. BP is better controlled He was found to have unequal pupils. No significant neurological deficits. CT of head was ordered but he refused it. CT of head yesterday - no acute change. Blood culture, LA, procalcitonin azithromycin and ceftriaxone were started this morning. I will stop ceftriaxone and start zosyn Mag and phos were given, will repeat them in am 03/18 Pt does not have complaints. Denies headache, fever/chills, n/v, chest pain or abd pain. Pupils are fine. No significant neurological deficits. CT of head today - no acute changes. CT chest - negative Blood culture - no growth so far LA - 1.7 procalcitonin - 8.73 WBC 11.2 I would like to discontinue azithromycin and continue zosyn for today. I could discontinue zosyn tomorrow. closely monitor 03/19 When I saw pt this morning, he was sitting in bed and eating his breakfast. He looked comfortable. He is on comfort care. 03/20-patient discharging with home hospice for end-of-life care. Discharge instructions as below. Discharge diagnosis: . - Time Spent with Patient Total time spent providing and/or coordinating discharge services: Greater than 30 minutes Medical - DS: Exam - Constitutional Vitals: Vital Signs Temp Pulse Resp BP Pulse Ox 03/20/20 07:42 98.6 F 69 16 98/59 91 03/19/20 18:37 97.8 F 72 16 105/53 98 Intake and Output 03/19/20 03/20/20 03/20/20 21:59 05:59 13:59 Intake Total 200 Balance 200 Intake: Oral 200 Other: Meal Lunch Percent of Meal Consumed 50% Feeding Ability Independent Weight 148 lb 4.8 oz Medical - DS: A/P - Patient/Caregiver Discharge Instructions Activity: increase activity as tolerated Diet: Regular Diet (Diet for comfort) Additional Instructions: All activities diet and medications for comfort Transfer via ambulance Continue home hospice for end-of-life care Prescriptions: LORazepam [Lorazepam Intensol] 2 mg PO Q4H PRN #30 ml PRN Reason: Anxiety Prescription Printed morphine 10 mg PO Q2HP PRN #20 oral.conc PRN Reason: Anxiety Prescription Printed Scopolamine [Transderm-Scop] 1 patch TOPICAL Q72H #7 patch Prescription Printed Ondansetron [Zofran ODT] 4 mg SL Q4-6HP PRN #10 tab PRN Reason: Nausea Prescription Printed - Follow up Plan Follow up with: Savanah Treadwell MD [Primary Care Provider] - Disposition: Hospice - Home Prognosis: Serious Rehab Potential: Undetermined Overall status at discharge: patient is not back to baseline Medical - DS: Qual - VTE Deep Vein Thrombosis/Pulmonary Embolism Present on Admission: No
[2020-03-20] MEDS ORDERED: SCOPOLAMINE 1 PATCH PATCH TOPICAL SCH (10:00)
[2020-03-20] MEDS: morphine 20 MG/ML ORAL.CONC SL PRN (10:11)
--- NOTE | 2020-03-20 16:16 | Nephrology Progress Note ---
Subjective Patient information: Note initiated : 03/18/20 at 4:15 pm Service Date, if different from initiated Date: [] Patient: Giorgio Aguiar 79 y/o M admitted on 03/15/20 for Shortness of breath. Chief Complaint: [] Comfortable Objective - Vital Signs Vital signs: Vital Signs Temp Pulse Resp BP Pulse Ox 03/20/20 07:42 98.6 F 69 16 98/59 91 03/19/20 18:37 97.8 F 72 16 105/53 98 Intake and Output 03/20/20 03/20/20 03/20/20 05:59 13:59 21:59 Intake Total 200 320 Balance 200 320 Intake: Oral 200 320 Other: Meal Breakfast Percent of Meal Consumed 25% Feeding Ability Assist with Tray Set Up Intake & Output: Intake & Output 03/20/20 03/20/20 03/20/20 05:59 13:59 21:59 Intake Total 200 320 Balance 200 320 Intake: Oral 200 320 Other: Meal Breakfast Percent of Meal Consumed 25% Feeding Ability Assist with Tray Set Up - General Appearance General appearance: well-nourished, cachectic EENT: ATNC, PERRL Neck: no JVD Respiratory: no kyphosis Cardiology: no murmurs Gastrointestinal: normoactive bowel sounds Musculoskeletal: no deformities - Lab 03/17/20 04:16 03/17/20 04:16 Most recent lab results Calcium 9.5 mg/dl (8.6-10.4) 03/17/20 04:16 Phosphorus 4.1 mg/dL (2.7-4.5) 03/16/20 04:44 Magnesium 1.7 mg/dL (1.6-2.5) 03/16/20 04:44 Assessment and Plan (1) ESRD (end stage renal disease) on dialysis Status: Chronic Comment: ESRD. Patient on comfort care and doing ok.
== END 2020-03-20 11:30 | disposition hospice, home (50) | DRG 189 ==
LOC: ED 11:47 → ICU 15:38 → MEDSUR 03-17 18:39
PROVIDERS: ADMIT Internal Medicine; ATTEND Internal Medicine